=== PATIENT | male | born 1950 | race Caucasian/White ===

== ENCOUNTER 2019-06-13 16:46 | Inpatient (IN) | payer OTHER ==
--- NOTE | 2019-06-13 16:59 | PDOC ---
Rapid Medical Evaluation Time Seen by Provider: 06/13/19 16:54 Medical Evaluation: I have performed a brief in-person evaluation of this patient. The patient presents with a chief complaint of: hx of DM, ?cardiac problem, C/O lower abd pain and difficulty urinating x 6days; denies fever, vomiting, Pertinent physical exam findings: In NAD, abd nontender, ?distended (patient has large abdomen at baseline) I have ordered the following: Labs, urine The patient will proceed to the ED for further evaluation. 06/13/19 16:54
[2019-06-13 17:44] LABS: BASO % 0.7 % (0-2.0); EOS % 2.3 % (0-4.5); HEMATOCRIT 43.5 % (35.4-49); HEMOGLOBIN 14.5 GM/dL (11.7-16.9); LYMPH % 12.9 % (8-40); MCH 30.7 pg (25.7-33.7); MCHC 33.4 g/dl (32.0-35.9); MEAN PLT VOLUME 9.2 fl (7.5-11.1); MONO % 8.8 % (3.8-10.2); NEUT % 75.3 % (42.8-82.8); PLATELET COUNT 132 K/MM3 (134-434); RBC 4.73 M/mm3 (4.00-5.60); WHITE BLOOD COUNT 13.8 K/mm3 (4.0-10.0)
[2019-06-13 17:52] LABS: EPI CELLS 2.1 /HPF (0-5/HPF); HYALINE CASTS 3 /lpf (0-8); PH,URINE 5.5 (5.0-8.0); URINE APPEARANCE CLEAR; URINE BACTERIA 1.4 /hpf (NEGATIVE); URINE BILIRUBIN NEGATIVE (NEGATIVE); URINE COLOR YELLOW; URINE GLUCOSE (UA) NEGATIVE (NEGATIVE); URINE KETONE NEGATIVE (NEGATIVE); URINE LEUK ESTERASE 2+ (NEGATIVE); URINE NITRITE NEGATIVE (NEGATIVE); URINE PROTEIN NEGATIVE (NEGATIVE); URINE RBC 17 /hpf (0-4); URINE UROBILINOGEN 0.2 mg/dL (0.2-1.0); URINE WBC 18 /hpf (0-5)
[2019-06-13 18:19] LABS: BILIRUBIN,TOTAL 0.8 mg/dL (0.2-1); BLOOD UREA NITROGEN 30.7 mg/dL (7-18); CALCIUM 8.6 mg/dL (8.5-10.1); CREATININE 4.3 mg/dL (0.55-1.3); POTASSIUM 4.4 mmol/L (3.5-5.1); TOT PROT 7.2 g/dl (6.4-8.2)
[2019-06-13] MEDS ORDERED: SODIUM CHLORIDE 0.9% 500 ML INFUS.BAG IV ONE (18:49)
--- NOTE | 2019-06-13 19:04 | PDOC ---
History of Present Illness - General Chief Complaint: Urinary Problem Stated Complaint: LWR ABD PAIN Time Seen by Provider: 06/13/19 16:54 History Source: Patient, Family Exam Limitations: Language Barrier (Icelandic) - History of Present Illness Initial Comments: 06/13/19 18:59 Tj Todd is a 69M with PMH DM and CHF presenting with about one week of urinary retention. Patient reports having difficulty urinating for last 5 days, has had worsening abdominal pain and distension. Every time he tries to urinate very little is released, denies pain or blood with urine. Denies any prior episodes like this, prior renal disease, or prostate issues that he knows of. Denies fever/chills, N /V/C/D. Past History - Past Medical History Allergies/Adverse Reactions: Allergies Allergy/AdvReac Type Severity Reaction Status Date / Time No Known Allergies Allergy Verified 06/13/19 16:59 Cardiac Disorders: Yes COPD: No Diabetes: Yes Hypercholesterolemia: Yes - Surgical History Abdominal Surgery: Yes - Psycho Social/Smoking Cessation Hx Smoking History: Never smoked Review of Systems - Review of Systems Able to Perform ROS?: Yes Constitutional: No: Symptoms Reported HEENTM: No: Symptoms Reported Respiratory: No: Symptoms reported Cardiac (ROS): No: Symptoms Reported ABD/GI: Yes: Abdominal Distended. No: Symptoms Reported, Constipated, Diarrhea , Difficulty Swallowing, Nausea, Rectal Bleeding, Vomiting : Yes: Other (poor urinary output) Musculoskeletal: No: Back Pain Integumentary: No: Symptoms Reported Neurological: No: Symptoms reported Endocrine: No: Symptoms Reported Hematologic/Lymphatic: No: Symptoms Reported All Other Systems: Reviewed and Negative *Physical Exam - Vital Signs Last Vital Signs Temp Pulse Resp BP Pulse Ox 98.6 F 114 H 18 166/100 97 06/13/19 16:52 06/13/19 16:52 06/13/19 16:52 06/13/19 16:52 06/13/19 16:52 - Physical Exam General Appearance: Yes: Nourished, Appropriately Dressed, Other (Patient appears comfortable, in no acute distress, ambulating and speaking normally.). No: Apparent Distress HEENT: positive: EOMI, LEONA, Normal Voice, Symmetrical, Pharynx Normal, Hearing Grossly Normal. negative: Scleral Icterus (R), Scleral Icterus (L) Neck: positive: Supple. negative: Tender, Lymphadenopathy (R), Lymphadenopathy (L) Respiratory/Chest: positive: Lungs Clear, Normal Breath Sounds. negative: Chest Tender, Respiratory Distress, Accessory Muscle Use, Crackles, Rales, Rhonchi, Stridor, Wheezing Cardiovascular: positive: Regular Rhythm, Regular Rate, Murmur Gastrointestinal/Abdominal: positive: Normal Bowel Sounds, Tender (suprapubic), Protuberent, Distended Male Genitalia: positive: other (has Maya in place, >1500cc clear yellow urine with some pink flow) Musculoskeletal: positive: Normal Inspection. negative: CVA Tenderness Extremity: positive: Normal Capillary Refill, Normal Inspection, Normal Range of Motion Integumentary: positive: Normal Color, Dry, Warm Neurologic: positive: Fully Oriented, Alert, Normal Mood/Affect, Normal Response ED Treatment Course - LABORATORY CBC & Chemistry Diagram: 06/13/19 17:35 06/13/19 21:15 - ADDITIONAL ORDERS Additional order review: Laboratory Results 06/13/19 06/13/19 17:35 17:35 Sodium 142 Potassium 4.4 Chloride 108 H Carbon Dioxide 26 Anion Gap 8 BUN 30.7 H Creatinine 4.3 H Est GFR (CKD-EPI)AfAm 15.09 Est GFR (CKD-EPI)NonAf 13.02 Random Glucose 218 H Calcium 8.6 Total Bilirubin 0.8 AST 16 ALT 14 Alkaline Phosphatase 75 Total Protein 7.2 Albumin 4.0 Urine Color Yellow Urine Appearance Clear Urine pH 5.5 Ur Specific [place] 1.010 Urine Protein Negative Urine Glucose (UA) Negative Urine Ketones Negative Urine Blood 2+ H Urine Nitrite Negative Urine Bilirubin Negative Urine Urobilinogen 0.2 Ur Leukocyte Esterase 2+ H Urine WBC (Auto) 18 Urine RBC (Auto) 17 Urine Casts (Auto) 3 U Epithel Cells (Auto) 2.1 Urine Bacteria (Auto) 1.4 06/13/19 17:35 RBC 4.73 MCV 92.0 MCHC 33.4 RDW 14.0 MPV 9.2 Neutrophils % 75.3 Lymphocytes % 12.9 Monocytes % 8.8 Eosinophils % 2.3 Basophils % 0.7 Medical Decision Making - Medical Decision Making 06/13/19 18:59 Tj Todd is a 69M with PMH DM and CHF presenting with about one week of urinary retention. Patient presentation consistent with urinary retention of unspecified origin, most likely due to BPH or other obstructive etiology. Abdomen is distended and tender to palpation, likely making urine without issue, does not seem dehydrated. Triage labs notable for: Cr 4.3 WBC 13.8 UA 2+ blood, 2+ leuk esterase consistent with UTI Maya placed, >1100cc clear yellow urine release with decrease in abdominal swelling and pain from 8/10 to 5/10 Urine now pink-tinged Giving 1L NS for FINA Given Cr elevation and no priors, will re-evaluate in 2 hours with repeat BMP for evaluation of Cr and monitoring for improvement. 06/13/19 22:10 Repeat Cr 4.2, no meaningful improvement after 1L NS. Ca 7.9, will replete. Needs admission for FINA and further evaluation of renal status 2/2 obstructive disease, still outputting pink urine concerning for post-obstructive diuresis and needs electrolyte monitoring, high concern for worsening renal failure if discharged home without close follow-up. 06/13/19 23:[address] Neumann with the hospitalist team, good for tele admission under Dr. Nagel Discharge - Discharge Information Problems reviewed: Yes Clinical Impression/Diagnosis: FINA (acute kidney injury), Urinary obstruction Condition: Stable - Admission Yes - Follow up/Referral Referrals: Karthik Arteaga MD [Primary Care Provider] - - Patient Discharge Instructions - Post Discharge Activity
[2019-06-13 22:01] LABS: BLOOD UREA NITROGEN 33.1 mg/dL (7-18); CALCIUM 7.9 mg/dL (8.5-10.1); CREATININE 4.2 mg/dL (0.55-1.3); POTASSIUM 4.4 mmol/L (3.5-5.1)
[2019-06-13] MEDS ORDERED: CALCIUM GLUCONATE 10% - 1,000 MG/10 ML VIAL IVPB ONE (22:13)
[2019-06-13] MEDS ORDERED: CALCIUM CHLORIDE 1 GM/10 ML *DISP.SYRIN ONE (22:26)
[2019-06-13] MEDS ORDERED: CALCIUM GLUCONATE 10% - 1,000 MG/10 ML VIAL ONE (22:28)
--- NOTE | 2019-06-13 22:42 | PDOC ---
Documentation entered by Juan C Delong SCRIBE, acting as scribe for Cathryn Smith MD. Cathryn Smith MD: This documentation has been prepared by the Baljeet smith Daniel, SCRIBE, under my direction and personally reviewed by me in its entirety. I confirm that the documentation accurately reflects all work, treatment, procedures, and medical decision making performed by me. Attending Attestation - Resident Resident Name: Kunal Oneal - ED Attending Attestation I have performed the following: I have examined & evaluated the patient, The case was reviewed & discussed with the resident, I agree w/resident's findings & plan, Exceptions are as noted - HPI HPI: 06/13/19 19:28 69yoM micronesian speaking only, family translatng, present w/ u retention, no urination x 5 days, + b/l back pain x 4 days. never had this before. PMhx HTN/DM , no known kid dz. - Physicial Exam PE: 06/13/19 19:29 Vital Signs - 24 hr 06/13/19 16:52 Temperature 98.6 F Pulse Rate 114 H Respiratory 18 Rate Blood Pressure 166/100 O2 Sat by Pulse 97 Oximetry (%) NAD, well appearing no cvat soft ntnd, villagomez in place draining pinkish fluid, > 1500mL initial output. no edema A&O x 3 - Medical Decision Making 06/13/19 19:30 69yoM w/ urinary retention x 5d, high volume and flank pain in ED, concern for FINA and potential to develop post-obst diuresis. - labs - ivf - monitor I&O - rend BMP - dispo per results.
--- NOTE | 2019-06-13 23:46 | PN ---
Teaching Attending Note Name of Resident: Nancy Neumann ATTENDING PHYSICIAN STATEMENT I saw and evaluated the patient. I reviewed the resident's note and discussed the case with the resident. I agree with the resident's findings and plan as documented. SUBJECTIVE: 69-year-old man with diabetes, Atrial fibrillation, hypertension, first time in this hospital, complained of urinary retention for the last 5 days. He has back pain present for the last 4 days. Never had this occur before. Denied any fevers or chills. Maya Was placed In the ER and was draining pinkish fluid, > 1500mL initial output. Patient reported that he felt much relief after Maya was placed. Denied any history of issues. OBJECTIVE: Last Vital Signs Temp Pulse Resp BP Pulse Ox 98.6 F 114 H 18 166/100 97 06/13/19 16:52 06/13/19 16:52 06/13/19 16:52 06/13/19 16:52 06/13/19 16:52 GENERAL: Well developed, well nourished. Awake and alert. No acute distress. HEENT: Normocephalic, atraumatic. PERRLA, EOMI. No conjunctival pallor. Sclera are non- icteric. Moist mucous membranes. Oropharynx is clear. NECK: Supple. Full ROM. No JVD. Carotid pulses 2+ and symmetric, without bruits. No thyromegaly. No lymphadenopathy. CARDIOVASCULAR: Regular rate and rhythm. No murmurs, rubs, or gallops. Distal pulses are 2+ and symmetric. PULMONARY: No evidence of respiratory distress. Lungs clear to auscultation bilaterally. No wheezing, rales or rhonchi. ABDOMINAL: Soft. Obese, Non-tender. Non-distended. No rebound or guarding. No organomegaly. Normoactive bowel sounds. MUSCULOSKELETAL Normal range of motion at all joints. No bony deformities or tenderness. No CVA tenderness. EXTREMITIES: No cyanosis. No clubbing. No edema. No calf tenderness. SKIN: Warm and dry. Normal capillary refill. No rashes. No jaundice. PSYCHIATRIC: Cooperative. Good eye contact. Appropriate mood and affect. Maya catheter in place Abnormal Lab Results 06/13/19 06/13/19 06/13/19 17:35 17:35 17:35 WBC 13.8 H Plt Count 132 L Absolute Neuts (auto) 10.4 H Chloride 108 H BUN 30.7 H Creatinine 4.3 H Random Glucose 218 H Calcium Urine Blood 2+ H Ur Leukocyte Esterase 2+ H 06/13/19 21:15 WBC Plt Count Absolute Neuts (auto) Chloride 111 H BUN 33.1 H Creatinine 4.2 H Random Glucose 124 H Calcium 7.9 L Urine Blood Ur Leukocyte Esterase Imaging studies reviewed ASSESSMENT AND PLAN: #AKIlikely Postobstructive secondary from urinary tract outflow obstruction. No baseline renal function to compare to an unknown if patient had baseline CKD. Suspect possible underlying CKD as hyperglycemia is noted to be uncontrolled.Suspect possible BPH however should rule out other causes of obstruction such as masses strictures of urinary tract. Leukocytosis may be reactive however cannot rule out acute pyelonephritis in this case as there is bilateral back pain. Abdominal and prostate ultrasounds were ordered. UA was noted to have 2+ blood and 2+ leukocyte esterase. Obtain CT of abdomen and pelvis without contrast to evaluate for areas of obstruction Send urine lites calculate Fena Strict I's and O's IV fluid hydration Should repeat UA in light of 2+ blood found Trend renal markers Urine culture Ceftriaxone 1 g IV every 24 hours Avoid renal toxins Maintain Maya catheter for now evaluation Urine dynamic study #History of atrial fibrillation on Eliquis-Rate controlled Continue Eliquis echocardiogram #Diabetes mellitusUncontrolled hyperglycemia Send A1c NovoLog sliding scale Diabetic diet VIKTORIYA inhibitor #Hypertension Salt restriction DVT prophylaxisheparin subcu
--- NOTE | 2019-06-14 00:38 | HP ---
CHIEF COMPLAINT: Difficultly urinating PCP: Dr. Karthik Arteaga HISTORY OF PRESENT ILLNESS: 69 M with PMH of HTN, DM, and CHF who presents with 5 days of urinary retention. Patient last urinated as per normal on Sunday evening. Since then patient endorses having dysruia and decreased stream. Patient endorses flank pain that radiates down the abdomen to the groin bilaterally. Endorses distension of his belly and points to suprapubic pein but denies any pain in the other quadrants of the abdomen. Denies hematuria, denies any stones in the urine. Patient has not experienced any of these symptoms prior to this. No fever or chills, no nausea, vomiting, diarrhea. ER course was notable for: (1) Villagomez was placed, 1500 mL urine drained, then another 500 mL of urine drained but it was pink in color. (2) CBC showed WBC of 13.8, and CMP showed BUN/Cr of 30.7/4.3 (3) Received 1 L of NS Recent Travel: Traveled to the [place] for 3 weeks and returned last week PAST MEDICAL HISTORY: HTN, DM, CHF, Afib Family Medical History: Significant for diabetes and hypertension in family PAST SURGICAL HISTORY: Denies Social History: Smoking: Quit 35 years ago. Former 5 pack year smoker. Alcohol: Does not drink anymore. 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 Lives with daughter and family at her home. Allergies No Known Allergies Allergy (Verified 06/13/19 16:59) HOME MEDICATIONS: REVIEW OF SYSTEMS In Addition to above. CONSTITUTIONAL: Absent: fever, chills, diaphoresis, generalized weakness, malaise, loss of appetite, weight change CARDIOVASCULAR: Absent: chest pain, syncope, palpitations, irregular heart rate, lightheadedness , peripheral edema RESPIRATORY: Absent: cough, shortness of breath, dyspnea with exertion, orthopnea, wheezing, stridor, hemoptysis GASTROINTESTINAL:abdominal pain, abdominal distension, Absent: vomiting, diarrhea, constipation, melena, hematochezia GENITOURINARY: dysuria, Absent: frequency, urgency, hesitancy, hematuria, flank pain, genital pain MUSCULOSKELETAL: Absent: myalgia, arthralgia, joint swelling, back pain, neck pain ENDOCRINE: Absent: unexplained weight gain, unexplained weight loss, heat intolerance, cold intolerance NEUROLOGIC: Absent: headache, focal weakness or paresthesias, dizziness, unsteady gait, seizure, mental status changes, bladder or bowel incontinence PSYCHIATRIC: Absent: anxiety, depression, suicidal or homicidal ideation, hallucinations. PHYSICAL EXAMINATION Vital Signs - 24 hr 06/13/19 16:52 Temperature 98.6 F Pulse Rate 114 H Respiratory 18 Rate Blood Pressure 166/100 O2 Sat by Pulse 97 Oximetry (%) GENERAL: Awake, alert, and fully oriented, in no acute distress. Villagomez in place , 700 mL of pink urine in the bag. HEAD: Normal with no signs of trauma. EYES: Extraocular movements intact, sclera anicteric, conjunctiva clear. EARS, NOSE, THROAT: Ears normal, nares patent, oropharynx clear without exudates. Moist mucous membranes. LUNGS: Breath sounds equal, clear to auscultation bilaterally. No wheezes, and no crackles. HEART: Irregularly irregular. ABDOMEN: Distended abdomen. Suprapubic tenderness, no tenderness in other quadrants upon palpation. No hepatomegaly. MUSCULOSKELETAL: Normal range of motion at all joints. No bony deformities or tenderness. No CVA tenderness. UPPER EXTREMITIES: 2+ pulses, warm, well-perfused. No cyanosis. No clubbing. No peripheral edema. LOWER EXTREMITIES: 2+ pulses, warm, well-perfused. No calf tenderness. No peripheral edema. Laboratory Results - last 24 hr 06/13/19 06/13/19 06/13/19 17:35 17:35 17:35 WBC 13.8 H RBC 4.73 Hgb 14.5 Hct 43.5 MCV 92.0 MCH 30.7 MCHC 33.4 RDW 14.0 Plt Count 132 L MPV 9.2 Absolute Neuts (auto) 10.4 H Neutrophils % 75.3 Lymphocytes % 12.9 Monocytes % 8.8 Eosinophils % 2.3 Basophils % 0.7 Nucleated RBC % 0 Sodium 142 Potassium 4.4 Chloride 108 H Carbon Dioxide 26 Anion Gap 8 BUN 30.7 H Creatinine 4.3 H Est GFR (CKD-EPI)AfAm 15.09 Est GFR (CKD-EPI)NonAf 13.02 Random Glucose 218 H Calcium 8.6 Total Bilirubin 0.8 AST 16 ALT 14 Alkaline Phosphatase 75 Total Protein 7.2 Albumin 4.0 Urine Color Yellow Urine Appearance Clear Urine pH 5.5 Ur Specific [place] 1.010 Urine Protein Negative Urine Glucose (UA) Negative Urine Ketones Negative Urine Blood 2+ H Urine Nitrite Negative Urine Bilirubin Negative Urine Urobilinogen 0.2 Ur Leukocyte Esterase 2+ H Urine WBC (Auto) 18 Urine RBC (Auto) 17 Urine Casts (Auto) 3 U Epithel Cells (Auto) 2.1 Urine Bacteria (Auto) 1.4 06/13/19 21:15 WBC RBC Hgb Hct MCV MCH MCHC RDW Plt Count MPV Absolute Neuts (auto) Neutrophils % Lymphocytes % Monocytes % Eosinophils % Basophils % Nucleated RBC % Sodium 145 Potassium 4.4 Chloride 111 H Carbon Dioxide 26 Anion Gap 8 BUN 33.1 H Creatinine 4.2 H Est GFR (CKD-EPI)AfAm 15.52 Est GFR (CKD-EPI)NonAf 13.39 Random Glucose 124 H Calcium 7.9 L Total Bilirubin AST ALT Alkaline Phosphatase Total Protein Albumin Urine Color Urine Appearance Urine pH Ur Specific [place] Urine Protein Urine Glucose (UA) Urine Ketones Urine Blood Urine Nitrite Urine Bilirubin Urine Urobilinogen Ur Leukocyte Esterase Urine WBC (Auto) Urine RBC (Auto) Urine Casts (Auto) U Epithel Cells (Auto) Urine Bacteria (Auto) ASSESSMENT/PLAN: 69 M with PMH of HTN, DM, and CHF who presents with 5 days of urinary retention due to bladder obstruction. 1) Bladder Obstruction -2L of urine output after villagomez inserted. -Monitor I&O -Urology consulted, appreciate recs -F/u urine creatinine and urine sodium -F/U Renal U/S, Abd U/S, Bladder U/S, and Abd/Pelvis CT. -Monitor BMP regularly 2) Possible UTI -Ceftriaxone 1 gram daily IV 3) CHF -Echo -EKG -Continue Metoprolol 100 ml QDaily -Continue Entresto 24-26 BID -Continue Spironolactone 25 mg Qdaily 4)Afib -Continue Eliquis 2.5 mg PO BID 5)History of Diabetes -Sliding Scale Insulin -diabetic diet F: Gentle hydration as needed E: Monitor CMP N: Diabetic diet with sodium restriction DVT: Patient is already anticoagulated with Eliquis. Dispo: Admitted to telemetry. Visit type - Emergency Visit Emergency Visit: Yes ED Registration Date: 06/13/19 Care time: The patient presented to the Emergency Department on the above date and was hospitalized for further evaluation of their emergent condition. - New Patient This patient is new to me today: Yes Date on this admission: 06/13/19 - Critical Care Critical Care patient: No ATTENDING PHYSICIAN STATEMENT I saw and evaluated the patient. I reviewed the resident's note and discussed the case with the resident. I agree with the resident's findings and plan as documented. SUBJECTIVE: OBJECTIVE: ASSESSMENT AND PLAN:
[2019-06-14 02:08] VITALS: BMI 30.7
[2019-06-14 07:48] LABS: HEMATOCRIT 38.2 % (35.4-49); MCH 31.2 pg (25.7-33.7); MEAN CELL VOLUME 91.8 fl (80-96); MEAN PLT VOLUME 9.5 fl (7.5-11.1); PLATELET COUNT 118 K/MM3 (134-434); RBC 4.16 M/mm3 (4.00-5.60); RDW 14.4 % (11.9-15.9); WHITE BLOOD COUNT 9.5 K/mm3 (4.0-10.0)
[2019-06-14 07:53] LABS: ALBUMIN 3.2 g/dl (3.4-5.0); BILIRUBIN,TOTAL 0.7 mg/dL (0.2-1); BLOOD UREA NITROGEN 35.4 mg/dL (7-18); CALCIUM 8.2 mg/dL (8.5-10.1); CREATININE 4.2 mg/dL (0.55-1.3); POTASSIUM 4.4 mmol/L (3.5-5.1)
[2019-06-14] MEDS ORDERED: cefTRIAXone SODIUM 1 GM VIAL ONE (10:22)
[2019-06-14] MEDS ORDERED: DEXTROSE 5%-WATER - 50 ML IVPB ONE (10:22)
[2019-06-14] MEDS: SPIRONOLACTONE 25 MG TABLET (FP) PO SCH (10:44)
[2019-06-14] MEDS: APIXABAN 2.5 MG TABLET PO SCH ×2 (10:44→21:33)
[2019-06-14] MEDS: CEFTRIAXONE 1 GM in DEXTROSE 5%-WATER - 50 ML IVPB SCH (10:44)
[2019-06-14] MEDS ORDERED: PT OWN MED DRAWER 7, Y5N ONE ×2 (10:47→21:24)
[2019-06-14] MEDS: SACUBITRIL/VALSARTAN 24 MG-26 MG TABLET PO SCH ×2 (10:48→21:33)
--- NOTE | 2019-06-14 11:28 | EKG ---
Test Reason : Blood Pressure : / mmHG Vent. Rate : 096 BPM Atrial Rate : 141 BPM P-R Int : 000 ms QRS Dur : 092 ms QT Int : 356 ms P-R-T Axes : 000 -27 -03 degrees QTc Int : 449 ms ATRIAL FIBRILLATION ABNORMAL ECG NO PREVIOUS ECGS AVAILABLE Confirmed by ROSE VIERA MD ([id number]) on 06/14/2019 11:28:27 AM Referred By: Confirmed By:ROSE VIERA MD
--- NOTE | 2019-06-14 13:19 | PN ---
Physical Exam: SUBJECTIVE: Patient seen and examined. He feels much better since Maya was inserted. OBJECTIVE: Vital Signs Period Temp Pulse Resp BP Sys/Castro Pulse Ox Last 24 Hr 97.7 F-98.6 F 89-114 17-18 132-166/92-100 97-98 GENERAL: The patient is awake, alert, and fully oriented, in no acute distress. LUNGS: Breath sounds equal, clear to auscultation bilaterally, no wheezes, no crackles, no accessory muscle use. HEART: Irregularly irregular. ABDOMEN: Soft, nontender, nondistended, normoactive bowel sounds, no guarding, no rebound, no hepatosplenomegaly, no masses. EXTREMITIES: 2+ pulses, warm, well-perfused, no edema. Laboratory Results - last 24 hr 06/13/19 06/13/19 06/13/19 17:35 17:35 17:35 WBC 13.8 H RBC 4.73 Hgb 14.5 Hct 43.5 MCV 92.0 MCH 30.7 MCHC 33.4 RDW 14.0 Plt Count 132 L MPV 9.2 Absolute Neuts (auto) 10.4 H Neutrophils % 75.3 Lymphocytes % 12.9 Monocytes % 8.8 Eosinophils % 2.3 Basophils % 0.7 Nucleated RBC % 0 Sodium 142 Potassium 4.4 Chloride 108 H Carbon Dioxide 26 Anion Gap 8 BUN 30.7 H Creatinine 4.3 H Est GFR (CKD-EPI)AfAm 15.09 Est GFR (CKD-EPI)NonAf 13.02 POC Glucometer Random Glucose 218 H Calcium 8.6 Total Bilirubin 0.8 AST 16 ALT 14 Alkaline Phosphatase 75 Total Protein 7.2 Albumin 4.0 Urine Color Yellow Urine Appearance Clear Urine pH 5.5 Ur Specific [place] 1.010 Urine Protein Negative Urine Glucose (UA) Negative Urine Ketones Negative Urine Blood 2+ H Urine Nitrite Negative Urine Bilirubin Negative Urine Urobilinogen 0.2 Ur Leukocyte Esterase 2+ H Urine WBC (Auto) 18 Urine RBC (Auto) 17 Urine Casts (Auto) 3 U Epithel Cells (Auto) 2.1 Urine Bacteria (Auto) 1.4 06/13/19 06/14/19 06/14/19 21:15 05:52 06:00 WBC 9.5 RBC 4.16 Hgb 13.0 Hct 38.2 MCV 91.8 MCH 31.2 MCHC 34.0 RDW 14.4 Plt Count 118 L MPV 9.5 Absolute Neuts (auto) Neutrophils % Lymphocytes % Monocytes % Eosinophils % Basophils % Nucleated RBC % Sodium 145 Potassium 4.4 Chloride 111 H Carbon Dioxide 26 Anion Gap 8 BUN 33.1 H Creatinine 4.2 H Est GFR (CKD-EPI)AfAm 15.52 Est GFR (CKD-EPI)NonAf 13.39 POC Glucometer 125 Random Glucose 124 H Calcium 7.9 L Total Bilirubin AST ALT Alkaline Phosphatase Total Protein Albumin Urine Color Urine Appearance Urine pH Ur Specific [place] Urine Protein Urine Glucose (UA) Urine Ketones Urine Blood Urine Nitrite Urine Bilirubin Urine Urobilinogen Ur Leukocyte Esterase Urine WBC (Auto) Urine RBC (Auto) Urine Casts (Auto) U Epithel Cells (Auto) Urine Bacteria (Auto) 06/14/19 06:00 WBC RBC Hgb Hct MCV MCH MCHC RDW Plt Count MPV Absolute Neuts (auto) Neutrophils % Lymphocytes % Monocytes % Eosinophils % Basophils % Nucleated RBC % Sodium 143 Potassium 4.4 Chloride 111 H Carbon Dioxide 27 Anion Gap 5 L BUN 35.4 H Creatinine 4.2 H Est GFR (CKD-EPI)AfAm 15.52 Est GFR (CKD-EPI)NonAf 13.39 POC Glucometer Random Glucose 120 H Calcium 8.2 L Total Bilirubin 0.7 AST 13 L ALT 11 L Alkaline Phosphatase 60 Total Protein 6.0 L Albumin 3.2 L Urine Color Urine Appearance Urine pH Ur Specific [place] Urine Protein Urine Glucose (UA) Urine Ketones Urine Blood Urine Nitrite Urine Bilirubin Urine Urobilinogen Ur Leukocyte Esterase Urine WBC (Auto) Urine RBC (Auto) Urine Casts (Auto) U Epithel Cells (Auto) Urine Bacteria (Auto) Active Medications Generic Name Dose Route Start Last Admin Trade Name Freq PRN Reason Stop Dose Admin Apixaban 2.5 mg 06/14/19 10:00 06/14/19 10:44 Eliquis - PO 2.5 mg BID HAMZAH Administration Atorvastatin Calcium 20 mg 06/14/19 22:00 Lipitor - PO HS HAMZAH Ceftriaxone Sodium 1 gm/ 50 mls @ 100 mls/hr 06/14/19 10:00 06/14/19 10:44 Dextrose IVPB 100 mls/hr DAILY HAMZAH Administration Protocol Metoprolol Succinate 100 mg 06/14/19 10:00 06/14/19 10:44 Toprol Xl - PO 100 mg DAILY HAMZAH Administration Sacubitril/Valsartan 1 tab 06/14/19 10:00 06/14/19 10:48 Entresto 24 Mg-26 Mg Tablet PO 1 tab BID HAMZAH Administration Spironolactone 25 mg 06/14/19 10:00 06/14/19 10:44 Aldactone - PO 25 mg DAILY HAMZAH Administration ASSESSMENT/PLAN: This is a 69 year old man with a history of HTN, hyperlipidemia, atrial fib, CHF , type 2 DM who presents with 5 days of urinary retention due to bladder obstruction. 1. Acute kidney injury secondary to obstructive uropathy from bladder outlet obstruction - Maya inserted and 2L urine drained - Maintain Maya catheter - Continue IV fluid - Continue ceftriaxone for possible UTI - urine culture not sent - US shows mild fatty infiltration of liver, right renal cyst, Maya in empty urinary bladder 2. Probable CKD - Baseline creatinine unknown - Patient at home was taking Entresto dosed for his current renal function - Continue with cautious hydration and monitor BUN, creatinine 3. Probable chronic systolic heart failure - Stable - Continue Entresto, Aldactone, Toprol XL - Echocardiogram 4. Atrial fibrillation, permanent - Rate controlled - Continue Toprol XL, Eliquis 5. HTN - Continue Toprol XL, valsartan, Aldactone 6. Hyperlipidemia - Continue Lipitor 7. Type 2 diabetes mellitus - Metformin held secondary to FINA - Continue Novolog sliding scale 8. Thrombocytopenia - Monitor platelets Visit type - Emergency Visit Emergency Visit: Yes ED Registration Date: 06/13/19 Care time: The patient presented to the Emergency Department on the above date and was hospitalized for further evaluation of their emergent condition. - New Patient This patient is new to me today: Yes Date on this admission: 06/14/19 - Critical Care Critical Care patient: No - Discharge Referral Referred to [facility] No
[2019-06-14] MEDS ORDERED: SODIUM CHLORIDE 0.45% 1,000 ML IV SCH (14:15)
[2019-06-14] MEDS: INSULIN SLIDING SCALE (NOVOLOG) 1 VIAL SQ SCH ×2 (16:26→21:33)
[2019-06-14] MEDS: ATORVASTATIN CA 20 MG TABLET (FP) PO SCH (21:33)
[2019-06-15 06:55] LABS: HEMATOCRIT 39.4 % (35.4-49); HEMOGLOBIN 13.3 GM/dL (11.7-16.9); MCH 30.9 pg (25.7-33.7); MCHC 33.8 g/dl (32.0-35.9); MEAN CELL VOLUME 91.3 fl (80-96); MEAN PLT VOLUME 9.4 fl (7.5-11.1); PLATELET COUNT 124 K/MM3 (134-434); RBC 4.32 M/mm3 (4.00-5.60); RDW 14.1 % (11.9-15.9); WHITE BLOOD COUNT 9.6 K/mm3 (4.0-10.0)
[2019-06-15] MEDS: INSULIN SLIDING SCALE (NOVOLOG) 1 VIAL SQ SCH ×4 (07:03→21:33)
[2019-06-15 07:28] LABS: CALCIUM 8.5 mg/dL (8.5-10.1); CREATININE 4.9 mg/dL (0.55-1.3); POTASSIUM 4.8 mmol/L (3.5-5.1)
[2019-06-15] MEDS ORDERED: cefTRIAXone SODIUM 1 GM VIAL ONE (09:58)
[2019-06-15] MEDS ORDERED: DEXTROSE 5%-WATER - 50 ML IVPB ONE (09:59)
[2019-06-15] MEDS: APIXABAN 2.5 MG TABLET PO SCH ×2 (10:10→21:32)
[2019-06-15] MEDS: SPIRONOLACTONE 25 MG TABLET (FP) PO SCH (10:11)
[2019-06-15] MEDS: CEFTRIAXONE 1 GM in DEXTROSE 5%-WATER - 50 ML IVPB SCH (10:11)
[2019-06-15] MEDS ORDERED: PT OWN MED DRAWER 7, Y5N ONE (10:17)
[2019-06-15] MEDS: SACUBITRIL/VALSARTAN 24 MG-26 MG TABLET PO SCH (10:20)
--- NOTE | 2019-06-15 10:52 | EKG ---
Test Reason : Blood Pressure : / mmHG Vent. Rate : 088 BPM Atrial Rate : 100 BPM P-R Int : 000 ms QRS Dur : 090 ms QT Int : 374 ms P-R-T Axes : 000 000 006 degrees QTc Int : 452 ms POOR DATA QUALITY, INTERPRETATION MAY BE ADVERSELY AFFECTED ATRIAL FIBRILLATION POSSIBLE INFERIOR INFARCT , AGE UNDETERMINED ABNORMAL ECG WHEN COMPARED WITH ECG OF 14-JUN-2019 00:28, NO SIGNIFICANT CHANGE WAS FOUND Confirmed by MAXIMILIANO LICEA, ROSE ([id number]) on 06/15/2019 10:51:51 AM Referred By: Confirmed By:ROSE VIERA MD
--- NOTE | 2019-06-15 11:17 | PN ---
Teaching Attending Note Name of Resident: Jonnathan Morales ATTENDING PHYSICIAN STATEMENT I saw and evaluated the patient. I reviewed the resident's note and discussed the case with the resident. I agree with the resident's findings and plan as documented. SUBJECTIVE: Patient has no complaints. OBJECTIVE: Vital Signs Period Temp Pulse Resp BP Sys/Castro Pulse Ox Last 24 Hr 97.5 F-98.6 F 82-94 18-18 120-148/87-99 96-96 HEART: Irregular LUNGS: Clear ABDOMEN: Soft, non-tender, non-distended, normal BS EXTREMITIES: No edema Laboratory Results - last 24 hr 06/14/19 06/14/19 06/15/19 16:19 21:31 05:45 WBC 9.6 RBC 4.32 Hgb 13.3 Hct 39.4 MCV 91.3 MCH 30.9 MCHC 33.8 RDW 14.1 Plt Count 124 L MPV 9.4 Sodium Potassium Chloride Carbon Dioxide Anion Gap BUN Creatinine Est GFR (CKD-EPI)AfAm Est GFR (CKD-EPI)NonAf POC Glucometer 173 190 Random Glucose Calcium 06/15/19 06/15/19 05:53 06:00 WBC RBC Hgb Hct MCV MCH MCHC RDW Plt Count MPV Sodium 143 Potassium 4.8 Chloride 109 H Carbon Dioxide 27 Anion Gap 8 BUN 47.0 H Creatinine 4.9 H Est GFR (CKD-EPI)AfAm 12.88 Est GFR (CKD-EPI)NonAf 11.11 POC Glucometer 173 Random Glucose 155 H Calcium 8.5 Current Medications Generic Name Dose Route Start Last Admin Trade Name Freq PRN Reason Stop Dose Admin Apixaban 2.5 mg 06/14/19 10:00 06/15/19 10:10 Eliquis - PO 2.5 mg BID HAMZAH Administration Atorvastatin Calcium 20 mg 06/14/19 22:00 06/14/19 21:33 Lipitor - PO 20 mg HS HAMZAH Administration Ceftriaxone Sodium 1 gm/ 50 mls @ 100 mls/hr 06/14/19 10:00 06/15/19 10:11 Dextrose IVPB 100 mls/hr DAILY HAMZAH Administration Protocol Sodium Chloride 1,000 mls @ 42 mls/hr 06/14/19 14:15 06/14/19 15:45 1/2 Normal Saline IV 42 mls/hr ASDIR HAMZAH Administration Insulin Aspart 1 vial 06/14/19 16:30 06/15/19 07:03 Novolog Vial Sliding Scale - SQ Not Given ACHS [facility] Protocol Metoprolol Succinate 100 mg 06/14/19 10:00 06/15/19 10:08 Toprol Xl - PO 100 mg DAILY [facility] Administration ASSESSMENT AND PLAN: This is a 69 year old man with a history of HTN, hyperlipidemia, atrial fib, CHF , type 2 DM who presents with 5 days of urinary retention due to bladder obstruction. 1. Possible acute kidney injury secondary to obstructive uropathy from bladder outlet obstruction - Maya inserted and 2L urine drained - Urine is pink - No improvement in renal function - Nephrology input appreciated - Maintain Maya catheter - Continue IV fluid - Hold Entresto, Aldactone - Continue ceftriaxone for possible UTI - urine culture not sent - US shows mild fatty infiltration of liver, right renal cyst, Maya in empty urinary bladder 2. Probable CKD - Baseline creatinine unknown - Patient at home was taking Entresto dosed for his current renal function 3. Probable chronic systolic heart failure - Stable - Entresto, Aldactone held secondary to possible FINA - Echocardiogram ordered 4. Atrial fibrillation, permanent - Rate controlled - Continue Toprol XL, Eliquis 5. HTN - Continue Toprol XL - Entresto, Aldactone held secondary to possible FINA 6. Hyperlipidemia - Continue Lipitor 7. Type 2 diabetes mellitus - Metformin held secondary to FINA - Continue Novolog sliding scale 8. Thrombocytopenia - Improving - Continue to monitor platelets
--- NOTE | 2019-06-15 11:23 | CONSULT ---
Consult - text type - Consultation Consultation Note: Renal consult for FINA This is a 69 year old gentleman with history of CHF/cardiomyopathy, DM type 2 who presented from home with urinary retention and FINA with Cr of 4.9. Pt reports he was having a hard time voiding for 5 days. In ED villagomez inserted and 1.5L of urine produced. Pt denies any NSAID use and no recent contrast exposure. Denies any flank pain, chills, fever. Was on ARB and aldactone at home. He has a villagomez in place and is making urine. Denies any history of CKD or kidney stones. PMhx: as above Allergies: NKDA Family hx: NC Social Hx: no T/A/D ROS: as per HPI, all other pertinent ros negative Home Medications Medication Instructions Recorded Apixaban [Eliquis] 5 mg PO BID 06/14/19 Atorvastatin Ca [Lipitor] 20 mg PO HS 06/14/19 Metformin HCl [Glucophage] 1,000 mg PO BID 06/14/19 Metoprolol Succinate [Toprol Xl] 100 mg PO DAILY 06/14/19 Sacubitril/Valsartan [Entresto 24 1 tab PO BID 06/14/19 mg-26 mg Tablet] Spironolactone 25 mg PO DAILY 06/14/19 Vital Signs Temperature 97.5 F L 06/15/19 10:00 Pulse Rate 91 H 06/15/19 10:00 Respiratory Rate 18 06/15/19 10:00 Blood Pressure 141/97 06/15/19 10:00 O2 Sat by Pulse Oximetry (%) 96 06/15/19 08:47 Intake & Output 06/12/19 06/13/19 06/14/19 06/15/19 23:59 23:59 23:59 23:59 Intake Total 568 372 Output Total 1500 2900 1700 Balance -1500 -6782 -1328 Weight 95.254 kg 99.79 kg NAD awake and alert neck supple RRR CTA soft NT/ND no bladder distension villagomez in place no focal neurologic deficits CBC, BMP 06/15/19 05:45 06/15/19 06:00 Current Medications Apixaban (Eliquis -) 2.5 mg PO BID [facility] Last Admin: 06/15/19 10:10 Dose: 2.5 mg Atorvastatin Calcium (Lipitor -) 20 mg PO HS [facility] Last Admin: 06/14/19 21:33 Dose: 20 mg Ceftriaxone Sodium 1 gm/ (Dextrose) 50 mls @ 100 mls/hr IVPB DAILY [facility]; Protocol Last Admin: 06/15/19 10:11 Dose: 100 mls/hr Sodium Chloride (1/2 Normal Saline) 1,000 mls @ 42 mls/hr IV ASDIR [facility] Last Admin: 06/14/19 15:45 Dose: 42 mls/hr Insulin Aspart (Novolog Vial Sliding Scale -) 1 vial SQ ACHS [facility]; Protocol Last Admin: 06/15/19 07:03 Dose: Not Given Metoprolol Succinate (Toprol Xl -) 100 mg PO DAILY [facility] Last Admin: 06/15/19 10:08 Dose: 100 mg 69 year old gentleman with history of CHF/cardiomyopathy, DM type 2 who presented from home with urinary retention and FINA with Cr of 4.9. 1. Acute kidney injury secondary to urinary retention vs ATN vs. AIN 2. Urinary retention/BPH 3. Pylonephritis 4. Hx of CHF/Cardiomyopathy 5. 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 Thank you Haider Rose DO
[2019-06-15] MEDS ORDERED: SODIUM CHLORIDE 1,000 ML IV SCH (11:30)
--- NOTE | 2019-06-15 11:58 | PN ---
Physical Exam: SUBJECTIVE: Patient seen and examined 69 y/o M, pmh of HTN, T2DM, hyperlipidemia, atrial fib and CHF, presented with urinary retention of 5 day duration associated with flank and groin pain is admitted for urinary retention 2/2 to obstruction. OBJECTIVE: Last Vital Signs Temp Pulse Resp BP Pulse Ox 97.5 F L 91 H 18 141/97 96 06/15/19 10:00 06/15/19 10:00 06/15/19 10:00 06/15/19 10:00 06/15/19 08:47 GENERAL: The patient is awake, alert, and fully oriented, in no acute distress. EYES: PERRL, extraocular movements intact, ENT: oropharynx clear without exudates, moist mucous membranes. NECK: full range of motion, supple. LUNGS: clear to auscultation bilaterally, no wheezes, no crackles HEART: Regular rate and rhythm, S1, S2 without murmur, rub or gallop. ABDOMEN: Soft, nontender, nondistended, normoactive bowel sounds, no guarding EXTREMITIES: 2+ pulses, warm, SKIN: Warm, dry Laboratory Results - last 24 hr CBC,CMP WBC 9.6 K/mm3 (4.0-10.0) 06/15/19 05:45 RBC 4.32 M/mm3 (4.00-5.60) 06/15/19 05:45 Hgb 13.3 GM/dL (11.7-16.9) 06/15/19 05:45 Hct 39.4 % (35.4-49) 06/15/19 05:45 MCV 91.3 fl (80-96) 06/15/19 05:45 MCH 30.9 pg (25.7-33.7) 06/15/19 05:45 MCHC 33.8 g/dl (32.0-35.9) 06/15/19 05:45 RDW 14.1 % (11.9-15.9) 06/15/19 05:45 Plt Count 124 K/MM3 (134-434) L 06/15/19 05:45 MPV 9.4 fl (7.5-11.1) 06/15/19 05:45 Absolute Neuts (auto) 10.4 K/mm3 (1.5-8.0) H 06/13/19 17:35 Neutrophils % 75.3 % (42.8-82.8) 06/13/19 17:35 Lymphocytes % 12.9 % (8-40) 06/13/19 17:35 Monocytes % 8.8 % (3.8-10.2) 06/13/19 17:35 Eosinophils % 2.3 % (0-4.5) 06/13/19 17:35 Basophils % 0.7 % (0-2.0) 06/13/19 17:35 Nucleated RBC % 0 % (0-0) 06/13/19 17:35 Sodium 143 mmol/L (136-145) 06/15/19 06:00 Potassium 4.8 mmol/L (3.5-5.1) 06/15/19 06:00 Chloride 109 mmol/L (98-107) H 06/15/19 06:00 Carbon Dioxide 27 mmol/L (21-32) 06/15/19 06:00 Anion Gap 8 MMOL/L (8-16) 06/15/19 06:00 BUN 47.0 mg/dL (7-18) H 06/15/19 06:00 Creatinine 4.9 mg/dL (0.55-1.3) H 06/15/19 06:00 Est GFR (CKD-EPI)AfAm 12.88 06/15/19 06:00 Est GFR (CKD-EPI)NonAf 11.11 06/15/19 06:00 POC Glucometer 173 UNITS (80-120) 06/15/19 05:53 Random Glucose 155 mg/dL (74-106) H 06/15/19 06:00 Calcium 8.5 mg/dL (8.5-10.1) 06/15/19 06:00 Total Bilirubin 0.7 mg/dL (0.2-1) 06/14/19 06:00 AST 13 U/L (15-37) L 06/14/19 06:00 ALT 11 U/L (13-61) L 06/14/19 06:00 Alkaline Phosphatase 60 U/L (45-117) 06/14/19 06:00 Total Protein 6.0 g/dl (6.4-8.2) L 06/14/19 06:00 Albumin 3.2 g/dl (3.4-5.0) L 06/14/19 06:00 Active Medications Current Medications Apixaban (Eliquis -) 2.5 mg PO BID [facility] Last Admin: 06/15/19 10:10 Dose: 2.5 mg Atorvastatin Calcium (Lipitor -) 20 mg PO HS [facility] Last Admin: 06/14/19 21:33 Dose: 20 mg Ceftriaxone Sodium 1 gm/ (Dextrose) 50 mls @ 100 mls/hr IVPB DAILY [facility]; Protocol Last Admin: 06/15/19 10:11 Dose: 100 mls/hr Sodium Chloride (Normal Saline -) 1,000 mls @ 83 mls/hr IV ASDIR [facility] Stop: 06/15/19 23:29 Last Admin: 06/15/19 11:29 Dose: 83 mls/hr Insulin Aspart (Novolog Vial Sliding Scale -) 1 vial SQ ACHS [facility]; Protocol Last Admin: 06/15/19 07:03 Dose: Not Given Metoprolol Succinate (Toprol Xl -) 100 mg PO DAILY [facility] Last Admin: 06/15/19 10:08 Dose: 100 mg Home Medications Medication Instructions Recorded Apixaban [Eliquis] 5 mg PO BID 06/14/19 Atorvastatin Ca [Lipitor] 20 mg PO HS 06/14/19 Metformin HCl [Glucophage] 1,000 mg PO BID 06/14/19 Metoprolol Succinate [Toprol Xl] 100 mg PO DAILY 06/14/19 Sacubitril/Valsartan [Entresto 24 1 tab PO BID 06/14/19 mg-26 mg Tablet] Spironolactone 25 mg PO DAILY 06/14/19 ASSESSMENT/PLAN: 69 y/o M, pmh of HTN, T2DM, hyperlipidemia, atrial fib and CHF, presented with urinary retention of 5 day duration associated with flank and groin pain is admitted for urinary retention 2/2 to obstruction. #FINA 2/2 to obstructive uropathy Maya placed- small amounts of blood tinged urine output cont IVF con ceftriaxone- empiric abx US shows mild fatty infiltration of liver, right renal cyst, Maya in empty urinary bladder Urology consulted #CKD Cre today 4.9- increased from yesterday cont cautious hydration monitor Renal fxn Urine studies ordered- FeNa, FeUrea- f/u As per Nephro- Hold Entresto and Aldactone for give renal impairment -IVF to NS at 84cc per hour x 12 hours and then hold fluids given hx of cardiomyopathy -dose all meds for CrCl < 10 -no emergent indication for FISH TRAPPER at this time. #Chronic systolic heart failure: Pt stable hold entresto and aldactone Echo- f/u #Afib: con eliquis, toprol #HTN: Continue Toprol XL, valsartan, Aldactone #T2DM Metformin held secondary to FINA Cont Novolog sliding scale Dispo: f/u on Urology, monitor urine output and Renal fxn Visit type - Emergency Visit Emergency Visit: Yes ED Registration Date: 06/13/19 Care time: The patient presented to the Emergency Department on the above date and was hospitalized for further evaluation of their emergent condition. - New Patient This patient is new to me today: Yes Date on this admission: 06/15/19 - Critical Care Critical Care patient: No - Discharge Referral Referred to [facility] Med P.C.: No ATTENDING PHYSICIAN STATEMENT I saw and evaluated the patient. I reviewed the resident's note and discussed the case with the resident. I agree with the resident's findings and plan as documented. SUBJECTIVE: OBJECTIVE: ASSESSMENT AND PLAN:
[2019-06-15 13:02] LABS: EPI CELLS 2.2 /HPF (0-5/HPF); HYALINE CASTS 6 /lpf (0-8); URINE APPEARANCE CLEAR; URINE BACTERIA 3.4 /hpf (NEGATIVE); URINE BILIRUBIN NEGATIVE (NEGATIVE); URINE COLOR YELLOW; URINE GLUCOSE (UA) NEGATIVE (NEGATIVE); URINE KETONE NEGATIVE (NEGATIVE); URINE LEUK ESTERASE 2+ (NEGATIVE); URINE NITRITE NEGATIVE (NEGATIVE); URINE PROTEIN 1+ (NEGATIVE); URINE RBC 434 /hpf (0-4); URINE UROBILINOGEN 0.2 mg/dL (0.2-1.0); URINE WBC 10 /hpf (0-5)
--- NOTE | 2019-06-15 15:50 | CONS ---
DATE OF CONSULTATION: 06/15/2019 REASON FOR CONSULTATION: Acute urinary retention. The patient is a 69-year-old diabetic with CHF, who presented to the emergency room noting that he had abdominal pain and had not voided for approximately 5 days. Catheter was inserted in the ER and 1500 mL was immediately drained, and 500 mL was drained over the ensuing half hour. Patient states that he did not have voiding difficulty in the past and had never seen a urologist. Generally, he would awaken once or twice a night to void. CAT scan and ultrasound have been performed, did not reveal any evidence of hydronephrosis, some atrophy was noted consistent with chronic renal disease, likely related to the patient's having multiple medical problems. Prostate is approximately 45 to 50 g on x-ray. 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 This latter diagnosis based on the fact that the patient had about 2 L of urine in his bladder, an amount he would not have been able to hold if he had a normal-functioning bladder. At the present time, I think the best we could hope for is to make sure we get him out of bed, started on tamsulosin, and I would wait 72 hours, following which the catheter can be removed and he can be given a trial of voiding. I am not confident that he will void, and certainly do not expect him to void normally, but hopefully he will empty his bladder sufficiently as to not require a catheter. He then could be monitored for an increase in postvoid residual, if necessary. At the present time, with the patient on Eliquis, and this being only the first episode of retention, and he is denying prior difficulty, I have not scheduled him for any intervention. In the event that he does have a problem when we remove the Maya and it needs to be reinserted, we can discuss and should discuss at that time how to proceed, including cystoscopy and possible TUR. MD MIKAELA BERRY/[id number]
[2019-06-15] MEDS: ATORVASTATIN CA 20 MG TABLET (FP) PO SCH (21:32)
[2019-06-16] MEDS: INSULIN SLIDING SCALE (NOVOLOG) 1 VIAL SQ SCH ×4 (06:13→21:46)
[2019-06-16 06:43] LABS: BASO % 0.5 % (0-2.0); HEMATOCRIT 38.9 % (35.4-49); HEMOGLOBIN 13.1 GM/dL (11.7-16.9); LYMPH % 23.2 % (8-40); MCH 30.8 pg (25.7-33.7); MCHC 33.8 g/dl (32.0-35.9); MEAN CELL VOLUME 91.3 fl (80-96); MEAN PLT VOLUME 9.3 fl (7.5-11.1); MONO % 10.5 % (3.8-10.2); NEUT % 57.8 % (42.8-82.8); PLATELET COUNT 131 K/MM3 (134-434); RBC 4.26 M/mm3 (4.00-5.60); RDW 14.1 % (11.9-15.9); WHITE BLOOD COUNT 7.7 K/mm3 (4.0-10.0)
[2019-06-16 07:22] LABS: ALBUMIN 3.2 g/dl (3.4-5.0); BILIRUBIN,TOTAL 0.6 mg/dL (0.2-1); BLOOD UREA NITROGEN 53.9 mg/dL (7-18); CALCIUM 8.6 mg/dL (8.5-10.1); CREATININE 4.5 mg/dL (0.55-1.3); POTASSIUM 4.5 mmol/L (3.5-5.1); TOT PROT 6.2 g/dl (6.4-8.2)
[2019-06-16] MEDS ORDERED: PT OWN MED DRAWER 7, Y5N ONE (09:11)
[2019-06-16] MEDS ORDERED: cefTRIAXone SODIUM 1 GM VIAL ONE (09:12)
[2019-06-16] MEDS ORDERED: DEXTROSE 5%-WATER - 50 ML IVPB ONE (09:12)
[2019-06-16] MEDS: APIXABAN 2.5 MG TABLET PO SCH ×2 (09:20→21:45)
[2019-06-16] MEDS: CEFTRIAXONE 1 GM in DEXTROSE 5%-WATER - 50 ML IVPB SCH (09:20)
[2019-06-16] MEDS: TAMSULOSIN HCL 0.4 MG CAP PO SCH (09:20)
--- NOTE | 2019-06-16 09:27 | PN ---
Teaching Attending Note Name of Resident: Jonnathan Morales ATTENDING PHYSICIAN STATEMENT I saw and evaluated the patient. I reviewed the resident's note and discussed the case with the resident. I agree with the resident's findings and plan as documented. SUBJECTIVE: Patient has no new complains. OBJECTIVE: Vital Signs Temperature 97.5 F L 06/16/19 05:46 Pulse Rate 88 06/16/19 05:46 Respiratory Rate 20 06/16/19 05:46 Blood Pressure 142/100 06/16/19 05:46 O2 Sat by Pulse Oximetry (%) 94 L 06/15/19 20:38 GENERAL: The patient is awake, alert, and fully oriented, in no acute distress. HEAD: Normal with no signs of trauma. EYES: PERRL, extraocular movements intact, sclera anicteric, conjunctiva clear. ENT: Ears normal, oropharynx clear without exudates, moist mucous membranes. NECK: Trachea midline, full range of motion, supple. LUNGS: Breath sounds equal, clear to auscultation bilaterally, no wheezes, no crackles, no accessory muscle use. HEART: irregularly-irregular rate controlled, S1, S2 positive, no rub or gallop. ABDOMEN: Soft, Nt,ND, normoactive bowel sounds, no guarding, no rebound, no hepatosplenomegaly, no masses. EXTREMITIES: 2+ pulses, warm, well-perfused, no edema. NEUROLOGICAL: Cranial nerves II through XII grossly intact. Normal speech, gait not observed. PSYCH: Normal mood, normal affect. SKIN: Warm, dry, normal turgor, no rashes or lesions noted CBCD WBC 7.7 K/mm3 (4.0-10.0) 06/16/19 06:00 RBC 4.26 M/mm3 (4.00-5.60) 06/16/19 06:00 Hgb 13.1 GM/dL (11.7-16.9) 06/16/19 06:00 Hct 38.9 % (35.4-49) 06/16/19 06:00 MCV 91.3 fl (80-96) 06/16/19 06:00 MCHC 33.8 g/dl (32.0-35.9) 06/16/19 06:00 RDW 14.1 % (11.9-15.9) 06/16/19 06:00 Plt Count 131 K/MM3 (134-434) L 06/16/19 06:00 MPV 9.3 fl (7.5-11.1) 06/16/19 06:00 CMP Sodium 141 mmol/L (136-145) 06/16/19 06:00 Potassium 4.5 mmol/L (3.5-5.1) 06/16/19 06:00 Chloride 108 mmol/L (98-107) H 06/16/19 06:00 Carbon Dioxide 25 mmol/L (21-32) 06/16/19 06:00 Anion Gap 8 MMOL/L (8-16) 06/16/19 06:00 BUN 53.9 mg/dL (7-18) H 06/16/19 06:00 Creatinine 4.5 mg/dL (0.55-1.3) H 06/16/19 06:00 Random Glucose 148 mg/dL (74-106) H 06/16/19 06:00 Calcium 8.6 mg/dL (8.5-10.1) 06/16/19 06:00 Total Bilirubin 0.6 mg/dL (0.2-1) 06/16/19 06:00 AST 11 U/L (15-37) L 06/16/19 06:00 ALT 10 U/L (13-61) L 06/16/19 06:00 Alkaline Phosphatase 57 U/L (45-117) 06/16/19 06:00 Total Protein 6.2 g/dl (6.4-8.2) L 06/16/19 06:00 Albumin 3.2 g/dl (3.4-5.0) L 06/16/19 06:00 Current Medications Generic Name Dose Route Start Last Admin Trade Name Freq PRN Reason Stop Dose Admin Apixaban 2.5 mg 06/14/19 10:00 06/15/19 21:32 Eliquis - PO 2.5 mg BID HAMZAH Administration Atorvastatin Calcium 20 mg 06/14/19 22:00 06/15/19 21:32 Lipitor - PO 20 mg HS HAMZAH Administration Ceftriaxone Sodium 1 gm/ 50 mls @ 100 mls/hr 06/14/19 10:00 06/15/19 10:11 Dextrose IVPB 100 mls/hr DAILY HAMZAH Administration Protocol Insulin Aspart 1 vial 06/14/19 16:30 06/16/19 06:13 Novolog Vial Sliding Scale - SQ Not Given ACHS [facility] Protocol Metoprolol Succinate 100 mg 06/14/19 10:00 06/15/19 10:08 Toprol Xl - PO 100 mg DAILY [facility] Administration Tamsulosin HCl 0.4 mg 06/16/19 08:30 Flomax - PO DAILY@0830 [facility] Home Medications Medication Instructions Recorded Apixaban [Eliquis] 5 mg PO BID 06/14/19 Atorvastatin Ca [Lipitor] 20 mg PO HS 06/14/19 Metformin HCl [Glucophage] 1,000 mg PO BID 06/14/19 Metoprolol Succinate [Toprol Xl] 100 mg PO DAILY 06/14/19 Sacubitril/Valsartan [Entresto 24 1 tab PO BID 06/14/19 mg-26 mg Tablet] Spironolactone 25 mg PO DAILY 06/14/19 Microbiology 06/15/19 12:30 Urine - Urine Villagomez Urine Culture - Final NO GROWTH OBTAINED US shows mild fatty infiltration of liver, right renal cyst, Villagomez in empty urinary bladder ASSESSMENT AND PLAN: This is a 69 year old man with a Pmhx of HTN, hyperlipidemia, atrial fib, CHF, T2DM who presents with 5 days of urinary retention due to bladder obstruction. # acute kidney injury due to to urinary retention vs ATN vs. AIN (baseline Cr 1.4 as of February 2019), s/p villagomez 2L urine drained , will remove villagomez in am and will reassess if continues to have retention or not, started flomax as per urology, Hold Entresto, Aldactone and metformin. # UTI Continue ceftriaxone for - urine culture not sent - # chronic systolic heart failure: Stable, hold meds now for ARF # Atrial fibrillation, permanent rate controlled: continue Toprol XL, Eliquis # HTN continue Toprol XL , hold Entresto, Aldactone held secondary to possible FINA # Hyperlipidemia continue Lipitor #T2DM hold metformin held secondary to FINA, with SS # Mild thrombocytopenia: continue to monitor platelets DVT px: Eliquis
--- NOTE | 2019-06-16 11:33 | ECHO ---
Name: ROGER NINO Exam:Adult Echocardiogram Study Date: 06/16/2019 10:15 AM Age: 69 yrs Reason For Study: CHF Height: 71 in Weight: 220 lb BSA: 2.2 m2 MMode/2D Measurements & Calculations IVSd: 1.1 cm Ao root diam: 2.9 cm LVIDd: 5.0 cm LA dimension: 4.7 cm LVIDs: 3.4 cm LVPWd: 1.3 cm EDV(Teich): 118.9 ml LVOT diam: 2.0 cm ESV(Teich): 48.5 ml LAV (MOD-bp): 177.0 ml Doppler Measurements & Calculations MV E max timmy: 65.0 cm/sec Ao V2 max: 127.6 cm/sec MV A max timmy: 45.6 cm/sec Ao max P.5 mmHg MV E/A: 1.4 AI P1/2t: 1003 msec MV dec time: 0.08 sec BRANDY(V,D): 2.3 cm2 AI max timmy: 285.7 cm/sec LV V1 max P.6 mmHg AI max P.2 mmHg LV V1 max: 94.6 cm/sec AI dec slope: 83.4 cm/sec2 MR max timmy: 368.7 cm/sec TR max timmy: 232.9 cm/sec MR max P.2 mmHg TR max P.0 mmHg PA V2 max: 101.8 cm/sec Med Peak E' Timmy: 7.6 cm/sec PA max P.1 mmHg Med E/e': 8.5 Lat Peak E' Timmy: 13.6 cm/sec Lat E/e': 4.8 PI Vmax: 109.9 cm/sec Procedure A complete two-dimensional transthoracic echocardiogram was performed (2D, M-mode, Doppler and color flow Doppler). Left Ventricle The left ventricle is normal in size. Left ventricular systolic function is normal. Ejection Fraction = 55- 60%. No regional wall motion abnormalities noted. Right Ventricle The right ventricle is normal size. The right ventricular systolic function is normal. Atria The left atrium is moderately dilated. The right atrium is moderately dilated. Mitral Valve The mitral valve is normal in structure and function. There is mild mitral regurgitation. Tricuspid Valve The tricuspid valve is normal in structure and function. There is moderate tricuspid regurgitation. T he tricuspid regurgitant jet is eccentrically directed. Pulmonary artery systolic pressure is at least 2 4 mmHg if RA pressure is assumed 3 mmHg. Aortic Valve There is mild aortic sclerosis.;. Mild aortic regurgitation. Pulmonic Valve The pulmonic valve is not well visualized. Trace pulmonic valvular regurgitation. Great Vessels The aortic root is normal size. Pericardium/Pleura There is no pericardial effusion. Interpretation Summary The left ventricle is normal in size. Left ventricular systolic function is normal. No regional wall motion abnormalities noted. Ejection Fraction = 55-60%. The right ventricular systolic function is normal. The left atrium is moderately dilated. The right atrium is moderately dilated. There is mild mitral regurgitation. There is moderate tricuspid regurgitation. The tricuspid regurgitant jet is eccentrically directed. Pulmonary artery systolic pressure is at least 24 mmHg if RA pressure is assumed 3 mmHg There is mild aortic sclerosis. Mild aortic regurgitation. Trace pulmonic valvular regurgitation. There is no pericardial effusion. Previous study is not available for comparison Andi Beaver MD 06/16/2019 11:33 AM
--- NOTE | 2019-06-16 12:23 | PN ---
Progress Note (short form) - Note Progress Note: Renal follow up for FINA Seen and examined at the bedside awake and alert offers no acute complaints making urine no cp, abd pain, sob, fever or chills has villagomez in place Vital Signs Temperature 97.6 F 06/16/19 09:36 Pulse Rate 81 06/16/19 09:36 Respiratory Rate 19 06/16/19 09:36 Blood Pressure 127/86 06/16/19 09:36 O2 Sat by Pulse Oximetry (%) 94 L 06/15/19 20:38 Intake & Output 06/13/19 06/14/19 06/15/19 06/16/19 23:59 23:59 23:59 23:59 Intake Total 568 944 Output Total 1500 2900 2950 900 Balance -1500 -2332 -2005 -900 Weight 95.254 kg 99.79 kg NAD awake and alert neck supple RRR CTA soft NT/ND no bladder distension villagomez in place no focal neurologic deficits CBC, BMP 06/15/19 05:45 06/15/19 06:00 Current Medications Apixaban (Eliquis -) 2.5 mg PO BID [facility] Last Admin: 06/15/19 10:10 Dose: 2.5 mg Atorvastatin Calcium (Lipitor -) 20 mg PO HS [facility] Last Admin: 06/14/19 21:33 Dose: 20 mg Ceftriaxone Sodium 1 gm/ (Dextrose) 50 mls @ 100 mls/hr IVPB DAILY [facility]; Protocol Last Admin: 06/15/19 10:11 Dose: 100 mls/hr Sodium Chloride (1/2 Normal Saline) 1,000 mls @ 42 mls/hr IV ASDIR [facility] Last Admin: 06/14/19 15:45 Dose: 42 mls/hr Insulin Aspart (Novolog Vial Sliding Scale -) 1 vial SQ ACHS [facility]; Protocol Last Admin: 06/15/19 07:03 Dose: Not Given Metoprolol Succinate (Toprol Xl -) 100 mg PO DAILY [facility] Last Admin: 06/15/19 10:08 Dose: 100 mg 69 year old gentleman with history of CHF/cardiomyopathy, DM type 2 who presented from home with urinary retention and FINA with Cr of 4.9. 1. Acute kidney injury secondary to urinary retention vs ATN vs. AIN (baseline Cr 1.4 as of February 2019) 2. Urinary retention/BPH 3. Pylonephritis 4. Hx of CHF/Cardiomyopathy 5. 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 Thank you Haider Rose DO
[2019-06-16] MEDS ORDERED: SODIUM CHLORIDE 1,000 ML IV SCH (12:30)
--- NOTE | 2019-06-16 13:36 | PN ---
Physical Exam: SUBJECTIVE: Patient seen and examined in the morning. No acute events overnight. No complaints of chest pain, abdominal pain, nausea, vomiting, diarrhea, fever, chills, cough. OBJECTIVE: Vital Signs Period Temp Pulse Resp BP Sys/Castro Pulse Ox Last 24 Hr 97.3 F-98.6 F 75-94 17-20 127-146/81-100 94 GENERAL: The patient is awake, alert, and fully oriented, in no acute distress. HEAD: Normal with no signs of trauma. EYES: PERRL, extraocular movements intact, sclera anicteric, conjunctiva clear. No ptosis. NECK: Trachea midline, full range of motion, supple. LUNGS: Breath sounds equal, clear to auscultation bilaterally, no wheezes, no crackles. HEART: Regular rate and rhythm, S1, S2 without murmur, rub or gallop. ABDOMEN: Distended, normoactive bowel sounds, nontender to palpation. EXTREMITIES: 2+ pulses, warm, well-perfused, no edema. NEUROLOGICAL: Cranial nerves II through XII grossly intact. Normal speech, gait not observed. G/U: Villagomez in place, drained 700 mL of yellow non cloudy urine in 1.5 hours. Laboratory Results - last 24 hr 06/15/19 06/15/19 06/15/19 12:33 16:33 21:31 WBC RBC Hgb Hct MCV MCH MCHC RDW Plt Count MPV Absolute Neuts (auto) Neutrophils % Lymphocytes % Monocytes % Eosinophils % Basophils % Nucleated RBC % Sodium Potassium Chloride Carbon Dioxide Anion Gap BUN Creatinine Est GFR (CKD-EPI)AfAm Est GFR (CKD-EPI)NonAf POC Glucometer 129 150 Random Glucose Calcium Total Bilirubin AST ALT Alkaline Phosphatase Total Protein Albumin U Random Total Protein 49.4 H Ur Random Sodium 97 Ur Random Potassium 35.0 Ur Random Chloride 102 L Ur Random Urea Nitrogn 442 Urine Creatinine 82.0 Protein/Creatinin Ratio 0.6 06/16/19 06/16/19 06/16/19 06:00 06:00 06:08 WBC 7.7 RBC 4.26 Hgb 13.1 Hct 38.9 MCV 91.3 MCH 30.8 MCHC 33.8 RDW 14.1 Plt Count 131 L MPV 9.3 Absolute Neuts (auto) 4.5 Neutrophils % 57.8 D Lymphocytes % 23.2 D Monocytes % 10.5 H Eosinophils % 8.0 H D Basophils % 0.5 Nucleated RBC % 0 Sodium 141 Potassium 4.5 Chloride 108 H Carbon Dioxide 25 Anion Gap 8 BUN 53.9 H Creatinine 4.5 H Est GFR (CKD-EPI)AfAm 14.28 Est GFR (CKD-EPI)NonAf 12.32 POC Glucometer 161 Random Glucose 148 H Calcium 8.6 Total Bilirubin 0.6 AST 11 L ALT 10 L Alkaline Phosphatase 57 Total Protein 6.2 L Albumin 3.2 L U Random Total Protein Ur Random Sodium Ur Random Potassium Ur Random Chloride Ur Random Urea Nitrogn Urine Creatinine Protein/Creatinin Ratio 06/16/19 11:55 WBC RBC Hgb Hct MCV MCH MCHC RDW Plt Count MPV Absolute Neuts (auto) Neutrophils % Lymphocytes % Monocytes % Eosinophils % Basophils % Nucleated RBC % Sodium Potassium Chloride Carbon Dioxide Anion Gap BUN Creatinine Est GFR (CKD-EPI)AfAm Est GFR (CKD-EPI)NonAf POC Glucometer 135 Random Glucose Calcium Total Bilirubin AST ALT Alkaline Phosphatase Total Protein Albumin U Random Total Protein Ur Random Sodium Ur Random Potassium Ur Random Chloride Ur Random Urea Nitrogn Urine Creatinine Protein/Creatinin Ratio Active Medications Generic Name Dose Route Start Last Admin Trade Name Freq PRN Reason Stop Dose Admin Apixaban 2.5 mg 06/14/19 10:00 06/16/19 09:20 Eliquis - PO 2.5 mg BID [facility] Administration Atorvastatin Calcium 20 mg 06/14/19 22:00 06/15/19 21:32 Lipitor - PO 20 mg HS [facility] Administration Ceftriaxone Sodium 1 gm/ 50 mls @ 100 mls/hr 06/14/19 10:00 06/16/19 09:20 Dextrose IVPB 100 mls/hr DAILY [facility] Administration Protocol Sodium Chloride 1,000 mls @ 75 mls/hr 06/16/19 12:30 Normal Saline - IV 06/17/19 12:29 ASDIR [facility] Insulin Aspart 1 vial 06/14/19 16:30 06/16/19 06:13 Novolog Vial Sliding Scale - SQ Not Given ACHS [facility] Protocol Metoprolol Succinate 100 mg 06/14/19 10:00 06/16/19 09:20 Toprol Xl - PO 100 mg DAILY [facility] Administration Tamsulosin HCl 0.4 mg 06/16/19 08:30 06/16/19 09:20 Flomax - PO 0.4 mg DAILY@0830 [facility] Administration ASSESSMENT/PLAN: 69 M with PMH of HTN, DM, and CHF who presents with 5 days of urinary retention due to bladder obstruction. 1) Bladder Obstruction -2L of urine output after villagomez inserted. -Monitor I&O: Balance -2005. -Will remove villagomez and have void trial in the AM. -Tamsulosin 0.4 mg PO Qdaily -Abd/Pelvis CT showed no hydronephrosis, renal masses, or renal stones -Renal U/S shows right renal cyst. -FeUrea 56% indicative of tubular damage -Urology consulted, appreciate recs -Nephrology consulted, appreciate recs 2) Possible UTI -Ceftriaxone 1 gram daily IV 3) CHF -Echo 55-60%. -Continue Metoprolol 100 ml QDaily -Holding entresto and spironolactone 4)Afib -Continue Eliquis 2.5 mg PO BID 5)History of Diabetes -Sliding Scale Insulin -diabetic diet F: Gentle hydration as needed E: Monitor CMP N: Diabetic diet with sodium restriction DVT: Patient is already anticoagulated with Eliquis. Dispo: Admitted to telemetry. Visit type - Emergency Visit Emergency Visit: Yes ED Registration Date: 06/13/19 Care time: The patient presented to the Emergency Department on the above date and was hospitalized for further evaluation of their emergent condition. - New Patient This patient is new to me today: No - Critical Care Critical Care patient: No ATTENDING PHYSICIAN STATEMENT I saw and evaluated the patient. I reviewed the resident's note and discussed the case with the resident. I agree with the resident's findings and plan as documented. SUBJECTIVE: OBJECTIVE: ASSESSMENT AND PLAN:
[2019-06-16] MEDS: ATORVASTATIN CA 20 MG TABLET (FP) PO SCH (21:45)
[2019-06-17] MEDS: INSULIN SLIDING SCALE (NOVOLOG) 1 VIAL SQ SCH ×4 (06:07→21:40)
[2019-06-17] MEDS: TAMSULOSIN HCL 0.4 MG CAP PO SCH (08:15)
[2019-06-17 08:17] LABS: ALBUMIN 3.3 g/dl (3.4-5.0); BILIRUBIN,TOTAL 0.5 mg/dL (0.2-1); BLOOD UREA NITROGEN 56.5 mg/dL (7-18); CALCIUM 8.7 mg/dL (8.5-10.1); CREATININE 4.5 mg/dL (0.55-1.3); MAGNESIUM 1.7 mg/dL (1.8-2.4); PHOSPHOROUS 4.9 mg/dL (2.5-4.9); POTASSIUM 4.4 mmol/L (3.5-5.1); TOT PROT 6.6 g/dl (6.4-8.2)
[2019-06-17 09:15] LABS: BASO % 0.3 % (0-2.0); EOS % 7.8 % (0-4.5); HEMOGLOBIN 13.6 GM/dL (11.7-16.9); LYMPH % 26.8 % (8-40); MCH 30.9 pg (25.7-33.7); MCHC 33.9 g/dl (32.0-35.9); MEAN CELL VOLUME 91.1 fl (80-96); MONO % 9.7 % (3.8-10.2); NEUT % 55.4 % (42.8-82.8); PLATELET COUNT 142 K/MM3 (134-434); RBC 4.39 M/mm3 (4.00-5.60)
[2019-06-17] MEDS ORDERED: DEXTROSE 5%-WATER - 50 ML IVPB ONE (09:21)
[2019-06-17] MEDS ORDERED: cefTRIAXone SODIUM 1 GM VIAL ONE (09:21)
[2019-06-17] MEDS: APIXABAN 2.5 MG TABLET PO SCH ×2 (09:31→21:37)
[2019-06-17] MEDS: CEFTRIAXONE 1 GM in DEXTROSE 5%-WATER - 50 ML IVPB SCH (09:32)
[2019-06-17] MEDS: amLODIPine BESYLATE 5 MG TABLET (FP) PO SCH (09:32)
--- NOTE | 2019-06-17 12:11 | PN ---
Teaching Attending Note Name of Resident: Nancy Neumann ATTENDING PHYSICIAN STATEMENT I saw and evaluated the patient. I reviewed the resident's note and discussed the case with the resident. I agree with the resident's findings and plan as documented. SUBJECTIVE: patient has not urinated yet s/p villagomez removal x 2 hrs. has no new complains at this time. Vital Signs Temperature 97.6 F 06/17/19 09:25 Pulse Rate 90 06/17/19 09:25 Respiratory Rate 18 06/17/19 09:25 Blood Pressure 147/104 H 06/17/19 09:25 O2 Sat by Pulse Oximetry (%) 94 L 06/17/19 09:00 GENERAL: The patient is awake, alert, and fully oriented, in no acute distress. HEAD: Normal with no signs of trauma. EYES: PERRL, extraocular movements intact, sclera anicteric, conjunctiva clear. ENT: Ears normal, oropharynx clear without exudates, moist mucous membranes. NECK: Trachea midline, full range of motion, supple. LUNGS: Breath sounds equal, clear to auscultation bilaterally, no wheezes, no crackles, no accessory muscle use. HEART: irregularly-irregular rate controlled, S1, S2 positive, no rub or gallop. ABDOMEN: Soft, Nt,ND, normoactive bowel sounds, no guarding, no rebound, no hepatosplenomegaly, no masses. EXTREMITIES: 2+ pulses, warm, well-perfused, no edema. NEUROLOGICAL: Cranial nerves II through XII grossly intact. Normal speech, gait not observed. PSYCH: Normal mood, normal affect. SKIN: Warm, dry, normal turgor, no rashes or lesions noted CBCD WBC 8.0 K/mm3 (4.0-10.0) 06/17/19 06:00 RBC 4.39 M/mm3 (4.00-5.60) 06/17/19 06:00 Hgb 13.6 GM/dL (11.7-16.9) 06/17/19 06:00 Hct 40.0 % (35.4-49) 06/17/19 06:00 MCV 91.1 fl (80-96) 06/17/19 06:00 MCHC 33.9 g/dl (32.0-35.9) 06/17/19 06:00 RDW 14.0 % (11.9-15.9) 06/17/19 06:00 Plt Count 142 K/MM3 (134-434) 06/17/19 06:00 MPV 10.0 fl (7.5-11.1) 06/17/19 06:00 CMP Sodium 139 mmol/L (136-145) 06/17/19 06:00 Potassium 4.4 mmol/L (3.5-5.1) 06/17/19 06:00 Chloride 107 mmol/L (98-107) 06/17/19 06:00 Carbon Dioxide 24 mmol/L (21-32) 06/17/19 06:00 Anion Gap 8 MMOL/L (8-16) 06/17/19 06:00 BUN 56.5 mg/dL (7-18) H 06/17/19 06:00 Creatinine 4.5 mg/dL (0.55-1.3) H 06/17/19 06:00 Random Glucose 157 mg/dL (74-106) H 06/17/19 06:00 Calcium 8.7 mg/dL (8.5-10.1) 06/17/19 06:00 Total Bilirubin 0.5 mg/dL (0.2-1) 06/17/19 06:00 AST 13 U/L (15-37) L 06/17/19 06:00 ALT 13 U/L (13-61) 06/17/19 06:00 Alkaline Phosphatase 61 U/L (45-117) 06/17/19 06:00 Total Protein 6.6 g/dl (6.4-8.2) 06/17/19 06:00 Albumin 3.3 g/dl (3.4-5.0) L 06/17/19 06:00 Current Medications Generic Name Dose Route Start Last Admin Trade Name Freq PRN Reason Stop Dose Admin Amlodipine Besylate 5 mg 06/17/19 10:00 06/17/19 09:32 Norvasc - PO 5 mg DAILY [facility] Administration Apixaban 2.5 mg 06/14/19 10:00 06/17/19 09:31 Eliquis - PO 2.5 mg BID [facility] Administration Atorvastatin Calcium 20 mg 06/14/19 22:00 06/16/19 21:45 Lipitor - PO 20 mg HS [facility] Administration Ceftriaxone Sodium 1 gm/ 50 mls @ 100 mls/hr 06/14/19 10:00 06/17/19 09:32 Dextrose IVPB 100 mls/hr DAILY [facility] Administration Protocol Sodium Chloride 1,000 mls @ 75 mls/hr 06/16/19 12:30 06/16/19 13:12 Normal Saline - IV 06/17/19 12:29 75 mls/hr ASDIR [facility] Administration Insulin Aspart 1 vial 06/14/19 16:30 06/17/19 12:03 Novolog Vial Sliding Scale - SQ Not Given ACHS [facility] Protocol Metoprolol Succinate 100 mg 06/14/19 10:00 06/17/19 09:32 Toprol Xl - PO 100 mg DAILY [facility] Administration Tamsulosin HCl 0.4 mg 06/16/19 08:30 06/17/19 08:15 Flomax - PO 0.4 mg DAILY@0830 [facility] Administration Home Medications Medication Instructions Recorded Apixaban [Eliquis] 5 mg PO BID 06/14/19 Atorvastatin Ca [Lipitor] 20 mg PO HS 06/14/19 Metformin HCl [Glucophage] 1,000 mg PO BID 06/14/19 Metoprolol Succinate [Toprol Xl] 100 mg PO DAILY 06/14/19 Sacubitril/Valsartan [Entresto 24 1 tab PO BID 06/14/19 mg-26 mg Tablet] Spironolactone 25 mg PO DAILY 06/14/19 Microbiology 06/15/19 12:30 Urine - Urine Villagomez Urine Culture - Final NO GROWTH OBTAINED US shows mild fatty infiltration of liver, right renal cyst. ASSESSMENT AND PLAN: This is a 69 year old man with a Pmhx of HTN, hyperlipidemia, atrial fib, CHF, T2DM who presents with 5 days of urinary retention due to bladder obstruction. # acute kidney injury due to to urinary retention vs ATN vs. AIN (baseline Cr 1.4 as of February 2019), s/p villagomez 2L urine drained , s/p villagomez removal as per urologist to remove for 72 hrs, and revaluate, will monitor if patient does not void , will reassess by bladder US , if patient does not void will place villagomez back. continue flomax as per urology, Hold Entresto, Aldactone and metformin. FeUrea was 56% indicative of tubular damage # UTI Continue ceftriaxone for - urine culture not sent, continue empeirc tx - # chronic systolic heart failure: Stable, hold meds now for ARF # Atrial fibrillation, permanent rate controlled: continue Toprol XL, Eliquis # HTN continue Toprol XL , hold Entresto, Aldactone held secondary to possible FINA # Hyperlipidemia continue Lipitor #T2DM hold metformin held secondary to FINA, with SS # Mild thrombocytopenia: continue to monitor platelets DVT px: Eliquis
--- NOTE | 2019-06-17 14:24 | PN ---
Physical Exam: SUBJECTIVE: Patient seen and examined in the morning. No acute events on telemetry monitoring overnight. No complaints of chest pain, shortness of breath , abdominal pain, nausea, vomiting, diarrhea, fever or chills. OBJECTIVE: Vital Signs Period Temp Pulse Resp BP Sys/Castro Pulse Ox Last 24 Hr 97 F-97.9 F 83-91 18-19 127-161/86-104 94-95 GENERAL: The patient is awake, alert, and fully oriented, in no acute distress. HEAD: Normal with no signs of trauma. EYES: PERRL, extraocular movements intact, sclera anicteric, conjunctiva clear. No ptosis. NECK: Trachea midline, full range of motion, supple. LUNGS: Breath sounds equal, clear to auscultation bilaterally, no wheezes, no crackles. HEART: Regular rate and rhythm, S1, S2 without murmur, rub or gallop. ABDOMEN: Distended, normoactive bowel sounds, nontender to palpation. EXTREMITIES: 2+ pulses, warm, well-perfused, no edema. NEUROLOGICAL: Cranial nerves II through XII grossly intact. Normal speech, gait not observed. G/U: Villagomez in place, drained 900 ml of urine. Laboratory Results - last 24 hr 06/16/19 06/16/19 06/17/19 16:59 21:02 05:48 WBC RBC Hgb Hct MCV MCH MCHC RDW Plt Count MPV Absolute Neuts (auto) Neutrophils % Lymphocytes % Monocytes % Eosinophils % Basophils % Nucleated RBC % Sodium Potassium Chloride Carbon Dioxide Anion Gap BUN Creatinine Est GFR (CKD-EPI)AfAm Est GFR (CKD-EPI)NonAf POC Glucometer 144 171 151 Random Glucose Calcium Phosphorus Magnesium Total Bilirubin AST ALT Alkaline Phosphatase Total Protein Albumin 06/17/19 06/17/19 06/17/19 06:00 06:00 11:46 WBC 8.0 RBC 4.39 Hgb 13.6 Hct 40.0 MCV 91.1 MCH 30.9 MCHC 33.9 RDW 14.0 Plt Count 142 MPV 10.0 Absolute Neuts (auto) 4.4 Neutrophils % 55.4 Lymphocytes % 26.8 Monocytes % 9.7 Eosinophils % 7.8 H Basophils % 0.3 Nucleated RBC % 0 Sodium 139 Potassium 4.4 Chloride 107 Carbon Dioxide 24 Anion Gap 8 BUN 56.5 H Creatinine 4.5 H Est GFR (CKD-EPI)AfAm 14.28 Est GFR (CKD-EPI)NonAf 12.32 POC Glucometer 119 Random Glucose 157 H Calcium 8.7 Phosphorus 4.9 Magnesium 1.7 L Total Bilirubin 0.5 AST 13 L ALT 13 Alkaline Phosphatase 61 Total Protein 6.6 Albumin 3.3 L Active Medications Generic Name Dose Route Start Last Admin Trade Name Freq PRN Reason Stop Dose Admin Amlodipine Besylate 5 mg 06/17/19 10:00 06/17/19 09:32 Norvasc - PO 5 mg DAILY [facility] Administration Apixaban 2.5 mg 06/14/19 10:00 06/17/19 09:31 Eliquis - PO 2.5 mg BID [facility] Administration Atorvastatin Calcium 20 mg 06/14/19 22:00 06/16/19 21:45 Lipitor - PO 20 mg HS [facility] Administration Ceftriaxone Sodium 1 gm/ 50 mls @ 100 mls/hr 06/14/19 10:00 06/17/19 09:32 Dextrose IVPB 100 mls/hr DAILY [facility] Administration Protocol Insulin Aspart 1 vial 06/14/19 16:30 06/17/19 12:03 Novolog Vial Sliding Scale - SQ Not Given ACHS [facility] Protocol Metoprolol Succinate 100 mg 06/14/19 10:00 06/17/19 09:32 Toprol Xl - PO 100 mg DAILY [facility] Administration Tamsulosin HCl 0.4 mg 06/16/19 08:30 06/17/19 08:15 Flomax - PO 0.4 mg DAILY@0830 [facility] Administration ASSESSMENT/PLAN: 69 M with PMH of HTN, DM, and CHF who presents with 5 days of urinary retention due to bladder obstruction. 1) Bladder Obstruction -2L of urine output after villagomez inserted. -Monitor I&O: Balance -2300 yesterday. -Tamsulosin 0.4 mg PO Qdaily -Abd/Pelvis CT showed no hydronephrosis, renal masses, or renal stones -Renal U/S shows right renal cyst. -FeUrea 56% indicative of tubular damage -Urology consulted, appreciate recs -Continuing Ceftriaxone 1 gram daily IV -Patient unable to void without Villagomez- Bladder scan showed 745 ml, nurse reported about 5 ml urine on patient's own attempt to urinate. 2) FINA (Creatinine of 4.3 on admission) -Creatinine is 4.5 today -Continue NS -Nephrology following, appreciate recs 3) CHF -Echo 55-60%. -Continue Metoprolol 100 ml QDaily -Holding entresto and spironolactone 4)Afib -Continue Eliquis 2.5 mg PO BID 5)History of Diabetes -Sliding Scale Insulin -diabetic diet F: Gentle hydration as needed E: Monitor CMP N: Diabetic diet with sodium restriction DVT: Patient is already anticoagulated with Eliquis. Dispo: Admitted to telemetry. Visit type - Emergency Visit Emergency Visit: Yes ED Registration Date: 06/13/19 Care time: The patient presented to the Emergency Department on the above date and was hospitalized for further evaluation of their emergent condition. - New Patient This patient is new to me today: No - Critical Care Critical Care patient: No ATTENDING PHYSICIAN STATEMENT I saw and evaluated the patient. I reviewed the resident's note and discussed the case with the resident. I agree with the resident's findings and plan as documented. SUBJECTIVE: OBJECTIVE: ASSESSMENT AND PLAN:
--- NOTE | 2019-06-17 15:49 | PN ---
Progress Note (short form) - Note Progress Note: Renal follow up for FINA Seen and examined at the bedside awake and alert offers no acute complaints villagomez removed early this afternoon, has yet to void no sob, cp, abd pain on IVF Vital Signs Temperature 97 F L 06/17/19 14:06 Pulse Rate 83 06/17/19 14:06 Respiratory Rate 18 06/17/19 14:06 Blood Pressure 153/101 H 06/17/19 14:06 O2 Sat by Pulse Oximetry (%) 94 L 06/17/19 09:00 Intake & Output 06/14/19 06/15/19 06/16/19 06/17/19 23:59 23:59 23:59 23:59 Intake Total 568 376 960 4154 Output Total 2900 2950 2600 900 Balance -2331 350 Weight 99.79 kg NAD RRR CTA soft NT/ND no bladder distension villagomez in place no focal neurologic deficits CBC, BMP 06/17/19 06:00 06/17/19 06:00 Current Medications Amlodipine Besylate (Norvasc -) 5 mg PO DAILY [facility] 234 BEDS AT [facility] Last Admin: 06/17/19 09:32 Dose: 5 mg Apixaban (Eliquis -) 2.5 mg PO BID [facility]S [facility]CLUDE 234 BEDS AT [facility] Last Admin: 06/17/19 09:31 Dose: 2.5 mg Atorvastatin Calcium (Lipitor -) 20 mg PO HS [facility]S [facility]CLUDE 234 BEDS AT THE [facility] Last Admin: 06/16/19 21:45 Dose: 20 mg Ceftriaxone Sodium 1 gm/ (Dextrose) 50 mls @ 100 mls/hr IVPB DAILY [facility]CLUDE 234 BEDS AT [facility]; Protocol Last Admin: 06/17/19 09:32 Dose: 100 mls/hr Insulin Aspart (Novolog Vial Sliding Scale -) 1 vial SQ ACHS [facility]; Protocol Last Admin: 06/17/19 12:03 Dose: Not Given Metoprolol Succinate (Toprol Xl -) 100 mg PO DAILY [facility] 234 BEDS AT [facility] Last Admin: 06/17/19 09:32 Dose: 100 mg Tamsulosin HCl (Flomax -) 0.4 mg PO DAILY@0830 [facility]S [facility] 234 BEDS AT [facility] Last Admin: 06/17/19 08:15 Dose: 0.4 mg 69 year old gentleman with history of CHF/cardiomyopathy, DM type 2 who presented from home with urinary retention and FINA with Cr of 4.9. 1. Acute kidney injury secondary to urinary retention vs ATN vs. AIN (baseline Cr 1.4 as of February 2019) 2. Urinary retention/BPH 3. Pylonephritis 4. Hx of CHF/Cardiomyopathy 5. DM type 2 Baseline Cr 1.4 as of February 2019 Renal function stable, given likely tubular damage it may take some time of BUN/ Cr to return to baseline. There is no significant electrolyte or acid base disturbance at this time FeUrea was 56% indicative of tubular damage Continue to hold Entresto and Aldactone for give renal impairment ECHO shows normal LV function, Continue IV hydration for additional 24 hours continue empiric antibiotics check urine culture Urology follow up for villagomez management dose all meds for CrCl < 10 no emergent indication for SOFTWARE RECRUITER at this time. Thank you Haider Rose DO
[2019-06-17] MEDS: ATORVASTATIN CA 20 MG TABLET (FP) PO SCH (21:38)
[2019-06-18] MEDS ORDERED: SODIUM CHLORIDE 1,000 ML IV SCH (06:15)
[2019-06-18] MEDS: INSULIN SLIDING SCALE (NOVOLOG) 1 VIAL SQ SCH ×2 (06:26→12:07)
[2019-06-18 07:04] LABS: BASO % 0.6 % (0-2.0); EOS % 7.7 % (0-4.5); HEMATOCRIT 36.4 % (35.4-49); HEMOGLOBIN 12.8 GM/dL (11.7-16.9); LYMPH % 22.5 % (8-40); MCH 31.4 pg (25.7-33.7); MCHC 35.3 g/dl (32.0-35.9); MEAN CELL VOLUME 89.1 fl (80-96); MEAN PLT VOLUME 9.3 fl (7.5-11.1); MONO % 11.1 % (3.8-10.2); NEUT % 58.1 % (42.8-82.8); PLATELET COUNT 133 K/MM3 (134-434); RBC 4.09 M/mm3 (4.00-5.60); RDW 13.9 % (11.9-15.9); WHITE BLOOD COUNT 6.9 K/mm3 (4.0-10.0)
[2019-06-18 07:35] LABS: BLOOD UREA NITROGEN 56.1 mg/dL (7-18); CALCIUM 8.7 mg/dL (8.5-10.1); CREATININE 4.3 mg/dL (0.55-1.3); POTASSIUM 4.5 mmol/L (3.5-5.1)
[2019-06-18] MEDS: TAMSULOSIN HCL 0.4 MG CAP PO SCH (08:25)
[2019-06-18] MEDS ORDERED: cefTRIAXone SODIUM 1 GM VIAL ONE (09:14)
[2019-06-18] MEDS ORDERED: DEXTROSE 5%-WATER - 50 ML IVPB ONE (09:14)
[2019-06-18] MEDS: CEFTRIAXONE 1 GM in DEXTROSE 5%-WATER - 50 ML IVPB SCH (09:35)
[2019-06-18] MEDS: APIXABAN 2.5 MG TABLET PO SCH (09:35)
[2019-06-18] MEDS: amLODIPine BESYLATE 5 MG TABLET (FP) PO SCH (09:35)
--- NOTE | 2019-06-18 12:56 | PN ---
Progress Note (short form) - Note Progress Note: Renal follow up for FINA Seen and examined at the bedside awake and alert failed trial of void yesterday and villagomez reinserted has gross hematuria in villagomez bag no sob, cp, abd pain, fever or chills Vital Signs Temperature 97.8 F 06/18/19 09:33 Pulse Rate 82 06/18/19 09:33 Respiratory Rate 18 06/18/19 09:33 Blood Pressure 134/98 06/18/19 09:33 O2 Sat by Pulse Oximetry (%) 96 06/18/19 09:00 Intake & Output 06/15/19 06/16/19 06/17/19 06/18/19 23:59 23:59 23:59 23:59 Intake Total 395 078 9038 150 Output Total 2950 2600 3400 1000 Balance -2006 -2300 -950 -850 NAD RRR CTA soft NT/ND no bladder distension villagomez in place no focal neurologic deficits CBC, BMP 06/18/19 06:10 06/18/19 06:10 Current Medications Amlodipine Besylate (Norvasc -) 5 mg PO DAILY [facility] Last Admin: 06/18/19 09:35 Dose: 5 mg Apixaban (Eliquis -) 2.5 mg PO BID [facility] Last Admin: 06/18/19 09:35 Dose: 2.5 mg Atorvastatin Calcium (Lipitor -) 20 mg PO HS [facility] Last Admin: 06/17/19 21:38 Dose: 20 mg Ceftriaxone Sodium 1 gm/ (Dextrose) 50 mls @ 100 mls/hr IVPB DAILY [facility]; Protocol Last Admin: 06/18/19 09:35 Dose: 100 mls/hr Sodium Chloride (Normal Saline -) 1,000 mls @ 75 mls/hr IV ASDIR [facility] Last Admin: 06/18/19 06:29 Dose: 75 mls/hr Insulin Aspart (Novolog Vial Sliding Scale -) 1 vial SQ ACHS [facility]; Protocol Last Admin: 06/18/19 12:07 Dose: Not Given Metoprolol Succinate (Toprol Xl -) 100 mg PO DAILY [facility] Last Admin: 06/18/19 09:35 Dose: 100 mg Tamsulosin HCl (Flomax -) 0.4 mg PO DAILY@0830 [facility] Last Admin: 06/18/19 08:25 Dose: 0.4 mg 69 year old gentleman with history of CHF/cardiomyopathy, DM type 2 who presented from home with urinary retention and FINA with Cr of 4.9. 1. Acute kidney injury secondary to urinary retention vs ATN vs. AIN (baseline Cr 1.4 as of February 2019) 2. Urinary retention/BPH 3. Pylonephritis 4. Hx of CHF/Cardiomyopathy 5. DM type 2 Baseline Cr 1.4 as of February 2019 Renal function stable, given likely tubular damage it may take some time of BUN/ Cr to return to baseline. There is no significant electrolyte or acid base disturbance at this time FeUrea was 56% indicative of tubular damage d/c IVF at this time as pt is not polyuric and does not appear volume deplete Continue to hold Entresto and Aldactone for give renal impairment ECHO shows normal LV function, continue empiric antibiotics Urology follow up for villagomez management add proscar in addition to flomax dose all meds for CrCl < 10 no emergent indication for GEOMORPHOLOGIST at this time. Thank you Haider Rose DO
[2019-06-18] MEDS ORDERED: FINASTERIDE 5 MG TABLET (FP) PO SCH (13:00)
[2019-06-18 13:30] VITALS: BP 129/89; PULSE 86; TEMP 98.3
--- NOTE | 2019-06-18 14:24 | PN ---
Progress Note (short form) - Note Progress Note: Patient again with villagomez Urine somewhat bloody, likely related to the ELIQUIS Discussed with son who I informed that next step is cystoscopy, possible TURP However, can discharge patient and I will book him to come back in. Assuming he is discharged please have him see me next Sunday 06/24 at about [id number]
--- NOTE | 2019-06-18 16:04 | PN ---
Teaching Attending Note Name of Resident: Shena Sutherland ATTENDING PHYSICIAN STATEMENT I saw and evaluated the patient. I reviewed the resident's note and discussed the case with the resident. I agree with the resident's findings and plan as documented. SUBJECTIVE: No fever or chills , No MARTÍNEZ . no abd pain . " I feel fine " OBJECTIVE: NAD Cv: RRR Lungs: CTAB Ext : No edema or erythema Villagomez bag with bloody urine ( light red ) ASSESSMENT AND PLAN: 69 y/o man with h/o HTN, CHF, DM, HLP, and A fib who presented for urinary retention and was diagnosed with FINA 1- FINA , not clear if he has CKD. ? ATN Vs AIN, vs due to obstruction - renal function is stable. - dc IVF - f/u with renal in 1 week - stay off diuretics and ARB 2- UTI with pyelonephritis . US reviewed. urine cx neg but it was taken after Abx were given - cont with keflex x 4 more days to complete 10 days of treatment 4- DM : at dc will start Januvia dosed fro his CrCl. will not resume metformin 5- HTN : Dc on norvasc 10 and metroprolol. No ARB after dc 6- Urinary retention : s/p villagomez. failed voiding trial yesterday. will dc with villagomez bleeding is likely due to trauma. Hb stable. d/w Dr. Nichole, who will see him in office in a week, and will schedule him for Cysto. CBC in 1 week dispo : DC home
--- NOTE | 2019-06-18 18:47 | DS ---
Physical Exam: SUBJECTIVE: Patient seen and examined OBJECTIVE: Vital Signs Period Temp Pulse Resp BP Sys/Castro Pulse Ox Last 24 Hr 97.6 F-98.3 F 82-86 18-20 129-150/89-105 95-96 PHYSICAL EXAM GENERAL: The patient is awake, alert, and fully oriented, in no acute distress. HEAD: Normal with no signs of trauma. EYES: PERRL, extraocular movements intact, sclera anicteric, conjunctiva clear. ENT: Ears normal, nares patent, oropharynx clear without exudates, moist mucous membranes. NECK: Trachea midline, full range of motion, supple. LUNGS: Breath sounds equal, clear to auscultation bilaterally, no wheezes, no crackles, no accessory muscle use. HEART: Regular rate and rhythm, S1, S2 without murmur, rub or gallop. ABDOMEN: Soft, nontender, nondistended, normoactive bowel sounds, no guarding, no rebound, no hepatosplenomegaly, no masses. EXTREMITIES: 2+ pulses, warm, well-perfused, no edema. NEUROLOGICAL: Cranial nerves II through XII grossly intact. Normal speech, gait not observed. PSYCH: Normal mood, normal affect. SKIN: Warm, dry, normal turgor, no rashes or lesions noted. LABS Laboratory Results - last 24 hr CBC, BMP 06/18/19 06:10 06/18/19 06:10 Microbiology 06/15/19 12:30 Urine - Urine Villagomez Urine Culture - Final NO GROWTH OBTAINED HOSPITAL COURSE: Date of Admission:06/13/19 Date of Discharge: 06/18/19 69 M with PMH of HTN, DM, and CHF who presents with 5 days of urinary retention due to bladder obstruction. Patient had villagomez inserted on admission and put out approximately 1500 mL of urine. Patient continued to urinate approximately 2500- 3000 mL of urine daily on villagomez. Urology was consulted and patient was given 0.4 mg of Tamsulosin and was given a trial of voiding. Patient was unable to void more than 5 mL of urine. Patient was treated with empiric ceftriaxone. Nephrology was also consulted for patients chronic kidney disease. Patient's entresto, metformin and spironolactone was held due to kidney function. Patient was started on 10 mg amlodipine. Patient was started on Flomax 5mg PO Daily. Patient will complete 4 days of Keflex 250. Patient was started on Januvia. Patient was discharged with Villagomez in place with follow up with urology next week. Relevant Imaging Done this stay: Abdomen Pelvis CT: Possible inflammatory vs chronic changes surrounding kidneys and ureters. No stones visualized Renal & Bladder U/S: Right renal cyst Minutes to complete discharge: 35 Discharge Summary Problems reviewed: Yes Reason For Visit: ACUTE KIDNEY INJURY/OBSTRUCTION OF URINARY TRACT Condition: Improved - Instructions Diet, Activity, Other Instructions: You were admitted to the hospital because you had difficulty urinating. When you were here we inserted a villagomez catheter to help you urinate. We attempted to take out the villagomez and see if you can urinate without difficulty. However you were not able to, so we have reinserted the catheter. You will go home with this catheter and follow up with Dr. Nichole to see when you can remove it and to continue treatment. While you were here we noticed your kidney function has decreased. You will follow up with Dr. Rose to continue treatment. We saw that you had an urinary tract infection and we have been treating it with antibiotics. You will complete treatment at home with the following medication: Keflex 250 mg, by mouth, twice a day for the next 4 days. You will take the following medication to help with your urination: Finasteride 5 mg, by mouth, daily. Tamsulosin 0.4 mg, by mouth, daily. Please take the following medication for your atrial fibrillation: Eliquis 2.5 mg by mouth, twice a day metoprolol daily Please take the following medication for your hypertension: Amlodipine 10 mg by mouth, once a day Please take the following medication for your diabetes: Januvia 25 mg by mouth daily To help your kidney's we are stopping the following medications: Metformin 1000 mg. Stop taking this medication at home. Entresto 24-26mg. Stop taking this medication at home. Spironolactone 25. Stop taking this medication at home. Please have repeat blood work (CBC) in one week. Please follow up with Dr. Nichole on Sunday 06/24 at 12:30PM at [address] [place] [address]. Please follow up with your primary care physician within 1 week. Please follow up with the bankruptcy attorney, Dr. Rose, within one week. Return to the emergency department if you have chest pain, shortness of breath, abdominal pain, fevers, or worsening of your symptoms. En Espanol Fue ingresado en el hospital porque tuvo dificultades para orinar. Cuando estuvo aqu, insertamos un catter de Villagomez para ayudarlo a orinar. Intentamos sacar el villagomez y kayode si puedes orinar sin dificultad. Sin embargo, no pudo hacerlo, por lo que hemos reinsertado el catter. Ir a messina casa con tutu catter y wesly un seguimiento con el Dr. Nichole para kayode cundo puede retirarlo y continuar el tratamiento. Mientras estuvo aqu notamos que messina funcin renal meza disminuido. Wes[place] un seguimiento con el Dr. Rose para continuar el tratamiento. Vimos que geurline kary infeccin del tracto urinario y la hemos estado tratando con antibiticos. Completar el tratamiento en casa con el siguiente medicamento : Keflex 250 mg, por va oral, dos veces al da juan los prximos 4 lopez. [place] los siguientes medicamentos para ayudarlo a orinar: Finasterida 5 mg, por va oral, diariamente. Tamsulosina 0.4 mg, por va oral, diariamente. [place] el siguiente medicamento para messina fibrilacin auricular: Eliquis 2.5 mg por va oral, dos veces al da. [place] el siguiente medicamento para messina hipertensin: Amlodipino 10 mg por va oral, kary vez al da. [place] los siguientes medicamentos para messina diabetes: Januvia 25 mg por va oral al da Para ayudar a los riones, detenemos los siguientes medicamentos: Metformina 1000 mg. Deje de vernon tutu medicamento en casa. Entresto 24-26mg. Deje de vernon tutu medicamento en casa. Espironolactona 25. Deje de vernon tutu medicamento en casa. Elmer un seguimiento con el Dr. Nichole el leonardo 06/24 a las 12:30 PM en [address] [place] [address], [place] [address]. Elmer un seguimiento con messina mdico de atencin primaria dentro de 1 semana. [place]mer un seguimiento con el nefrlogo, Dr. Rose, dentro de kary semana. Regrese al departamento de emergencias si tiene dolor en el pecho, dificultad para respirar, dolor abdominal, fiebre o empeoramiento de aurelia sntomas. Referrals: Javy Nichole MD [Staff Physician] - 06/24/19 (at noon ) Karthik Arteaga MD [Primary Care Provider] - 1 Week Haider Rose MD [Staff Physician] - 1 Week Disposition: HOME - Home Medications Comprehensive Discharge Medication List: Ambulatory Orders Atorvastatin Ca [Lipitor] 20 mg PO HS 06/14/19 Metoprolol Succinate [Toprol Xl] 100 mg PO DAILY 06/14/19 Amlodipine Besylate 10 mg PO DAILY 30 Days #30 tablet 06/18/19 Apixaban [Eliquis -] 2.5 mg PO BID #60 tablet 06/18/19 Cephalexin [Keflex] 250 mg PO BID 4 Days #8 capsule 06/18/19 Finasteride [Proscar -] 5 mg PO DAILY 30 Days #30 tablet 06/18/19 Sitagliptin Phosphate [Januvia] 25 mg PO DAILY #30 tablet 06/18/19 Tamsulosin HCl [Flomax -] 0.4 mg PO DAILY@0830 30 Days #30 cap.er.24h 06/18/19 This patient is new to me today: No Emergency Visit: Yes ED Registration Date: 06/13/19 Care time: The patient presented to the Emergency Department on the above date and was hospitalized for further evaluation of their emergent condition. Critical Care patient: No - Discharge Referral Referred to [facility] Med P.C.: No ATTENDING PHYSICIAN STATEMENT I saw and evaluated the patient. I reviewed the resident's note and discussed the case with the resident. I agree with the resident's findings and plan as documented. SUBJECTIVE: OBJECTIVE: ASSESSMENT AND PLAN:
== END 2019-06-18 17:41 | disposition home or self-care (01) | DRG 698 ==
LOC: JER 16:46 → JERBED 22:13 → J4S 06-14 02:00
PROVIDERS: ADMIT Internal Medicine; ATTEND Internal Medicine
DX: N32.0 Bladder-neck obstruction (principal); N17.0 Acute kidney failure with tubular necrosis; I50.22 Chronic systolic (congestive) heart failure; I48.21 Permanent atrial fibrillation; I42.9 Cardiomyopathy, unspecified; I13.0 Hypertensive heart and chronic kidney disease with heart failure and stage 1 through stage 4 chronic kidney disease, or unspecified chronic kidney disease; N39.0 Urinary tract infection, site not specified; N40.0 Benign prostatic hyperplasia without lower urinary tract symptoms; E11.65 Type 2 diabetes mellitus with hyperglycemia; Z87.891 Personal history of nicotine dependence; D69.6 Thrombocytopenia, unspecified; N40.1 Benign prostatic hyperplasia with lower urinary tract symptoms; R33.8 Other retention of urine; E11.22 Type 2 diabetes mellitus with diabetic chronic kidney disease; N18.9 Chronic kidney disease, unspecified; E78.5 Hyperlipidemia, unspecified; Z79.84 Long term (current) use of oral hypoglycemic drugs
CPT/HCPCS: 36415; 74176-TC; 76700-TC; 76856-TC; 80048; 80053; 81003; 82340; 82436; 82570; 82962; 83735; 84100; 84133; 84156; 84300; 84540; 85025; 85027; 87086; 87205; 93005; 93010; 93306-TC; 97116-GP; 97161-GP; 99284-25; J7030

== ENCOUNTER 2020-03-15 19:43 | Inpatient (IN) | payer OTHER ==
--- NOTE | 2020-03-15 20:01 | PDOC ---
History of Present Illness - General Stated Complaint: SOB/WEAKNESS Time Seen by Provider: 03/15/20 20:00 Past History - Medical History Allergies/Adverse Reactions: Allergies Allergy/AdvReac Type Severity Reaction Status Date / Time No Known Allergies Allergy Verified 06/13/19 16:59 Home Medications: Ambulatory Orders Atorvastatin Ca [Lipitor] 20 mg PO HS 06/14/19 Metoprolol Succinate [Toprol Xl] 100 mg PO DAILY 06/14/19 Apixaban [Eliquis -] 2.5 mg PO BID #60 tablet 06/18/19 Meloxicam 15 mg PO DAILY 03/16/20 Metformin HCl [Glucophage] 1,000 mg PO DAILY 03/16/20 Sacubitril/Valsartan [Entresto 49 mg-51 mg Tablet] 1 each PO BID 03/16/20 Sitagliptin Phosphate [Januvia] 1 tab PO DAILY 03/16/20 Spironolactone 25 mg PO DAILY 03/16/20 Cardiac Disorders: Yes COPD: No Diabetes: Yes HTN: Yes Hypercholesterolemia: Yes - Surgical History Abdominal Surgery: Yes - Psycho-Social/Smoking History Smoking History: Never smoked Have you smoked in the past 12 months: No ED Treatment Course - LABORATORY CBC & Chemistry Diagram: 03/18/20 05:18 03/18/20 05:18 Medical Decision Making - Medical Decision Making 03/15/20 21:53 HPI: 69yo brit[place] virgin islander-speaking M hx HTN, DM, CHF (EF 55-60% 06/2019), COVID+ 2 weeks ago, CKD (unknown pathology), and Afib on eliquis 5 presents from home with son c/o 2 weeks gradually worsening fatigue, SOB worse with exertion, decreased PO intake, dry cough, and intermittent fevers. No meds tried. Compliant with all home meds, last took this AM. Pt was tested for covid in [place] 1mo ago, asymptomatic, negative COVID. Pt came here 3 weeks ago asymptomatic, 2 weeks ago developed fever and tested + covid and other sx began completed 5 day course azithromycin, 3 days ago tested negative covid (family member in household tested positive at 3 days ago). Denies N/V, abdominal pain, D/C, leg swelling, calf tenderness, hx DVT/PE, sudden change in SOB/condition. Daughter - Kathleen [phone] PCP - Karthik Arteaga ROS: Constitutional: Positive for fatigue, fever. Negative for chills, diaphoresis. HENT: Negative for sore throat, rhinorrhea, congestion. Eyes: Negative for visual disturbance. Respiratory: Positive for shortness of breath, cough. Negative for wheezing. Cardiovascular: Negative for chest pain, palpitations, and leg swelling. Gastrointestinal: Positive for decreased PO intake. Negative for abdominal pain, blood in stool, constipation, diarrhea, nausea, and vomiting. Genitourinary: Negative for dysuria, flank pain, and hematuria. Musculoskeletal: Negative for myalgias, back pain, and neck pain. Skin: Negative for rash. Neurological: Negative for light-headedness, dizziness, vertigo, syncope, weakness, numbness and headaches. Psychiatric/Behavioral: Negative for behavioral problems and confusion. PE: Gen: Alert, NAD, comfortable-appearing. HEENT: PERRL, EOMI, MMM, NCAT. No conjunctival pallor. Sclera are non-icteric. CV: Tachycardic irregularly irregular rate and rhythm. No murmurs, rubs, or gallops. PULM: No resp distress. Diffuse crackles b/l. Hypoxic 85% at rest on RA. No wheezes or rhonchi. ABD: soft, protuberant, +RLQ TTP, +reducible midline hernia, ND, no rebound tenderness or guarding, no CVA tenderness. BACK: No TTP of c/t/l-spine. No step-offs or deformities. MSK: No bony deformities. 2+ pulses in all extremities. NEURO: AAOx3. PERRL. No gross CN deficits. Strength and sensation grossly intact throughout. EXTREMITIES: No cyanosis. No clubbing. No edema. No calf tenderness. PSYCH: Normal mood and thought pattern. SKIN: Warm and dry. Normal capillary refill. No rashes. No jaundice. MDM: 69yo [place] islander-speaking M hx HTN, DM, CHF (EF 55-60% 06/2019), COVID+ 2 weeks ago, CKD (unknown pathology), and Afib on eliquis 5 presents from home with son c/o 2 weeks gradually worsening fatigue, SOB worse with exertion, decreased PO intake, dry cough, and intermittent fevers, in setting of +COVID 2 weeks ago. Afib w/RVR 130s, hypoxic 85% at rest on RA (95% on 6L NC but drops to 80s with movement), tachypneic, normotensive, afebrile, diffuse crackles throughout b/l lungs. Ddx: COVID, PNA, CHF, ACS/PA, arrhythmia, Afib w/RVR, metabolic derangement, anemia, UTI -CBC,CMP,Coags,Inflammatory markers,Mg,Phos,COVID/COVID Ab,UA/UC -CXR: diffuse bilateral infiltrates -EKG: Afib w/RVR, 130bpm, QTc 476, no e/o acute ischemia -Ofirmev -1L NS -Admit 03/16/20 01:50 No improvement in Afib with RVR despite IVF and Ofirmev. -[address]: 1. Bilateral infiltrates/consolidations consistent with COVID-19 pneumonia, with associated mediastinal and hilar lymphadenopathy. 2. Increasing cardiomegaly. 3. ASVD with ectasia of the mid to distal abdominal aorta again seen. 4. Prominent visceral, mediastinal, pleural, and epipericardial fat. Other findings as above CXR and labs c/w COVID PNA -10 Decadron -Defer further tx to admitting team -Admit tele Discharge - Discharge Information Problems reviewed: Yes Clinical Impression/Diagnosis: Suspected COVID-19 virus infection, Hypoxia Condition: Fair - Admission Yes - Follow up/Referral - Patient Discharge Instructions - Post Discharge Activity
[2020-03-15] MEDS ORDERED: ACETAMINOPHEN 1000 MG/100 ML VIAL (NON FORMULARY) IVPB ONE (20:52)
[2020-03-15] MEDS ORDERED: SODIUM CHLORIDE 0.9% 500 ML INFUS.BAG IV ONE ×2 (21:03→22:43)
--- NOTE | 2020-03-15 21:08 | PDOC ---
Documentation entered by Jumana Naranjo SCRIBE, acting as scribe for Gifty Morales MD. Gifty Morales MD: This documentation has been prepared by the Joy smith Sydney, SCRIBE, under my direction and personally reviewed by me in its entirety. I confirm that the documentation accurately reflects all work, treatment, procedures, and medical decision making performed by me. Attending Attestation - Resident Resident Name: Rain Burks - ED Attending Attestation I have performed the following: I have examined & evaluated the patient, The case was reviewed & discussed with the resident, I agree w/resident's findings & plan, Exceptions are as noted - HPI HPI: 03/15/20 20:54 Patient is a 69 year old male with a significant past medical history of CHF, DM, HTN, Afib who presents to the ED with three weeks of weakness and shortness of breath. As per patient, he traveled from the [place] three weeks ago when he first noticed a low-grade fever. Patient endorses he tested positive for covid-19 two weeks ago here at [place], but then tested negative this past Sunday. Patient also reports generalized weakness, worsened by exertion. Denies fever, chills, abdominal pain, nausea, vomiting, diarrhea, constipation, or urinary changes. Allergies: NKDA PCP: Dr. Elizabeth - Physicial Exam PE: 03/15/20 20:37 wnwd 69 yo male p/w shortness of breath head ncat neck supple lungs + crackles cvs tachycardia abdomen no rebound skin warm and dry extremities no deformities neuro alert,moving all extremities 03/15/20 20:50 - Medical Decision Making 03/15/20 21:03 69 yo male who came from and had positive COVID test 2 weeks ago now p/w increasing sob cxr ++infiltrates pt febrile, rapid afib receiving IVF,tylenol supplemental oxygen, requires admission imp: COVID 03/15/20 23:44 Discharge - Discharge Information Problems reviewed: Yes Clinical Impression/Diagnosis: Suspected COVID-19 virus infection, Hypoxia Condition: Fair - Follow up/Referral Referrals: Aron Elizabeth MD [Primary Care Provider] - - Patient Discharge Instructions - Post Discharge Activity
[2020-03-15] MEDS ORDERED: ACETAMINOPHEN INJECTION 100 ML IVPB ONE (21:44)
[2020-03-15 21:59] LABS: EOS % 2.3 % (0-4.5); HEMATOCRIT 40.3 % (35.4-49); HEMOGLOBIN 13.5 GM/dL (11.7-16.9); LYMPH % 10.3 % (8-40); MCH 30.7 pg (25.7-33.7); MCHC 33.4 g/dl (32.0-35.9); MEAN CELL VOLUME 91.7 fl (80-96); MONO % 7.9 % (3.8-10.2); NEUT % 78.5 % (42.8-82.8); PLATELET COUNT 252 K/MM3 (134-434); RBC 4.39 M/mm3 (4.00-5.60); RDW 14.4 % (11.9-15.9); WHITE BLOOD COUNT 10.1 K/mm3 (4.0-10.0)
[2020-03-15] MEDS ORDERED: dilTIAZem HCL 50 MG/10 ML - 10 ML VIAL IVPUSH ONE (22:23)
[2020-03-15 22:31] LABS: ALBUMIN 2.5 g/dl (3.4-5.0); ALK PHOS 107 U/L (45-117); ANION GAP 5 MMOL/L (8-16); BLOOD UREA NITROGEN 28.2 mg/dL (7-18); CHLORIDE 101 mmol/L (98-107); CO2 31 mmol/L (21-32); CREATININE 1.4 mg/dL (0.55-1.3); GLUCOSE,RANDOM 320 mg/dL (74-106); N-TERMINAL BNP 616.8 pg/ml (5-125); POTASSIUM 4.3 mmol/L (3.5-5.1); SGOT/AST 85 U/L (15-37); SGPT/ALT 71 U/L (13-61); SODIUM 137 mmol/L (136-145); TOT PROT 7.6 g/dl (6.4-8.2)
[2020-03-15] MEDS ORDERED: dilTIAZem HCL 125 MG/25 ML - 25 ML VIAL ONE (22:31)
[2020-03-15 22:32] LABS: MAGNESIUM 1.9 mg/dL (1.8-2.4); PHOSPHOROUS 2.8 mg/dL (2.5-4.9)
[2020-03-15] MEDS ORDERED: DEXAMETHASONE SOD PHOSPHATE 10 MG/1 ML VIAL IVPUSH ONE (22:33)
[2020-03-15 22:34] LABS: BILIRUBIN,TOTAL 0.6 mg/dL (0.2-1)
[2020-03-15] MEDS ORDERED: DEXAMETHASONE SOD PHOSPHATE 10 MG/1 ML VIAL ONE (22:40)
[2020-03-16] MEDS ORDERED: ONDANSETRON 4 MG/2 ML VIAL IVPUSH ONE (02:40)
--- NOTE | 2020-03-16 02:47 | PN ---
Teaching Attending Note Name of Resident: Cathy Jaime ATTENDING PHYSICIAN STATEMENT I saw and evaluated the patient. I reviewed the resident's note and discussed the case with the resident. I agree with the resident's findings and plan as documented. SUBJECTIVE: 69 year old male with of CHF, DM, HTN, Afib who presents to the ED with shor tness of breath and fatigue which is getting worse for last 3-4 days. he has been having fatigue, dry cough, SOB with exertion for last 3 weeks. He came from on 02/21 and was tested positive on 02/26. He was found to have A fib with RVR 130s and hypoxia 85% on room air after coming to ED OBJECTIVE: Last Vital Signs Temp Pulse Resp BP Pulse Ox 98.0 F 90 17 128/85 99 03/16/20 01:19 03/16/20 01:12 03/16/20 01:12 03/16/20 01:12 03/16/20 01:12 GENERAL: Awake, alert, and fully oriented, in no acute distress HEAD: No signs of trauma, normocephalic, atraumatic EYES: EOMI, sclera anicteric, conjunctiva clear ENT: Auricles normal inspection, hearing grossly normal, nares patent, oropharynx clear without exudates. Moist mucosa NECK: Normal ROM, supple, no lymphadenopathy, JVD, or masses LUNGS: b/l air entry +, b/l crackles HEART:tachycardia, no murmurs, rubs or gallops, peripheral pulses normal and equal bilaterally. ABDOMEN: Soft, nontender, normoactive bowel sounds. midline hernua EXTREMITIES : Normal inspection, Normal range of motion, no edema. No clubbing or cyanosis. NEUROLOGICAL: Cranial nerves II through XII intact. Normal speech, no focal sensorimotor deficits. SKIN: Warm, Dry, normal turgor, no rashes or lesions noted ASSESSMENT AND PLAN: Acute hypoxic respiratory failure due to COVID 19 infection B/L pneumonia likely due to COVID 19 Hx of CHF, DM, HTN, Afib BPH, CKD Admit to telemetry CPK, D dimer, LDH,ferritin,, PT,PTT, fibrinogen troponin ,CPK, procal, urine antigens, ESR, mg,phos daily labs CBC, CMP CPK, ferritin, CRP get abg get baseline EKG Zinc and vit C tablets IV decadron 6 mg daily / s/p IV 10 mg in ED UA, spot urine protein/creatinine IV Ceftriaxone and doxycycline for now ID evaluation Resume Eliquis 5 mg BID resume rest of the home medications continue oxygen via nasal cannula POCt with BURT
--- NOTE | 2020-03-16 04:27 | HP ---
CHIEF COMPLAINT: worsening SOB PCP: Dr. Arteaga HISTORY OF PRESENT ILLNESS: Pt is 69 yo Lebanese Speaking M with PMH of HTN, DM, CHF (EF 55-60% 06/2019), CKD (unknown pathology), and Afib on eliquis 5 bid presenting with worsening SOB with exertion at home. Pt was originally tested for COVID in [facility] 1mo ago, asymptomatic, negative COVID. Pt was tested again and resulted as COVID+ 2 weeks ago on 02/27 after [place] While in the he was around his brother who was COVID +. Pt with worsening SOB with exertion since 02/26 with associated gradually worsening fatigue, decreased PO intake, dry cough, intermittent fevers/chills, intermittent diarrhea, recent generalized chest pain with deep breaths, weakness. Denies hemoptysis, nausea, vomiting, abdominal pain, leg swelling, and leg pain. Pt reports testing negative for COVID-19 outside of the hospital 3 days ago. Pt has completed a 5 day course of azithromycin within the last 2 weeks. No other medications or treatments tried at home. ER course was notable for: (1) IVF (2) EKG: Afib w/RVR 130s. Dilt 10 given. Afib resolved. (3) Hypoxic 85% at rest on RA (95% on 6L NC but drops to 80s with movement) (4) IV decadron 10 given Recent Travel: as per HPI Sick contacts: as per HPI PAST MEDICAL HISTORY: as per HPI PAST SURGICAL HISTORY: as per HPI Social History: Lives at home with daughter and . Smoking: quit 20 years ago; 1/2 ppd x 30 y before that Alcohol: denies Drugs: denies Allergies No Known Allergies Allergy (Verified 06/13/19 16:59) HOME MEDICATIONS: Home Medications Medication Instructions Recorded Atorvastatin Ca [Lipitor] 20 mg PO HS 06/14/19 Metoprolol Succinate [Toprol Xl] 100 mg PO DAILY 06/14/19 Amlodipine Besylate 10 mg PO DAILY 30 Days #30 tablet 06/18/19 Apixaban [Eliquis -] 2.5 mg PO BID #60 tablet 06/18/19 Cephalexin [Keflex] 250 mg PO BID 4 Days #8 capsule 06/18/19 Finasteride [Proscar -] 5 mg PO DAILY 30 Days #30 tablet 06/18/19 Sitagliptin Phosphate [Januvia] 25 mg PO DAILY #30 tablet 06/18/19 Tamsulosin HCl [Flomax -] 0.4 mg PO DAILY@0830 30 Days #30 06/18/19 cap.er.24h REVIEW OF SYSTEMS as per HPI PHYSICAL EXAMINATION Vital Signs - 24 hr 03/15/20 03/15/20 03/15/20 19:43 22:03 22:37 Temperature 99.5 F Pulse Rate 134 H Pulse Rate [ 119 H 108 H Apical] Respiratory 24 H 22 H 19 Rate Blood Pressure 133/87 Blood Pressure 142/92 131/97 [Right Arm] O2 Sat by Pulse 86 L 99 95 Oximetry (%) 03/16/20 03/16/20 01:12 01:19 Temperature 98.0 F Pulse Rate Pulse Rate [ 90 Apical] Respiratory 17 Rate Blood Pressure Blood Pressure 128/85 [Right Arm] O2 Sat by Pulse 99 Oximetry (%) GENERAL: Awake, alert, and fully oriented, in no acute distress. Pt appears to be in mild discomfort. HEAD: Normal with no signs of trauma. EYES: Pupils equal, round and reactive to light, extraocular movements intact, sclera white, conjunctiva clear. EARS, NOSE, THROAT: oropharynx clear without exudates. Moist mucous membranes. NECK: supple without lymphadenopathy. trachea midline LUNGS: Diffuse crackles on auscultations bilaterally. Accessory muscle use when pt moves around. HEART: Regular rate and rhythm, normal S1 and S2 without murmur, rub or gallop. (pt not in AFib with RVR when examined) ABDOMEN: Soft, RLQ tenderness with no rebound and guarding, protuberant abdomen but not distended over baseline. MUSCULOSKELETAL: Normal range of motion at all joints. No bony deformities or tenderness. No CVA tenderness. UPPER EXTREMITIES: 2+ pulses, warm, well-perfused. No peripheral edema. LOWER EXTREMITIES: 2+ pulses, warm, well-perfused. No peripheral edema. NEUROLOGICAL: AOx3; sensation to light touch intact PSYCHIATRIC: Cooperative. Good eye contact. Appropriate mood and affect. SKIN: Warm, dry, normal turgor, no rashes or lesions noted. Laboratory Results - last 24 hr 03/15/20 03/15/20 03/15/20 21:40 21:40 21:40 WBC 10.1 H RBC 4.39 Hgb 13.5 Hct 40.3 MCV 91.7 MCH 30.7 MCHC 33.4 RDW 14.4 Plt Count 252 D MPV 9.0 Absolute Neuts (auto) 7.9 Neutrophils % 78.5 D Lymphocytes % 10.3 D Monocytes % 7.9 Eosinophils % 2.3 Basophils % 1.0 Nucleated RBC % 0 PTT (Actin FS) 28.0 Sodium 137 Potassium 4.3 Chloride 101 Carbon Dioxide 31 Anion Gap 5 L BUN 28.2 H Creatinine 1.4 H Est GFR (CKD-EPI)AfAm 58.58 Est GFR (CKD-EPI)NonAf 50.54 Random Glucose 320 H Calcium 9.0 Phosphorus Magnesium Ferritin Total Bilirubin 0.6 AST 85 H ALT 71 H Alkaline Phosphatase 107 LD Total Creatine Kinase 136 Troponin I < 0.02 C-Reactive Protein B-Natriuretic Peptide 616.8 H Total Protein 7.6 Albumin 2.5 L SARS-CoV-2 Ab Interp 03/15/20 03/15/20 21:40 21:40 WBC RBC Hgb Hct MCV MCH MCHC RDW Plt Count MPV Absolute Neuts (auto) Neutrophils % Lymphocytes % Monocytes % Eosinophils % Basophils % Nucleated RBC % PTT (Actin FS) Sodium Potassium Chloride Carbon Dioxide Anion Gap BUN Creatinine Est GFR (CKD-EPI)AfAm Est GFR (CKD-EPI)NonAf Random Glucose Calcium Phosphorus 2.8 Magnesium 1.9 Ferritin 905.0 H Total Bilirubin AST ALT Alkaline Phosphatase LD Total 576 H Creatine Kinase Troponin I C-Reactive Protein 17.0 H B-Natriuretic Peptide Total Protein Albumin SARS-CoV-2 Ab Interp Reactive ASSESSMENT/PLAN: Pt is a 69 yo M with PMH of HTN, DM, CHF (EF 55-60% on 06/2019), CKD (unknown pathology), Afib, and BPH being admitted for Acute Hypoxic RF likely 2/2 COVID- 19 Pneumonia. #Acute Hypoxic RF likely 2/2 COVID-19 Pneumonia Leukocytosis (10.1); CXR and CT with diffuse b/l infiltrates and consolidation consistent with COVID-19 [id number]; previously positive outpatient but reports negative in the last week on another outpatient test O2 sat 95% on 6 L NC - ABG ordered; D-dimer 20,861 - stat CTA ordered - Monitor inflammatory markers (D-dimer, LDH, ferritin, ESR, CRP) - Check CPK, coags, fibrinogen, procal, urine antigens - Monitor CBC, CMP, Mg, Phos - IV decadron 6 mg daily x 10 days - rocephin 1 g daily and doxycycline 100 mg bid for now; as per day team discretion - zinc 220 po bid + vitamin c 500 po bid #Hx of CHF (EF 55-60% on 06/2019) BNP 616.8 - continue home entresto 24-26 po bid - continue home aldactone 25 po daily #Hx of HTN - continue home entresto (as above) - continue home aldactone (as above) - continue home lipitor 20 po hs #Hx of DM - hold home meds - ISS+BGM #Hx of CKD (unknown pathology) Cr 1.4; improved from previous visits where Cr was baseline 4.2-4.3 - follow UA, urine spot protein/Cr #Hx of AFib Pt was in Afib with RVR in ED; stopped with dilt -f/u repeat EKG -continue home eliquis 5 bid -continue home metoprolol 100 mg po daily -QTc prolonged on original EKG so avoid all QT prolonging agents #Hx of BPH - continue home flomax 0.4 mg po daily - continue home proscar 5 mg po daily #DVT PPx -AC with home #FEN -F - PO for now -E - monitor; replete prn -N - low sodium, diabetic diet #Dispo -Admit to telemetry Visit type - Medication Review Med list reviewed for High Risk Meds patients 65 and older: Yes - Emergency Visit Emergency Visit: Yes ED Registration Date: 03/15/20 Care time: The patient presented to the Emergency Department on the above date and was hospitalized for further evaluation of their emergent condition. - New Patient This patient is new to me today: Yes Date on this admission: 03/16/20 - Critical Care Critical Care patient: No ATTENDING PHYSICIAN STATEMENT I saw and evaluated the patient. I reviewed the resident's note and discussed the case with the resident. I agree with the resident's findings and plan as documented. SUBJECTIVE: OBJECTIVE: ASSESSMENT AND PLAN:
[2020-03-16 05:50] LABS: URINE APPEARANCE CLEAR; URINE COLOR YELLOW; URINE GLUCOSE (UA) 250 (NEGATIVE)
[2020-03-16 05:51] LABS: URINE BILIRUBIN NEGATIVE (NEGATIVE); URINE KETONE NEGATIVE (NEGATIVE); URINE LEUK ESTERASE N (NEGATIVE); URINE NITRITE NEGATIVE (NEGATIVE); URINE PROTEIN 30 (NEGATIVE)
[2020-03-16 06:21] LABS: ARTERIAL BLD GAS O2 SATURATION 96.3 mmHg (95-98); ARTERIAL BLOOD GAS BASE EXCESS 0.1 mmol/L (-2-2); ARTERIAL BLOOD GAS PO2 83.8 mmHg (80-100); ARTERIAL BLOOD GAS pH 7.399 (7.350-7.450)
[2020-03-16 06:22] LABS: ALLENS TEST POSITIVE
[2020-03-16 07:27] LABS: BASO % 0.1 % (0-2.0); EOS % 0.1 % (0-4.5); HEMATOCRIT 37.4 % (35.4-49); HEMOGLOBIN 12.3 GM/dL (11.7-16.9); INR 1.35 (0.83-1.09); LYMPH % 10.3 % (8-40); MCH 30.1 pg (25.7-33.7); MCHC 32.9 g/dl (32.0-35.9); MEAN CELL VOLUME 91.3 fl (80-96); MEAN PLT VOLUME 8.8 fl (7.5-11.1); MONO % 2.5 % (3.8-10.2); PLATELET COUNT 223 K/MM3 (134-434); RBC 4.09 M/mm3 (4.00-5.60); RDW 14.9 % (11.9-15.9); WHITE BLOOD COUNT 6.9 K/mm3 (4.0-10.0)
[2020-03-16 07:29] LABS: ACTIVATED PTT 25.3 SECONDS (25.2-36.5)
[2020-03-16 07:37] LABS: ALBUMIN 2.2 g/dl (3.4-5.0); BILIRUBIN,TOTAL 0.4 mg/dL (0.2-1); BLOOD UREA NITROGEN 27.8 mg/dL (7-18); CALCIUM 8.8 mg/dL (8.5-10.1); CREATININE 1.2 mg/dL (0.55-1.3); POTASSIUM 5.2 mmol/L (3.5-5.1); TOT PROT 6.9 g/dl (6.4-8.2)
[2020-03-16] MEDS: INSULIN SLIDING SCALE (NOVOLOG) 1 VIAL SQ SCH ×4 (08:23→22:00)
[2020-03-16] MEDS ORDERED: TAMSULOSIN HCL 0.4 MG CAP PO SCH (08:30)
[2020-03-16] MEDS ORDERED: ASCORBIC ACID 500 MG TABLET (FP) ONE (08:40)
[2020-03-16] MEDS ORDERED: DEXAMETHASONE SOD PHOSPHATE 10 MG/1 ML VIAL ONE (08:41)
[2020-03-16] MEDS ORDERED: PANTOPRAZOLE 40 MG TABLET ONE (08:41)
[2020-03-16] MEDS ORDERED: ZINC SULFATE 220 MG CAPSULE (FP) ONE (08:41)
[2020-03-16] MEDS ORDERED: APIXABAN 5 MG TABLET ONE (08:41)
[2020-03-16] MEDS ORDERED: TAMSULOSIN HCL 0.4 MG CAP ONE (08:41)
[2020-03-16] MEDS ORDERED: DOXYCYCLINE HYCLATE 100 MG VIAL ONE (08:42)
[2020-03-16] MEDS ORDERED: CEFTRIAXONE 1 GM/50 ML BAG ONE (08:42)
[2020-03-16] MEDS ORDERED: SPIRONOLACTONE 25 MG TABLET ONE (08:42)
[2020-03-16] MEDS ORDERED: METOPROLOL TARTRATE 50 MG TABLET (FP) ONE (08:47)
[2020-03-16] MEDS: ASCORBIC ACID 500 MG TABLET (FP) PO SCH ×2 (09:04→21:53)
[2020-03-16] MEDS: ZINC SULFATE 220 MG CAPSULE (FP) PO SCH ×2 (09:04→21:53)
[2020-03-16] MEDS: PANTOPRAZOLE 40 MG TABLET PO SCH (09:04)
[2020-03-16] MEDS: DEXAMETHASONE SOD PHOSPHATE 4 MG/1 ML VIAL IVPUSH SCH (09:04)
[2020-03-16] MEDS: APIXABAN 5 MG TABLET PO SCH ×2 (09:04→21:53)
[2020-03-16] MEDS ORDERED: DEXTROSE 5%-WATER - 50 ML IVPB ONE (09:53)
[2020-03-16] MEDS ORDERED: cefTRIAXone SODIUM 1 GM VIAL ONE (09:53)
[2020-03-16] MEDS ORDERED: DOXYCYCLINE INJECTION 100 MG in DEXTROSE 5%-WATER 100 ML IVPB SCH (10:00)
[2020-03-16] MEDS ORDERED: FINASTERIDE 5 MG TABLET (FP) PO SCH (10:00)
[2020-03-16] MEDS ORDERED: SACUBITRIL/VALSARTAN 24 MG-26 MG TABLET PO SCH (10:00)
[2020-03-16] MEDS ORDERED: CEFTRIAXONE 1 GM in DEXTROSE 5%-WATER - 50 ML IVPB SCH (10:00)
[2020-03-16] MEDS ORDERED: SPIRONOLACTONE 25 MG TABLET PO SCH (10:00)
--- NOTE | 2020-03-16 10:11 | PN ---
Progress Note (short form) - Note Progress Note: PULMONARY CONSULTATION DICTATED 03/16/20 IMP ACUTE HYPOXEMIC RESPIRATORY FAILURE COVID-19 PNEUMONITIS CHF DM AFIB PLAN SUPPLEMENTAL O2 STEROIDS CONVALESCENT PLASMA INHALED STEROIDS/BRONCHODILATORS FULL AC REMDESIVIR MONITOR INFLAMMATORY MARKERS DR CALLAWAY Problem List - Problems (1) Acute hypoxemic respiratory failure due to COVID-19 Code(s): U07.1 - COVID POSITIVE; J96.01 - ACUTE RESPIRATORY FAILURE WITH HYPOXIA (2) Hypoxia Code(s): R09.02 - HYPOXEMIA (3) FINA (acute kidney injury) Code(s): N17.9 - ACUTE KIDNEY FAILURE, UNSPECIFIED (4) CHF (congestive heart failure) Code(s): I50.9 - HEART FAILURE, UNSPECIFIED (5) Diabetes Code(s): E11.9 - TYPE 2 DIABETES MELLITUS WITHOUT COMPLICATIONS (6) HTN (hypertension) Code(s): I10 - ESSENTIAL (PRIMARY) HYPERTENSION
[2020-03-16 10:18] VITALS: BMI 29.4
--- NOTE | 2020-03-16 10:32 | EKG ---
Test Reason : Blood Pressure : / mmHG Vent. Rate : 130 BPM Atrial Rate : 133 BPM P-R Int : 000 ms QRS Dur : 092 ms QT Int : 324 ms P-R-T Axes : 000 -12 014 degrees QTc Int : 476 ms ATRIAL FIBRILLATION WITH RAPID VENTRICULAR RESPONSE ABNORMAL ECG WHEN COMPARED WITH ECG OF 14-JUN-2019 07:18, NO SIGNIFICANT CHANGE WAS FOUND Confirmed by MD Winkler Edward ([id number]) on 03/16/2020 10:32:05 AM Referred By: Confirmed By:Davis Winkler MD
--- NOTE | 2020-03-16 10:33 | EKG ---
Test Reason : Blood Pressure : / mmHG Vent. Rate : 088 BPM Atrial Rate : 091 BPM P-R Int : 000 ms QRS Dur : 098 ms QT Int : 388 ms P-R-T Axes : 000 -05 010 degrees QTc Int : 469 ms ATRIAL FIBRILLATION ABNORMAL ECG WHEN COMPARED WITH ECG OF 15-MAR-2020 20:28, NO SIGNIFICANT CHANGE WAS FOUND Confirmed by MD Winkler Edward ([id number]) on 03/16/2020 10:32:54 AM Referred By: Confirmed By:Davis Winkler MD
[2020-03-16] MEDS ORDERED: INSULIN (NOVOLOG) ASPART 100 UNITS/ML 10ML VIAL ONE (10:45)
--- NOTE | 2020-03-16 11:54 | CON.ID ---
Consult Consult Specialty:: infectious diseases Referred by:: hospitalist Reason for Consultation:: pneumonia,covid positive - History of Present Illness Chief Complaint: sob History of Present Illness: 69 yo Sinhala Speaking M with PMH of HTN, DM, CHF , CKD , and Afib on eliquis with worsening SOB with exertion at home. Pt was originally tested for COVID in [facility] 1mo ago, asymptomatic, negative COVID. Pt was tested again and resulted as COVID+ 2 weeks ago on 02/27 [place] While in the he was around his brother who was COVID +. Pt with worsening SOB with exertion since 02/26 with associated gradually worsening fatigue, decreased PO intake, dry cough, intermittent fevers/chills, intermittent diarrhea, recent generalized chest pain with deep breaths, weakness. Denies hemoptysis, nausea, vomiting, abdominal pain, leg swelling, and leg pain. Pt reports testing negative for COVID-19 outside of the hospital 3 days ago. Pt has completed a 5 day course of azithromycin within the last 2 weeks. currently patient is on 5l nasal canula - History Source History Provided By: Patient, Medical Record Limitations to Obtaining History: Language Barrier - Alcohol/Substance Use Hx Alcohol Use: No - Smoking History Smoking history: Never smoked Have you smoked in the past 12 months: No Home Medications - Allergies Allergies/Adverse Reactions: Allergies Allergy/AdvReac Type Severity Reaction Status Date / Time No Known Allergies Allergy Verified 06/13/19 16:59 - Home Medications Home Medications: Ambulatory Orders Atorvastatin Ca [Lipitor] 20 mg PO HS 06/14/19 Metoprolol Succinate [Toprol Xl] 100 mg PO DAILY 06/14/19 Apixaban [Eliquis -] 2.5 mg PO BID #60 tablet 06/18/19 Meloxicam 15 mg PO DAILY 03/16/20 Metformin HCl [Glucophage] 1,000 mg PO DAILY 03/16/20 Sacubitril/Valsartan [Entresto 49 mg-51 mg Tablet] 1 each PO BID 03/16/20 Sitagliptin Phosphate [Januvia] 1 tab PO DAILY 03/16/20 Spironolactone 25 mg PO DAILY 03/16/20 Review of Systems - Review of Systems Constitutional: reports: Weakness, Other Eyes: reports: No Symptoms HENT: reports: No Symptoms Neck: reports: No Symptoms Cardiovascular: reports: No Symptoms Respiratory: reports: SOB, SOB on Exertion, Other Gastrointestinal: reports: No Symptoms Genitourinary: reports: No Symptoms Musculoskeletal: reports: No Symptoms Integumentary: reports: No Symptoms Neurological: reports: No Symptoms Endocrine: reports: No Symptoms Hematology/Lymphatic: reports: No Symptoms Psychiatric: reports: No Symptoms Physical Exam Vital Signs: Vital Signs Temperature 98 F 03/16/20 09:48 Pulse Rate 118 H 03/16/20 09:48 Respiratory Rate 22 H 03/16/20 09:48 Blood Pressure 158/98 03/16/20 09:48 O2 Sat by Pulse Oximetry (%) 95 03/16/20 10:03 Constitutional: Yes: Calm, Mild Distress Eyes: Yes: Conjunctiva Clear HENT: Yes: Atraumatic, Normocephalic Neck: Yes: Supple, Trachea Midline Cardiovascular: Yes: Pulse Irregular Respiratory: Yes: Regular, On Nasal O2 Gastrointestinal: Yes: Normal Bowel Sounds, Soft Musculoskeletal: Yes: WNL Extremities: Yes: WNL Neurological: Yes: Alert, Oriented Psychiatric: Yes: Alert, Oriented Labs: CBC, BMP 03/16/20 06:00 Imaging - Results Chest X-ray: Report Reviewed, Image Reviewed Cat Scan: Report Reviewed, Image Reviewed Assessment/Plan 69 yo M with PMH of HTN, DM, CHF (EF 55-60% on 06/2019), CKD (unknown pathology), Afib, and BPH being admitted for Acute Hypoxic RF likely 2/2 COVID- 19 Pneumonia. covid leukocytosis chf htn dm afib bph plan plasma will continue doxy await for finalization of reports monitor markers resp support if patient worsens consider tociluzimab
[2020-03-16] MEDS ORDERED: INSULIN (LEVEMIR) 100 UNITS/ML UNITS SQ ONE (12:24)
[2020-03-16] MEDS ORDERED: Insulin (LOG) Aspart 100 UNITS/ML VIAL SQ ONE (12:25)
[2020-03-16] MEDS ORDERED: METOPROLOL TARTRATE 5 MG/5 ML VIAL IVPUSH ONE ×2 (13:25→17:59)
--- NOTE | 2020-03-16 14:06 | PN ---
Physical Exam: SUBJECTIVE: sign language interpreter: [id number] Patient seen and examined bedside, on NC 5L, sitting up eating breakfast. In no acute distress. Reports feeling better than when he came to hospital. Spoke to patients daughter and verified medications and story. Patient tested positive for coronavirus on 02/27 after returning from [facility]. He started to feel fatigued, had a cough, and a fever of 103 according to daughter. He went his doctor and was given 5 days of azithromycin. He completed antibiotics and felt a little better but then started to have diarrhea. 1 week ago he got retested for Covid and tested negative. However, his SOB got worse, he still had cough and fatigue so he came to hospital. OBJECTIVE: Vital Signs Vital Signs - 8 hr 03/16/20 03/16/20 08:45 09:48 Temperature 98 F Pulse Rate 118 H Pulse Rate [ 117 H Apical] Respiratory 21 H 22 H Rate Blood Pressure 158/98 Blood Pressure 122/97 [Right Arm] O2 Sat by Pulse 97 95 Oximetry (%) 03/16/20 13:43 Temperature Pulse Rate 138 H Pulse Rate [ Apical] Respiratory Rate Blood Pressure 154/90 Blood Pressure [Right Arm] O2 Sat by Pulse Oximetry (%) GENERAL: The patient is awake, alert, and fully oriented, in no acute distress. Limited exam due to Covid -19 Laboratory Results - last 24 hr 03/15/20 03/15/20 03/15/20 21:40 21:40 21:40 WBC 10.1 H RBC 4.39 Hgb 13.5 Hct 40.3 MCV 91.7 MCH 30.7 MCHC 33.4 RDW 14.4 Plt Count 252 D MPV 9.0 Absolute Neuts (auto) 7.9 Neutrophils % 78.5 D Lymphocytes % 10.3 D Monocytes % 7.9 Eosinophils % 2.3 Basophils % 1.0 Nucleated RBC % 0 ESR PT with INR INR PTT (Actin FS) 28.0 Fibrinogen D-Dimer Anticoagulation Therapy Puncture Site Patient Temperature ABG pH ABG pCO2 ABG pO2 ABG HCO3 ABG O2 Sat (Measured) ABG O2 Content ABG Base Excess [place] Test Patient On Oxygen O2 Delivery Device Oxygen Flow Rate Vent Mode Vent Rate Mechanical Rate PEEP Pressure Support Vent Sodium 137 Potassium 4.3 Chloride 101 Carbon Dioxide 31 Anion Gap 5 L BUN 28.2 H Creatinine 1.4 H Est GFR (CKD-EPI)AfAm 58.58 Est GFR (CKD-EPI)NonAf 50.54 POC Glucometer Random Glucose 320 H Hemoglobin A1c % Calcium 9.0 Phosphorus Magnesium Ferritin Total Bilirubin 0.6 AST 85 H ALT 71 H Alkaline Phosphatase 107 LD Total Creatine Kinase 136 Troponin I < 0.02 C-Reactive Protein B-Natriuretic Peptide 616.8 H Total Protein 7.6 Albumin 2.5 L Urine Color Urine Appearance Urine pH Ur Specific [place] Urine Protein Urine Glucose (UA) Urine Ketones Urine Blood Urine Nitrite Urine Bilirubin Urine Urobilinogen Ur Leukocyte Esterase SARS-CoV-2 Ab Interp 03/15/20 03/15/20 03/16/20 21:40 21:40 03:55 WBC RBC Hgb Hct MCV MCH MCHC RDW Plt Count MPV Absolute Neuts (auto) Neutrophils % Lymphocytes % Monocytes % Eosinophils % Basophils % Nucleated RBC % ESR PT with INR INR PTT (Actin FS) Fibrinogen D-Dimer 28299 H Anticoagulation Therapy Puncture Site Patient Temperature ABG pH ABG pCO2 ABG pO2 ABG HCO3 ABG O2 Sat (Measured) ABG O2 Content ABG Base Excess [place] Test Patient On Oxygen O2 Delivery Device Oxygen Flow Rate Vent Mode Vent Rate Mechanical Rate PEEP Pressure Support Vent Sodium Potassium Chloride Carbon Dioxide Anion Gap BUN Creatinine Est GFR (CKD-EPI)AfAm Est GFR (CKD-EPI)NonAf POC Glucometer Random Glucose Hemoglobin A1c % Calcium Phosphorus 2.8 Magnesium 1.9 Ferritin 905.0 H Total Bilirubin AST ALT Alkaline Phosphatase LD Total 576 H Creatine Kinase Troponin I C-Reactive Protein 17.0 H B-Natriuretic Peptide Total Protein Albumin Urine Color Urine Appearance Urine pH Ur Specific [place] Urine Protein Urine Glucose (UA) Urine Ketones Urine Blood Urine Nitrite Urine Bilirubin Urine Urobilinogen Ur Leukocyte Esterase SARS-CoV-2 Ab Interp Reactive 03/16/20 03/16/20 03/16/20 03:55 03:55 04:20 WBC RBC Hgb Hct MCV MCH MCHC RDW Plt Count MPV Absolute Neuts (auto) Neutrophils % Lymphocytes % Monocytes % Eosinophils % Basophils % Nucleated RBC % ESR PT with INR INR PTT (Actin FS) Fibrinogen D-Dimer Anticoagulation Therapy Puncture Site Patient Temperature ABG pH ABG pCO2 ABG pO2 ABG HCO3 ABG O2 Sat (Measured) ABG O2 Content ABG Base Excess [place] Test Patient On Oxygen O2 Delivery Device Oxygen Flow Rate Vent Mode Vent Rate Mechanical Rate PEEP Pressure Support Vent Sodium Potassium Chloride Carbon Dioxide Anion Gap BUN Creatinine Est GFR (CKD-EPI)AfAm Est GFR (CKD-EPI)NonAf POC Glucometer Random Glucose Hemoglobin A1c % Calcium Phosphorus 3.1 Magnesium 1.9 Ferritin Total Bilirubin AST ALT Alkaline Phosphatase LD Total Creatine Kinase Troponin I C-Reactive Protein B-Natriuretic Peptide Total Protein Albumin Urine Color Yellow Urine Appearance Clear Urine pH 5.0 Ur Specific [place] 1.054 H Urine Protein 30 Urine Glucose (UA) 250 Urine Ketones Negative Urine Blood N Urine Nitrite Negative Urine Bilirubin Negative Urine Urobilinogen 1.0 Ur Leukocyte Esterase N SARS-CoV-2 Ab Inter 03/16/20 03/16/20 03/16/20 06:00 06:00 06:00 WBC 6.9 RBC 4.09 Hgb 12.3 Hct 37.4 MCV 91.3 MCH 30.1 MCHC 32.9 RDW 14.9 Plt Count 223 MPV 8.8 Absolute Neuts (auto) 6.0 Neutrophils % 87.0 H Lymphocytes % 10.3 Monocytes % 2.5 L Eosinophils % 0.1 D Basophils % 0.1 Nucleated RBC % 0 ESR PT with INR INR PTT (Actin FS) Fibrinogen D-Dimer Anticoagulation Therapy Puncture Site Patient Temperature ABG pH ABG pCO2 ABG pO2 ABG HCO3 ABG O2 Sat (Measured) ABG O2 Content ABG Base Excess [place] Test Patient On Oxygen O2 Delivery Device Oxygen Flow Rate Vent Mode Vent Rate Mechanical Rate PEEP Pressure Support Vent Sodium 137 Potassium 5.2 H Chloride 104 Carbon Dioxide 28 Anion Gap 6 L BUN 27.8 H Creatinine 1.2 Est GFR (CKD-EPI)AfAm 70.58 Est GFR (CKD-EPI)NonAf 60.90 POC Glucometer Random Glucose 406 H* Hemoglobin A1c % Calcium 8.8 Phosphorus Magnesium Ferritin 778.4 H Total Bilirubin 0.4 AST 57 H ALT 61 Alkaline Phosphatase 96 LD Total 311 H Creatine Kinase 75 Troponin I < 0.02 C-Reactive Protein 13.4 H B-Natriuretic Peptide Total Protein 6.9 Albumin 2.2 L Urine Color Urine Appearance Urine pH Ur Specific [place] Urine Protein Urine Glucose (UA) Urine Ketones Urine Blood Urine Nitrite Urine Bilirubin Urine Urobilinogen Ur Leukocyte Esterase SARS-CoV-2 Ab Interp 03/16/20 03/16/20 03/16/20 06:00 06:00 06:00 WBC RBC Hgb Hct MCV MCH MCHC RDW Plt Count MPV Absolute Neuts (auto) Neutrophils % Lymphocytes % Monocytes % Eosinophils % Basophils % Nucleated RBC % ESR 82 H PT with INR 16.00 H INR 1.35 H PTT (Actin FS) 25.3 Fibrinogen 479.0 D-Dimer 95610 H Anticoagulation Therapy Puncture Site Patient Temperature ABG pH ABG pCO2 ABG pO2 ABG HCO3 ABG O2 Sat (Measured) ABG O2 Content ABG Base Excess [place] Test Patient On Oxygen O2 Delivery Device Oxygen Flow Rate Vent Mode Vent Rate Mechanical Rate PEEP Pressure Support Vent Sodium Potassium Chloride Carbon Dioxide Anion Gap BUN Creatinine Est GFR (CKD-EPI)AfAm Est GFR (CKD-EPI)NonAf POC Glucometer Random Glucose Hemoglobin A1c % Calcium Phosphorus Magnesium Ferritin Total Bilirubin AST ALT Alkaline Phosphatase LD Total Creatine Kinase Troponin I C-Reactive Protein B-Natriuretic Peptide Total Protein Albumin Urine Color Urine Appearance Urine pH Ur Specific [place] Urine Protein Urine Glucose (UA) Urine Ketones Urine Blood Urine Nitrite Urine Bilirubin Urine Urobilinogen Ur Leukocyte Esterase SARS-CoV-2 Ab Interp 03/16/20 03/16/20 03/16/20 06:00 06:10 08:09 WBC RBC Hgb Hct MCV MCH MCHC RDW Plt Count MPV Absolute Neuts (auto) Neutrophils % Lymphocytes % Monocytes % Eosinophils % Basophils % Nucleated RBC % ESR PT with INR INR PTT (Actin FS) Fibrinogen D-Dimer Anticoagulation Therapy No Result Required. Puncture Site Right radial Patient Temperature No Result Required. ABG pH 7.399 ABG pCO2 41.30 ABG pO2 83.8 ABG HCO3 25.0 ABG O2 Sat (Measured) 96.3 ABG O2 Content No Result Required. ABG Base Excess 0.1 [place] Test Positive Patient On Oxygen Yes O2 Delivery Device Nasal Oxygen Flow Rate 5l Vent Mode No Result Required. Vent Rate No Result Required. Mechanical Rate No Result Required. PEEP No Result Required. Pressure Support Vent No Result Required. Sodium Potassium Chloride Carbon Dioxide Anion Gap BUN Creatinine Est GFR (CKD-EPI)AfAm Est GFR (CKD-EPI)NonAf POC Glucometer 322 Random Glucose Hemoglobin A1c % 9.5 H Calcium Phosphorus Magnesium Ferritin Total Bilirubin AST ALT Alkaline Phosphatase LD Total Creatine Kinase Troponin I C-Reactive Protein B-Natriuretic Peptide Total Protein Albumin Urine Color Urine Appearance Urine pH Ur Specific [place] Urine Protein Urine Glucose (UA) Urine Ketones Urine Blood Urine Nitrite Urine Bilirubin Urine Urobilinogen Ur Leukocyte Esterase SARS-CoV-2 Ab Interp 03/16/20 03/16/20 10:27 11:25 WBC RBC Hgb Hct MCV MCH MCHC RDW Plt Count MPV Absolute Neuts (auto) Neutrophils % Lymphocytes % Monocytes % Eosinophils % Basophils % Nucleated RBC % ESR PT with INR INR PTT (Actin FS) Fibrinogen D-Dimer Anticoagulation Therapy Puncture Site Patient Temperature ABG pH ABG pCO2 ABG pO2 ABG HCO3 ABG O2 Sat (Measured) ABG O2 Content ABG Base Excess [place] Test Patient On Oxygen O2 Delivery Device Oxygen Flow Rate Vent Mode Vent Rate Mechanical Rate PEEP Pressure Support Vent Sodium Potassium Chloride Carbon Dioxide Anion Gap BUN Creatinine Est GFR (CKD-EPI)AfAm Est GFR (CKD-EPI)NonAf POC Glucometer 432 Random Glucose 420 H* Hemoglobin A1c % Calcium Phosphorus Magnesium Ferritin Total Bilirubin AST ALT Alkaline Phosphatase LD Total Creatine Kinase Troponin I C-Reactive Protein B-Natriuretic Peptide Total Protein Albumin Urine Color Urine Appearance Urine pH Ur Specific [place] Urine Protein Urine Glucose (UA) Urine Ketones Urine Blood Urine Nitrite Urine Bilirubin Urine Urobilinogen Ur Leukocyte Esterase SARS-CoV-2 Ab Interp Active Medications Generic Name Dose Route Start Last Admin Trade Name Freq PRN Reason Stop Dose Admin Apixaban 5 mg 03/16/20 10:00 03/16/20 09:04 Eliquis - PO 5 mg BID HAMZAH Administration Ascorbic Acid 500 mg 03/16/20 10:00 03/16/20 09:04 Vitamin C - PO 500 mg BID HAMZAH Administration Atorvastatin Calcium 20 mg 03/16/20 22:00 Lipitor - PO [facility] Budesonide/Formoterol Fumarate 2 puff 03/16/20 12:30 Symbicort 160/4.5mcg - IH BID COUNT INCLUDES THE [facility] Dexamethasone Sodium Phosphate 6 mg 03/16/20 10:00 03/16/20 09:04 Decadron Injection - IVPUSH 6 mg DAILY HAMZAH Administration Doxycycline Hyclate 100 mg 03/16/20 18:00 Vibramycin - PO BID@1000,1800 HAMZAH Insulin Aspart 1 vial 03/16/20 07:00 03/16/20 10:47 Novolog Vial Sliding Scale - SQ 12 units ACHS HAMZAH Administration Protocol Metoprolol Succinate 100 mg 03/16/20 10:00 03/16/20 09:04 Toprol Xl - PO 100 mg DAILY HAMZAH Administration Pantoprazole Sodium 40 mg 03/16/20 10:00 03/16/20 09:04 Protonix - PO 40 mg DAILY HAMZAH Administration Sacubitril/Valsartan 1 tab 03/16/20 10:00 03/16/20 09:04 Entresto 24 Mg-26 Mg Tablet PO 1 tab BID HAMZAH Administration Spironolactone 25 mg 03/16/20 10:00 03/16/20 09:04 Aldactone - PO 25 mg DAILY HAMZAH Administration Zinc Sulfate 220 mg 03/16/20 10:00 03/16/20 09:04 Orazinc - PO 220 mg BID HAMZAH Administration Imaging: CT Chest/Ab/Pelvis Examination of the mediastinum demonstrates prominent lymph nodes within the mediastinal chains. The largest node measures 2.3 cm within the pretracheal space. The etiology of this adenopathy is uncertain. There is no evidence of mediastinal masses or fluid collections. The heart is enlarged. Evaluation of the lung willis demonstrates extensive peripheral consolidation, most marked within the upper lobes, as well as the right middle lobe. This appearance is consistent with the clinical history of Covid-19 pneumonitis. No pulmonary masses or pleural effusions are present. The liver, spleen, pancreas, adrenal glands and kidneys demonstrate no significant abnormalities. There is a 1.4 cm accessory spleen within the left upper quadrant. There is also a 2.3 cm right renal cyst. The gallbladder is clear. There is no evidence of intra-abdominal or retroperitoneal lymphadenopathy or fluid collections. There is mild dilatation of the distal abdominal aorta with widest AP diameter measuring 3.0 cm. There is no evidence of pneumoperitoneum, bowel obstruction or intra-abdominal abscess. The appendix is normal in caliber and does contain air, indicative of patency. There is no CT evidence of acute or diverticulitis. Examination of the pelvis demonstrates no evidence of pelvic masses, fluid collections or lymphadenopathy. There is no evidence of acute bony pathology. IMPRESSION: 1. Mild mediastinal lymphadenopathy. 2. Cardiomegaly. 3. Extensive bilateral consolidation consistent with Covid-19 pneumonitis. 4. 3.0 cm distal AAA. 5. No evidence of appendicitis or acute pathology within the abdomen or pelvis. Please see above discussion. ASSESSMENT/PLAN: Pt is a 69 yo M with PMH of HTN, DM, CHF (EF 55-60% on 06/2019), Afib, and BPH. CKD II, (patient Cr 4.5 last admission, 1.2 on this admission, calculated CC 78). Tested positive for Covid 19 on 02/28/20. Clinical symptoms and imaging consistent with covid-19. Patient admitted to [facility] for acute respiratory failure due to covid 19. Acute hypoxic respiratory failure: 2/ covid-19 - tested positive upon returning from [place] - CT scan results consistent with Covid pneumonitis - dexamethasone 6 mg iv daily - Pulm consulted (Dr. Hutchinson) Symbicort 2 puffs IH BID start plasma and redesimir - went over consent for convalescent plasma with patient and daughter - discussed Remdesivir risk and possible side effects with patient his daughter - Infectious Disease consulted (Dr. Cha) - doxycycline 100 mg po BID DM2 - hba1c 9.5 - holding home januvia and metformin - sugars been consistently over 300 - start levemir tonight 5 units, and 10 units in AM - reassess - reassess insulin needed after calculating 24 hr need - BGM - SSI Afib w/RVR - hx afib on elqius 2.5 mg BID - increased eliquis 5 mg BID - no need to renal dose patient CC ~78 - continue to monitor rate - Consulted cardiology HTN - Toprol 100 mg daily - Spironolactone - hold Entresto HLD - Liptor 20 HS AAA - 3 cm dital AAA found on CT - control HTN - outpatient follow up BPH? - according to daughter who has all patient's medications, patient is no longer taking tamsulosin or finasteride, stopped medications for now FEN - Fluids PO intake - NA controlled diet - electrolytes monitored, replete as needed Prophylaxis DVT - eliquis 5mg BID GERD - protonix 40 po daily Visit type - Emergency Visit Emergency Visit: Yes ED Registration Date: 03/15/20 Care time: The patient presented to the Emergency Department on the above date and was hospitalized for further evaluation of their emergent condition. - New Patient This patient is new to me today: Yes Date on this admission: 03/15/20 - Critical Care Critical Care patient: No - Discharge Referral Referred to [facility] No - Medication Review Med list reviewed for High Risk Meds patients 65 and older: Yes ATTENDING PHYSICIAN STATEMENT I saw and evaluated the patient. I reviewed the resident's note and discussed the case with the resident. I agree with the resident's findings and plan as documented. SUBJECTIVE: OBJECTIVE: ASSESSMENT AND PLAN:
--- NOTE | 2020-03-16 14:22 | CONS ---
DATE OF CONSULTATION: 03/16/2020 REFERRING PHYSICIAN: Cassidy Root MD The patient is a 69-year-old male, past medical history of hypertension, diabetes, CHF, chronic kidney disease, atrial fibrillation, maintained on Eliquis 5 b.i.d., admitted to [facility] on March 15 with complaint of shortness of breath and dyspnea on exertion. Patient apparently was in the [place] approximately a month ago. Apparently he was tested in the [place] for COVID and was negative. Apparently he was tested again and it came back positive 2 weeks ago, on February 27, after arriving back to the [facility] from the [place]. Apparently in the [place], his brother was COVID positive. Since the , the patient has complained of increasing shortness of breath and dyspnea on exertion and decreased p.o. intake, dry cough, intermittent fevers, chills, and diarrhea. He also had complaints of generalized chest pains when taking deep breaths. He presented to the emergency room. Apparently he had recently completed a 5-day course of azithromycin with the past 2 weeks. Apparently he also states he was tested negative for COVID 3 days ago. On admission, he underwent a CT scan of the chest, which revealed evidence of extensive bilateral consolidations consistent with COVID-19 pneumonitis and mediastinal lymphadenopathy. His inflammatory markers were elevated, with a D-dimer of 20,861, a CRP of 17, and a ferritin of 905. On admission, he was started on dexamethasone and continued on supplemental O2 and continued on anticoagulation. Patient denies any history of tobacco use. Past medical history, again, includes hypertension, diabetes, CHF, chronic kidney disease, atrial fibrillation. REVIEW OF SYSTEMS: Positive shortness of breath, positive cough, intermittent fevers, positive chest pain with inspiration. Current medications include Symbicort 160/4.5, Decadron 6 daily, Flomax, Entresto, Vibramycin, Eliquis, Toprol, Lipitor, NovoLog, Aldactone, Protonix, Orazinc, Proscar, and vitamin C. PHYSICAL EXAMINATION: General: The patient is an elderly male, awake, alert, mildly dyspneic but in no acute distress. Vital Signs: He is afebrile. Blood pressure is 122/97. Respiratory rate 22. O2 saturation is 95% on 5 L nasal cannula. HEENT: Normocephalic, atraumatic. Neck: Supple. Heart: Irregular, S1, S2. Chest: Scattered bilateral crackles. Abdomen: Soft. Bowel sounds are positive. Extremities: No cyanosis, edema. LABORATORY DATA: WBC 6.9, hemoglobin 12.3, hematocrit 37.4, with a platelet count of 223,000. ESR is 82, D-dimer today is 19,219. Blood gas: pH 7.39, pCO2 of 41, pO2 of 83, bicarbonate 25, and saturation 96.3, that was on 5 L. Ferritin is 778. CRP is 13.4, LDH is 311. Chest CT as noted earlier. IMPRESSION: 1. Acute hypoxemic respiratory failure secondary to COVID-19 pneumonitis. 2. Congestive heart failure. 3. Diabetes. 4. Atrial fibrillation. PLAN: Supplemental O2, continue IV steroids, start inhaled steroids and inhaled bronchodilators. Continue full anticoagulation. Monitor inflammatory markers. Transfuse convalescent plasma as well as 5-day course of remdesivir. SRUTHI CALLAWAY M.D. [id number]
[2020-03-16] MEDS ORDERED: PT OWN MED DRAWER 7, Y5N ONE ×2 (14:39→14:51)
[2020-03-16] MEDS: BUDESONIDE/FORMETEROL FUMARATE 160/4.5 mcg INHALER IH SCH ×2 (14:53→21:59)
--- NOTE | 2020-03-16 16:29 | CON.CARD ---
Consult Consult Specialty:: cardiology Reason for Consultation:: SOB; hx CHF - History of Present Illness History of Present Illness: 69 year old male (b. [facility]), with a significant past medical history of CHF (?systolic), DM, HTN, Afib who presents to the ED with three weeks of weakness and shortness of breath. As per patient, he traveled from the [facility] three weeks ago when he first noticed a low-grade fever. Patient endorses he tested positive for covid-19 two weeks ago here at [place], but then tested negative this past Sunday. Patient also reports generalized weakness, worsened by exertion. Denies fever, chills, abdominal pain, nausea, vomiting, diarrhea, constipation, or urinary changes. Allergies: NKDA PCP: Dr. Elizabeth Epic Anesthesia Analyst: Dr. Madelin Pillai - History Source History Provided By: Patient, Medical Record Limitations to Obtaining History: No Limitations - Alcohol/Substance Use Hx Alcohol Use: No - Smoking History Smoking history: Never smoked Have you smoked in the past 12 months: No Home Medications - Allergies Allergies/Adverse Reactions: Allergies Allergy/AdvReac Type Severity Reaction Status Date / Time No Known Allergies Allergy Verified 06/13/19 16:59 - Home Medications Home Medications: Ambulatory Orders Atorvastatin Ca [Lipitor] 20 mg PO HS 06/14/19 Metoprolol Succinate [Toprol Xl] 100 mg PO DAILY 06/14/19 Apixaban [Eliquis -] 2.5 mg PO BID #60 tablet 06/18/19 Meloxicam 15 mg PO DAILY 03/16/20 Metformin HCl [Glucophage] 1,000 mg PO DAILY 03/16/20 Sacubitril/Valsartan [Entresto 49 mg-51 mg Tablet] 1 each PO BID 03/16/20 Sitagliptin Phosphate [Januvia] 1 tab PO DAILY 03/16/20 Spironolactone 25 mg PO DAILY 03/16/20 Vital Signs: Vital Signs Temperature 98.1 F 03/16/20 14:00 Pulse Rate 113 H 03/16/20 14:00 Respiratory Rate 22 H 03/16/20 09:48 Blood Pressure 116/86 03/16/20 14:00 O2 Sat by Pulse Oximetry (%) 95 03/16/20 10:03 - Other Data Labs, Other Data: CBC, BMP 03/16/20 06:00 03/16/20 11:25 INR, PTT INR 1.35 (0.83-1.09) H 03/16/20 06:00 Fibrinogen 479.0 mg/dL (238-498) 03/16/20 06:00 Troponin, BNP 03/15/20 03/16/20 21:40 06:00 Troponin I < 0.02 < 0.02 B-Natriuretic Peptide 616.8 H Troponin, BNP 03/15/20 03/16/20 21:40 06:00 Troponin I < 0.02 < 0.02 B-Natriuretic Peptide 616.8 H Assessment/Plan COVID + Acute/chronic CHF: (?sytolic): pt is on atenolol, Entresto (only once a day?), spironolactone, apixaban at home. LVEF now: normal . AF Rec: Covid Rx: on steroids; start remdesivir (discussed medication with pt and his daughter, Kathleen; both understand benefits and potential risks; both give consent to use it); for plasma; antibiotics per ID. On metoprolol ER now for HR control, CHF, HTN On apixaban. BUN/Cr, electrolytes, daily weight, Is and Os. TNI serially BNP CXR
[2020-03-16] MEDS ORDERED: REMDESIVIR 200 MG in SODIUM CHLORIDE 210 ML IVPB ONE (17:33)
--- NOTE | 2020-03-16 17:40 | PN ---
Teaching Attending Note Name of Resident: Bia Hoffman ATTENDING PHYSICIAN STATEMENT I saw and evaluated the patient. I reviewed the resident's note and discussed the case with the resident. I agree with the resident's findings and plan as documented. SUBJECTIVE: on 5liter NC , saturating 95% OBJECTIVE: Patient is feeling better today Vital Signs Temperature 98.1 F 03/16/20 14:00 Pulse Rate 113 H 03/16/20 14:00 Respiratory Rate 22 H 03/16/20 09:48 Blood Pressure 116/86 03/16/20 14:00 O2 Sat by Pulse Oximetry (%) 95 03/16/20 10:03 PE; per resident's note CBCD WBC 6.9 K/mm3 (4.0-10.0) 03/16/20 06:00 RBC 4.09 M/mm3 (4.00-5.60) 03/16/20 06:00 Hgb 12.3 GM/dL (11.7-16.9) 03/16/20 06:00 Hct 37.4 % (35.4-49) 03/16/20 06:00 MCV 91.3 fl (80-96) 03/16/20 06:00 MCHC 32.9 g/dl (32.0-35.9) 03/16/20 06:00 RDW 14.9 % (11.9-15.9) 03/16/20 06:00 Plt Count 223 K/MM3 (134-434) 03/16/20 06:00 MPV 8.8 fl (7.5-11.1) 03/16/20 06:00 CMP Sodium 137 mmol/L (136-145) 03/16/20 06:00 Potassium 5.2 mmol/L (3.5-5.1) H 03/16/20 06:00 Chloride 104 mmol/L (98-107) 03/16/20 06:00 Carbon Dioxide 28 mmol/L (21-32) 03/16/20 06:00 Anion Gap 6 MMOL/L (8-16) L 03/16/20 06:00 BUN 27.8 mg/dL (7-18) H 03/16/20 06:00 Creatinine 1.2 mg/dL (0.55-1.3) 03/16/20 06:00 Random Glucose 420 mg/dL (74-106) H* 03/16/20 11:25 Calcium 8.8 mg/dL (8.5-10.1) 03/16/20 06:00 Total Bilirubin 0.4 mg/dL (0.2-1) 03/16/20 06:00 AST 57 U/L (15-37) H 03/16/20 06:00 ALT 61 U/L (13-61) 03/16/20 06:00 Alkaline Phosphatase 96 U/L (45-117) 03/16/20 06:00 Total Protein 6.9 g/dl (6.4-8.2) 03/16/20 06:00 Albumin 2.2 g/dl (3.4-5.0) L 03/16/20 06:00 CARDIAC ENZYMES Creatine Kinase 75 U/L (26-308) 03/16/20 06:00 Troponin I < 0.02 ng/ml (0.00-0.05) 03/16/20 06:00 Current Medications Generic Name Dose Route Start Last Admin Trade Name Ivon PRN Reason Stop Dose Admin Apixaban 5 mg 03/16/20 10:00 03/16/20 09:04 Eliquis - PO 5 mg BID HAMZAH Administration Ascorbic Acid 500 mg 03/16/20 10:00 03/16/20 09:04 Vitamin C - PO 500 mg BID HAMZAH Administration Atorvastatin Calcium 20 mg 03/16/20 22:00 Lipitor - PO [facility] Budesonide/Formoterol Fumarate 2 puff 03/16/20 12:30 03/16/20 14:53 Symbicort 160/4.5mcg - IH 2 inh BID HAMZAH Administration Dexamethasone Sodium Phosphate 6 mg 03/16/20 10:00 03/16/20 09:04 Decadron Injection - IVPUSH 6 mg DAILY HAMZAH Administration Doxycycline Hyclate 100 mg 03/16/20 18:00 Vibramycin - PO BID@1000,1800 HAMZAH Non-Formulary Medication 100 250 mls @ 250 mls/hr 03/17/20 10:00 mg/ Sodium Chloride IVPB 03/21/20 09:59 DAILY HAMZAH Non-Formulary Medication 200 250 mls @ 250 mls/hr 03/16/20 17:33 mg/ Sodium Chloride IVPB 03/16/20 18:32 ONCE ONE Insulin Aspart 1 vial 03/16/20 07:00 03/16/20 10:47 Novolog Vial Sliding Scale - SQ 12 units ACHS HAMZAH Administration Protocol Insulin Detemir 10 units 03/17/20 08:00 Levemir Vial SQ DAILY@0800 HAMZAH Metoprolol Succinate 100 mg 03/16/20 10:00 03/16/20 09:04 Toprol Xl - PO 100 mg DAILY HAMZAH Administration Pantoprazole Sodium 40 mg 03/16/20 10:00 03/16/20 09:04 Protonix - PO 40 mg DAILY HAMZAH Administration Sacubitril/Valsartan 1 tab 03/16/20 10:00 03/16/20 09:04 Entresto 24 Mg-26 Mg Tablet PO 1 tab BID HAMZAH Administration Spironolactone 25 mg 03/16/20 10:00 03/16/20 09:04 Aldactone - PO 25 mg DAILY HAMZAH Administration Zinc Sulfate 220 mg 03/16/20 10:00 03/16/20 09:04 Orazinc - PO 220 mg BID HAMZAH Administration Home Medications Medication Instructions Recorded Atorvastatin Ca [Lipitor] 20 mg PO HS 06/14/19 Metoprolol Succinate [Toprol Xl] 100 mg PO DAILY 06/14/19 Apixaban [Eliquis -] 2.5 mg PO BID #60 tablet 06/18/19 Meloxicam 15 mg PO DAILY 03/16/20 Metformin HCl [Glucophage] 1,000 mg PO DAILY 03/16/20 Sacubitril/Valsartan [Entresto 49 1 each PO BID 03/16/20 mg-51 mg Tablet] Sitagliptin Phosphate [Januvia] 1 tab PO DAILY 03/16/20 Spironolactone 25 mg PO DAILY 03/16/20 ECHO: EJF 55-60% mild atrium is moderately dilated, right atrium dilated moderately , mild mitral regurg., moderate TR, PA systolic pressure is 24mmhg, trace AR,trace NM. Assessment an plan: This is a 69 year old man with a Pmhx of HTN, hyperlipidemia, atrial fib, CHF, T2DM who presents to ED for having shortness of breath and Ct consistent with Covid , tested positive for covid #Covid Pneumonitis on rocephin/doxy/follow daily markers, on eliquis increased the dose to 5mg from 2.5mg , steroid/zinc/vit c/vitd , On Nc now given Remdisir 200mg and continue with 100mg x 5 days # questionable chronic heart failure with EJF 55-60%: discussed with cardio , agrees to hold enteresto and aldactone , since elevated potassium will repeat potassium level in am # Atrial fibrillation, permanent rate controlled: continue Toprol XL, Eliquis # HTN continue Toprol XL , hold Entresto, Aldactone since elevated potassium # Hyperlipidemia continue Lipitor #T2DM on metformin , SS DVT px: Eliquis patient agreed to get remdisivir
[2020-03-16] MEDS: DOXYCYCLINE HYCLATE 100 MG CAPSULE PO SCH (18:14)
[2020-03-16] MEDS: ATORVASTATIN CA 20 MG TABLET (FP) PO SCH (21:53)
[2020-03-16 22:14] LABS: CHOLESTEROL 102 mg/dL (50-200); HDL CHOLESTEROL 13 mg/dL (40-60); LDL CHOLESTEROL (ONLY SJRH) 71 mg/dL (5-100); TRIGLYCERIDES 133 mg/dL (0-150)
[2020-03-17] MEDS: INSULIN SLIDING SCALE (NOVOLOG) 1 VIAL SQ SCH ×6 (06:46→22:08)
[2020-03-17] MEDS ORDERED: INSULIN (LEVEMIR) 100 UNITS/ML UNITS SQ SCH ×2 (08:00→22:00)
[2020-03-17] MEDS ORDERED: INSULIN (LEVEMIR) 100 UNITS/ML UNITS SQ ONE ×3 (08:05→12:08)
[2020-03-17] MEDS ORDERED: PT OWN MED DRAWER 7, Y5N ONE ×2 (08:13→08:33)
[2020-03-17 08:45] LABS: BASO % 0.1 % (0-2.0); EOS % 0.1 % (0-4.5); HEMATOCRIT 39.1 % (35.4-49); HEMOGLOBIN 12.9 GM/dL (11.7-16.9); LYMPH % 5.2 % (8-40); MCH 30.1 pg (25.7-33.7); MEAN CELL VOLUME 91.3 fl (80-96); MEAN PLT VOLUME 8.6 fl (7.5-11.1); MONO % 3.7 % (3.8-10.2); NEUT % 90.9 % (42.8-82.8); PLATELET COUNT 314 K/MM3 (134-434); RBC 4.28 M/mm3 (4.00-5.60); RDW 14.5 % (11.9-15.9); WHITE BLOOD COUNT 22.7 K/mm3 (4.0-10.0)
[2020-03-17 09:18] LABS: ALBUMIN 2.5 g/dl (3.4-5.0); BILIRUBIN,TOTAL 0.5 mg/dL (0.2-1); BLOOD UREA NITROGEN 31.4 mg/dL (7-18); CREATININE 1.3 mg/dL (0.55-1.3); MAGNESIUM 1.9 mg/dL (1.8-2.4); PHOSPHOROUS 3.6 mg/dL (2.5-4.9); POTASSIUM 4.4 mmol/L (3.5-5.1); TOT PROT 7.3 g/dl (6.4-8.2)
[2020-03-17] MEDS: DOXYCYCLINE HYCLATE 100 MG CAPSULE PO SCH ×2 (09:34→17:36)
[2020-03-17] MEDS: ZINC SULFATE 220 MG CAPSULE (FP) PO SCH ×2 (09:34→22:02)
[2020-03-17] MEDS: REMDESIVIR 100 MG in SODIUM CHLORIDE 230 ML IVPB SCH (09:34)
[2020-03-17] MEDS: PANTOPRAZOLE 40 MG TABLET PO SCH (09:34)
[2020-03-17] MEDS: DEXAMETHASONE SOD PHOSPHATE 4 MG/1 ML VIAL IVPUSH SCH (09:34)
[2020-03-17] MEDS: ASCORBIC ACID 500 MG TABLET (FP) PO SCH ×2 (09:34→22:02)
[2020-03-17] MEDS: APIXABAN 5 MG TABLET PO SCH ×2 (09:34→22:02)
[2020-03-17] MEDS: BUDESONIDE/FORMETEROL FUMARATE 160/4.5 mcg INHALER IH SCH ×2 (09:35→22:03)
--- NOTE | 2020-03-17 09:36 | PN ---
Progress Note, Physician History of Present Illness: PULMONARY ALERT,MORE DYSPNEIC TODAY ON NASL O2. COVID PCR +, PT STARTED ON REMDESIVIR AND AGREES TO CONVALESCENT PLASMA - Current Medication List Current Medications: Active Medications Apixaban (Eliquis -) 5 mg PO BID [facility] Last Admin: 03/17/20 09:34 Dose: 5 mg Documented by: Ascorbic Acid (Vitamin C -) 500 mg PO BID [facility] Last Admin: 03/17/20 09:34 Dose: 500 mg Documented by: Atorvastatin Calcium (Lipitor -) 20 mg PO HS [facility] Last Admin: 03/16/20 21:53 Dose: 20 mg Documented by: Budesonide/Formoterol Fumarate (Symbicort 160/4.5mcg -) 2 puff IH BID [facility] Last Admin: 03/17/20 09:35 Dose: 2 inh Documented by: Dexamethasone Sodium Phosphate (Decadron Injection -) 6 mg IVPUSH DAILY [facility] Last Admin: 03/17/20 09:34 Dose: 6 mg Documented by: Doxycycline Hyclate (Vibramycin -) 100 mg PO BID@1000,1800 [facility] Last Admin: 03/17/20 09:34 Dose: 100 mg Documented by: Non-Formulary Medication 100 (mg/ Sodium Chloride) 250 mls @ 250 mls/hr IVPB DAILY [facility] Stop: 03/21/20 09:59 Last Admin: 03/17/20 09:34 Dose: 250 mls/hr Documented by: Insulin Aspart (Novolog Vial Sliding Scale -) 1 vial SQ [facility]; Protocol Last Admin: 03/17/20 07:53 Dose: 6 units Documented by: Insulin Detemir (Levemir Vial) 10 units SQ DAILY@0800 [facility] Last Admin: 03/17/20 07:53 Dose: 10 units Documented by: Insulin Detemir (Levemir Vial) 5 units SQ [facility] Metoprolol Succinate (Toprol Xl -) 100 mg PO DAILY [facility] Last Admin: 03/17/20 09:34 Dose: 100 mg Documented by: Pantoprazole Sodium (Protonix -) 40 mg PO DAILY [facility] Last Admin: 03/17/20 09:34 Dose: 40 mg Documented by: Zinc Sulfate (Orazinc -) 220 mg PO BID [facility] Last Admin: 03/17/20 09:34 Dose: 220 mg Documented by: - Objective Vital Signs: Vital Signs Temperature 98 F 03/17/20 08:56 Pulse Rate 118 H 03/17/20 08:56 Respiratory Rate 20 03/17/20 08:56 Blood Pressure 144/88 03/17/20 08:56 O2 Sat by Pulse Oximetry (%) 95 03/17/20 08:56 Constitutional: Yes: Well Nourished, Calm Eyes: Yes: WNL HENT: Yes: WNL Neck: Yes: WNL Cardiovascular: Yes: Pulse Irregular, S1, S2 Respiratory: Yes: Rales (SCATTERED NEO CRACKLES) Gastrointestinal: Yes: Normal Bowel Sounds, Soft Extremities: Yes: WNL Edema: No Labs: CBC, BMP 03/17/20 08:20 03/17/20 08:20 INR, PTT INR 1.35 (0.83-1.09) H 03/16/20 06:00 Fibrinogen 479.0 mg/dL (238-498) 03/16/20 06:00 Laboratory Tests 03/16/20 03/16/20 03/16/20 06:00 06:00 06:00 D-Dimer 07156 H Ferritin 778.4 H LD Total 311 H C-Reactive Protein 13.4 H 03/17/20 03/17/20 08:20 08:20 D-Dimer 88494 H Ferritin LD Total 343 H C-Reactive Protein 8.9 H Problem List - Problems (1) Acute hypoxemic respiratory failure due to COVID-19 Code(s): U07.1 - COVID POSITIVE; J96.01 - ACUTE RESPIRATORY FAILURE WITH HYPOXIA (2) Hypoxia Code(s): R09.02 - HYPOXEMIA (3) FINA (acute kidney injury) Code(s): N17.9 - ACUTE KIDNEY FAILURE, UNSPECIFIED (4) CHF (congestive heart failure) Code(s): I50.9 - HEART FAILURE, UNSPECIFIED (5) Diabetes Code(s): E11.9 - TYPE 2 DIABETES MELLITUS WITHOUT COMPLICATIONS (6) HTN (hypertension) Code(s): I10 - ESSENTIAL (PRIMARY) HYPERTENSION Assessment/Plan IMP ACUTE HYPOXEMIC RESPIRATORY FAILURE COVID-19 PNEUMONITIS CHF DM AFIB PLAN SUPPLEMENTAL O2 STEROIDS CONVALESCENT PLASMA INHALED STEROIDS/BRONCHODILATORS FULL AC REMDESIVIR MON[employer]OR INFLAM[employer]ORY [employer]ERS DR [place] Problem List - Problems (1) Acute hypoxemic respiratory failure due to COVID-19 Code(s): U07.1 - COVID POSITIVE; J96.01 - ACUTE RESPIRATORY FAILURE WITH HYPOXIA (2) Hypoxia Code(s): R09.02 - HYPOXEMIA (3) FINA (acute kidney injury) Code(s): N17.9 - ACUTE KIDNEY FAILURE, UNSPECIFIED (4) CHF (congestive heart failure) Code(s): I50.9 - HEART FAILURE, UNSPECIFIED (5) Diabetes Code(s): E11.9 - TYPE 2 DIABETES MELLITUS WITHOUT COMPLICATIONS (6) HTN (hypertension) Code(s): I10 - ESSENTIAL (PRIMARY) HYPERTENSION
--- NOTE | 2020-03-17 09:43 | PN ---
Teaching Attending Note Name of Resident: Bia Hoffman ATTENDING PHYSICIAN STATEMENT I saw and evaluated the patient. I reviewed the resident's note and discussed the case with the resident. I agree with the resident's findings and plan as documented. SUBJECTIVE: Patient is better , eating comfortably with no acute distress. OBJECTIVE: Vital Signs Temperature 98 F 03/17/20 08:56 Pulse Rate 118 H 03/17/20 08:56 Respiratory Rate 20 03/17/20 08:56 Blood Pressure 144/88 03/17/20 08:56 O2 Sat by Pulse Oximetry (%) 95 03/17/20 08:56 PE;per resident's note CBCD WBC 22.7 K/mm3 (4.0-10.0) H 03/17/20 08:20 RBC 4.28 M/mm3 (4.00-5.60) 03/17/20 08:20 Hgb 12.9 GM/dL (11.7-16.9) 03/17/20 08:20 Hct 39.1 % (35.4-49) 03/17/20 08:20 MCV 91.3 fl (80-96) 03/17/20 08:20 MCHC 33.0 g/dl (32.0-35.9) 03/17/20 08:20 RDW 14.5 % (11.9-15.9) 03/17/20 08:20 Plt Count 314 K/MM3 (134-434) D 03/17/20 08:20 MPV 8.6 fl (7.5-11.1) 03/17/20 08:20 CMP Sodium 137 mmol/L (136-145) 03/17/20 08:20 Potassium 4.4 mmol/L (3.5-5.1) 03/17/20 08:20 Chloride 104 mmol/L (98-107) 03/17/20 08:20 Carbon Dioxide 24 mmol/L (21-32) 03/17/20 08:20 Anion Gap 10 MMOL/L (8-16) 03/17/20 08:20 BUN 31.4 mg/dL (7-18) H 03/17/20 08:20 Creatinine 1.3 mg/dL (0.55-1.3) 03/17/20 08:20 Random Glucose 303 mg/dL (74-106) H 03/17/20 08:20 Calcium 9.0 mg/dL (8.5-10.1) 03/17/20 08:20 Total Bilirubin 0.5 mg/dL (0.2-1) 03/17/20 08:20 AST 47 U/L (15-37) H 03/17/20 08:20 ALT 64 U/L (13-61) H 03/17/20 08:20 Alkaline Phosphatase 92 U/L (45-117) 03/17/20 08:20 Total Protein 7.3 g/dl (6.4-8.2) 03/17/20 08:20 Albumin 2.5 g/dl (3.4-5.0) L 03/17/20 08:20 CARDIAC ENZYMES Creatine Kinase 75 U/L (26-308) 03/16/20 06:00 Troponin I < 0.02 ng/ml (0.00-0.05) 03/16/20 06:00 Home Medications Medication Instructions Recorded Atorvastatin Ca [Lipitor] 20 mg PO HS 06/14/19 Metoprolol Succinate [Toprol Xl] 100 mg PO DAILY 06/14/19 Apixaban [Eliquis -] 2.5 mg PO BID #60 tablet 06/18/19 Meloxicam 15 mg PO DAILY 03/16/20 Metformin HCl [Glucophage] 1,000 mg PO DAILY 03/16/20 Sacubitril/Valsartan [Entresto 49 1 each PO BID 03/16/20 mg-51 mg Tablet] Sitagliptin Phosphate [Januvia] 1 tab PO DAILY 03/16/20 Spironolactone 25 mg PO DAILY 03/16/20 Current Medications Generic Name Dose Route Start Last Admin Trade Name Freq PRN Reason Stop Dose Admin Apixaban 5 mg 03/16/20 10:00 03/17/20 09:34 Eliquis - PO 5 mg BID HAMZAH Administration Ascorbic Acid 500 mg 03/16/20 10:00 03/17/20 09:34 Vitamin C - PO 500 mg BID HAMZAH Administration Atorvastatin Calcium 20 mg 03/16/20 22:00 03/16/20 21:53 Lipitor - PO 20 mg HS HAMZAH Administration Budesonide/Formoterol Fumarate 2 puff 03/16/20 12:30 03/17/20 09:35 Symbicort 160/4.5mcg - IH 2 inh BID HAMZAH Administration Dexamethasone Sodium Phosphate 6 mg 03/16/20 10:00 03/17/20 09:34 Decadron Injection - IVPUSH 6 mg DAILY HAMZAH Administration Doxycycline Hyclate 100 mg 03/16/20 18:00 03/17/20 09:34 Vibramycin - PO 100 mg BID@1000,1800 HAMZAH Administration Non-Formulary Medication 100 250 mls @ 250 mls/hr 03/17/20 10:00 03/17/20 09:34 mg/ Sodium Chloride IVPB 03/21/20 09:59 250 mls/hr DAILY HAMZAH Administration Insulin Aspart 1 vial 03/16/20 07:00 03/17/20 07:53 Novolog Vial Sliding Scale - SQ 6 units ACHS HAMZAH Administration Protocol Insulin Detemir 10 units 03/17/20 08:00 03/17/20 07:53 Levemir Vial SQ 10 units DAILY@0800 HAMZAH Administration Insulin Detemir 5 units 03/17/20 22:00 Levemir Vial SQ HS [facility] Metoprolol Succinate 100 mg 03/16/20 10:00 03/17/20 09:34 Toprol Xl - PO 100 mg DAILY HAMZAH Administration Pantoprazole Sodium 40 mg 03/16/20 10:00 03/17/20 09:34 Protonix - PO 40 mg DAILY HAMZAH Administration Zinc Sulfate 220 mg 03/16/20 10:00 03/17/20 09:34 Orazinc - PO 220 mg BID HAMZAH Administration ECHO: EJF 55-60% mild atrium is moderately dilated, right atrium dilated moderately , mild mitral regurg., moderate TR, PA systolic pressure is 24mmhg, trace AR,trace MN. Assessment an plan: This is a 69 year old man with a Pmhx of HTN, hyperlipidemia, atrial fib, CHF, T2DM who presents to ED for having shortness of breath and Ct consistent with Covid , tested positive for covid #Covid Pneumonitis on rocephin/doxy/follow daily markers, on eliquis increased the dose to 5mg from 2.5mg , steroid/zinc/vit c/vitd , On Nc now On remdisiver 100mg 2nd dose today x 5 days. # Possible chronic heart failure with EJF 55-60%: discussed with cardio , will dc enteresto and aldactone, K is Nl now. # Atrial fibrillation, permanent rate controlled: continue Toprol XL, Eliquis # HTN continue Toprol XL , hold Entresto, Aldactone since elevated potassium # Hyperlipidemia continue Lipitor #T2DM on metformin , SS DVT px: Eliquis
--- NOTE | 2020-03-17 10:26 | PN ---
Progress Note, Physician History of Present Illness: patient more dyspnoeic planning to start on remdesevir - Current Medication List Current Medications: Active Medications Apixaban (Eliquis -) 5 mg PO BID [facility] Last Admin: 03/17/20 09:34 Dose: 5 mg Documented by: Ascorbic Acid (Vitamin C -) 500 mg PO BID [facility] Last Admin: 03/17/20 09:34 Dose: 500 mg Documented by: Atorvastatin Calcium (Lipitor -) [address] [facility] Last Admin: 03/16/20 21:53 Dose: 20 mg Documented by: Budesonide/Formoterol Fumarate (Symbicort 160/4.5mcg -) 2 puff IH BID [facility] Last Admin: 03/17/20 09:35 Dose: 2 inh Documented by: Dexamethasone Sodium Phosphate (Decadron Injection -) 6 mg IVPUSH DAILY [facility] Last Admin: 03/17/20 09:34 Dose: 6 mg Documented by: Doxycycline Hyclate (Vibramycin -) 100 mg PO BID@1000,1800 [facility] Last Admin: 03/17/20 09:34 Dose: 100 mg Documented by: Non-Formulary Medication 100 (mg/ Sodium Chloride) 250 mls @ 250 mls/hr IVPB DAILY [facility] Stop: 03/21/20 09:59 Last Admin: 03/17/20 09:34 Dose: 250 mls/hr Documented by: Insulin Aspart (Novolog Vial Sliding Scale -) 1 vial SQ [facility]; Protocol Last Admin: 03/17/20 07:53 Dose: 6 units Documented by: Insulin Detemir (Levemir Vial) 10 units SQ DAILY@0800 [facility] Last Admin: 03/17/20 07:53 Dose: 10 units Documented by: Insulin Detemir (Levemir Vial) [address] [facility] Metoprolol Succinate (Toprol Xl -) 100 mg PO DAILY [facility] Last Admin: 03/17/20 09:34 Dose: 100 mg Documented by: Pantoprazole Sodium (Protonix -) 40 mg PO DAILY [facility] Last Admin: 03/17/20 09:34 Dose: 40 mg Documented by: Zinc Sulfate (Orazinc -) 220 mg PO BID [facility] Last Admin: 03/17/20 09:34 Dose: 220 mg Documented by: - Objective Vital Signs: Vital Signs Temperature 98 F 03/17/20 08:56 Pulse Rate 118 H 03/17/20 08:56 Respiratory Rate 03/17/20 08:56 Blood Pressure 144/88 03/17/20 08:56 O2 Sat by Pulse Oximetry (%) 95 03/17/20 08:56 Constitutional: Yes: Other Eyes: Yes: Conjunctiva Clear Cardiovascular: Yes: S1, S2 Respiratory: Yes: Regular, CTA Bilaterally Gastrointestinal: Yes: Normal Bowel Sounds, Soft Extremities: Yes: WNL Neurological: Yes: Alert, Oriented Labs: CBC, BMP 03/17/20 08:20 03/17/20 08:20 INR, PTT INR 1.35 (0.83-1.09) H 03/16/20 06:00 Fibrinogen 479.0 mg/dL (238-498) 03/16/20 06:00 Assessment/Plan 69 yo M with PMH of HTN, DM, CHF (EF 55-60% on 06/2019), CKD (unknown pathology), Afib, and BPH being admitted for Acute Hypoxic RF likely 2/2 COVID- 19 Pneumonia. covid leukocytosis chf htn dm afib bph plan plasma will continue doxy await for finalization of reports monitor markers resp support
[2020-03-17] MEDS ORDERED: METOPROLOL TARTRATE 5 MG/5 ML VIAL IVPUSH PRN (10:52)
--- NOTE | 2020-03-17 11:06 | PN ---
Progress Note, Physician History of Present Illness: 69 year old male (. [facility]), with a significant past medical history of CHF (?systolic), DM, HTN, Afib who presents to the ED with three weeks of weakness and shortness of breath. As per patient, he traveled from the [facility] three weeks ago when he first noticed a low-grade fever. Patient endorses he tested positive for covid-19 two weeks ago here at [place], but then tested negative this past Sunday. Patient also reports generalized weakness, worsened by exertion. Denies fever, chills, abdominal pain, nausea, vomiting, diarrhea, constipation, or urinary changes. Allergies: NKDA PCP: Dr. Elizabeth Managed Care Director: Dr. Madelin Pillai - Current Medication List Current Medications: Active Medications Apixaban (Eliquis -) 5 mg PO BID [facility] Last Admin: 03/17/20 09:34 Dose: 5 mg Documented by: Ascorbic Acid (Vitamin C -) 500 mg PO BID [facility] Last Admin: 03/17/20 09:34 Dose: 500 mg Documented by: Atorvastatin Calcium (Lipitor -) 20 mg PO [facility] Last Admin: 03/16/20 21:53 Dose: 20 mg Documented by: Budesonide/Formoterol Fumarate (Symbicort 160/4.5mcg -) 2 puff IH BID [facility] Last Admin: 03/17/20 09:35 Dose: 2 inh Documented by: Dexamethasone Sodium Phosphate (Decadron Injection -) 6 mg IVPUSH DAILY [facility] Last Admin: 03/17/20 09:34 Dose: 6 mg Documented by: Doxycycline Hyclate (Vibramycin -) 100 mg PO BID@1000,1800 [facility] Last Admin: 03/17/20 09:34 Dose: 100 mg Documented by: Non-Formulary Medication 100 (mg/ Sodium Chloride) 250 mls @ 250 mls/hr IVPB DAILY [facility] Stop: 03/21/20 09:59 Last Admin: 03/17/20 09:34 Dose: 250 mls/hr Documented by: Insulin Aspart (Novolog Vial Sliding Scale -) [address] [facility]; Protocol Last Admin: 03/17/20 07:53 Dose: 6 units Documented by: Insulin Detemir (Levemir Vial) 20 units SQ DAILY@0800 [facility] Insulin Detemir (Levemir Vial) 10 units SQ [facility] Metoprolol Succinate (Toprol Xl -) 100 mg PO DAILY [facility] Last Admin: 03/17/20 09:34 Dose: 100 mg Documented by: Metoprolol Tartrate (Lopressor Injection -) 5 mg IVPUSH Q4H PRN PRN Reason: TACHYCARDIA Pantoprazole Sodium (Protonix -) 40 mg PO DAILY [facility] Last Admin: 03/17/20 09:34 Dose: 40 mg Documented by: Zinc Sulfate (Orazinc -) 220 mg PO BID [facility] Last Admin: 03/17/20 09:34 Dose: 220 mg Documented by: - Objective Vital Signs: Vital Signs Temperature 98 F 03/17/20 08:56 Pulse Rate 118 H 03/17/20 08:56 Respiratory Rate 20 03/17/20 08:56 Blood Pressure 144/88 03/17/20 08:56 O2 Sat by Pulse Oximetry (%) 95 03/17/20 08:56 Eyes: Yes: WNL, Conjunctiva Clear, EOM Intact HENT: Yes: WNL, Atraumatic, Normocephalic Neck: Yes: WNL, Supple, Trachea Midline Cardiovascular: Yes: Pulse Irregular, S1, S2 Respiratory: Yes: Diminished Gastrointestinal: Yes: WNL, Normal Bowel Sounds Genitourinary: Yes: WNL Musculoskeletal: Yes: WNL Extremities: Yes: WNL Edema: No Integumentary: Yes: WNL Neurological: Yes: WNL, Alert, Oriented ...Motor Strength: WNL Psychiatric: Yes: WNL Labs: CBC, BMP 03/17/20 08:20 03/17/20 08:20 INR, PTT INR 1.35 (0.83-1.09) H 03/16/20 06:00 Fibrinogen 479.0 mg/dL (238-498) 03/16/20 06:00 Problem List - Problems (1) Acute hypoxemic respiratory failure due to COVID-19 Code(s): U07.1 - COVID POSITIVE; J96.01 - ACUTE RESPIRATORY FAILURE WITH HYPOXIA (2) CHF (congestive heart failure) Code(s): I50.9 - HEART FAILURE, UNSPECIFIED (3) Diabetes Code(s): E11.9 - TYPE 2 DIABETES MELLITUS WITHOUT COMPLICATIONS (4) HTN (hypertension) Code(s): I10 - ESSENTIAL (PRIMARY) HYPERTENSION (5) Hypoxia Code(s): R09.02 - HYPOXEMIA (6) Suspected COVID-19 virus infection Code(s): Z20.828 - CONTACT W AND EXPOSURE TO OTH VIRAL COMMUNICABLE DISEASES (7) FINA (acute kidney injury) Code(s): N17.9 - ACUTE KIDNEY FAILURE, UNSPECIFIED (8) Urinary obstruction Code(s): N13.9 - OBSTRUCTIVE AND REFLUX UROPATHY, UNSPECIFIED Assessment/Plan COVID + Acute/chronic CHF systolic /diastolic: ECHO reviewed EF moderately reduced 40 % pt is on Metoprolol ER, Entresto (only once a day?), spironolactone, apixaban at home. LVEF now: normal . AF Rec: Covid Rx: on steroids; and remdesivir for plasma; antibiotics per ID. On metoprolol ER now for HR control, CHF, HTN On apixaban. BUN/Cr, electrolytes, daily weight, Is and Os. TNI serially BNPelevated f/u CXR Aldacton held due to hyperkalemia - resolved since Will restart Entresto
[2020-03-17] MEDS ORDERED: INSULIN (NOVOLOG) ASPART 100 UNITS/ML 10ML VIAL ONE (11:29)
[2020-03-17 12:34] LABS: ANISOCYTOSIS 1+; MACROCYTOSIS 0; PLATELET ESTIMATE NORMAL
--- NOTE | 2020-03-17 12:58 | PN ---
Physical Exam: SUBJECTIVE: Patient seen and examined bedside. In no distress, denies chest pain, SOB, N/V/D. Patient refuses medication and labs this morning because he he doesn't think he has coronavirus. Was able to speak with daughter on phone with patient and nurse. Again, explained to the patient that he in fact does have coronavirus and we are trying to treat. Explained that he needs the insulin because we can't have him on his oral medications here in the hospital and that the medication we are giving him here in the hospital are causing his sugars to be higher than normal. Patient agreed again to treatment. OBJECTIVE: Vital Signs 03/17/20 03/17/20 06:00 08:56 Temperature 97.8 F 98 F Pulse Rate 102 H 118 H Respiratory 20 20 Rate Blood Pressure 132/86 144/88 O2 Sat by Pulse 96 95 Oximetry (%) GENERAL: The patient is a&o x3, in no distress. Breathing comfortably on 6L NC. Limited exam due to covid-19 Laboratory Results - last 24 hr 03/15/20 03/16/20 03/16/20 21:40 04:20 06:00 WBC RBC Hgb Hct MCV MCH MCHC RDW Plt Count MPV Absolute Neuts (auto) Neutrophils % Neutrophils % (Manual) Band Neutrophils % Lymphocytes % Lymphocytes % (Manual) Monocytes % Monocytes % (Manual) Eosinophils % Eosinophils % (Manual) Basophils % Basophils % (Manual) Myelocytes % (Man) Promyelocytes % (Man) Blast Cells % (Manual) Nucleated RBC % Metamyelocytes Hypochromia Platelet Estimate Polychromasia Poikilocytosis Anisocytosis Microcytosis Macrocytosis D-Dimer Sodium Potassium Chloride Carbon Dioxide Anion Gap BUN Creatinine Est GFR (CKD-EPI)AfAm Est GFR (CKD-EPI)NonAf POC Glucometer Random Glucose Calcium Phosphorus Magnesium Ferritin 778.4 H Total Bilirubin AST ALT Alkaline Phosphatase LD Total Troponin I < 0.02 C-Reactive Protein 13.4 H Total Protein Albumin Triglycerides 133 Cholesterol 102 Total LDL Cholesterol 71 HDL Cholesterol 13 L TSH 0.45 Ur Random Creatinine 152.0 H U Random Total Protein 54.6 H Protein/Creatinin Ratio 0.4 COVID-19 ([facility]) Detected H Blood Type Antibody Screen 03/16/20 03/16/20 03/16/20 17:07 18:55 21:56 WBC RBC Hgb Hct MCV MCH MCHC RDW Plt Count MPV Absolute Neuts (auto) Neutrophils % Neutrophils % (Manual) Band Neutrophils % Lymphocytes % Lymphocytes % (Manual) Monocytes % Monocytes % (Manual) Eosinophils % Eosinophils % (Manual) Basophils % Basophils % (Manual) Myelocytes % (Man) Promyelocytes % (Man) Blast Cells % (Manual) Nucleated RBC % Metamyelocytes Hypochromia Platelet Estimate Polychromasia Poikilocytosis Anisocytosis Microcytosis Macrocytosis D-Dimer Sodium Potassium Chloride Carbon Dioxide Anion Gap BUN Creatinine Est GFR (CKD-EPI)AfAm Est GFR (CKD-EPI)NonAf POC Glucometer 281 313 Random Glucose Calcium Phosphorus Magnesium Ferritin Total Bilirubin AST ALT Alkaline Phosphatase LD Total Troponin I C-Reactive Protein Total Protein Albumin Triglycerides Cholesterol Total LDL Cholesterol HDL Cholesterol TSH Ur Random Creatinine U Random Total Protein Protein/Creatinin Ratio COVID-19 ([facility]) Blood Type A NEGATIVE Antibody Screen Negative 03/17/20 03/17/20 03/17/20 05:54 08:20 08:20 WBC 22.7 H RBC 4.28 Hgb 12.9 Hct 39.1 MCV 91.3 MCH 30.1 MCHC 33.0 RDW 14.5 Plt Count 314 D MPV 8.6 Absolute Neuts (auto) 20.7 H Neutrophils % 90.9 H Neutrophils % (Manual) 89.2 H Band Neutrophils % 0.0 Lymphocytes % 5.2 L D Lymphocytes % (Manual) 6.9 L Monocytes % 3.7 L Monocytes % (Manual) 3 L Eosinophils % 0.1 Eosinophils % (Manual) 0.0 Basophils % 0.1 Basophils % (Manual) 0.0 Myelocytes % (Man) 0 Promyelocytes % (Man) 0 Blast Cells % (Manual) 0 Nucleated RBC % 0 Metamyelocytes 0 Hypochromia 0 Platelet Estimate Normal Polychromasia 1+ Poikilocytosis 0 Anisocytosis 1+ Microcytosis 1+ Macrocytosis 0 D-Dimer Sodium 137 Potassium 4.4 Chloride 104 Carbon Dioxide 24 Anion Gap 10 BUN 31.4 H Creatinine 1.3 Est GFR (CKD-EPI)AfAm 64.07 Est GFR (CKD-EPI)NonAf 55.28 POC Glucometer 274 Random Glucose 303 H Calcium 9.0 Phosphorus 3.6 Magnesium 1.9 Ferritin Total Bilirubin 0.5 AST 47 H ALT 64 H Alkaline Phosphatase 92 LD Total 343 H Troponin I C-Reactive Protein 8.9 H Total Protein 7.3 Albumin 2.5 L Triglycerides Cholesterol Total LDL Cholesterol HDL Cholesterol TSH Ur Random Creatinine U Random Total Protein Protein/Creatinin Ratio COVID-19 ([facility]) Blood Type Antibody Screen 03/17/20 03/17/20 03/17/20 08:20 10:41 11:25 WBC RBC Hgb Hct MCV MCH MCHC RDW Plt Count MPV Absolute Neuts (auto) Neutrophils % Neutrophils % (Manual) Band Neutrophils % Lymphocytes % Lymphocytes % (Manual) Monocytes % Monocytes % (Manual) Eosinophils % Eosinophils % (Manual) Basophils % Basophils % (Manual) Myelocytes % (Man) Promyelocytes % (Man) Blast Cells % (Manual) Nucleated RBC % Metamyelocytes Hypochromia Platelet Estimate Polychromasia Poikilocytosis Anisocytosis Microcytosis Macrocytosis D-Dimer 03177 H Sodium Potassium Chloride Carbon Dioxide Anion Gap BUN Creatinine Est GFR (CKD-EPI)AfAm Est GFR (CKD-EPI)NonAf POC Glucometer 295 Random Glucose Calcium Phosphorus Magnesium Ferritin Total Bilirubin AST ALT Alkaline Phosphatase LD Total Troponin I C-Reactive Protein Total Protein Albumin Triglycerides Cholesterol Total LDL Cholesterol HDL Cholesterol TSH Ur Random Creatinine U Random Total Protein Protein/Creatinin Ratio COVID-19 ([facility]) Blood Type A NEGATIVE Antibody Screen Active Medications Generic Name Dose Route Start Last Admin Trade Name Freq PRN Reason Stop Dose Admin Apixaban 5 mg 03/16/20 10:00 03/17/20 09:34 Eliquis - PO 5 mg BID HAMZAH Administration Ascorbic Acid 500 mg 03/16/20 10:00 03/17/20 09:34 Vitamin C - PO 500 mg BID HAMZAH Administration Atorvastatin Calcium 20 mg 03/16/20 22:00 03/16/20 21:53 Lipitor - PO 20 mg HS HAMZAH Administration Budesonide/Formoterol Fumarate 2 puff 03/16/20 12:30 03/17/20 09:35 Symbicort 160/4.5mcg - IH 2 inh BID HAMZAH Administration Dexamethasone Sodium Phosphate 6 mg 03/16/20 10:00 03/17/20 09:34 Decadron Injection - IVPUSH 6 mg DAILY HAMZAH Administration Doxycycline Hyclate 100 mg 03/16/20 18:00 03/17/20 09:34 Vibramycin - PO 100 mg BID@1000,1800 HAMZAH Administration Non-Formulary Medication 100 250 mls @ 250 mls/hr 03/17/20 10:00 03/17/20 09:34 mg/ Sodium Chloride IVPB 03/21/20 09:59 250 mls/hr DAILY HAMZAH Administration Insulin Aspart 1 vial 03/16/20 07:00 03/17/20 11:48 Novolog Vial Sliding Scale - SQ 6 units ACHS HAMZAH Administration Protocol Insulin Detemir 20 units 03/18/20 08:00 Levemir Vial SQ DAILY@0800 HAMZAH Insulin Detemir 10 units 03/17/20 22:00 Levemir Vial SQ HS HAMZAH Metoprolol Succinate 100 mg 03/16/20 10:00 03/17/20 09:34 Toprol Xl - PO 100 mg DAILY HAMZAH Administration Metoprolol Tartrate 5 mg 03/17/20 10:52 Lopressor Injection - IVPUSH Q4H PRN TACHYCARDIA Pantoprazole Sodium 40 mg 03/16/20 10:00 03/17/20 09:34 Protonix - PO 40 mg DAILY HAMZAH Administration Zinc Sulfate 220 mg 03/16/20 10:00 03/17/20 09:34 Orazinc - PO 220 mg BID HAMZAH Administration ASSESSMENT/PLAN: Pt is a 69 yo M with PMH of HTN, DM, CHF (EF 55-60% on 06/2019), Afib, and BPH. CKD II, (patient Cr 4.5 last admission, 1.2 on this admission, calculated CC 78). Tested positive for Covid 19 on 02/28/20. Clinical symptoms and imaging consistent with covid-19. [facility] due to covid 19. Acute hypoxic respiratory failure: 2/ covid-19 - tested positive for covid-19 - CT scan results consistent with Covid pneumonitis - Pulm consulted (Dr. Hutchinson) Symbicort 2 puffs IH BID redesimir 200 mg started last night redesimir 100 mg today (4 days total) d/c dexamethasone, started IV solumedrol 45 mg BID - monitor LFTs daily because of redesimir - type and screen last night for plasma, plasma to be started today - Infectious Disease consulted (Dr. Cha) - doxycycline 100 mg po BID - daily labs for inflammatory markers DM2 - hba1c 9.5 - holding home januvia and metformin - needed 54 units insulin yesterday - 20 leveimir AM, 10 HS - continue SSI - BGM - reassess need after dexamethasone tx is complete Afib w/RVR - eliquis 5 mg BID - Consulted cardiology (Dr. Purvis) restarted entresto aldactone held due to hyperkalemia - 100 mg toprol daily - 5 mg IV Lopressor Q4H prn HR > 100 - continue to monitor on tele Leukocytosis w/increased neutrophils - most likely due to steroid use and/or redesimir - continue to monitor WBC HTN - Toprol HLD - Lipitor 20 HS AAA - 3 cm dital AAA found on CT - control HTN - outpatient follow up FEN - Fluids PO intake - DM & NA controlled diet - electrolytes monitored, replete as needed Prophylaxis DVT - eliquis 5mg BID GERD - protonix 40 po daily Visit type - Emergency Visit Emergency Visit: Yes ED Registration Date: 03/15/20 Care time: The patient presented to the Emergency Department on the above date and was hospitalized for further evaluation of their emergent condition. - New Patient This patient is new to me today: No - Critical Care Critical Care patient: No - Discharge Referral Referred to [facility] Med P.C[facility] No - Medication Review Med list reviewed for High Risk Meds patients 65 and older: Yes ATTENDING PHYSICIAN STATEMENT I saw and evaluated the patient. I reviewed the resident's note and discussed the case with the resident. I agree with the resident's findings and plan as documented. SUBJECTIVE: OBJECTIVE: ASSESSMENT AND PLAN:
[2020-03-17] MEDS: SACUBITRIL/VALSARTAN 24 MG-26 MG TABLET PO SCH (22:02)
[2020-03-17] MEDS: methylPREDNISolone NA SUCC 40 MG/1 ML VIAL IVPUSH SCH (22:02)
[2020-03-17] MEDS: ATORVASTATIN CA 20 MG TABLET (FP) PO SCH (22:02)
[2020-03-17] MEDS: INSULIN (LEVEMIR) 100 UNITS/ML UNITS SQ SCH (22:08)
[2020-03-18] MEDS: INSULIN SLIDING SCALE (NOVOLOG) 1 VIAL SQ SCH ×4 (06:00→21:57)
[2020-03-18 07:21] LABS: BASO % 0.1 % (0-2.0); HEMOGLOBIN 11.5 GM/dL (11.7-16.9); LYMPH % 5.1 % (8-40); MCH 29.9 pg (25.7-33.7); MEAN CELL VOLUME 90.7 fl (80-96); MEAN PLT VOLUME 8.7 fl (7.5-11.1); MONO % 2.4 % (3.8-10.2); NEUT % 92.4 % (42.8-82.8); PLATELET COUNT 287 K/MM3 (134-434); RBC 3.85 M/mm3 (4.00-5.60); RDW 14.5 % (11.9-15.9); WHITE BLOOD COUNT 18.8 K/mm3 (4.0-10.0)
[2020-03-18 07:43] LABS: ALBUMIN 2.3 g/dl (3.4-5.0); BILIRUBIN,TOTAL 0.4 mg/dL (0.2-1); BLOOD UREA NITROGEN 38.1 mg/dL (7-18); CALCIUM 8.7 mg/dL (8.5-10.1); CREATININE 1.2 mg/dL (0.55-1.3); MAGNESIUM 1.9 mg/dL (1.8-2.4); PHOSPHOROUS 3.8 mg/dL (2.5-4.9); TOT PROT 6.5 g/dl (6.4-8.2)
[2020-03-18] MEDS: INSULIN (LEVEMIR) 100 UNITS/ML UNITS SQ SCH ×2 (08:55→21:42)
[2020-03-18] MEDS: methylPREDNISolone NA SUCC 40 MG/1 ML VIAL IVPUSH SCH ×2 (09:43→21:37)
[2020-03-18] MEDS: BUDESONIDE/FORMETEROL FUMARATE 160/4.5 mcg INHALER IH SCH ×2 (09:43→21:38)
[2020-03-18] MEDS: ASCORBIC ACID 500 MG TABLET (FP) PO SCH ×2 (09:43→21:37)
[2020-03-18] MEDS: ZINC SULFATE 220 MG CAPSULE (FP) PO SCH ×2 (09:43→21:37)
[2020-03-18] MEDS: PANTOPRAZOLE 40 MG TABLET PO SCH (09:43)
[2020-03-18] MEDS: SACUBITRIL/VALSARTAN 24 MG-26 MG TABLET PO SCH ×2 (09:43→21:37)
[2020-03-18] MEDS: DOXYCYCLINE HYCLATE 100 MG CAPSULE PO SCH ×2 (09:43→17:33)
[2020-03-18] MEDS: REMDESIVIR 100 MG in SODIUM CHLORIDE 230 ML IVPB SCH (09:43)
[2020-03-18] MEDS: APIXABAN 5 MG TABLET PO SCH ×2 (09:43→21:37)
[2020-03-18 10:15] LABS: ERYTHROCYTE SEDIMENTATION RATE 54 mm/hr (0-20)
--- NOTE | 2020-03-18 10:47 | PN ---
Progress Note, Physician History of Present Illness: looks calmer today breathing better than yesterday - Current Medication List Current Medications: Active Medications Apixaban (Eliquis -) 5 mg PO BID ON LICENSE OF [facility] Last Admin: 03/18/20 09:43 Dose: 5 mg Documented by: Ascorbic Acid (Vitamin C -) 500 mg PO BID ON LICENSE OF [facility] Last Admin: 03/18/20 09:43 Dose: 500 mg Documented by: Atorvastatin Calcium (Lipitor -) 20 mg PO [facility] Last Admin: 03/17/20 22:02 Dose: 20 mg Documented by: Budesonide/Formoterol Fumarate (Symbicort 160/4.5mcg -) 2 puff IH BID ON LICENSE OF [facility] Last Admin: 03/18/20 09:43 Dose: 2 inh Documented by: Doxycycline Hyclate (Vibramycin -) 100 mg PO BID@1000,1800 ON LICENSE OF [facility] Last Admin: 03/18/20 09:43 Dose: 100 mg Documented by: Non-Formulary Medication 100 (mg/ Sodium Chloride) 250 mls @ 250 mls/hr IVPB DAILY ON LICENSE OF [facility] Stop: 03/21/20 09:59 Last Admin: 03/18/20 09:43 Dose: 250 mls/hr Documented by: Insulin Aspart (Novolog Vial Sliding Scale -) [address] [facility] ON LICENSE OF [facility]; Protocol Last Admin: 03/18/20 06:00 Dose: 6 units Documented by: Insulin Detemir (Levemir Vial) 20 units SQ DAILY@0800 ON LICENSE OF [facility] Last Admin: 03/18/20 08:55 Dose: 20 units Documented by: Insulin Detemir (Levemir Vial) 10 units SQ [facility] Last Admin: 03/17/20 22:08 Dose: 10 units Documented by: Methylprednisolone Sodium Succinate (Solu-Medrol -) 45 mg IVPUSH BID ON LICENSE OF [facility] Last Admin: 03/18/20 09:43 Dose: 45 mg Documented by: Metoprolol Succinate (Toprol Xl -) 100 mg PO DAILY ON LICENSE OF [facility] Last Admin: 03/18/20 09:43 Dose: 100 mg Documented by: Metoprolol Tartrate (Lopressor Injection -) 5 mg IVPUSH Q4H PRN PRN Reason: TACHYCARDIA Last Admin: 03/17/20 12:50 Dose: 5 mg Documented by: Pantoprazole Sodium (Protonix -) 40 mg PO DAILY ON LICENSE OF [facility] Last Admin: 03/18/20 09:43 Dose: 40 mg Documented by: Sacubitril/Valsartan (Entresto 24 Mg-26 Mg Tablet) 1 tab PO BID ON LICENSE OF [facility] Last Admin: 03/18/20 09:43 Dose: 1 tab Documented by: Zinc Sulfate (Orazinc -) 220 mg PO BID ON LICENSE OF [facility] Last Admin: 03/18/20 09:43 Dose: 220 mg Documented by: - Objective Vital Signs: Vital Signs Temperature 97.4 F L 03/18/20 10:00 Pulse Rate 81 03/18/20 10:00 Respiratory Rate 03/18/20 10:00 Blood Pressure 116/78 03/18/20 10:00 O2 Sat by Pulse Oximetry (%) 94 L 03/18/20 10:00 Constitutional: Yes: No Distress, Calm Cardiovascular: Yes: S1, S2 Respiratory: Yes: Regular, On Nasal O2, Other Gastrointestinal: Yes: Normal Bowel Sounds, Soft Musculoskeletal: Yes: WNL Extremities: Yes: WNL Neurological: Yes: Alert, Oriented Psychiatric: Yes: Alert, Oriented Labs: CBC, BMP 03/18/20 05:18 03/18/20 05:18 INR, PTT INR 1.35 (0.83-1.09) H 03/16/20 06:00 Fibrinogen 479.0 mg/dL (238-498) 03/16/20 06:00 Assessment/Plan 69 yo M with PMH of HTN, DM, CHF (EF 55-60% on 06/2019), CKD (unknown pathology), Afib, and BPH being admitted for Acute Hypoxic RF likely 2/2 COVID- 19 Pneumonia. covid leukocytosis chf htn dm afib bph plan plasma close monitoring monitor markers resp support
[2020-03-18 12:19] LABS: ANISOCYTOSIS 0; MACROCYTOSIS 0; PLATELET ESTIMATE NORMAL
--- NOTE | 2020-03-18 12:45 | PN ---
Progress Note (short form) - Note Progress Note: PULMONARY States breathing is improving. Received convalescent plasma yesterday. Vital Signs Period Temp Pulse Resp BP Sys/Castro Pulse Ox Last 24 Hr 97.4 F-98.2 F 80-118 20-20 116-156/71-94 94-99 Gen: NAD at rest Heart: RRR Lung: scattered rales Abd: soft, nontender Ext: no edema CBC, BMP 03/18/20 05:18 03/18/20 05:18 Active Medications Apixaban (Eliquis -) 5 mg PO BID [facility] Last Admin: 03/18/20 09:43 Dose: 5 mg Documented by: Ascorbic Acid (Vitamin C -) 500 mg PO BID [facility] Last Admin: 03/18/20 09:43 Dose: 500 mg Documented by: Atorvastatin Calcium (Lipitor -) 20 mg PO [facility] Last Admin: 03/17/20 22:02 Dose: 20 mg Documented by: Budesonide/Formoterol Fumarate (Symbicort 160/4.5mcg -) 2 puff IH BID [facility] Last Admin: 03/18/20 09:43 Dose: 2 inh Documented by: Doxycycline Hyclate (Vibramycin -) 100 mg PO BID@1000,1800 [facility] Last Admin: 03/18/20 09:43 Dose: 100 mg Documented by: Non-Formulary Medication 100 (mg/ Sodium Chloride) 250 mls @ 250 mls/hr IVPB DAILY [facility] Stop: 03/21/20 09:59 Last Admin: 03/18/20 09:43 Dose: 250 mls/hr Documented by: Insulin Aspart (Novolog Vial Sliding Scale -) 1 vial SQ [facility]; Protocol Last Admin: 03/18/20 12:04 Dose: 10 units Documented by: Insulin Detemir (Levemir Vial) 20 units SQ DAILY@0800 [facility] Last Admin: 03/18/20 08:55 Dose: 20 units Documented by: Insulin Detemir (Levemir Vial) 10 units SQ [facility] Last Admin: 03/17/20 22:08 Dose: 10 units Documented by: Methylprednisolone Sodium Succinate (Solu-Medrol -) 45 mg IVPUSH BID [facility] Last Admin: 03/18/20 09:43 Dose: 45 mg Documented by: Metoprolol Succinate (Toprol Xl -) 100 mg PO DAILY [facility] Last Admin: 03/18/20 09:43 Dose: 100 mg Documented by: Metoprolol Tartrate (Lopressor Injection -) 5 mg IVPUSH Q4H PRN PRN Reason: TACHYCARDIA Last Admin: 03/17/20 12:50 Dose: 5 mg Documented by: Pantoprazole Sodium (Protonix -) 40 mg PO DAILY [facility] Last Admin: 03/18/20 09:43 Dose: 40 mg Documented by: Sacubitril/Valsartan (Entresto 24 Mg-26 Mg Tablet) 1 tab PO BID [facility] Last Admin: 03/18/20 09:43 Dose: 1 tab Documented by: Zinc Sulfate (Orazinc -) 220 mg PO BID [facility] Last Admin: 03/18/20 09:43 Dose: 220 mg Documented by: A/P Acute Hypoxic Respiratory Failure COVID19 Pneumonia LV Diastolic/Systolic Dysfunction Atrial Fibrillation DM - received convalescent plasma - continue medrol - continue anticoagulation - O2 to keep Spo2 >90% - trend inflammatory markers
--- NOTE | 2020-03-18 13:55 | PN ---
Physical Exam: SUBJECTIVE: Patient seen and examined bedside. No events over night. Denies chest pain, n/v/d. Patient said breathing more easily. Reports feeling better. OBJECTIVE: Vital Signs 03/18/20 03/18/20 06:00 10:00 Temperature 97.4 F L 97.4 F L Pulse Rate 80 81 Respiratory 20 20 Rate Blood Pressure 131/71 116/78 O2 Sat by Pulse 96 94 L Oximetry (%) GENERAL: The patient is awake, alert, and fully oriented, in no acute distress. Breathing more comfortably LUNGS: Breath sounds CTA BL. Breathing comfortably on 6L NC HEART: irregularly irregular, no murmurs appreciated Limited Exam due to Covid - 19 Laboratory Results - last 24 hr 03/17/20 03/17/20 03/18/20 17:38 22:06 05:18 WBC RBC Hgb Hct MCV MCH MCHC RDW Plt Count MPV Absolute Neuts (auto) Neutrophils % Neutrophils % (Manual) Band Neutrophils % Lymphocytes % Lymphocytes % (Manual) Monocytes % Monocytes % (Manual) Eosinophils % Eosinophils % (Manual) Basophils % Basophils % (Manual) Myelocytes % (Man) Promyelocytes % (Man) Blast Cells % (Manual) Nucleated RBC % Metamyelocytes Hypochromia Platelet Estimate Polychromasia Poikilocytosis Anisocytosis Microcytosis Macrocytosis ESR D-Dimer Sodium 136 Potassium 5.0 Chloride 103 Carbon Dioxide 24 Anion Gap 9 BUN 38.1 H Creatinine 1.2 Est GFR (CKD-EPI)AfAm 70.58 Est GFR (CKD-EPI)NonAf 60.90 POC Glucometer 374 247 Random Glucose 250 H Calcium 8.7 Phosphorus 3.8 Magnesium 1.9 Total Bilirubin 0.4 AST 46 H ALT 59 Alkaline Phosphatase 79 LD Total 273 H C-Reactive Protein 4.9 H Total Protein 6.5 Albumin 2.3 L 03/18/20 03/18/20 03/18/20 05:18 05:18 05:41 WBC 18.8 H RBC 3.85 L Hgb 11.5 L Hct 35.0 L MCV 90.7 MCH 29.9 MCHC 33.0 RDW 14.5 Plt Count 287 MPV 8.7 Absolute Neuts (auto) 17.4 H Neutrophils % 92.4 H Neutrophils % (Manual) 92.6 H Band Neutrophils % 0.0 Lymphocytes % 5.1 L Lymphocytes % (Manual) 5.3 L D Monocytes % 2.4 L Monocytes % (Manual) 2 L Eosinophils % 0.0 D Eosinophils % (Manual) 0.0 Basophils % 0.1 Basophils % (Manual) 0.0 Myelocytes % (Man) 0 Promyelocytes % (Man) 0 Blast Cells % (Manual) 0 Nucleated RBC % 0 Metamyelocytes 0 Hypochromia 0 Platelet Estimate Normal Polychromasia 1+ Poikilocytosis 0 Anisocytosis 0 Microcytosis 0 Macrocytosis 0 ESR 54 H D-Dimer 8618 H Sodium Potassium Chloride Carbon Dioxide Anion Gap BUN Creatinine Est GFR (CKD-EPI)AfAm Est GFR (CKD-EPI)NonAf POC Glucometer 236 Random Glucose Calcium Phosphorus Magnesium Total Bilirubin AST ALT Alkaline Phosphatase LD Total C-Reactive Protein Total Protein Albumin 03/18/20 12:00 WBC RBC Hgb Hct MCV MCH MCHC RDW Plt Count MPV Absolute Neuts (auto) Neutrophils % Neutrophils % (Manual) Band Neutrophils % Lymphocytes % Lymphocytes % (Manual) Monocytes % Monocytes % (Manual) Eosinophils % Eosinophils % (Manual) Basophils % Basophils % (Manual) Myelocytes % (Man) Promyelocytes % (Man) Blast Cells % (Manual) Nucleated RBC % Metamyelocytes Hypochromia Platelet Estimate Polychromasia Poikilocytosis Anisocytosis Microcytosis Macrocytosis ESR D-Dimer Sodium Potassium Chloride Carbon Dioxide Anion Gap BUN Creatinine Est GFR (CKD-EPI)AfAm Est GFR (CKD-EPI)NonAf POC Glucometer 302 Random Glucose Calcium Phosphorus Magnesium Total Bilirubin AST ALT Alkaline Phosphatase LD Total C-Reactive Protein Total Protein Albumin Home Medications Medication Instructions Recorded Atorvastatin Ca [Lipitor] 20 mg PO HS 06/14/19 Metoprolol Succinate [Toprol Xl] 100 mg PO DAILY 06/14/19 Apixaban [Eliquis -] 2.5 mg PO BID #60 tablet 06/18/19 Meloxicam 15 mg PO DAILY 03/16/20 Metformin HCl [Glucophage] 1,000 mg PO DAILY 03/16/20 Sacubitril/Valsartan [Entresto 49 1 each PO BID 03/16/20 mg-51 mg Tablet] Sitagliptin Phosphate [Januvia] 1 tab PO DAILY 03/16/20 Spironolactone 25 mg PO DAILY 03/16/20 Active Medications Generic Name Dose Route Start Last Admin Trade Name Freq PRN Reason Stop Dose Admin Apixaban 5 mg 03/16/20 10:00 03/18/20 09:43 Eliquis - PO 5 mg BID HAMZAH Administration Ascorbic Acid 500 mg 03/16/20 10:00 03/18/20 09:43 Vitamin C - PO 500 mg BID HAMZAH Administration Atorvastatin Calcium 20 mg 03/16/20 22:00 03/17/20 22:02 Lipitor - PO 20 mg HS HAMZAH Administration Budesonide/Formoterol Fumarate 2 puff 03/16/20 12:30 03/18/20 09:43 Symbicort 160/4.5mcg - IH 2 inh BID HAMZAH Administration Doxycycline Hyclate 100 mg 03/16/20 18:00 03/18/20 09:43 Vibramycin - PO 100 mg BID@1000,1800 HAMZAH Administration Non-Formulary Medication 100 250 mls @ 250 mls/hr 03/17/20 10:00 03/18/20 09:43 mg/ Sodium Chloride IVPB 03/21/20 09:59 250 mls/hr DAILY HAMZAH Administration Insulin Aspart 1 vial 03/17/20 19:58 03/18/20 12:04 Novolog Vial Sliding Scale - SQ 10 units ACHS [facility] Administration Protocol Insulin Detemir 20 units 03/18/20 08:00 03/18/20 08:55 Levemir Vial SQ 20 units DAILY@0800 [facility] Administration Insulin Detemir 10 units 03/17/20 22:00 03/17/20 22:08 Levemir Vial SQ 10 units HS [facility] Administration Methylprednisolone Sodium Succinate 45 mg 03/17/20 22:00 03/18/20 09:43 Solu-Medrol - IVPUSH 45 mg BID HAMZAH Administration Metoprolol Succinate 100 mg 03/16/20 10:00 03/18/20 09:43 Toprol Xl - PO 100 mg DAILY HAMZAH Administration Metoprolol Tartrate 5 mg 03/17/20 10:52 03/17/20 12:50 Lopressor Injection - IVPUSH 5 mg Q4H PRN Administration TACHYCARDIA Pantoprazole Sodium 40 mg 03/16/20 10:00 03/18/20 09:43 Protonix - PO 40 mg DAILY HAMZAH Administration Sacubitril/Valsartan 1 tab 03/17/20 22:00 03/18/20 09:43 Entresto 24 Mg-26 Mg Tablet PO 1 tab BID HAMZAH Administration Zinc Sulfate 220 mg 03/16/20 10:00 03/18/20 09:43 Orazinc - PO 220 mg BID HAMZAH Administration ASSESSMENT/PLAN: Pt is a 69 yo M with PMH of HTN, DM, CHF (EF 55-60% on 06/2019), Afib, and BPH. CKD II, (patient Cr 4.5 last admission, 1.2 on this admission, calculated CC 78). Tested positive for Covid 19 on 02/28/20. Clinical symptoms and imaging consistent with covid-19. Patient admitted to tele for acute respiratory failure due to covid 19. Acute hypoxic respiratory failure: / covid-19 - tested positive for covid-19 - CT scan results consistent with Covid pneumonitis - Pulm consulted (Dr. Hutchinson) Symbicort 2 puffs IH BID redesimir 100 mg (day 3/) IV solumedrol 45 mg BID NC O2 to keep Spo2 > 90% - monitor LFTs daily because of redesimir - completed convalescent plasma yesterday - Infectious Disease consulted (Dr. Cha) - doxycycline 100 mg po BID - daily labs for inflammatory markers DM2 - hba1c 9.5 - 20 leveimir AM, 10 units HS - SSI, increased units today - BGM - Increased glucose levels most likely due to steroids - When steroids are complete, will decrease insulin use Afib w/RVR - eliquis 5 mg BID - Consulted cardiology (Dr. Purvis) restarted entresto BID aldactone held due to hyperkalemia - 100 mg toprol daily - 5 mg IV Lopressor Q4H prn HR > 100 - continue to monitor on tele - HR has been better controlled Leukocytosis w/increased neutrophils - most likely due to steroid use and/or redesimir - continue to monitor WBC HTN - Toprol 100 mg daily HLD - Lipitor 20 HS - 5 mg IV Lopressor Q4H prn HR > 100 AAA - 3 cm dital AAA found on CT - control HTN - outpatient follow up FEN - Fluids PO intake - DM & NA controlled diet - electrolytes monitored, replete as needed Prophylaxis DVT - eliquis 5mg BID GERD - protonix 40 po daily Visit type - Emergency Visit Emergency Visit: Yes ED Registration Date: 03/15/20 Care time: The patient presented to the Emergency Department on the above date and was hospitalized for further evaluation of their emergent condition. - New Patient This patient is new to me today: No - Critical Care Critical Care patient: No - Discharge Referral Referred to [facility] Med P.C.: No - Medication Review Med list reviewed for High Risk Meds patients 65 and older: Yes ATTENDING PHYSICIAN STATEMENT I saw and evaluated the patient. I reviewed the resident's note and discussed the case with the resident. I agree with the resident's findings and plan as documented. SUBJECTIVE: OBJECTIVE: ASSESSMENT AND PLAN:
--- NOTE | 2020-03-18 18:14 | PN ---
Teaching Attending Note Name of Resident: Bia Hoffman ATTENDING PHYSICIAN STATEMENT I saw and evaluated the patient. I reviewed the resident's note and discussed the case with the resident. I agree with the resident's findings and plan as documented. SUBJECTIVE: Patient is comfortable , improving OBJECTIVE: Vital Signs Temperature 97.5 F L 03/18/20 17:44 Pulse Rate 81 03/18/20 17:44 Respiratory Rate 19 03/18/20 17:44 Blood Pressure 131/88 03/18/20 17:44 O2 Sat by Pulse Oximetry (%) 96 03/18/20 17:44 PE: per resident's note CBCD WBC 18.8 K/mm3 (4.0-10.0) H 03/18/20 05:18 RBC 3.85 M/mm3 (4.00-5.60) L 03/18/20 05:18 Hgb 11.5 GM/dL (11.7-16.9) L 03/18/20 05:18 Hct 35.0 % (35.4-49) L 03/18/20 05:18 MCV 90.7 fl (80-96) 03/18/20 05:18 MCHC 33.0 g/dl (32.0-35.9) 03/18/20 05:18 RDW 14.5 % (11.9-15.9) 03/18/20 05:18 Plt Count 287 K/MM3 (134-434) 03/18/20 05:18 MPV 8.7 fl (7.5-11.1) 03/18/20 05:18 CMP Sodium 136 mmol/L (136-145) 03/18/20 05:18 Potassium 5.0 mmol/L (3.5-5.1) 03/18/20 05:18 Chloride 103 mmol/L (98-107) 03/18/20 05:18 Carbon Dioxide 24 mmol/L (21-32) 03/18/20 05:18 Anion Gap 9 MMOL/L (8-16) 03/18/20 05:18 BUN 38.1 mg/dL (7-18) H 03/18/20 05:18 Creatinine 1.2 mg/dL (0.55-1.3) 03/18/20 05:18 Random Glucose 250 mg/dL (74-106) H 03/18/20 05:18 Calcium 8.7 mg/dL (8.5-10.1) 03/18/20 05:18 Total Bilirubin 0.4 mg/dL (0.2-1) 03/18/20 05:18 AST 46 U/L (15-37) H 03/18/20 05:18 ALT 59 U/L (13-61) 03/18/20 05:18 Alkaline Phosphatase 79 U/L (45-117) 03/18/20 05:18 Total Protein 6.5 g/dl (6.4-8.2) 03/18/20 05:18 Albumin 2.3 g/dl (3.4-5.0) L 03/18/20 05:18 CARDIAC ENZYMES Creatine Kinase 75 U/L (26-308) 03/16/20 06:00 Troponin I < 0.02 ng/ml (0.00-0.05) 03/16/20 06:00 ECHO: EJF 55-60% mild atrium is moderately dilated, right atrium dilated moderately , mild mitral regurg., moderate TR, PA systolic pressure is 24mmhg, trace [place],trace [place]. Assessment an plan: This is a 69 year old man with a Pmhx of HTN, hyperlipidemia, atrial fib, CHF, T2DM who presents to ED for having shortness of breath and Ct consistent with Covid , tested positive for covid #Covid Pneumonitis on rocephin/doxy/follow daily markers, on eliquis increased the dose to 5mg from 2.5mg , steroid/zinc/vit c/vitd , On Nc now On remdisiver 100mg 2nd dose today x 5 total . # Possible chronic heart failure with EJF 55-60%: discussed with cardio , will dc enteresto and aldactone, K is Nl now. # Atrial fibrillation, permanent rate controlled: continue Toprol XL, Eliquis # HTN continue Toprol XL , hold Entresto, Aldactone since elevated potassium # Hyperlipidemia continue Lipitor #T2DM on metformin , SS DVT px: Eliquis follow daily markers
[2020-03-18] MEDS: ATORVASTATIN CA 20 MG TABLET (FP) PO SCH (21:37)
--- NOTE | 2020-03-18 21:52 | PN ---
Progress Note, Physician Chief Complaint: Pt A&OX3; feels better (stronger; less dynpneic; no chest pain) History of Present Illness: 69 year old male (b. [facility]), with a significant past medical history of CHF (?systolic), DM, HTN, Afib who presents to the ED with three weeks of weakness and shortness of breath. As per patient, he traveled from the [facility] three weeks ago when he first noticed a low-grade fever. Patient endorses he tested positive for covid-19 two weeks ago here at [facility], but then tested negative this past Sunday. Patient also reports generalized weakness, worsened by exertion. Denies fever, chills, abdominal pain, nausea, vomiting, diarrhea, constipation, or urinary changes. Allergies: NKDA PCP: Dr. Elizabeth Bale Breaker Operator: Dr. Madelin Pillai - Current Medication List Current Medications: Active Medications Apixaban (Eliquis -) 5 mg PO BID [facility] Last Admin: 03/18/20 09:43 Dose: 5 mg Documented by: Ascorbic Acid (Vitamin C -) 500 mg PO BID [facility] Last Admin: 03/18/20 09:43 Dose: 500 mg Documented by: Atorvastatin Calcium (Lipitor -) 20 mg PO HS [facility] Last Admin: 03/17/20 22:02 Dose: 20 mg Documented by: Budesonide/Formoterol Fumarate (Symbicort 160/4.5mcg -) 2 puff IH BID [facility] Last Admin: 03/18/20 09:43 Dose: 2 inh Documented by: Doxycycline Hyclate (Vibramycin -) 100 mg PO BID@1000,1800 [facility] Last Admin: 03/18/20 17:33 Dose: 100 mg Documented by: Non-Formulary Medication 100 (mg/ Sodium Chloride) 250 mls @ 250 mls/hr IVPB DAILY [facility] Stop: 03/21/20 09:59 Last Admin: 03/18/20 09:43 Dose: 250 mls/hr Documented by: Insulin Aspart (Novolog Vial Sliding Scale -) 1 vial SQ [facility]; Protocol Last Admin: 03/18/20 17:33 Dose: 8 units Documented by: Insulin Detemir (Levemir Vial) 20 units SQ DAILY@0800 [facility] Last Admin: 03/18/20 08:55 Dose: 20 units Documented by: Insulin Detemir (Levemir Vial) 10 units SQ HS [facility] Last Admin: 03/17/20 22:08 Dose: 10 units Documented by: Methylprednisolone Sodium Succinate (Solu-Medrol -) 45 mg IVPUSH BID [facility] Last Admin: 03/18/20 09:43 Dose: 45 mg Documented by: Metoprolol Succinate (Toprol Xl -) 100 mg PO DAILY [facility] Last Admin: 03/18/20 09:43 Dose: 100 mg Documented by: Metoprolol Tartrate (Lopressor Injection -) 5 mg IVPUSH Q4H PRN PRN Reason: TACHYCARDIA Last Admin: 03/17/20 12:50 Dose: 5 mg Documented by: Pantoprazole Sodium (Protonix -) 40 mg PO DAILY [facility] Last Admin: 03/18/20 09:43 Dose: 40 mg Documented by: Sacubitril/Valsartan (Entresto 24 Mg-26 Mg Tablet) 1 tab PO BID [facility] Last Admin: 03/18/20 09:43 Dose: 1 tab Documented by: Zinc Sulfate (Orazinc -) 220 mg PO BID [facility] Last Admin: 03/18/20 09:43 Dose: 220 mg Documented by: - Objective Vital Signs: Vital Signs Temperature 97.5 F L 03/18/20 17:44 Pulse Rate 81 03/18/20 17:44 Respiratory Rate 19 03/18/20 17:44 Blood Pressure 131/88 03/18/20 17:44 O2 Sat by Pulse Oximetry (%) 96 03/18/20 17:44 Constitutional: Yes: Calm Eyes: Yes: WNL HENT: Yes: WNL Neck: Yes: WNL Labs: CBC, BMP 03/18/20 05:18 03/18/20 05:18 INR, PTT INR 1.35 (0.83-1.09) H 03/16/20 06:00 Fibrinogen 479.0 mg/dL (238-498) 03/16/20 06:00 Assessment/Plan COVID + Acute/chronic CHF: (?sytolic): pt is on atenolol, Entresto (only once a day?), spironolactone, apixaban at home. LVEF now: normal . AF Rec: Covid Rx: on steroids; and remdesivir; for plasma; antibiotics per ID. On metoprolol ER now for HR control, CHF, HTN On apixaban. BUN/Cr, electrolytes, daily weight, Is and Os. TNI serially f/u CXR Aldactone held due to hyperkalemia - resolved since; restarted Entresto (K increasing again; f/u daily while medications are adjusted).
[2020-03-19] MEDS: INSULIN SLIDING SCALE (NOVOLOG) 1 VIAL SQ SCH ×4 (06:31→21:30)
[2020-03-19] MEDS ORDERED: INSULIN (NOVOLOG MIX 70/30) 100 UNITS/ML MDV SQ ONE (07:34)
[2020-03-19] MEDS ORDERED: INSULIN (NOVOLOG) ASPART 100 UNITS/ML 10ML VIAL ONE ×2 (07:34→11:14)
[2020-03-19] MEDS ORDERED: INSULIN (LEVEMIR) 100 UNITS/ML UNITS SQ ONE (07:34)
[2020-03-19 07:50] LABS: HEMATOCRIT 39.5 % (35.4-49); HEMOGLOBIN 13.2 GM/dL (11.7-16.9); MCH 30.7 pg (25.7-33.7); MCHC 33.6 g/dl (32.0-35.9); MEAN CELL VOLUME 91.6 fl (80-96); MEAN PLT VOLUME 8.7 fl (7.5-11.1); PLATELET COUNT 322 K/MM3 (134-434); RBC 4.31 M/mm3 (4.00-5.60); RDW 14.4 % (11.9-15.9); WHITE BLOOD COUNT 17.2 K/mm3 (4.0-10.0)
[2020-03-19 08:20] LABS: ALBUMIN 2.5 g/dl (3.4-5.0); BILIRUBIN,TOTAL 0.8 mg/dL (0.2-1); BLOOD UREA NITROGEN 40.8 mg/dL (7-18); CALCIUM 9.1 mg/dL (8.5-10.1); CREATININE 1.3 mg/dL (0.55-1.3); POTASSIUM 4.9 mmol/L (3.5-5.1); TOT PROT 6.9 g/dl (6.4-8.2)
--- NOTE | 2020-03-19 09:51 | PN ---
Progress Note, Physician History of Present Illness: 69 year old male (. [facility]), with a significant past medical history of CHF (?systolic), DM, HTN, Afib who presents to the ED with three weeks of weakness and shortness of breath. As per patient, he traveled from the [facility] three weeks ago when he first noticed a low-grade fever. Patient endorses he tested positive for covid-19 two weeks ago here at [place], but then tested negative this past Sunday. Patient also reports generalized weakness, worsened by exertion. Denies fever, chills, abdominal pain, nausea, vomiting, diarrhea, constipation, or urinary changes. Allergies: NKDA PCP: Dr. Elizabeth Inventory Auditor: Dr. Madelin Pillai - Current Medication List Current Medications: Active Medications Apixaban (Eliquis -) 5 mg PO BID [facility] Last Admin: 03/18/20 21:37 Dose: 5 mg Documented by: Ascorbic Acid (Vitamin C -) 500 mg PO BID [facility] Last Admin: 03/18/20 21:37 Dose: 500 mg Documented by: Atorvastatin Calcium (Lipitor -) 20 mg PO [facility] Last Admin: 03/18/20 21:37 Dose: 20 mg Documented by: Budesonide/Formoterol Fumarate (Symbicort 160/4.5mcg -) 2 puff IH BID [facility] Last Admin: 03/18/20 21:38 Dose: 2 inh Documented by: Doxycycline Hyclate (Vibramycin -) 100 mg PO BID@1000,1800 [facility] Last Admin: 03/18/20 17:33 Dose: 100 mg Documented by: Non-Formulary Medication 100 (mg/ Sodium Chloride) 250 mls @ 250 mls/hr IVPB DAILY [facility] Stop: 03/21/20 09:59 Last Admin: 03/18/20 09:43 Dose: 250 mls/hr Documented by: Insulin Aspart (Novolog Vial Sliding Scale -) 1 vial SQ [facility]; Protocol Last Admin: 03/19/20 06:31 Dose: 8 units Documented by: Insulin Detemir (Levemir Vial) 20 units SQ [facility] Insulin Detemir (Levemir Vial) 30 units SQ DAILY@0800 [facility] Methylprednisolone Sodium Succinate (Solu-Medrol -) 45 mg IVPUSH BID [facility] Last Admin: 03/18/20 21:37 Dose: 45 mg Documented by: Metoprolol Succinate (Toprol Xl -) 100 mg PO DAILY [facility] Last Admin: 03/18/20 09:43 Dose: 100 mg Documented by: Metoprolol Tartrate (Lopressor Injection -) 5 mg IVPUSH Q4H PRN PRN Reason: TACHYCARDIA Last Admin: 03/17/20 12:50 Dose: 5 mg Documented by: Pantoprazole Sodium (Protonix -) 40 mg PO DAILY [facility] Last Admin: 03/18/20 09:43 Dose: 40 mg Documented by: Sacubitril/Valsartan (Entresto 24 Mg-26 Mg Tablet) 1 tab PO BID [facility] Last Admin: 03/18/20 21:37 Dose: 1 tab Documented by: Zinc Sulfate (Orazinc -) 220 mg PO BID [facility] Last Admin: 03/18/20 21:37 Dose: 220 mg Documented by: - Objective Vital Signs: Vital Signs Temperature 97.4 F L 03/19/20 06:00 Pulse Rate 86 03/19/20 06:00 Respiratory Rate 20 03/19/20 06:00 Blood Pressure 132/85 03/19/20 06:00 O2 Sat by Pulse Oximetry (%) 100 03/19/20 06:00 Eyes: Yes: WNL, Conjunctiva Clear, EOM Intact HENT: Yes: WNL, Atraumatic, Normocephalic Neck: Yes: WNL, Supple, Trachea Midline Cardiovascular: Yes: Pulse Irregular Respiratory: Yes: Diminished Gastrointestinal: Yes: WNL, Normal Bowel Sounds Genitourinary: Yes: WNL Musculoskeletal: Yes: WNL Extremities: Yes: WNL Edema: No Integumentary: Yes: WNL Neurological: Yes: WNL, Alert, Oriented ...Motor Strength: WNL Psychiatric: Yes: WNL Labs: CBC, BMP 03/19/20 07:14 03/19/20 07:14 INR, PTT INR 1.35 (0.83-1.09) H 03/16/20 06:00 Fibrinogen 479.0 mg/dL (238-498) 03/16/20 06:00 Problem List - Problems (1) Acute hypoxemic respiratory failure due to COVID-19 Code(s): U07.1 - COVID POSITIVE; J96.01 - ACUTE RESPIRATORY FAILURE WITH HYPOXIA (2) CHF (congestive heart failure) Code(s): I50.9 - HEART FAILURE, UNSPECIFIED (3) Diabetes Code(s): E11.9 - TYPE 2 DIABETES MELLITUS WITHOUT COMPLICATIONS (4) HTN (hypertension) Code(s): I10 - ESSENTIAL (PRIMARY) HYPERTENSION (5) Hypoxia Code(s): R09.02 - HYPOXEMIA (6) Suspected COVID-19 virus infection Code(s): Z20.828 - CONTACT W AND EXPOSURE TO OTH VIRAL COMMUNICABLE DISEASES (7) FINA (acute kidney injury) Code(s): N17.9 - ACUTE KIDNEY FAILURE, UNSPECIFIED (8) Urinary obstruction Code(s): N13.9 - OBSTRUCTIVE AND REFLUX UROPATHY, UNSPECIFIED Assessment/Plan COVID Pnemonitis stable symptomatically improving. Acute/chronic CHF: (?sytolic): Entresto (only once a day?), spironolactone, a pixaban at home. LVEF now: normal . AF Rec: Covid Rx: on steroids; and remdesivir; s/p covalescent plasma; antibiotics per ID. On metoprolol ER now for HR control, CHF, HTN On apixaban. BUN/Cr, electrolytes, daily weight, Is and Os. TNI serially f/u CXR Aldactone held due to hyperkalemia - resolved since; restarted Entresto (K increasing again; f/u daily while medications are adjusted).
--- NOTE | 2020-03-19 10:31 | PN ---
Progress Note, Physician - Current Medication List Current Medications: Active Medications Apixaban (Eliquis -) 5 mg PO BID [facility] Last Admin: 03/18/20 21:37 Dose: 5 mg Documented by: Ascorbic Acid (Vitamin C -) 500 mg PO BID [facility] Last Admin: 03/18/20 21:37 Dose: 500 mg Documented by: Atorvastatin Calcium (Lipitor -) 20 mg PO [facility] Last Admin: 03/18/20 21:37 Dose: 20 mg Documented by: Budesonide/Formoterol Fumarate (Symbicort 160/4.5mcg -) 2 puff IH BID [facility] Last Admin: 03/18/20 21:38 Dose: 2 inh Documented by: Doxycycline Hyclate (Vibramycin -) 100 mg PO BID@1000,1800 [facility] Last Admin: 03/18/20 17:33 Dose: 100 mg Documented by: Non-Formulary Medication 100 (mg/ Sodium Chloride) 250 mls @ 250 mls/hr IVPB DAILY [facility] Stop: 03/21/20 09:59 Last Admin: 03/18/20 09:43 Dose: 250 mls/hr Documented by: Insulin Aspart (Novolog Vial Sliding Scale -) 1 vial SQ [facility]; Protocol Last Admin: 03/19/20 06:31 Dose: 8 units Documented by: Insulin Detemir (Levemir Vial) 20 units SQ [facility] Insulin Detemir (Levemir Vial) 30 units SQ DAILY@0800 [facility] Methylprednisolone Sodium Succinate (Solu-Medrol -) 45 mg IVPUSH BID [facility] Last Admin: 03/18/20 21:37 Dose: 45 mg Documented by: Metoprolol Succinate (Toprol Xl -) 100 mg PO DAILY [facility] Last Admin: 03/18/20 09:43 Dose: 100 mg Documented by: Metoprolol Tartrate (Lopressor Injection -) 5 mg IVPUSH Q4H PRN PRN Reason: TACHYCARDIA Last Admin: 03/17/20 12:50 Dose: 5 mg Documented by: Pantoprazole Sodium (Protonix -) 40 mg PO DAILY [facility] Last Admin: 03/18/20 09:43 Dose: 40 mg Documented by: Sacubitril/Valsartan (Entresto 24 Mg-26 Mg Tablet) 1 tab PO BID [facility] Last Admin: 03/18/20 21:37 Dose: 1 tab Documented by: Zinc Sulfate (Orazinc -) 220 mg PO BID [facility] Last Admin: 03/18/20 21:37 Dose: 220 mg Documented by: - Objective Vital Signs: Vital Signs Temperature 97.4 F L 03/19/20 06:00 Pulse Rate 86 03/19/20 06:00 Respiratory Rate 20 03/19/20 06:00 Blood Pressure 132/85 03/19/20 06:00 O2 Sat by Pulse Oximetry (%) 100 03/19/20 06:00 Labs: CBC, BMP 03/19/20 07:14 03/19/20 07:14 INR, PTT INR 1.35 (0.83-1.09) H 03/16/20 06:00 Fibrinogen 479.0 mg/dL (238-498) 03/16/20 06:00 Problem List - Problems (1) Acute hypoxemic respiratory failure due to COVID-19 Code(s): U07.1 - COVID POSITIVE; J96.01 - ACUTE RESPIRATORY FAILURE WITH HYPOXIA (2) Hypoxia Code(s): R09.02 - HYPOXEMIA (3) FINA (acute kidney injury) Code(s): N17.9 - ACUTE KIDNEY FAILURE, UNSPECIFIED (4) CHF (congestive heart failure) Code(s): I50.9 - HEART FAILURE, UNSPECIFIED (5) Diabetes Code(s): E11.9 - TYPE 2 DIABETES MELLITUS WITHOUT COMPLICATIONS (6) HTN (hypertension) Code(s): I10 - ESSENTIAL (PRIMARY) HYPERTENSION Assessment/Plan IMP ACUTE HYPOXEMIC RESPIRATORY FAILURE COVID-19 PNEUMONITIS CHF DM AFIB PLAN SUPPLEMENTAL O2 STEROIDS CONVALESCENT PLASMA INHALED STEROIDS/BRONCHODILATORS FULL AC REMDESIVIR MONITOR INFLAMMATORY MARKERS DR [place] Problem List - Problems (1) Acute hypoxemic respiratory failure due to COVID-19 Code(s): U07.1 - COVID POSITIVE; J96.01 - ACUTE RESPIRATORY FAILURE WITH HYPOXIA (2) Hypoxia Code(s): R09.02 - HYPOXEMIA (3) FINA (acute kidney injury) Code(s): N17.9 - ACUTE KIDNEY FAILURE, UNSPECIFIED (4) CHF (congestive heart failure) Code(s): I50.9 - HEART FAILURE, UNSPECIFIED (5) Diabetes Code(s): E11.9 - TYPE 2 DIABETES MELLITUS WITHOUT COMPLICATIONS (6) HTN (hypertension) Code(s): I10 - ESSENTIAL (PRIMARY) HYPERTENSION
[2020-03-19] MEDS: ASCORBIC ACID 500 MG TABLET (FP) PO SCH ×2 (10:40→21:31)
[2020-03-19] MEDS: APIXABAN 5 MG TABLET PO SCH ×2 (10:40→21:31)
[2020-03-19] MEDS: PANTOPRAZOLE 40 MG TABLET PO SCH (10:40)
[2020-03-19] MEDS: SACUBITRIL/VALSARTAN 24 MG-26 MG TABLET PO SCH ×2 (10:40→21:40)
[2020-03-19] MEDS: ZINC SULFATE 220 MG CAPSULE (FP) PO SCH ×2 (10:41→21:31)
[2020-03-19] MEDS: BUDESONIDE/FORMETEROL FUMARATE 160/4.5 mcg INHALER IH SCH ×2 (10:41→21:32)
[2020-03-19] MEDS: DOXYCYCLINE HYCLATE 100 MG CAPSULE PO SCH ×2 (10:41→17:30)
[2020-03-19] MEDS: methylPREDNISolone NA SUCC 40 MG/1 ML VIAL IVPUSH SCH ×2 (10:41→21:29)
[2020-03-19] MEDS: INSULIN (LEVEMIR) 100 UNITS/ML UNITS SQ SCH ×2 (11:51→21:30)
[2020-03-19] MEDS: REMDESIVIR 100 MG in SODIUM CHLORIDE 230 ML IVPB SCH (12:46)
--- NOTE | 2020-03-19 12:52 | PN ---
Progress Note, Physician - Current Medication List Current Medications: Active Medications Apixaban (Eliquis -) 5 mg PO BID [facility] Last Admin: 03/19/20 10:40 Dose: 5 mg Documented by: Ascorbic Acid (Vitamin C -) 500 mg PO BID [facility] Last Admin: 03/19/20 10:40 Dose: 500 mg Documented by: Atorvastatin Calcium (Lipitor -) 20 mg PO [facility] Last Admin: 03/18/20 21:37 Dose: 20 mg Documented by: Budesonide/Formoterol Fumarate (Symbicort 160/4.5mcg -) 2 puff IH BID [facility] Last Admin: 03/19/20 10:41 Dose: 2 inh Documented by: Doxycycline Hyclate (Vibramycin -) 100 mg PO BID@1000,1800 [facility] Last Admin: 03/19/20 10:41 Dose: 100 mg Documented by: Non-Formulary Medication 100 (mg/ Sodium Chloride) 250 mls @ 250 mls/hr IVPB DAILY [facility] Stop: 03/21/20 09:59 Last Admin: 03/18/20 09:43 Dose: 250 mls/hr Documented by: Insulin Aspart (Novolog Vial Sliding Scale -) 1 vial SQ [facility]; Protocol Last Admin: 03/19/20 11:20 Dose: 6 units Documented by: Insulin Detemir (Levemir Vial) 20 units SQ [facility] Insulin Detemir (Levemir Vial) 30 units SQ DAILY@0800 [facility] Methylprednisolone Sodium Succinate (Solu-Medrol -) 45 mg IVPUSH BID [facility] Last Admin: 03/19/20 10:41 Dose: 45 mg Documented by: Metoprolol Succinate (Toprol Xl -) 100 mg PO DAILY [facility] Last Admin: 03/19/20 10:41 Dose: 100 mg Documented by: Metoprolol Tartrate (Lopressor Injection -) 5 mg IVPUSH Q4H PRN PRN Reason: TACHYCARDIA Last Admin: 03/17/20 12:50 Dose: 5 mg Documented by: Pantoprazole Sodium (Protonix -) 40 mg PO DAILY [facility] Last Admin: 03/19/20 10:40 Dose: 40 mg Documented by: Sacubitril/Valsartan (Entresto 24 Mg-26 Mg Tablet) 1 tab PO BID [facility] Last Admin: 03/19/20 10:40 Dose: 1 tab Documented by: Zinc Sulfate (Orazinc -) 220 mg PO BID [facility] Last Admin: 03/19/20 10:41 Dose: 220 mg Documented by: - Objective Vital Signs: Vital Signs Temperature 97.6 F 03/19/20 10:00 Pulse Rate 98 H 03/19/20 10:00 Respiratory Rate 19 03/19/20 10:00 Blood Pressure 123/82 03/19/20 10:00 O2 Sat by Pulse Oximetry (%) 91 L 03/19/20 10:00 Labs: CBC, BMP 03/19/20 07:14 03/19/20 07:14 INR, PTT INR 1.35 (0.83-1.09) H 03/16/20 06:00 Fibrinogen 479.0 mg/dL (238-498) 03/16/20 06:00
--- NOTE | 2020-03-19 14:05 | PN ---
Physical Exam: SUBJECTIVE: Patient seen and examined resting comfortably on 6L NC. Tele overnight showed 2 episodes of brief O2 sat of 90% and 1 episode of brief HR > 130. Otherwise, no events overnight. Patient reports feeling better. OBJECTIVE: Vital Signs 03/19/20 03/19/20 03/19/20 06:00 09:00 10:00 Temperature 97.4 F L 97.6 F Pulse Rate 86 98 H Respiratory 20 19 19 Rate Blood Pressure 132/85 123/82 O2 Sat by Pulse 100 91 L 91 L Oximetry (%) GENERAL: The patient is awake, alert, and fully oriented, in no acute distress. Looks generally well. Limited Exam due to Covid - 19 Laboratory Results - last 24 hr 03/16/20 03/18/20 03/18/20 06:00 17:37 21:45 WBC RBC Hgb Hct MCV MCH MCHC RDW Plt Count MPV D-Dimer Sodium Potassium Chloride Carbon Dioxide Anion Gap BUN Creatinine Est GFR (CKD-EPI)AfAm Est GFR (CKD-EPI)NonAf POC Glucometer 278 299 Random Glucose Calcium Ferritin Total Bilirubin AST ALT Alkaline Phosphatase LD Total C-Reactive Protein Total Protein Albumin Procalcitonin 0.16 H 03/19/20 03/19/20 03/19/20 06:27 07:14 07:14 WBC 17.2 H RBC 4.31 Hgb 13.2 Hct 39.5 MCV 91.6 MCH 30.7 MCHC 33.6 RDW 14.4 Plt Count 322 MPV 8.7 D-Dimer Sodium 137 Potassium 4.9 Chloride 100 Carbon Dioxide 30 Anion Gap 7 L BUN 40.8 H Creatinine 1.3 Est GFR (CKD-EPI)AfAm 64.07 Est GFR (CKD-EPI)NonAf 55.28 POC Glucometer 268 Random Glucose 278 H Calcium 9.1 Ferritin Total Bilirubin 0.8 AST 47 H ALT 65 H Alkaline Phosphatase 85 LD Total 275 H C-Reactive Protein 3.1 H Total Protein 6.9 Albumin 2.5 L Procalcitonin 03/19/20 03/19/20 03/19/20 07:14 07:14 11:21 WBC RBC Hgb Hct MCV MCH MCHC RDW Plt Count MPV D-Dimer 7625 H Sodium Potassium Chloride Carbon Dioxide Anion Gap BUN Creatinine Est GFR (CKD-EPI)AfAm Est GFR (CKD-EPI)NonAf POC Glucometer 226 Random Glucose Calcium Ferritin 493.1 H Total Bilirubin AST ALT Alkaline Phosphatase LD Total C-Reactive Protein Total Protein Albumin Procalcitonin Active Medications Generic Name Dose Route Start Last Admin Trade Name Vietq PRN Reason Stop Dose Admin Apixaban 5 mg 03/16/20 10:00 03/19/20 10:40 Eliquis - PO 5 mg BID HAMZAH Administration Ascorbic Acid 500 mg 03/16/20 10:00 03/19/20 10:40 Vitamin C - PO 500 mg BID HAMZAH Administration Atorvastatin Calcium 20 mg 03/16/20 22:00 03/18/20 21:37 Lipitor - PO 20 mg HS [facility] Administration Budesonide/Formoterol Fumarate 2 puff 03/16/20 12:30 03/19/20 10:41 Symbicort 160/4.5mcg - IH 2 inh BID [facility] Administration Doxycycline Hyclate 100 mg 03/16/20 18:00 03/19/20 10:41 Vibramycin - PO 100 mg BID@1000,1800 HAMZAH Administration Non-Formulary Medication 100 250 mls @ 250 mls/hr 03/17/20 10:00 03/18/20 09:43 mg/ Sodium Chloride IVPB 03/21/20 09:59 250 mls/hr DAILY HAMZAH Administration Insulin Aspart 1 vial 03/17/20 19:58 03/19/20 11:20 Novolog Vial Sliding Scale - SQ 6 units ACHS [facility] Administration Protocol Insulin Detemir 20 units 03/19/20 22:00 Levemir Vial SQ HS [facility] Insulin Detemir 30 units 03/19/20 09:37 Levemir Vial SQ DAILY@0800 [facility] Methylprednisolone Sodium Succinate 45 mg 03/17/20 22:00 03/19/20 10:41 Solu-Medrol - IVPUSH 45 mg BID HAMZAH Administration Metoprolol Succinate 100 mg 03/16/20 10:00 03/19/20 10:41 Toprol Xl - PO 100 mg DAILY [facility] Administration Metoprolol Tartrate 5 mg 03/17/20 10:52 03/17/20 12:50 Lopressor Injection - IVPUSH 5 mg Q4H PRN Administration TACHYCARDIA Pantoprazole Sodium 40 mg 03/16/20 10:00 03/19/20 10:40 Protonix - PO 40 mg DAILY [facility] Administration Sacubitril/Valsartan 1 tab 03/17/20 22:00 03/19/20 10:40 Entresto 24 Mg-26 Mg Tablet PO 1 tab BID HAMZAH Administration Zinc Sulfate 220 mg 03/16/20 10:00 03/19/20 10:41 Orazinc - PO 220 mg BID HAMZAH Administration ASSESSMENT/PLAN: Pt is a 69 yo M with PMH of HTN, DM, CHF (EF 55-60% on 06/2019), Afib, and BPH. CKD II, (patient Cr 4.5 last admission, 1.2 on this admission, calculated CC 78). Tested positive for Covid 19 on 02/28/20. Clinical symptoms and imaging consistent with covid-19. Patient admitted to tele for acute respiratory failure due to covid 19. Acute hypoxic respiratory failure: 09/07 covid-19 - tested positive for covid-19 - CT scan results consistent with Covid pneumonitis - Pulm consulted (Dr. Hutchinson) Symbicort 2 puffs IH BID redesimir 100 mg (day 11/08) IV solumedrol 45 mg BID NC O2 to keep Spo2 > 90% - monitor LFTs daily because of redesimir - completed convalescent plasma 03/18 - Infectious Disease consulted (Dr. Cah) - doxycycline 100 mg po BID - daily labs for inflammatory markers >> continuing to trend down - RA O2 sat 88%. Case manger put in for home oxygen DM2 - hba1c 9.5 - increased leveimir: 30 units AM, 20 units HS - SSI, - BGM - Increased glucose levels most likely due to steroids - When steroids are complete, will decrease insulin use Afib w/RVR - eliquis 5 mg BID - Consulted cardiology (Dr. Purvis) entresto BID aldactone held due to hyperkalemia - 100 mg toprol daily - 5 mg IV Lopressor Q4H prn HR > 100 - continue to monitor on tele - HR has been better controlled Leukocytosis w/increased neutrophils - most likely due to steroid use and/or redesimir - continue to monitor WBC - continuing to decline HTN - Toprol 100 mg daily HLD - Lipitor 20 HS - 5 mg IV Lopressor Q4H prn HR > 100 AAA - 3 cm dital AAA found on CT - control HTN - outpatient follow up FEN - Fluids PO intake - DM & NA controlled diet - electrolytes monitored, replete as needed Prophylaxis DVT - eliquis 5mg BID GERD - protonix 40 po daily 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 possibly discharge home after finished with redesimir if patient continues to improve Visit type - Emergency Visit Emergency Visit: Yes ED Registration Date: 03/15/20 Care time: The patient presented to the Emergency Department on the above date and was hospitalized for further evaluation of their emergent condition. - New Patient This patient is new to me today: No - Critical Care Critical Care patient: No - Discharge Referral Referred to [facility] No - Medication Review Med list reviewed for High Risk Meds patients 65 and older: Yes ATTENDING PHYSICIAN STATEMENT I saw and evaluated the patient. I reviewed the resident's note and discussed the case with the resident. I agree with the resident's findings and plan as documented. SUBJECTIVE: OBJECTIVE: ASSESSMENT AND PLAN:
--- NOTE | 2020-03-19 18:09 | PN ---
Teaching Attending Note Name of Resident: Bia Hoffman ATTENDING PHYSICIAN STATEMENT I saw and evaluated the patient. I reviewed the resident's note and discussed the case with the resident. I agree with the resident's findings and plan as documented. SUBJECTIVE: Patient is feeling better on 2l iter NC OBJECTIVE: Vital Signs Temperature 97.6 F 03/19/20 17:35 Pulse Rate 90 03/19/20 17:35 Respiratory Rate 20 03/19/20 17:35 Blood Pressure 115/85 03/19/20 17:35 O2 Sat by Pulse Oximetry (%) 95 03/19/20 15:15 PE: per resident's note CBCD WBC 17.2 K/mm3 (4.0-10.0) H 03/19/20 07:14 RBC 4.31 M/mm3 (4.00-5.60) 03/19/20 07:14 Hgb 13.2 GM/dL (11.7-16.9) 03/19/20 07:14 Hct 39.5 % (35.4-49) 03/19/20 07:14 MCV 91.6 fl (80-96) 03/19/20 07:14 MCHC 33.6 g/dl (32.0-35.9) 03/19/20 07:14 RDW 14.4 % (11.9-15.9) 03/19/20 07:14 Plt Count 322 K/MM3 (134-434) 03/19/20 07:14 MPV 8.7 fl (7.5-11.1) 03/19/20 07:14 CMP Sodium 137 mmol/L (136-145) 03/19/20 07:14 Potassium 4.9 mmol/L (3.5-5.1) 03/19/20 07:14 Chloride 100 mmol/L (98-107) 03/19/20 07:14 Carbon Dioxide 30 mmol/L (21-32) 03/19/20 07:14 Anion Gap 7 MMOL/L (8-16) L 03/19/20 07:14 BUN 40.8 mg/dL (7-18) H 03/19/20 07:14 Creatinine 1.3 mg/dL (0.55-1.3) 03/19/20 07:14 Random Glucose 278 mg/dL (74-106) H 03/19/20 07:14 Calcium 9.1 mg/dL (8.5-10.1) 03/19/20 07:14 Total Bilirubin 0.8 mg/dL (0.2-1) 03/19/20 07:14 AST 47 U/L (15-37) H 03/19/20 07:14 ALT 65 U/L (13-61) H 03/19/20 07:14 Alkaline Phosphatase 85 U/L (45-117) 03/19/20 07:14 Total Protein 6.9 g/dl (6.4-8.2) 03/19/20 07:14 Albumin 2.5 g/dl (3.4-5.0) L 03/19/20 07:14 CARDIAC ENZYMES Creatine Kinase 75 U/L (26-308) 03/16/20 06:00 Troponin I < 0.02 ng/ml (0.00-0.05) 03/16/20 06:00 Current Medications Generic Name Dose Route Start Last Admin Trade Name Freq PRN Reason Stop Dose Admin Apixaban 5 mg 03/16/20 10:00 03/19/20 10:40 Eliquis - PO 5 mg BID HAMZAH Administration Ascorbic Acid 500 mg 03/16/20 10:00 03/19/20 10:40 Vitamin C - PO 500 mg BID HAMZAH Administration Atorvastatin Calcium 20 mg 03/16/20 22:00 03/18/20 21:37 Lipitor - PO 20 mg HS HAMZAH Administration Budesonide/Formoterol Fumarate 2 puff 03/16/20 12:30 03/19/20 10:41 Symbicort 160/4.5mcg - IH 2 inh BID HAMZAH Administration Doxycycline Hyclate 100 mg 03/16/20 18:00 03/19/20 17:30 Vibramycin - PO 100 mg BID@1000,1800 HAMZAH Administration Non-Formulary Medication 100 250 mls @ 250 mls/hr 03/17/20 10:00 03/19/20 12:46 mg/ Sodium Chloride IVPB 03/21/20 09:59 250 mls/hr DAILY HAMZAH Administration Insulin Aspart 1 vial 03/17/20 19:58 03/19/20 17:30 Novolog Vial Sliding Scale - SQ 8 units ACHS HAMZAH Administration Protocol Insulin Detemir 20 units 03/19/20 22:00 Levemir Vial SQ HS HAMZAH Insulin Detemir 30 units 03/19/20 09:37 Levemir Vial SQ DAILY@0800 [facility] Methylprednisolone Sodium Succinate 45 mg 03/17/20 22:00 03/19/20 10:41 Solu-Medrol - IVPUSH 45 mg BID HAMZAH Administration Metoprolol Succinate 100 mg 03/16/20 10:00 03/19/20 10:41 Toprol Xl - PO 100 mg DAILY HAMZAH Administration Metoprolol Tartrate 5 mg 03/17/20 10:52 03/17/20 12:50 Lopressor Injection - IVPUSH 5 mg Q4H PRN Administration TACHYCARDIA Pantoprazole Sodium 40 mg 03/16/20 10:00 03/19/20 10:40 Protonix - PO 40 mg DAILY HAMZAH Administration Sacubitril/Valsartan 1 tab 03/17/20 22:00 03/19/20 10:40 Entresto 24 Mg-26 Mg Tablet PO 1 tab BID HAMZAH Administration Zinc Sulfate 220 mg 03/16/20 10:00 03/19/20 10:41 Orazinc - PO 220 mg BID HAMZAH Administration Home Medications Medication Instructions Recorded Atorvastatin Ca [Lipitor] 20 mg PO HS 06/14/19 Metoprolol Succinate [Toprol Xl] 100 mg PO DAILY 06/14/19 Apixaban [Eliquis -] 2.5 mg PO BID #60 tablet 06/18/19 Meloxicam 15 mg PO DAILY 03/16/20 Metformin HCl [Glucophage] 1,000 mg PO DAILY 03/16/20 Sacubitril/Valsartan [Entresto 49 1 each PO BID 03/16/20 mg-51 mg Tablet] Sitagliptin Phosphate [Januvia] 1 tab PO DAILY 03/16/20 Spironolactone 25 mg PO DAILY 03/16/20 ECHO: EJF 55-60% mild atrium is moderately dilated, right atrium dilated moderately , mild mitral regurg., moderate TR, PA systolic pressure is 24mmhg, trace AR,trace HI. Assessment an plan: This is a 69 year old man with a Pmhx of HTN, hyperlipidemia, atrial fib, CHF, T2DM who presents to ED for having shortness of breath and Ct consistent with Covid , tested positive for covid #Covid Pneumonitis on rocephin/doxy/follow daily markers, on eliquis increased the dose to 5mg from 2.5mg , steroid/zinc/vit c/vitd , On Nc continue current care. On remdisiver 100mg 3nd dose today x 5 total . # Possible chronic heart failure with EJF 55-60%: discussed with cardio , will dc enteresto and aldactone, K is Nl now. # Atrial fibrillation, permanent rate controlled: continue Toprol XL, Eliquis # HTN continue Toprol XL , hold Entresto, Aldactone since elevated potassium # Hyperlipidemia continue Lipitor #T2DM on metformin , SS DVT px: Eliquis
[2020-03-19] MEDS: ATORVASTATIN CA 20 MG TABLET (FP) PO SCH (21:31)
[2020-03-19] MEDS ORDERED: INSULIN (LEVEMIR) 100 UNITS/ML UNITS SQ SCH (22:00)
[2020-03-20] MEDS: INSULIN SLIDING SCALE (NOVOLOG) 1 VIAL SQ SCH ×4 (06:19→21:45)
[2020-03-20 08:16] LABS: HEMATOCRIT 41.3 % (35.4-49); HEMOGLOBIN 13.9 GM/dL (11.7-16.9); MCH 30.9 pg (25.7-33.7); MCHC 33.8 g/dl (32.0-35.9); MEAN CELL VOLUME 91.4 fl (80-96); PLATELET COUNT 352 K/MM3 (134-434); RBC 4.52 M/mm3 (4.00-5.60); RDW 14.5 % (11.9-15.9); WHITE BLOOD COUNT 16.2 K/mm3 (4.0-10.0)
[2020-03-20 08:19] LABS: ALBUMIN 2.4 g/dl (3.4-5.0); BLOOD UREA NITROGEN 39.3 mg/dL (7-18); CALCIUM 8.3 mg/dL (8.5-10.1); CREATININE 1.3 mg/dL (0.55-1.3); PHOSPHOROUS 3.6 mg/dL (2.5-4.9); POTASSIUM 4.9 mmol/L (3.5-5.1)
[2020-03-20 08:23] LABS: BILIRUBIN,TOTAL 0.5 mg/dL (0.2-1); TOT PROT 6.6 g/dl (6.4-8.2)
[2020-03-20] MEDS ORDERED: PT OWN MED DRAWER 7, Y5N ONE ×2 (09:25→21:28)
[2020-03-20] MEDS: DOXYCYCLINE HYCLATE 100 MG CAPSULE PO SCH ×2 (09:58→17:43)
[2020-03-20] MEDS: ZINC SULFATE 220 MG CAPSULE (FP) PO SCH ×2 (09:59→21:43)
[2020-03-20] MEDS: APIXABAN 5 MG TABLET PO SCH ×2 (09:59→21:43)
[2020-03-20] MEDS: methylPREDNISolone NA SUCC 40 MG/1 ML VIAL IVPUSH SCH ×2 (09:59→21:44)
[2020-03-20] MEDS: ASCORBIC ACID 500 MG TABLET (FP) PO SCH ×2 (09:59→21:43)
[2020-03-20] MEDS: PANTOPRAZOLE 40 MG TABLET PO SCH (09:59)
[2020-03-20] MEDS: BUDESONIDE/FORMETEROL FUMARATE 160/4.5 mcg INHALER IH SCH ×2 (09:59→21:56)
[2020-03-20] MEDS: SACUBITRIL/VALSARTAN 24 MG-26 MG TABLET PO SCH ×2 (09:59→21:44)
[2020-03-20] MEDS: INSULIN (LEVEMIR) 100 UNITS/ML UNITS SQ SCH ×2 (10:00→21:44)
--- NOTE | 2020-03-20 11:27 | PN ---
Progress Note, Physician Chief Complaint: Events noted (coverage for Dr. Spencer and Hyun) Isolated due to COVID Not in distress History of Present Illness: Patient was seen and examined. Awake and alert. Chart was reviewed Denies chest pain, SOB or palpitations - Current Medication List Current Medications: Active Medications Apixaban (Eliquis -) 5 mg PO BID [facility] Last Admin: 03/20/20 09:59 Dose: 5 mg Documented by: Ascorbic Acid (Vitamin C -) 500 mg PO BID [facility] Last Admin: 03/20/20 09:59 Dose: 500 mg Documented by: Atorvastatin Calcium (Lipitor -) 20 mg PO [facility] Last Admin: 03/19/20 21:31 Dose: 20 mg Documented by: Budesonide/Formoterol Fumarate (Symbicort 160/4.5mcg -) 2 puff IH BID [facility] Last Admin: 03/20/20 09:59 Dose: 2 inh Documented by: Doxycycline Hyclate (Vibramycin -) 100 mg PO BID@1000,1800 [facility] Last Admin: 03/20/20 09:58 Dose: 100 mg Documented by: Non-Formulary Medication 100 (mg/ Sodium Chloride) 250 mls @ 250 mls/hr IVPB DAILY [facility] Stop: 03/21/20 09:59 Last Admin: 03/19/20 12:46 Dose: 250 mls/hr Documented by: Insulin Aspart (Novolog Vial Sliding Scale -) 1 vial SQ [facility]; Protocol Last Admin: 03/20/20 06:19 Dose: 8 units Documented by: Insulin Detemir (Levemir Vial) 20 units SQ [facility] Last Admin: 03/19/20 21:30 Dose: 20 units Documented by: Insulin Detemir (Levemir Vial) 30 units SQ DAILY@0800 [facility] Last Admin: 03/20/20 10:00 Dose: 30 units Documented by: Methylprednisolone Sodium Succinate (Solu-Medrol -) 45 mg IVPUSH BID [facility] Last Admin: 03/20/20 09:59 Dose: 45 mg Documented by: Metoprolol Succinate (Toprol Xl -) 100 mg PO DAILY [facility] Last Admin: 03/20/20 09:59 Dose: 100 mg Documented by: Metoprolol Tartrate (Lopressor Injection -) 5 mg IVPUSH Q4H PRN PRN Reason: TACHYCARDIA Last Admin: 03/17/20 12:50 Dose: 5 mg Documented by: Pantoprazole Sodium (Protonix -) 40 mg PO DAILY [facility] Last Admin: 03/20/20 09:59 Dose: 40 mg Documented by: Sacubitril/Valsartan (Entresto 24 Mg-26 Mg Tablet) 1 tab PO BID [facility] Last Admin: 03/20/20 09:59 Dose: 1 tab Documented by: Zinc Sulfate (Orazinc -) 220 mg PO BID [facility] Last Admin: 03/20/20 09:59 Dose: 220 mg Documented by: - Objective Vital Signs: Vital Signs Temperature 97.8 F 03/20/20 08:24 Pulse Rate 102 H 03/20/20 08:24 Respiratory Rate 20 03/20/20 08:26 Blood Pressure 124/76 03/20/20 08:24 O2 Sat by Pulse Oximetry (%) 95 03/20/20 08:26 Eyes: Yes: PERRL HENT: Yes: Atraumatic Neck: Yes: Supple Cardiovascular: Yes: Regular Rate and Rhythm, S1, S2 Respiratory: Yes: Diminished Gastrointestinal: Yes: Normal Bowel Sounds, Soft. No: Tenderness Edema: No Additional Findings/Remarks: - Review of Systems Constitutional: denies: Chills, Fever Cardiovascular: deneis Chest Pain, (+) Shortness of Breath. denies: Palpitations Respiratory: (+) SOB. denies: Cough, Hemoptysis, Orthopnea, PND Gastrointestinal: denies: Abdominal Pain, Constipation, Diarrhea, Melena, Nausea, Rectal Bleeding, Vomiting Neurological: denies: Dizziness, Headache, Seizure, Syncope Labs: CBC, BMP 03/20/20 05:36 03/20/20 05:36 Problem List - Problems (1) Hypercholesterolemia Code(s): E78.00 - PURE HYPERCHOLESTEROLEMIA, UNSPECIFIED (2) Acute hypoxemic respiratory failure due to COVID-19 Code(s): U07.1 - COVID POSITIVE; J96.01 - ACUTE RESPIRATORY FAILURE WITH HYPOXIA (3) CHF (congestive heart failure) Code(s): I50.9 - HEART FAILURE, UNSPECIFIED (4) Diabetes Code(s): E11.9 - TYPE 2 DIABETES MELLITUS WITHOUT COMPLICATIONS (5) HTN (hypertension) Code(s): I10 - ESSENTIAL (PRIMARY) HYPERTENSION Assessment/Plan 1. COVID pneumonitits 2. Acute on chronic ?systolic dysfunction previously class 2 NYHA classification heart failure 3. AF 4. Abnormal LFT 5. HTN PLAN: 1. Received COVID treatment including convalescent plasma, Remdesivir and antibiotics. Currently on steroids 2. Metoprolol ER 100 mg QD 3. Entresto 24/26 mg BID 4. Atorvastatin 20 mg QD 5. Continue Eliquis 5 mg BID Further plans are to follow Dr. Woods to resume care on Sunday Andi Beaver MD
[2020-03-20] MEDS: REMDESIVIR 100 MG in SODIUM CHLORIDE 230 ML IVPB SCH (11:39)
--- NOTE | 2020-03-20 14:01 | PN ---
Progress Note (short form) - Note Progress Note: Breathing continues to improve. No CP or SOB, Day #5 of Remdesevir. Intake & Output 03/17/20 03/18/20 03/19/20 03/20/20 23:59 23:59 23:59 23:59 Intake Total 1020 1120 790 320 Output Total 900 Balance 120 1120 790 320 Last Vital Signs Temp Pulse Resp BP Pulse Ox 97.8 F 102 H 20 124/76 95 03/20/20 08:24 03/20/20 08:24 03/20/20 08:26 03/20/20 08:24 03/20/20 08:26 Active Medications Apixaban (Eliquis -) 5 mg PO BID [facility] Last Admin: 03/20/20 09:59 Dose: 5 mg Documented by: Ascorbic Acid (Vitamin C -) 500 mg PO BID [facility] Last Admin: 03/20/20 09:59 Dose: 500 mg Documented by: Atorvastatin Calcium (Lipitor -) [address] [facility] Last Admin: 03/19/20 21:31 Dose: 20 mg Documented by: Budesonide/Formoterol Fumarate (Symbicort 160/4.5mcg -) 2 puff IH BID [facility] Last Admin: 03/20/20 09:59 Dose: 2 inh Documented by: Doxycycline Hyclate (Vibramycin -) 100 mg PO BID@1000,1800 [facility] Last Admin: 03/20/20 09:58 Dose: 100 mg Documented by: Non-Formulary Medication 100 (mg/ Sodium Chloride) 250 mls @ 250 mls/hr IVPB DAILY [facility] Stop: 03/21/20 09:59 Last Admin: 03/20/20 11:39 Dose: 250 mls/hr Documented by: Insulin Aspart (Novolog Vial Sliding Scale -) 1 vial SQ [facility]; Protocol Last Admin: 03/20/20 11:46 Dose: 6 units Documented by: Insulin Detemir (Levemir Vial) [address] [facility] Last Admin: 03/19/20 21:30 Dose: 20 units Documented by: Insulin Detemir (Levemir Vial) 30 units SQ DAILY@0800 [facility] Last Admin: 03/20/20 10:00 Dose: 30 units Documented by: Methylprednisolone Sodium Succinate (Solu-Medrol -) 45 mg IVPUSH BID [facility] Last Admin: 03/20/20 09:59 Dose: 45 mg Documented by: Metoprolol Succinate (Toprol Xl -) 100 mg PO DAILY [facility] Last Admin: 03/20/20 09:59 Dose: 100 mg Documented by: Metoprolol Tartrate (Lopressor Injection -) 5 mg IVPUSH Q4H PRN PRN Reason: TACHYCARDIA Last Admin: 03/17/20 12:50 Dose: 5 mg Documented by: Pantoprazole Sodium (Protonix -) 40 mg PO DAILY [facility] Last Admin: 03/20/20 09:59 Dose: 40 mg Documented by: Sacubitril/Valsartan (Entresto 24 Mg-26 Mg Tablet) 1 tab PO BID [facility] Last Admin: 03/20/20 09:59 Dose: 1 tab Documented by: Zinc Sulfate (Orazinc -) 220 mg PO BID [facility] Last Admin: 03/20/20 09:59 Dose: 220 mg Documented by: Gen: NAD at rest Heart: RRR Lung: scattered rhonchi Abd: soft, nontender Ext: no edema Laboratory Results - last 24 hr 03/19/20 03/19/20 03/20/20 17:31 21:27 05:36 WBC RBC Hgb Hct MCV MCH MCHC RDW Plt Count MPV D-Dimer Sodium 135 L Potassium 4.9 Chloride 100 Carbon Dioxide 25 Anion Gap 10 BUN 39.3 H Creatinine 1.3 Est GFR (CKD-EPI)AfAm 64.07 Est GFR (CKD-EPI)NonAf 55.28 POC Glucometer 295 355 Random Glucose 257 H Calcium 8.3 L Phosphorus 3.6 Magnesium 2.0 Ferritin 451.7 H Total Bilirubin 0.5 AST 45 H ALT 70 H Alkaline Phosphatase 83 LD Total 240 C-Reactive Protein 1.9 H Total Protein 6.6 Albumin 2.4 L 03/20/20 03/20/20 03/20/20 05:36 05:36 05:57 WBC 16.2 H RBC 4.52 Hgb 13.9 Hct 41.3 MCV 91.4 MCH 30.9 MCHC 33.8 RDW 14.5 Plt Count 352 MPV 9.0 D-Dimer 6701 H Sodium Potassium Chloride Carbon Dioxide Anion Gap BUN Creatinine Est GFR (CKD-EPI)AfAm Est GFR (CKD-EPI)NonAf POC Glucometer 280 Random Glucose Calcium Phosphorus Magnesium Ferritin Total Bilirubin AST ALT Alkaline Phosphatase LD Total C-Reactive Protein Total Protein Albumin 08/15/20 11:41 WBC RBC Hgb Hct MCV MCH MCHC RDW Plt Count MPV D-Dimer Sodium Potassium Chloride Carbon Dioxide Anion Gap BUN Creatinine Est GFR (CKD-EPI)AfAm Est GFR (CKD-EPI)NonAf POC Glucometer 272 Random Glucose Calcium Phosphorus Magnesium Ferritin Total Bilirubin AST ALT Alkaline Phosphatase LD Total C-Reactive Protein Total Protein Albumin A/P Acute Hypoxic Respiratory Failure COVID19 Pneumonia LV Diastolic/Systolic Dysfunction Atrial Fibrillation DM - Day #5 of Remdesevir - received convalescent plasma - Steroids - continue anticoagulation - O2 to keep Spo2 >90% Dr Menard
--- NOTE | 2020-03-20 16:49 | PN ---
Progress Note, Physician History of Present Illness: Pt states he is feeling much better. Denies SOB/cough/chest pain. Afebrile. 95% O2 sat on RA earlier. - Current Medication List Current Medications: Active Medications Apixaban (Eliquis -) 5 mg PO BID [facility] Last Admin: 03/20/20 09:59 Dose: 5 mg Documented by: Ascorbic Acid (Vitamin C -) 500 mg PO BID [facility] Last Admin: 03/20/20 09:59 Dose: 500 mg Documented by: Atorvastatin Calcium (Lipitor -) 20 mg PO [facility] Last Admin: 03/19/20 21:31 Dose: 20 mg Documented by: Budesonide/Formoterol Fumarate (Symbicort 160/4.5mcg -) 2 puff IH BID [facility] Last Admin: 03/20/20 09:59 Dose: 2 inh Documented by: Doxycycline Hyclate (Vibramycin -) 100 mg PO BID@1000,1800 [facility] Last Admin: 03/20/20 09:58 Dose: 100 mg Documented by: Non-Formulary Medication 100 (mg/ Sodium Chloride) 250 mls @ 250 mls/hr IVPB DAILY [facility] Stop: 03/21/20 09:59 Last Admin: 03/20/20 11:39 Dose: 250 mls/hr Documented by: Insulin Aspart (Novolog Vial Sliding Scale -) 1 vial SQ [facility]; Protocol Last Admin: 03/20/20 11:46 Dose: 6 units Documented by: Insulin Detemir (Levemir Vial) 20 units SQ [facility] Last Admin: 03/19/20 21:30 Dose: 20 units Documented by: Insulin Detemir (Levemir Vial) 30 units SQ DAILY@0800 [facility] Last Admin: 03/20/20 10:00 Dose: 30 units Documented by: Methylprednisolone Sodium Succinate (Solu-Medrol -) 45 mg IVPUSH BID [facility] Last Admin: 03/20/20 09:59 Dose: 45 mg Documented by: Metoprolol Succinate (Toprol Xl -) 100 mg PO DAILY [facility] Last Admin: 03/20/20 09:59 Dose: 100 mg Documented by: Metoprolol Tartrate (Lopressor Injection -) 5 mg IVPUSH Q4H PRN PRN Reason: TACHYCARDIA Last Admin: 03/17/20 12:50 Dose: 5 mg Documented by: Pantoprazole Sodium (Protonix -) 40 mg PO DAILY [facility] Last Admin: 03/20/20 09:59 Dose: 40 mg Documented by: Sacubitril/Valsartan (Entresto 24 Mg-26 Mg Tablet) 1 tab PO BID [facility] Last Admin: 03/20/20 09:59 Dose: 1 tab Documented by: Zinc Sulfate (Orazinc -) 220 mg PO BID [facility] Last Admin: 03/20/20 09:59 Dose: 220 mg Documented by: - Objective Vital Signs: Vital Signs Temperature 97.8 F 03/20/20 14:05 Pulse Rate 94 H 03/20/20 14:05 Respiratory Rate 20 03/20/20 14:05 Blood Pressure 137/82 03/20/20 14:05 O2 Sat by Pulse Oximetry (%) 95 03/20/20 08:26 Constitutional: Yes: No Distress, Calm Eyes: Yes: Conjunctiva Clear Neck: Yes: Supple Cardiovascular: Yes: Pulse Irregular Respiratory: Yes: CTA Bilaterally Gastrointestinal: Yes: Normal Bowel Sounds, Soft Genitourinary: Yes: WNL Integumentary: Yes: WNL Neurological: Yes: Alert, Oriented Labs: CBC, BMP 03/20/20 05:36 03/20/20 05:36 INR, PTT INR 1.35 (0.83-1.09) H 03/16/20 06:00 Fibrinogen 479.0 mg/dL (238-498) 03/16/20 06:00 Laboratory Last Values WBC 16.2 K/mm3 (4.0-10.0) H 03/20/20 05:36 RBC 4.52 M/mm3 (4.00-5.60) 03/20/20 05:36 Hgb 13.9 GM/dL (11.7-16.9) 03/20/20 05:36 Hct 41.3 % (35.4-49) 03/20/20 05:36 MCV 91.4 fl (80-96) 03/20/20 05:36 MCH 30.9 pg (25.7-33.7) 03/20/20 05:36 MCHC 33.8 g/dl (32.0-35.9) 03/20/20 05:36 RDW 14.5 % (11.9-15.9) 03/20/20 05:36 Plt Count 352 K/MM3 (134-434) 03/20/20 05:36 MPV 9.0 fl (7.5-11.1) 03/20/20 05:36 Absolute Neuts (auto) 17.4 K/mm3 (1.5-8.0) H 03/18/20 05:18 Neutrophils % 92.4 % (42.8-82.8) H 03/18/20 05:18 Neutrophils % (Manual) 92.6 % (42.8-82.8) H 03/18/20 05:18 Band Neutrophils % 0.0 % 03/18/20 05:18 Lymphocytes % 5.1 % (8-40) L 03/18/20 05:18 Lymphocytes % (Manual) 5.3 % (8-40) L D 03/18/20 05:18 Monocytes % 2.4 % (3.8-10.2) L 03/18/20 05:18 Monocytes % (Manual) 2 % (3.8-10.2) L 03/18/20 05:18 Eosinophils % 0.0 % (0-4.5) D 03/18/20 05:18 Eosinophils % (Manual) 0.0 % (0-4.5) 03/18/20 05:18 Basophils % 0.1 % (0-2.0) 03/18/20 05:18 Basophils % (Manual) 0.0 % (0-2.0) 03/18/20 05:18 Myelocytes % (Man) 0 % (0-2) 03/18/20 05:18 Promyelocytes % (Man) 0 % (0-2) 03/18/20 05:18 Blast Cells % (Manual) 0 % (0-0) 03/18/20 05:18 Nucleated RBC % 0 % (0-0) 03/18/20 05:18 Metamyelocytes 0 % (0-2) 03/18/20 05:18 Hypochromia 0 03/18/20 05:18 Platelet Estimate Normal 03/18/20 05:18 Polychromasia 1+ 03/18/20 05:18 Poikilocytosis 0 03/18/20 05:18 Anisocytosis 0 03/18/20 05:18 Microcytosis 0 03/18/20 05:18 Macrocytosis 0 03/18/20 05:18 ESR 54 mm/hr (0-20) H 03/18/20 05:18 PT with INR 16.00 SEC (9.7-13.0) H 03/16/20 06:00 INR 1.35 (0.83-1.09) H 03/16/20 06:00 PTT (Actin FS) 25.3 SECONDS (25.2-36.5) 03/16/20 06:00 Fibrinogen 479.0 mg/dL (238-498) 03/16/20 06:00 D-Dimer 6701 ng/ml (0-500) H 03/20/20 05:36 Anticoagulation Therapy No Result Required. 03/16/20 06:10 Puncture Site Right radial 03/16/20 06:10 Patient Temperature No Result Required. 03/16/20 06:10 ABG pH 7.399 (7.350-7.450) 03/16/20 06:10 ABG pCO2 41.30 mmHg (35-45) 03/16/20 06:10 ABG pO2 83.8 mmHg (80-100) 03/16/20 06:10 ABG HCO3 25.0 mmol/L (22-27) 03/16/20 06:10 ABG O2 Sat (Measured) 96.3 mmHg (95-98) 03/16/20 06:10 ABG O2 Content No Result Required. 03/16/20 06:10 ABG Base Excess 0.1 mmol/L (-2-2) 03/16/20 06:10 [place] Test Positive 03/16/20 06:10 Patient On Oxygen Yes 03/16/20 06:10 O2 Delivery Device Nasal 03/16/20 06:10 Oxygen Flow Rate 5l 03/16/20 06:10 Vent Mode No Result Required. 03/16/20 06:10 Vent Rate No Result Required. 03/16/20 06:10 Mechanical Rate No Result Required. 03/16/20 06:10 PEEP No Result Required. 03/16/20 06:10 Pressure Support Vent No Result Required. 03/16/20 06:10 Sodium 135 mmol/L (136-145) L 03/20/20 05:36 Potassium 4.9 mmol/L (3.5-5.1) 03/20/20 05:36 Chloride 100 mmol/L (98-107) 03/20/20 05:36 Carbon Dioxide 25 mmol/L (21-32) 03/20/20 05:36 Anion Gap 10 MMOL/L (8-16) 03/20/20 05:36 BUN 39.3 mg/dL (7-18) H 03/20/20 05:36 Creatinine 1.3 mg/dL (0.55-1.3) 03/20/20 05:36 Est GFR (CKD-EPI)AfAm 64.07 03/20/20 05:36 Est GFR (CKD-EPI)NonAf 55.28 03/20/20 05:36 POC Glucometer 272 UNITS (80-120) 03/20/20 11:41 Random Glucose 257 mg/dL (74-106) H 03/20/20 05:36 Hemoglobin A1c % 9.5 % (4.2-6.3) H 03/16/20 06:00 Calcium 8.3 mg/dL (8.5-10.1) L 03/20/20 05:36 Phosphorus 3.6 mg/dL (2.5-4.9) 03/20/20 05:36 Magnesium 2.0 mg/dL (1.8-2.4) 03/20/20 05:36 Ferritin 451.7 ng/ml (8-388) H 03/20/20 05:36 Total Bilirubin 0.5 mg/dL (0.2-1) 03/20/20 05:36 AST 45 U/L (15-37) H 03/20/20 05:36 ALT 70 U/L (13-61) H 03/20/20 05:36 Alkaline Phosphatase 83 U/L (45-117) 03/20/20 05:36 LD Total 240 U/L (87-246) 03/20/20 05:36 Creatine Kinase 75 U/L (26-308) 03/16/20 06:00 Troponin I < 0.02 ng/ml (0.00-0.05) 03/16/20 06:00 C-Reactive Protein 1.9 MG/DL (0.00-0.3) H 03/20/20 05:36 B-Natriuretic Peptide 616.8 pg/ml (5-125) H 03/15/20 21:40 Total Protein 6.6 g/dl (6.4-8.2) 03/20/20 05:36 Albumin 2.4 g/dl (3.4-5.0) L 03/20/20 05:36 Triglycerides 133 mg/dL (0-150) 03/16/20 06:00 Cholesterol 102 mg/dL (50-200) 03/16/20 06:00 Total LDL Cholesterol 71 mg/dL (5-100) 03/16/20 06:00 HDL Cholesterol 13 mg/dL (40-60) L 03/16/20 06:00 Procalcitonin 0.16 ng/mL (0.00-0.08) H 03/16/20 06:00 TSH 0.45 uIU/ml (0.358-3.74) 03/16/20 06:00 Urine Color Yellow 03/16/20 04:20 Urine Appearance Clear 03/16/20 04:20 Urine pH 5.0 (5.0-8.0) 03/16/20 04:20 Ur Specific Dawson 1.054 (1.010-1.035) H 03/16/20 04:20 Urine Protein 30 (NEGATIVE) 03/16/20 04:20 Urine Glucose (UA) 250 (NEGATIVE) 03/16/20 04:20 Urine Ketones Negative (NEGATIVE) 03/16/20 04:20 Urine Blood N (NEGATIVE) 03/16/20 04:20 Urine Nitrite Negative (NEGATIVE) 03/16/20 04:20 Urine Bilirubin Negative (NEGATIVE) 03/16/20 04:20 Urine Urobilinogen 1.0 mg/dL (0.2-1.0) 03/16/20 04:20 Ur Leukocyte Esterase N (NEGATIVE) 03/16/20 04:20 Ur Random Creatinine 152.0 mg/dL (30-150) H 03/16/20 04:20 U Random Total Protein 54.6 mg/dL (0-11.9) H 03/16/20 04:20 Protein/Creatinin Ratio 0.4 mg/dL 03/16/20 04:20 COVID-19 (PEDRO) Detected (Not Detected) H 03/15/20 21:40 SARS-CoV-2 Ab Interp Reactive (NONREACTIVE) 03/15/20 21:40 Blood Type A NEGATIVE 03/17/20 11:25 Antibody Screen Negative 03/16/20 18:55 Microbiology 03/16/20 04:20 Urine - Urine Clean Catch Urine Culture - Final NO GROWTH OBTAINED 03/16/20 04:20 Urine - Urine Clean Catch Legionella Antigen - Final 03/16/20 04:20 Urine - Urine Clean Catch Streptococcus pneumoniae Antigen (M - Final - ....Imaging Chest X-ray: Report Reviewed Cat Scan: Report Reviewed Problem List - Problems (1) Acute hypoxemic respiratory failure due to COVID-19 Code(s): U07.1 - COVID POSITIVE; J96.01 - ACUTE RESPIRATORY FAILURE WITH HYPOXIA (2) CHF (congestive heart failure) Code(s): I50.9 - HEART FAILURE, UNSPECIFIED (3) Diabetes Code(s): E11.9 - TYPE 2 DIABETES MELLITUS WITHOUT COMPLICATIONS (4) HTN (hypertension) Code(s): I10 - ESSENTIAL (PRIMARY) HYPERTENSION (5) Hypercholesterolemia Code(s): E78.00 - PURE HYPERCHOLESTEROLEMIA, UNSPECIFIED (6) FINA (acute kidney injury) Code(s): N17.9 - ACUTE KIDNEY FAILURE, UNSPECIFIED Assessment/Plan COVID-19 PNA Acute respiratory failure Leukocytosis DM CHF AFIB -- pt feeling better. O2 sat normal, afebrile -- s/p convalescent plasma, on Remdesevir -- Inflammatory markers trending down -- wbc trending down -- on steroids continue monitor
--- NOTE | 2020-03-20 18:03 | PN ---
Progress Note (short form) - Note Progress Note: Patient is better with no NAD , saturating 95% on 2 liter Vital Signs Temperature 97.8 F 03/20/20 14:05 Pulse Rate 94 H 03/20/20 14:05 Respiratory Rate 20 03/20/20 14:05 Blood Pressure 137/82 03/20/20 14:05 O2 Sat by Pulse Oximetry (%) 95 03/20/20 08:26 GENERAL: The patient is awake, alert, and fully oriented, in no acute distress. HEAD: Normal with no signs of trauma. EYES: PERRL, extraocular movements intact, sclera anicteric, conjunctiva clear. ENT: Ears normal, oropharynx clear without exudates, moist mucous membranes. NECK: Trachea midline, full range of motion, supple. LUNGS: decreased BS BL , clear to auscultation bilaterally, no wheezes, no crackles, no accessory muscle use. HEART: Regular rate and rhythm, S1, S2 +, JUANA 2/6 , no rub or gallop. ABDOMEN: Soft, nontender, nondistended, normoactive bowel sounds, no guarding, no rebound, no hepatosplenomegaly, no masses. EXTREMITIES: 2+ pulses, warm, well-perfused, no edema. NEUROLOGICAL: Cranial nerves II through XII grossly intact. Normal speech, gait not observed. PSYCH: Normal mood, normal affect. SKIN: Warm, dry, normal turgor, no rashes or lesions noted CBCD WBC 16.2 K/mm3 (4.0-10.0) H 03/20/20 05:36 RBC 4.52 M/mm3 (4.00-5.60) 03/20/20 05:36 Hgb 13.9 GM/dL (11.7-16.9) 03/20/20 05:36 Hct 41.3 % (35.4-49) 03/20/20 05:36 MCV 91.4 fl (80-96) 03/20/20 05:36 MCHC 33.8 g/dl (32.0-35.9) 03/20/20 05:36 RDW 14.5 % (11.9-15.9) 03/20/20 05:36 Plt Count 352 K/MM3 (134-434) 03/20/20 05:36 MPV 9.0 fl (7.5-11.1) 03/20/20 05:36 CMP Sodium 135 mmol/L (136-145) L 03/20/20 05:36 Potassium 4.9 mmol/L (3.5-5.1) 03/20/20 05:36 Chloride 100 mmol/L (98-107) 03/20/20 05:36 Carbon Dioxide 25 mmol/L (21-32) 03/20/20 05:36 Anion Gap 10 MMOL/L (8-16) 03/20/20 05:36 BUN 39.3 mg/dL (7-18) H 03/20/20 05:36 Creatinine 1.3 mg/dL (0.55-1.3) 03/20/20 05:36 Random Glucose 257 mg/dL (74-106) H 03/20/20 05:36 Calcium 8.3 mg/dL (8.5-10.1) L 03/20/20 05:36 Total Bilirubin 0.5 mg/dL (0.2-1) 03/20/20 05:36 AST 45 U/L (15-37) H 03/20/20 05:36 ALT 70 U/L (13-61) H 03/20/20 05:36 Alkaline Phosphatase 83 U/L (45-117) 03/20/20 05:36 Total Protein 6.6 g/dl (6.4-8.2) 03/20/20 05:36 Albumin 2.4 g/dl (3.4-5.0) L 03/20/20 05:36 CARDIAC ENZYMES Creatine Kinase 75 U/L (26-308) 03/16/20 06:00 Troponin I < 0.02 ng/ml (0.00-0.05) 03/16/20 06:00 Current Medications Generic Name Dose Route Start Last Admin Trade Name Freq PRN Reason Stop Dose Admin Apixaban 5 mg 03/16/20 10:00 03/20/20 09:59 Eliquis - PO 5 mg BID [facility] Administration Ascorbic Acid 500 mg 03/16/20 10:00 03/20/20 09:59 Vitamin C - PO 500 mg BID [facility] Administration Atorvastatin Calcium 20 mg 03/16/20 22:00 03/19/20 21:31 Lipitor - PO 20 mg HS [facility] Administration Budesonide/Formoterol Fumarate 2 puff 03/16/20 12:30 03/20/20 09:59 Symbicort 160/4.5mcg - IH 2 inh BID [facility] Administration Doxycycline Hyclate 100 mg 03/16/20 18:00 03/20/20 17:43 Vibramycin - PO 100 mg BID@1000,1800 [facility] Administration Non-Formulary Medication 100 250 mls @ 250 mls/hr 03/17/20 10:00 03/20/20 11:39 mg/ Sodium Chloride IVPB 03/21/20 09:59 250 mls/hr DAILY [facility] Administration Insulin Aspart 1 vial 03/17/20 19:58 03/20/20 17:47 Novolog Vial Sliding Scale - SQ 8 units ACHS [facility] Administration Protocol Insulin Detemir 20 units 03/19/20 22:00 03/19/20 21:30 Levemir Vial SQ 20 units HS [facility] Administration Insulin Detemir 30 units 03/19/20 09:37 03/20/20 10:00 Levemir Vial SQ 30 units DAILY@0800 [facility] Administration Methylprednisolone Sodium Succinate 45 mg 03/17/20 22:00 03/20/20 09:59 Solu-Medrol - IVPUSH 45 mg BID [facility] Administration Metoprolol Succinate 100 mg 03/16/20 10:00 03/20/20 09:59 Toprol Xl - PO 100 mg DAILY [facility] Administration Metoprolol Tartrate 5 mg 03/17/20 10:52 03/17/20 12:50 Lopressor Injection - IVPUSH 5 mg Q4H PRN Administration TACHYCARDIA Pantoprazole Sodium 40 mg 03/16/20 10:00 03/20/20 09:59 Protonix - PO 40 mg DAILY [facility] Administration Sacubitril/Valsartan 1 tab 03/17/20 22:00 03/20/20 09:59 Entresto 24 Mg-26 Mg Tablet PO 1 tab BID [facility] Administration Zinc Sulfate 220 mg 03/16/20 10:00 03/20/20 09:59 Orazinc - PO 220 mg BID [facility] Administration Home Medications Medication Instructions Recorded Atorvastatin Ca [Lipitor] 20 mg PO HS 06/14/19 Metoprolol Succinate [Toprol Xl] 100 mg PO DAILY 06/14/19 Apixaban [Eliquis -] 2.5 mg PO BID #60 tablet 06/18/19 Meloxicam 15 mg PO DAILY 03/16/20 Metformin HCl [Glucophage] 1,000 mg PO DAILY 03/16/20 Sacubitril/Valsartan [Entresto 49 1 each PO BID 03/16/20 mg-51 mg Tablet] Sitagliptin Phosphate [Januvia] 1 tab PO DAILY 03/16/20 Spironolactone 25 mg PO DAILY 03/16/20 ECHO: EJF 55-60% mild atrium is moderately dilated, right atrium dilated moderately , mild mitral regurg., moderate TR, PA systolic pressure is 24mmhg, trace AR,trace CA. Assessment an plan: This is a 69 year old man with a Pmhx of HTN, hyperlipidemia, atrial fib, CHF, T2DM who presents to ED for having shortness of breath and Ct consistent with Covid , tested positive for covid #Covid Pneumonitis on rocephin/doxy/follow daily markers, on eliquis increased the dose to 5mg from 2.5mg , steroid/zinc/vit c/vitd , On Nc continue current care. On remdisiver 100mg 4th dose today x 5 total . # Possible chronic heart failure with EJF 55-60%: discussed with cardio , will dc enteresto and aldactone, K is Nl now. # Atrial fibrillation, permanent rate controlled: continue Toprol XL, Eliquis # HTN continue Toprol XL , hold Entresto, Aldactone since elevated potassium # Hyperlipidemia continue Lipitor #T2DM on metformin , SS DVT px: Eliquis follow markers Visit type - Emergency Visit Emergency Visit: Yes ED Registration Date: 03/15/20 Care time: The patient presented to the Emergency Department on the above date and was hospitalized for further evaluation of their emergent condition. - New Patient This patient is new to me today: No - Critical Care Critical Care patient: No - Discharge Referral Referred to [facility] Med P.C.: No - Medication Review Med list reviewed for High Risk Meds patients 65 and older: Yes
[2020-03-20] MEDS: ATORVASTATIN CA 20 MG TABLET (FP) PO SCH (21:43)
[2020-03-21] MEDS: INSULIN SLIDING SCALE (NOVOLOG) 1 VIAL SQ SCH ×4 (06:37→22:01)
[2020-03-21] MEDS: INSULIN (LEVEMIR) 100 UNITS/ML UNITS SQ SCH (08:41)
[2020-03-21] MEDS: methylPREDNISolone NA SUCC 40 MG/1 ML VIAL IVPUSH SCH ×2 (08:59→22:04)
[2020-03-21] MEDS: DOXYCYCLINE HYCLATE 100 MG CAPSULE PO SCH ×2 (09:00→17:08)
[2020-03-21] MEDS: ZINC SULFATE 220 MG CAPSULE (FP) PO SCH ×2 (09:00→22:01)
[2020-03-21] MEDS: APIXABAN 5 MG TABLET PO SCH ×2 (09:01→21:59)
[2020-03-21] MEDS: ASCORBIC ACID 500 MG TABLET (FP) PO SCH ×2 (09:01→21:59)
[2020-03-21] MEDS: BUDESONIDE/FORMETEROL FUMARATE 160/4.5 mcg INHALER IH SCH ×2 (09:01→22:04)
[2020-03-21] MEDS: PANTOPRAZOLE 40 MG TABLET PO SCH (09:01)
[2020-03-21] MEDS: SACUBITRIL/VALSARTAN 24 MG-26 MG TABLET PO SCH ×2 (09:01→22:00)
[2020-03-21] MEDS ORDERED: INSULIN (LEVEMIR) 100 UNITS/ML UNITS SQ SCH ×3 (10:00→22:00)
--- NOTE | 2020-03-21 10:12 | PN ---
Progress Note, Physician Chief Complaint: Events noted (coverage for Dr. Spencer and Hyun) Isolated due to COVID Not in distress History of Present Illness: Patient was seen and examined. Awake and alert. Chart was reviewed Denies chest pain, SOB or palpitations - Current Medication List Current Medications: Active Medications Apixaban (Eliquis -) 5 mg PO BID [facility] Last Admin: 03/21/20 09:01 Dose: 5 mg Documented by: Ascorbic Acid (Vitamin C -) 500 mg PO BID [facility] Last Admin: 03/21/20 09:01 Dose: 500 mg Documented by: Atorvastatin Calcium (Lipitor -) 20 mg PO [facility] Last Admin: 03/20/20 21:43 Dose: 20 mg Documented by: Budesonide/Formoterol Fumarate (Symbicort 160/4.5mcg -) 2 puff IH BID [facility] Last Admin: 03/21/20 09:01 Dose: 2 inh Documented by: Doxycycline Hyclate (Vibramycin -) 100 mg PO BID@1000,1800 [facility] Last Admin: 03/21/20 09:00 Dose: 100 mg Documented by: Insulin Aspart (Novolog Vial Sliding Scale -) 1 vial SQ [facility]; Protocol Last Admin: 03/21/20 06:37 Dose: 4 units Documented by: Insulin Detemir (Levemir Vial) 35 units SQ DAILY@0800 [facility] Insulin Detemir (Levemir Vial) 25 units SQ [facility] Methylprednisolone Sodium Succinate (Solu-Medrol -) 45 mg IVPUSH BID [facility] Last Admin: 03/21/20 08:59 Dose: 45 mg Documented by: Metoprolol Succinate (Toprol Xl -) 100 mg PO DAILY [facility] Last Admin: 03/21/20 09:01 Dose: 100 mg Documented by: Metoprolol Tartrate (Lopressor Injection -) 5 mg IVPUSH Q4H PRN PRN Reason: TACHYCARDIA Last Admin: 03/17/20 12:50 Dose: 5 mg Documented by: Pantoprazole Sodium (Protonix -) 40 mg PO DAILY [facility] Last Admin: 03/21/20 09:01 Dose: 40 mg Documented by: Sacubitril/Valsartan (Entresto 24 Mg-26 Mg Tablet) 1 tab PO BID [facility] Last Admin: 03/21/20 09:01 Dose: 1 tab Documented by: Zinc Sulfate (Orazinc -) 220 mg PO BID [facility] Last Admin: 03/21/20 09:00 Dose: 220 mg Documented by: - Objective Vital Signs: Vital Signs Temperature 97.2 F L 03/21/20 08:20 Pulse Rate 84 03/21/20 08:20 Respiratory Rate 20 03/21/20 08:22 Blood Pressure 128/76 03/21/20 08:20 O2 Sat by Pulse Oximetry (%) 97 03/21/20 08:22 Eyes: Yes: PERRL HENT: Yes: Atraumatic Neck: Yes: Supple Cardiovascular: Yes: Regular Rate and Rhythm, S1, S2 Respiratory: Yes: Diminished Gastrointestinal: Yes: Normal Bowel Sounds, Soft. No: Tenderness Edema: No Additional Findings/Remarks: - Review of Systems Constitutional: denies: Chills, Fever Cardiovascular: deneis Chest Pain, (+) Shortness of Breath. denies: Palpitations Respiratory: (+) SOB. denies: Cough, Hemoptysis, Orthopnea, PND Gastrointestinal: denies: Abdominal Pain, Constipation, Diarrhea, Melena, Nausea, Rectal Bleeding, Vomiting Neurological: denies: Dizziness, Headache, Seizure, Syncope Labs: CBC, BMP 03/20/20 05:36 03/20/20 05:36 INR, PTT INR 1.35 (0.83-1.09) H 03/16/20 06:00 Fibrinogen 479.0 mg/dL (238-498) 03/16/20 06:00 Problem List - Problems (1) Hypercholesterolemia Code(s): E78.00 - PURE HYPERCHOLESTEROLEMIA, UNSPECIFIED (2) Acute hypoxemic respiratory failure due to COVID-19 Code(s): U07.1 - COVID POSITIVE; J96.01 - ACUTE RESPIRATORY FAILURE WITH HYPOXIA (3) CHF (congestive heart failure) Code(s): I50.9 - HEART FAILURE, UNSPECIFIED (4) Diabetes Code(s): E11.9 - TYPE 2 DIABETES MELLITUS WITHOUT COMPLICATIONS (5) HTN (hypertension) Code(s): I10 - ESSENTIAL (PRIMARY) HYPERTENSION Assessment/Plan 1. COVID pneumonitits 2. Acute on chronic ?systolic dysfunction previously class 2 NYHA classification heart failure 3. AF 4. Abnormal LFT 5. HTN PLAN: 1. Received COVID treatment including convalescent plasma, Remdesivir and antibiotics. Currently on Doxycycline. Currently on steroids, Vitamin C and Zinc 2. Metoprolol ER 100 mg QD 3. Entresto 24/26 mg BID 4. Atorvastatin 20 mg QD 5. Continue Eliquis 5 mg BID Further plans are to follow Dr. Spencer and Hyun to resume care on Sunday Andi Beaver MD
--- NOTE | 2020-03-21 13:20 | PN ---
Physical Exam: SUBJECTIVE: Patient seen and examined at bedside. Patient reports that his breathing feels better. He reports no other complaints. OBJECTIVE: Vital Signs Period Temp Pulse Resp BP Sys/Castro Pulse Ox Last 24 Hr 97.2 F-97.9 F 79-94 20-20 115-137/76-82 95-97 GENERAL: The patient is awake, alert, and fully oriented, in no acute distress. Limited exam due to COVID19 Laboratory Results - last 24 hr 03/20/20 03/21/20 03/21/20 21:42 05:33 05:33 D-Dimer 5907 H POC Glucometer 185 C-Reactive Protein 1.1 H 03/21/20 03/21/20 06:01 11:33 D-Dimer POC Glucometer 193 248 C-Reactive Protein Active Medications Generic Name Dose Route Start Last Admin Trade Name Freq PRN Reason Stop Dose Admin Apixaban 5 mg 03/16/20 10:00 03/21/20 09:01 Eliquis - PO 5 mg BID [facility] Administration Ascorbic Acid 500 mg 03/16/20 10:00 03/21/20 09:01 Vitamin C - PO 500 mg BID [facility] Administration Atorvastatin Calcium 20 mg 03/16/20 22:00 03/20/20 21:43 Lipitor - PO 20 mg HS [facility] Administration Budesonide/Formoterol Fumarate 2 puff 03/16/20 12:30 03/21/20 09:01 Symbicort 160/4.5mcg - IH 2 inh BID [facility] Administration Doxycycline Hyclate 100 mg 03/16/20 18:00 03/21/20 09:00 Vibramycin - PO 100 mg BID@1000,1800 [facility] Administration Insulin Aspart 1 vial 03/17/20 19:58 03/21/20 11:35 Novolog Vial Sliding Scale - SQ 6 units ACHS COUNT INCLUDES [facility] Administration Protocol Insulin Detemir 35 units 03/21/20 10:00 Levemir Vial SQ DAILY@0800 [facility] Insulin Detemir 25 units 03/21/20 22:00 Levemir Vial SQ HS COUNT INCLUDES [facility] Methylprednisolone Sodium Succinate 45 mg 03/17/20 22:00 03/21/20 08:59 Solu-Medrol - IVPUSH 45 mg BID [facility] Administration Metoprolol Succinate 100 mg 03/16/20 10:00 03/21/20 09:01 Toprol Xl - PO 100 mg DAILY [facility] Administration Metoprolol Tartrate 5 mg 03/17/20 10:52 03/17/20 12:50 Lopressor Injection - IVPUSH 5 mg Q4H PRN Administration TACHYCARDIA Pantoprazole Sodium 40 mg 03/16/20 10:00 03/21/20 09:01 Protonix - PO 40 mg DAILY HAMZAH Administration Sacubitril/Valsartan 1 tab 03/17/20 22:00 03/21/20 09:01 Entresto 24 Mg-26 Mg Tablet PO 1 tab BID HAMZAH Administration Zinc Sulfate 220 mg 03/16/20 10:00 03/21/20 09:00 Orazinc - PO 220 mg BID HAMZAH Administration ASSESSMENT/PLAN: 69 year old male patient with past medical history that includes HTN, HLD, AFib on Eliquis, CHF, DM, and COVID+ on 02/28/20, who presented to the ED with shortness of breath on exertion. 1. COVID pneumonitis - COVID+ on 03/15/20 - 97% on room air - Inflammatory markers are trending down - Received convalescent plasma, Remdesivir, antibiotics (on Doxycycline), steroids, Vitamin C and Zinc - Eliquis 5 mg BID 2. Acute on Chronic Heart failure - 97% on room air - Metoprolol, Entresto 3. AFib - Metoprolol - Eliquis 5 mg BID 4. HTN - Metoprolol, Entresto 5. HLD - Atorvastatin 6. DM - A1C 9.5% - SSI - Blood Glucose Monitoring # FEN - Monitoring Electrolytes, Diabetic/Sodium Diet DVT PPx - Eliquis 5 mg BID Visit type - Emergency Visit Emergency Visit: Yes ED Registration Date: 03/15/20 Care time: The patient presented to the Emergency Department on the above date and was hospitalized for further evaluation of their emergent condition. - New Patient This patient is new to me today: Yes Date on this admission: 03/21/20 - Critical Care Critical Care patient: No - Discharge Referral Referred to [facility] Med P.C.: No - Medication Review Med list reviewed for High Risk Meds patients 65 and older: Yes ATTENDING PHYSICIAN STATEMENT I saw and evaluated the patient. I reviewed the resident's note and discussed the case with the resident. I agree with the resident's findings and plan as documented. SUBJECTIVE: OBJECTIVE: ASSESSMENT AND PLAN:
--- NOTE | 2020-03-21 13:45 | PN ---
Progress Note (short form) - Note Progress Note: Breathing continues to improve. No CP or SOB, Completed Remdesevir course yesterday. Intake & Output 03/18/20 03/19/20 03/20/20 03/21/20 23:59 23:59 23:59 23:59 Intake Total 5119 489 7063 350 Balance 7096 709 4394 350 Last Vital Signs Temp Pulse Resp BP Pulse Ox 97.2 F L 84 20 128/76 97 03/21/20 08:20 03/21/20 08:20 03/21/20 08:22 03/21/20 08:20 03/21/20 08:22 Active Medications Apixaban (Eliquis -) 5 mg PO BID [facility] Last Admin: 03/21/20 09:01 Dose: 5 mg Documented by: Ascorbic Acid (Vitamin C -) 500 mg PO BID [facility] Last Admin: 03/21/20 09:01 Dose: 500 mg Documented by: Atorvastatin Calcium (Lipitor -) 20 mg PO [facility] Last Admin: 03/20/20 21:43 Dose: 20 mg Documented by: Budesonide/Formoterol Fumarate (Symbicort 160/4.5mcg -) 2 puff IH BID [facility] Last Admin: 03/21/20 09:01 Dose: 2 inh Documented by: Doxycycline Hyclate (Vibramycin -) 100 mg PO BID@1000,1800 [facility] Last Admin: 03/21/20 09:00 Dose: 100 mg Documented by: Insulin Aspart (Novolog Vial Sliding Scale -) 1 vial SQ [facility]; Protocol Last Admin: 03/21/20 11:35 Dose: 6 units Documented by: Insulin Detemir (Levemir Vial) 35 units SQ DAILY@0800 [facility] Insulin Detemir (Levemir Vial) 25 units SQ [facility] Methylprednisolone Sodium Succinate (Solu-Medrol -) 45 mg IVPUSH BID [facility] Last Admin: 03/21/20 08:59 Dose: 45 mg Documented by: Metoprolol Succinate (Toprol Xl -) 100 mg PO DAILY [facility] Last Admin: 03/21/20 09:01 Dose: 100 mg Documented by: Metoprolol Tartrate (Lopressor Injection -) 5 mg IVPUSH Q4H PRN PRN Reason: TACHYCARDIA Last Admin: 03/17/20 12:50 Dose: 5 mg Documented by: Pantoprazole Sodium (Protonix -) 40 mg PO DAILY [facility] Last Admin: 03/21/20 09:01 Dose: 40 mg Documented by: Sacubitril/Valsartan (Entresto 24 Mg-26 Mg Tablet) 1 tab PO BID [facility] Last Admin: 03/21/20 09:01 Dose: 1 tab Documented by: Zinc Sulfate (Orazinc -) 220 mg PO BID [facility] Last Admin: 03/21/20 09:00 Dose: 220 mg Documented by: Gen: NAD at rest Heart: RRR Lung: scattered rhonchi Abd: soft, nontender Ext: no edema Laboratory Results - last 24 hr 03/20/20 03/21/20 03/21/20 21:42 05:33 05:33 D-Dimer 5907 H POC Glucometer 185 C-Reactive Protein 1.1 H 03/21/20 03/21/20 06:01 11:33 D-Dimer POC Glucometer 193 248 C-Reactive Protein A/P Acute Hypoxic Respiratory Failure COVID19 Pneumonia LV Diastolic/Systolic Dysfunction Atrial Fibrillation DM - Completed Remdesevir course - received convalescent plasma - Steroids - continue anticoagulation - O2 to keep Spo2 >90% : will need Pre and Post ambulation saturation check - DC planning Dr Menard
--- NOTE | 2020-03-21 16:35 | PN ---
Teaching Attending Note Name of Resident: Omero Silvestre ATTENDING PHYSICIAN STATEMENT I saw and evaluated the patient. I reviewed the resident's note and discussed the case with the resident. I agree with the resident's findings and plan as documented. SUBJECTIVE: patient is saturating well. completed Remdisivir treatment. OBJECTIVE: Vital Signs Temperature 97.8 F 03/21/20 14:00 Pulse Rate 88 03/21/20 14:00 Respiratory Rate 20 03/21/20 08:22 Blood Pressure 130/75 03/21/20 14:00 O2 Sat by Pulse Oximetry (%) 97 03/21/20 08:22 PE: per resident's note CBCD WBC 16.2 K/mm3 (4.0-10.0) H 03/20/20 05:36 RBC 4.52 M/mm3 (4.00-5.60) 03/20/20 05:36 Hgb 13.9 GM/dL (11.7-16.9) 03/20/20 05:36 Hct 41.3 % (35.4-49) 03/20/20 05:36 MCV 91.4 fl (80-96) 03/20/20 05:36 MCHC 33.8 g/dl (32.0-35.9) 03/20/20 05:36 RDW 14.5 % (11.9-15.9) 03/20/20 05:36 Plt Count 352 K/MM3 (134-434) 03/20/20 05:36 MPV 9.0 fl (7.5-11.1) 03/20/20 05:36 CMP Sodium 135 mmol/L (136-145) L 03/20/20 05:36 Potassium 4.9 mmol/L (3.5-5.1) 03/20/20 05:36 Chloride 100 mmol/L (98-107) 03/20/20 05:36 Carbon Dioxide 25 mmol/L (21-32) 03/20/20 05:36 Anion Gap 10 MMOL/L (8-16) 03/20/20 05:36 BUN 39.3 mg/dL (7-18) H 03/20/20 05:36 Creatinine 1.3 mg/dL (0.55-1.3) 03/20/20 05:36 Random Glucose 257 mg/dL (74-106) H 03/20/20 05:36 Calcium 8.3 mg/dL (8.5-10.1) L 03/20/20 05:36 Total Bilirubin 0.5 mg/dL (0.2-1) 03/20/20 05:36 AST 45 U/L (15-37) H 03/20/20 05:36 ALT 70 U/L (13-61) H 03/20/20 05:36 Alkaline Phosphatase 83 U/L (45-117) 03/20/20 05:36 Total Protein 6.6 g/dl (6.4-8.2) 03/20/20 05:36 Albumin 2.4 g/dl (3.4-5.0) L 03/20/20 05:36 CARDIAC ENZYMES Creatine Kinase 75 U/L (26-308) 03/16/20 06:00 Troponin I < 0.02 ng/ml (0.00-0.05) 03/16/20 06:00 Current Medications Generic Name Dose Route Start Last Admin Trade Name Freq PRN Reason Stop Dose Admin Apixaban 5 mg 03/16/20 10:00 03/21/20 09:01 Eliquis - PO 5 mg BID [facility] Administration Ascorbic Acid 500 mg 03/16/20 10:00 03/21/20 09:01 Vitamin C - PO 500 mg BID [facility] Administration Atorvastatin Calcium 20 mg 03/16/20 22:00 03/20/20 21:43 Lipitor - PO 20 mg HS [facility] Administration Budesonide/Formoterol Fumarate 2 puff 03/16/20 12:30 03/21/20 09:01 Symbicort 160/4.5mcg - IH 2 inh BID [facility] Administration Doxycycline Hyclate 100 mg 03/16/20 18:00 03/21/20 09:00 Vibramycin - PO 100 mg BID@1000,1800 [facility] Administration Insulin Aspart 1 vial 03/17/20 19:58 03/21/20 11:35 Novolog Vial Sliding Scale - SQ 6 units ACHS [facility] Administration Protocol Insulin Detemir 35 units 03/21/20 10:00 Levemir Vial SQ DAILY@0800 [facility] Insulin Detemir 25 units 03/21/20 22:00 Levemir Vial SQ HS [facility] Methylprednisolone Sodium Succinate 45 mg 03/17/20 22:00 03/21/20 08:59 Solu-Medrol - IVPUSH 45 mg BID [facility] Administration Metoprolol Succinate 100 mg 03/16/20 10:00 03/21/20 09:01 Toprol Xl - PO 100 mg DAILY [facility] Administration Metoprolol Tartrate 5 mg 03/17/20 10:52 03/17/20 12:50 Lopressor Injection - IVPUSH 5 mg Q4H PRN Administration TACHYCARDIA Pantoprazole Sodium 40 mg 03/16/20 10:00 03/21/20 09:01 Protonix - PO 40 mg DAILY [facility] Administration Sacubitril/Valsartan 1 tab 03/17/20 22:00 03/21/20 09:01 Entresto 24 Mg-26 Mg Tablet PO 1 tab BID [facility] Administration Zinc Sulfate 220 mg 03/16/20 10:00 03/21/20 09:00 Orazinc - PO 220 mg BID [facility] Administration Home Medications Medication Instructions Recorded Atorvastatin Ca [Lipitor] 20 mg PO HS 06/14/19 Metoprolol Succinate [Toprol Xl] 100 mg PO DAILY 06/14/19 Apixaban [Eliquis -] 2.5 mg PO BID #60 tablet 06/18/19 Meloxicam 15 mg PO DAILY 03/16/20 Metformin HCl [Glucophage] 1,000 mg PO DAILY 03/16/20 Sacubitril/Valsartan [Entresto 49 1 each PO BID 03/16/20 mg-51 mg Tablet] Sitagliptin Phosphate [Januvia] 1 tab PO DAILY 03/16/20 Spironolactone 25 mg PO DAILY 03/16/20 ECHO: EJF 55-60% mild atrium is moderately dilated, right atrium dilated moderately , mild mitral regurg., moderate TR, PA systolic pressure is 24mmhg, trace AR,trace CT. Assessment an plan: This is a 69 year old man with a Pmhx of HTN, hyperlipidemia, atrial fib, CHF, T2DM who presents to ED for having shortness of breath and Ct consistent with Covid , tested positive for covid #Covid-19 Pneumonitis on rocephin/doxy/follow daily markers, on eliquis increased the dose to 5mg from 2.5mg , steroid/zinc/vit c/vitd , On Nc continue current care. completed remdisiver 5/5 , s/p convalescent plasma. continue Steroids , and anticoagulation, keep sao2 >90% , will need pre and post for dc planning # Chronic heart failure with EJF 55-60%: discussed with cardio , will dc enteresto and aldactone, K is Nl now. # Atrial fibrillation, permanent: rate controlled: continue Toprol XL, Eliquis # HTN continue Toprol XL , dc Entresto, Aldactone since elevated potassium # Hyperlipidemia continue Lipitor #T2DM on metformin , SS DVT px: Eliquis
--- NOTE | 2020-03-21 18:47 | PN ---
Progress Note, Physician History of Present Illness: Pt is doing well. Denies any SOB. 97% O2 sat currently. Afebrile. - Current Medication List Current Medications: Active Medications Apixaban (Eliquis -) 5 mg PO BID [facility] Last Admin: 03/21/20 09:01 Dose: 5 mg Documented by: Ascorbic Acid (Vitamin C -) 500 mg PO BID [facility] Last Admin: 03/21/20 09:01 Dose: 500 mg Documented by: Atorvastatin Calcium (Lipitor -) 20 mg PO [facility] Last Admin: 03/20/20 21:43 Dose: 20 mg Documented by: Budesonide/Formoterol Fumarate (Symbicort 160/4.5mcg -) 2 puff IH BID [facility] Last Admin: 03/21/20 09:01 Dose: 2 inh Documented by: Doxycycline Hyclate (Vibramycin -) 100 mg PO BID@1000,1800 [facility] Last Admin: 03/21/20 17:08 Dose: 100 mg Documented by: Insulin Aspart (Novolog Vial Sliding Scale -) 1 vial SQ [facility]; Protocol Last Admin: 03/21/20 17:07 Dose: 8 units Documented by: Insulin Detemir (Levemir Vial) 35 units SQ DAILY@0800 [facility] Insulin Detemir (Levemir Vial) 25 units SQ [facility] Methylprednisolone Sodium Succinate (Solu-Medrol -) 45 mg IVPUSH BID [facility] Last Admin: 03/21/20 08:59 Dose: 45 mg Documented by: Metoprolol Succinate (Toprol Xl -) 100 mg PO DAILY [facility] Last Admin: 03/21/20 09:01 Dose: 100 mg Documented by: Metoprolol Tartrate (Lopressor Injection -) 5 mg IVPUSH Q4H PRN PRN Reason: TACHYCARDIA Last Admin: 03/17/20 12:50 Dose: 5 mg Documented by: Pantoprazole Sodium (Protonix -) 40 mg PO DAILY [facility] Last Admin: 03/21/20 09:01 Dose: 40 mg Documented by: Sacubitril/Valsartan (Entresto 24 Mg-26 Mg Tablet) 1 tab PO BID [facility] Last Admin: 03/21/20 09:01 Dose: 1 tab Documented by: Zinc Sulfate (Orazinc -) 220 mg PO BID [facility] Last Admin: 03/21/20 09:00 Dose: 220 mg Documented by: - Objective Vital Signs: Vital Signs Temperature 97.6 F 03/21/20 17:00 Pulse Rate 88 03/21/20 17:00 Respiratory Rate 20 03/21/20 17:00 Blood Pressure 136/83 03/21/20 17:00 O2 Sat by Pulse Oximetry (%) 97 03/21/20 08:22 Constitutional: Yes: No Distress, Calm Eyes: Yes: Conjunctiva Clear Cardiovascular: Yes: Pulse Irregular Respiratory: Yes: CTA Bilaterally Gastrointestinal: Yes: Normal Bowel Sounds, Soft Genitourinary: Yes: WNL Integumentary: Yes: WNL Neurological: Yes: Alert, Oriented Labs: CBC, BMP 03/20/20 05:36 03/20/20 05:36 INR, PTT INR 1.35 (0.83-1.09) H 03/16/20 06:00 Fibrinogen 479.0 mg/dL (238-498) 03/16/20 06:00 Microbiology 03/16/20 04:20 Urine - Urine Clean Catch Urine Culture - Final NO GROWTH OBTAINED 03/16/20 04:20 Urine - Urine Clean Catch Legionella Antigen - Final 03/16/20 04:20 Urine - Urine Clean Catch Streptococcus pneumoniae Antigen (M - Final Problem List - Problems (1) Acute hypoxemic respiratory failure due to COVID-19 Code(s): U07.1 - COVID POSITIVE; J96.01 - ACUTE RESPIRATORY FAILURE WITH HYPOXIA (2) CHF (congestive heart failure) Code(s): I50.9 - HEART FAILURE, UNSPECIFIED (3) Diabetes Code(s): E11.9 - TYPE 2 DIABETES MELLITUS WITHOUT COMPLICATIONS (4) HTN (hypertension) Code(s): I10 - ESSENTIAL (PRIMARY) HYPERTENSION (5) Hypercholesterolemia Code(s): E78.00 - PURE HYPERCHOLESTEROLEMIA, UNSPECIFIED (6) FINA (acute kidney injury) Code(s): N17.9 - ACUTE KIDNEY FAILURE, UNSPECIFIED Assessment/Plan COVID-19 PNA Acute respiratory failure Leukocytosis DM CHF AFIB -- Improving -- s/p convalescent plasma, completed course of Remdesevir -- Inflammatory markers trending down -- wbc trending down -- on steroids
[2020-03-21] MEDS ORDERED: PT OWN MED DRAWER 7, Y5N ONE (21:51)
[2020-03-21] MEDS: ATORVASTATIN CA 20 MG TABLET (FP) PO SCH (22:00)
[2020-03-22] MEDS: INSULIN SLIDING SCALE (NOVOLOG) 1 VIAL SQ SCH ×3 (06:47→16:40)
[2020-03-22] MEDS ORDERED: INSULIN (NOVOLOG) ASPART 100 UNITS/ML 10ML VIAL ONE ×2 (06:56→09:52)
[2020-03-22 07:28] LABS: HEMATOCRIT 44.3 % (35.4-49); HEMOGLOBIN 14.8 GM/dL (11.7-16.9); MCH 30.5 pg (25.7-33.7); MCHC 33.4 g/dl (32.0-35.9); MEAN CELL VOLUME 91.3 fl (80-96); MEAN PLT VOLUME 8.8 fl (7.5-11.1); PLATELET COUNT 382 K/MM3 (134-434); RBC 4.85 M/mm3 (4.00-5.60); RDW 14.8 % (11.9-15.9); WHITE BLOOD COUNT 17.1 K/mm3 (4.0-10.0)
[2020-03-22 07:56] LABS: ALBUMIN 2.6 g/dl (3.4-5.0); BILIRUBIN,TOTAL 0.8 mg/dL (0.2-1); BLOOD UREA NITROGEN 48.9 mg/dL (7-18); CALCIUM 8.5 mg/dL (8.5-10.1); CREATININE 1.4 mg/dL (0.55-1.3); MAGNESIUM 2.1 mg/dL (1.8-2.4); PHOSPHOROUS 4.2 mg/dL (2.5-4.9); POTASSIUM 4.7 mmol/L (3.5-5.1); TOT PROT 6.6 g/dl (6.4-8.2)
[2020-03-22] MEDS: ASCORBIC ACID 500 MG TABLET (FP) PO SCH (10:12)
[2020-03-22] MEDS: DOXYCYCLINE HYCLATE 100 MG CAPSULE PO SCH ×2 (10:12→17:23)
[2020-03-22] MEDS: PANTOPRAZOLE 40 MG TABLET PO SCH (10:12)
[2020-03-22] MEDS: APIXABAN 5 MG TABLET PO SCH (10:13)
[2020-03-22] MEDS: SACUBITRIL/VALSARTAN 24 MG-26 MG TABLET PO SCH (10:13)
[2020-03-22] MEDS: ZINC SULFATE 220 MG CAPSULE (FP) PO SCH (10:13)
[2020-03-22] MEDS: methylPREDNISolone NA SUCC 40 MG/1 ML VIAL IVPUSH SCH (10:13)
[2020-03-22] MEDS: BUDESONIDE/FORMETEROL FUMARATE 160/4.5 mcg INHALER IH SCH (10:14)
[2020-03-22 10:36] VITALS: BP 119/89; TEMP 98
[2020-03-22 12:14] VITALS: PULSE 107
--- NOTE | 2020-03-22 14:09 | PN ---
Teaching Attending Note Name of Resident: Bia Hoffman ATTENDING PHYSICIAN STATEMENT I saw and evaluated the patient. I reviewed the resident's note and discussed the case with the resident. I agree with the resident's findings and plan as documented. SUBJECTIVE: Patient is better , saturating 95% without any oxygen OBJECTIVE: Vital Signs Temperature 98 F 03/22/20 10:00 Pulse Rate 107 H 03/22/20 12:13 Respiratory Rate 20 03/22/20 10:00 Blood Pressure 119/89 03/22/20 10:00 O2 Sat by Pulse Oximetry (%) 89 L 03/22/20 12:13 PE: per resident's note CBCD WBC 17.1 K/mm3 (4.0-10.0) H 03/22/20 05:40 RBC 4.85 M/mm3 (4.00-5.60) 03/22/20 05:40 Hgb 14.8 GM/dL (11.7-16.9) 03/22/20 05:40 Hct 44.3 % (35.4-49) 03/22/20 05:40 MCV 91.3 fl (80-96) 03/22/20 05:40 MCHC 33.4 g/dl (32.0-35.9) 03/22/20 05:40 RDW 14.8 % (11.9-15.9) 03/22/20 05:40 Plt Count 382 K/MM3 (134-434) 03/22/20 05:40 MPV 8.8 fl (7.5-11.1) 03/22/20 05:40 CMP Sodium 137 mmol/L (136-145) 03/22/20 05:40 Potassium 4.7 mmol/L (3.5-5.1) 03/22/20 05:40 Chloride 101 mmol/L (98-107) 03/22/20 05:40 Carbon Dioxide 24 mmol/L (21-32) 03/22/20 05:40 Anion Gap 11 MMOL/L (8-16) 03/22/20 05:40 BUN 48.9 mg/dL (7-18) H 03/22/20 05:40 Creatinine 1.4 mg/dL (0.55-1.3) H 03/22/20 05:40 Random Glucose 215 mg/dL (74-106) H 03/22/20 05:40 Calcium 8.5 mg/dL (8.5-10.1) 03/22/20 05:40 Total Bilirubin 0.8 mg/dL (0.2-1) 03/22/20 05:40 AST 29 U/L (15-37) 03/22/20 05:40 ALT 57 U/L (13-61) 03/22/20 05:40 Alkaline Phosphatase 80 U/L (45-117) 03/22/20 05:40 Total Protein 6.6 g/dl (6.4-8.2) 03/22/20 05:40 Albumin 2.6 g/dl (3.4-5.0) L 03/22/20 05:40 CARDIAC ENZYMES Creatine Kinase 75 U/L (26-308) 03/16/20 06:00 Troponin I < 0.02 ng/ml (0.00-0.05) 03/16/20 06:00 Current Medications Generic Name Dose Route Start Last Admin Trade Name Freq PRN Reason Stop Dose Admin Apixaban 5 mg 03/16/20 10:00 03/22/20 10:13 Eliquis - PO 5 mg BID [facility] Administration Ascorbic Acid 500 mg 03/16/20 10:00 03/22/20 10:12 Vitamin C - PO 500 mg BID [facility] Administration Atorvastatin Calcium 20 mg 03/16/20 22:00 03/21/20 22:00 Lipitor - PO 20 mg HS [facility] Administration Budesonide/Formoterol Fumarate 2 puff 03/16/20 12:30 03/22/20 10:14 Symbicort 160/4.5mcg - IH 2 inh BID [facility] Administration Doxycycline Hyclate 100 mg 03/16/20 18:00 03/22/20 10:12 Vibramycin - PO 100 mg BID@1000,1800 [facility] Administration Insulin Aspart 1 vial 03/22/20 09:11 03/22/20 11:24 Novolog Vial Sliding Scale - SQ [address] [facility] Administration Protocol Insulin Detemir 35 units 03/21/20 10:00 03/22/20 10:12 Levemir Vial SQ 35 units DAILY@0800 [facility] Administration Insulin Detemir 25 units 03/21/20 22:00 03/21/20 22:00 Levemir Vial SQ 25 units HS [facility] Administration Methylprednisolone Sodium Succinate 45 mg 03/17/20 22:00 03/22/20 10:13 Solu-Medrol - IVPUSH 45 mg BID [facility] Administration Metoprolol Succinate 100 mg 03/16/20 10:00 03/22/20 10:13 Toprol Xl - PO 100 mg DAILY [facility] Administration Metoprolol Tartrate 5 mg 03/17/20 10:52 03/17/20 12:50 Lopressor Injection - IVPUSH 5 mg Q4H PRN Administration TACHYCARDIA Pantoprazole Sodium 40 mg 03/16/20 10:00 03/22/20 10:12 Protonix - PO 40 mg DAILY [facility] Administration Sacubitril/Valsartan 1 tab 03/17/20 22:00 03/22/20 10:13 Entresto 24 Mg-26 Mg Tablet PO 1 tab BID [facility] Administration Zinc Sulfate 220 mg 03/16/20 10:00 03/22/20 10:13 Orazinc - PO 220 mg BID [facility] Administration Home Medications Medication Instructions Recorded Atorvastatin Ca [Lipitor] 20 mg PO HS 06/14/19 Metoprolol Succinate [Toprol Xl] 100 mg PO DAILY 06/14/19 Sitagliptin Phosphate [Januvia] 1 tab PO DAILY 03/16/20 Apixaban [Eliquis -] 5 mg PO BID #60 tablet 03/22/20 Ascorbic Acid [Vitamin C -] 500 mg PO BID tablet 03/22/20 Atorvastatin Ca [Lipitor] 20 mg PO HS tablet 03/22/20 Budesonide/Formeterol Fumarate 2 puff IH BID #1 inhaler 03/22/20 [SYMBICORT 160/4.5mcg -] Pantoprazole Sodium [Protonix -] 40 mg PO DAILY tablet.ec 03/22/20 Prednisone See Taper PO DAILY 3 Days tablet 03/22/20 Sacubitril/Valsartan [Entresto 24 1 tab PO BID 30 Days #60 tablet 03/22/20 mg-26 mg Tablet] Zinc Sulfate [Orazinc -] 220 mg PO BID capsule 03/22/20 metFORMIN XR [Glucophage Xr -] 500 mg PO DAILY@0700 #30 tab.sr.24h 03/22/20 Microbiology 03/16/20 04:20 Urine - Urine Clean Catch Urine Culture - Final NO GROWTH OBTAINED 03/16/20 04:20 Urine - Urine Clean Catch Legionella Antigen - Final 03/16/20 04:20 Urine - Urine Clean Catch Streptococcus pneumoniae Antigen (M - Final ECHO: EJF 55-60% mild atrium is moderately dilated, right atrium dilated moderately , mild mitral regurg., moderate TR, PA systolic pressure is 24mmhg, trace AR,trace IA. Assessment an plan: This is a 69 year old man with a Pmhx of HTN, hyperlipidemia, atrial fib, CHF, T2DM who presents to ED for having shortness of breath and Ct consistent with Covid , tested positive for covid #Covid-19 Pneumonitis on rocephin/doxy/follow daily markers, on eliquis increased the dose to 5mg from 2.5mg , steroid/zinc/vit c/vitd , On Nc continue current care. completed remdisiver 12/08 , s/p convalescent plasma. continue Steroids , and anticoagulation, keep sao2 >90% , 94% on room air # Chronic heart failure with EJF 55-60%: discussed with cardio , reduced the dose of enteresto and dc'd aldactone as per cardio , will follow up with Dr drake # Atrial fibrillation, permanent: rate controlled: continue Toprol XL, Eliquis # HTN continue Toprol XL , dc Entresto, Aldactone since elevated potassium # Hyperlipidemia continue Lipitor #T2DM on metformin , SS DVT px: Eliquis will dc the patient home on metformin, 3 more days of steroid and 30 days of eliquis. with the instruction to follow up with pulm/nephro/primary care and non acoustic operator.
--- NOTE | 2020-03-22 14:48 | PN ---
Progress Note, Physician - Current Medication List Current Medications: Active Medications Apixaban (Eliquis -) 5 mg PO BID [facility] Last Admin: 03/22/20 10:13 Dose: 5 mg Documented by: Ascorbic Acid (Vitamin C -) 500 mg PO BID [facility] Last Admin: 03/22/20 10:12 Dose: 500 mg Documented by: Atorvastatin Calcium (Lipitor -) 20 mg PO [facility] Last Admin: 03/21/20 22:00 Dose: 20 mg Documented by: Budesonide/Formoterol Fumarate (Symbicort 160/4.5mcg -) 2 puff IH BID [facility] Last Admin: 03/22/20 10:14 Dose: 2 inh Documented by: Doxycycline Hyclate (Vibramycin -) 100 mg PO BID@1000,1800 [facility] Last Admin: 03/22/20 10:12 Dose: 100 mg Documented by: Insulin Aspart (Novolog Vial Sliding Scale -) 1 vial SQ [facility]; Protocol Last Admin: 03/22/20 11:24 Dose: 10 units Documented by: Insulin Detemir (Levemir Vial) 35 units SQ DAILY@0800 [facility] Last Admin: 03/22/20 10:12 Dose: 35 units Documented by: Insulin Detemir (Levemir Vial) 25 units SQ [facility] Last Admin: 03/21/20 22:00 Dose: 25 units Documented by: Methylprednisolone Sodium Succinate (Solu-Medrol -) 45 mg IVPUSH BID [facility] Last Admin: 03/22/20 10:13 Dose: 45 mg Documented by: Metoprolol Succinate (Toprol Xl -) 100 mg PO DAILY [facility] Last Admin: 03/22/20 10:13 Dose: 100 mg Documented by: Metoprolol Tartrate (Lopressor Injection -) 5 mg IVPUSH Q4H PRN PRN Reason: TACHYCARDIA Last Admin: 03/17/20 12:50 Dose: 5 mg Documented by: Pantoprazole Sodium (Protonix -) 40 mg PO DAILY [facility] Last Admin: 03/22/20 10:12 Dose: 40 mg Documented by: Sacubitril/Valsartan (Entresto 24 Mg-26 Mg Tablet) 1 tab PO BID [facility] Last Admin: 03/22/20 10:13 Dose: 1 tab Documented by: Zinc Sulfate (Orazinc -) 220 mg PO BID [facility] Last Admin: 03/22/20 10:13 Dose: 220 mg Documented by: - Objective Vital Signs: Vital Signs Temperature 98 F 03/22/20 10:00 Pulse Rate 107 H 03/22/20 12:13 Respiratory Rate 20 03/22/20 10:00 Blood Pressure 119/89 03/22/20 10:00 O2 Sat by Pulse Oximetry (%) 89 L 03/22/20 12:13 Labs: CBC, BMP 03/22/20 05:40 03/22/20 05:40 INR, PTT INR 1.35 (0.83-1.09) H 03/16/20 06:00 Fibrinogen 479.0 mg/dL (238-498) 03/16/20 06:00
--- NOTE | 2020-03-22 15:50 | DS ---
Physical Exam: SUBJECTIVE: Patient seen and examined bedside. No events overnight. Reports feeling better and wanting to go home. Denies fever, chest pain, SOB, n/v/d. OBJECTIVE: Vital Signs 03/21/20 03/21/20 17:00 22:00 Temperature 97.6 F 97.7 F Pulse Rate 88 87 Respiratory 20 20 Rate Blood Pressure 136/83 135/78 O2 Sat by Pulse 97 Oximetry (%) 03/22/20 10:00 Temperature 98 F Pulse Rate 68 Respiratory 20 Rate Blood Pressure 119/89 O2 Sat by Pulse 99 Oximetry (%) PHYSICAL EXAM GENERAL: The patient is awake, alert, and fully oriented, in no acute distress. LUNGS: Breath sounds CTA BL. Breathing comfortably on room air HEART: irregularly irregular, no murmurs appreciated Limited Exam due to Covid - 19 Laboratory Tests 03/15/20 03/15/20 03/15/20 21:40 21:40 21:40 WBC 10.1 H RBC 4.39 Hgb 13.5 Hct 40.3 MCV 91.7 MCH 30.7 MCHC 33.4 RDW 14.4 Plt Count 252 D MPV 9.0 Absolute Neuts (auto) 7.9 Neutrophils % 78.5 D Neutrophils % (Manual) Band Neutrophils % Lymphocytes % 10.3 D Lymphocytes % (Manual) Monocytes % 7.9 Monocytes % (Manual) Eosinophils % 2.3 Eosinophils % (Manual) Basophils % 1.0 Basophils % (Manual) Myelocytes % (Man) Promyelocytes % (Man) Blast Cells % (Manual) Nucleated RBC % 0 Metamyelocytes Hypochromia Platelet Estimate Polychromasia Poikilocytosis Anisocytosis Microcytosis Macrocytosis ESR PT with INR INR PTT (Actin FS) 28.0 Fibrinogen D-Dimer Anticoagulation Therapy Puncture Site Patient Temperature ABG pH ABG pCO2 ABG pO2 ABG HCO3 ABG O2 Sat (Measured) ABG O2 Content ABG Base Excess [place] Test Patient On Oxygen O2 Delivery Device Oxygen Flow Rate Vent Mode Vent Rate Mechanical Rate PEEP Pressure Support Vent Sodium 137 Potassium 4.3 Chloride 101 Carbon Dioxide 31 Anion Gap 5 L BUN 28.2 H Creatinine 1.4 H Est GFR (CKD-EPI)AfAm 58.58 Est GFR (CKD-EPI)NonAf 50.54 POC Glucometer Random Glucose 320 H Hemoglobin A1c % Calcium 9.0 Phosphorus Magnesium Ferritin Total Bilirubin 0.6 AST 85 H ALT 71 H Alkaline Phosphatase 107 LD Total Creatine Kinase 136 Troponin I < 0.02 C-Reactive Protein B-Natriuretic Peptide 616.8 H Total Protein 7.6 Albumin 2.5 L Triglycerides Cholesterol Total LDL Cholesterol HDL Cholesterol Procalcitonin TSH Urine Color Urine Appearance Urine pH Ur Specific [place] Urine Protein Urine Glucose (UA) Urine Ketones Urine Blood Urine Nitrite Urine Bilirubin Urine Urobilinogen Ur Leukocyte Esterase Ur Random Creatinine U Random Total Protein Protein/Creatinin Ratio COVID-19 ([place]) SARS-CoV-2 Ab Interp Blood Type Antibody Screen 03/15/20 03/15/20 03/15/20 21:40 21:40 21:40 WBC RBC Hgb Hct MCV MCH MCHC RDW Plt Count MPV Absolute Neuts (auto) Neutrophils % Neutrophils % (Manual) Band Neutrophils % Lymphocytes % Lymphocytes % (Manual) Monocytes % Monocytes % (Manual) Eosinophils % Eosinophils % (Manual) Basophils % Basophils % (Manual) Myelocytes % (Man) Promyelocytes % (Man) Blast Cells % (Manual) Nucleated RBC % Metamyelocytes Hypochromia Platelet Estimate Polychromasia Poikilocytosis Anisocytosis Microcytosis Macrocytosis ESR PT with INR INR PTT (Actin FS) Fibrinogen D-Dimer Anticoagulation Therapy Puncture Site Patient Temperature ABG pH ABG pCO2 ABG pO2 ABG HCO3 ABG O2 Sat (Measured) ABG O2 Content ABG Base Excess [place] Test Patient On Oxygen O2 Delivery Device Oxygen Flow Rate Vent Mode Vent Rate Mechanical Rate PEEP Pressure Support Vent Sodium Potassium Chloride Carbon Dioxide Anion Gap BUN Creatinine Est GFR (CKD-EPI)AfAm Est GFR (CKD-EPI)NonAf POC Glucometer Random Glucose Hemoglobin A1c % Calcium Phosphorus 2.8 Magnesium 1.9 Ferritin 905.0 H Total Bilirubin AST ALT Alkaline Phosphatase LD Total 576 H Creatine Kinase Troponin I C-Reactive Protein 17.0 H B-Natriuretic Peptide Total Protein Albumin Triglycerides Cholesterol Total LDL Cholesterol HDL Cholesterol Procalcitonin TSH Urine Color Urine Appearance Urine pH Ur Specific [place] Urine Protein Urine Glucose (UA) Urine Ketones Urine Blood Urine Nitrite Urine Bilirubin Urine Urobilinogen Ur Leukocyte Esterase Ur Random Creatinine U Random Total Protein Protein/Creatinin Ratio COVID-19 ([place]) Detected H SARS-CoV-2 Ab Interp Reactive Blood Type Antibody Screen 03/16/20 03/16/20 03/16/20 03:55 03:55 03:55 WBC RBC Hgb Hct MCV MCH MCHC RDW Plt Count MPV Absolute Neuts (auto) Neutrophils % Neutrophils % (Manual) Band Neutrophils % Lymphocytes % Lymphocytes % (Manual) Monocytes % Monocytes % (Manual) Eosinophils % Eosinophils % (Manual) Basophils % Basophils % (Manual) Myelocytes % (Man) Promyelocytes % (Man) Blast Cells % (Manual) Nucleated RBC % Metamyelocytes Hypochromia Platelet Estimate Polychromasia Poikilocytosis Anisocytosis Microcytosis Macrocytosis ESR PT with INR INR PTT (Actin FS) Fibrinogen D-Dimer 09616 H Anticoagulation Therapy Puncture Site Patient Temperature ABG pH ABG pCO2 ABG pO2 ABG HCO3 ABG O2 Sat (Measured) ABG O2 Content ABG Base Excess [place] Test Patient On Oxygen O2 Delivery Device Oxygen Flow Rate Vent Mode Vent Rate Mechanical Rate PEEP Pressure Support Vent Sodium Potassium Chloride Carbon Dioxide Anion Gap BUN Creatinine Est GFR (CKD-EPI)AfAm Est GFR (CKD-EPI)NonAf POC Glucometer Random Glucose Hemoglobin A1c % Calcium Phosphorus 3.1 Magnesium 1.9 Ferritin Total Bilirubin AST ALT Alkaline Phosphatase LD Total Creatine Kinase Troponin I C-Reactive Protein B-Natriuretic Peptide Total Protein Albumin Triglycerides Cholesterol Total LDL Cholesterol HDL Cholesterol Procalcitonin TSH Urine Color Urine Appearance Urine pH Ur Specific [place] Urine Protein Urine Glucose (UA) Urine Ketones Urine Blood Urine Nitrite Urine Bilirubin Urine Urobilinogen Ur Leukocyte Esterase Ur Random Creatinine U Random Total Protein Protein/Creatinin Ratio COVID-19 ([place]) SARS-CoV-2 Ab Interp Blood Type Antibody Screen 03/16/20 03/16/20 03/16/20 04:20 04:20 06:00 WBC 6.9 RBC 4.09 Hgb 12.3 Hct 37.4 MCV 91.3 MCH 30.1 MCHC 32.9 RDW 14.9 Plt Count 223 MPV 8.8 Absolute Neuts (auto) 6.0 Neutrophils % 87.0 H Neutrophils % (Manual) Band Neutrophils % Lymphocytes % 10.3 Lymphocytes % (Manual) Monocytes % 2.5 L Monocytes % (Manual) Eosinophils % 0.1 D Eosinophils % (Manual) Basophils % 0.1 Basophils % (Manual) Myelocytes % (Man) Promyelocytes % (Man) Blast Cells % (Manual) Nucleated RBC % 0 Metamyelocytes Hypochromia Platelet Estimate Polychromasia Poikilocytosis Anisocytosis Microcytosis Macrocytosis ESR PT with INR INR PTT (Actin FS) Fibrinogen D-Dimer Anticoagulation Therapy Puncture Site Patient Temperature ABG pH ABG pCO2 ABG pO2 ABG HCO3 ABG O2 Sat (Measured) ABG O2 Content ABG Base Excess [place] Test Patient On Oxygen O2 Delivery Device Oxygen Flow Rate Vent Mode Vent Rate Mechanical Rate PEEP Pressure Support Vent Sodium Potassium Chloride Carbon Dioxide Anion Gap BUN Creatinine Est GFR (CKD-EPI)AfAm Est GFR (CKD-EPI)NonAf POC Glucometer Random Glucose Hemoglobin A1c % Calcium Phosphorus Magnesium Ferritin Total Bilirubin AST ALT Alkaline Phosphatase LD Total Creatine Kinase Troponin I C-Reactive Protein B-Natriuretic Peptide Total Protein Albumin Triglycerides Cholesterol Total LDL Cholesterol HDL Cholesterol Procalcitonin TSH Urine Color Yellow Urine Appearance Clear Urine pH 5.0 Ur Specific [place] 1.054 H Urine Protein 30 Urine Glucose (UA) 250 Urine Ketones Negative Urine Blood N Urine Nitrite Negative Urine Bilirubin Negative Urine Urobilinogen 1.0 Ur Leukocyte Esterase N Ur Random Creatinine 152.0 H U Random Total Protein 54.6 H Protein/Creatinin Ratio 0.4 COVID-19 ([place]) SARS-CoV-2 Ab Interp Blood Type Antibody Screen 03/16/20 03/16/20 03/16/20 06:00 06:00 06:00 WBC RBC Hgb Hct MCV MCH MCHC RDW Plt Count MPV Absolute Neuts (auto) Neutrophils % Neutrophils % (Manual) Band Neutrophils % Lymphocytes % Lymphocytes % (Manual) Monocytes % Monocytes % (Manual) Eosinophils % Eosinophils % (Manual) Basophils % Basophils % (Manual) Myelocytes % (Man) Promyelocytes % (Man) Blast Cells % (Manual) Nucleated RBC % Metamyelocytes Hypochromia Platelet Estimate Polychromasia Poikilocytosis Anisocytosis Microcytosis Macrocytosis ESR 82 H PT with INR INR PTT (Actin FS) Fibrinogen D-Dimer Anticoagulation Therapy Puncture Site Patient Temperature ABG pH ABG pCO2 ABG pO2 ABG HCO3 ABG O2 Sat (Measured) ABG O2 Content ABG Base Excess [place] Test Patient On Oxygen O2 Delivery Device Oxygen Flow Rate Vent Mode Vent Rate Mechanical Rate PEEP Pressure Support Vent Sodium 137 Potassium 5.2 H Chloride 104 Carbon Dioxide 28 Anion Gap 6 L BUN 27.8 H Creatinine 1.2 Est GFR (CKD-EPI)AfAm 70.58 Est GFR (CKD-EPI)NonAf 60.90 POC Glucometer Random Glucose 406 H* Hemoglobin A1c % Calcium 8.8 Phosphorus Magnesium Ferritin 778.4 H Total Bilirubin 0.4 AST 57 H ALT 61 Alkaline Phosphatase 96 LD Total 311 H Creatine Kinase 75 Troponin I < 0.02 C-Reactive Protein 13.4 H B-Natriuretic Peptide Total Protein 6.9 Albumin 2.2 L Triglycerides 133 Cholesterol 102 Total LDL Cholesterol 71 HDL Cholesterol 13 L Procalcitonin TSH 0.45 Urine Color Urine Appearance Urine pH Ur Specific [place] Urine Protein Urine Glucose (UA) Urine Ketones Urine Blood Urine Nitrite Urine Bilirubin Urine Urobilinogen Ur Leukocyte Esterase Ur Random Creatinine U Random Total Protein Protein/Creatinin Ratio COVID-19 ([place]) SARS-CoV-2 Ab Interp Blood Type Antibody Screen 03/16/20 03/16/20 03/16/20 06:00 06:00 06:00 WBC RBC Hgb Hct MCV MCH MCHC RDW Plt Count MPV Absolute Neuts (auto) Neutrophils % Neutrophils % (Manual) Band Neutrophils % Lymphocytes % Lymphocytes % (Manual) Monocytes % Monocytes % (Manual) Eosinophils % Eosinophils % (Manual) Basophils % Basophils % (Manual) Myelocytes % (Man) Promyelocytes % (Man) Blast Cells % (Manual) Nucleated RBC % Metamyelocytes Hypochromia Platelet Estimate Polychromasia Poikilocytosis Anisocytosis Microcytosis Macrocytosis ESR PT with INR 16.00 H INR 1.35 H PTT (Actin FS) 25.3 Fibrinogen 479.0 D-Dimer 52826 H Anticoagulation Therapy Puncture Site Patient Temperature ABG pH ABG pCO2 ABG pO2 ABG HCO3 ABG O2 Sat (Measured) ABG O2 Content ABG Base Excess [place] Test Patient On Oxygen O2 Delivery Device Oxygen Flow Rate Vent Mode Vent Rate Mechanical Rate PEEP Pressure Support Vent Sodium Potassium Chloride Carbon Dioxide Anion Gap BUN Creatinine Est GFR (CKD-EPI)AfAm Est GFR (CKD-EPI)NonAf POC Glucometer Random Glucose Hemoglobin A1c % Calcium Phosphorus Magnesium Ferritin Total Bilirubin AST ALT Alkaline Phosphatase LD Total Creatine Kinase Troponin I C-Reactive Protein B-Natriuretic Peptide Total Protein Albumin Triglycerides Cholesterol Total LDL Cholesterol HDL Cholesterol Procalcitonin 0.16 H TSH Urine Color Urine Appearance Urine pH Ur Specific [place] Urine Protein Urine Glucose (UA) Urine Ketones Urine Blood Urine Nitrite Urine Bilirubin Urine Urobilinogen Ur Leukocyte Esterase Ur Random Creatinine U Random Total Protein Protein/Creatinin Ratio COVID-19 ([place]) SARS-CoV-2 Ab Interp Blood Type Antibody Screen 03/16/20 03/16/20 03/16/20 06:00 06:10 08:09 WBC RBC Hgb Hct MCV MCH MCHC RDW Plt Count MPV Absolute Neuts (auto) Neutrophils % Neutrophils % (Manual) Band Neutrophils % Lymphocytes % Lymphocytes % (Manual) Monocytes % Monocytes % (Manual) Eosinophils % Eosinophils % (Manual) Basophils % Basophils % (Manual) Myelocytes % (Man) Promyelocytes % (Man) Blast Cells % (Manual) Nucleated RBC % Metamyelocytes Hypochromia Platelet Estimate Polychromasia Poikilocytosis Anisocytosis Microcytosis Macrocytosis ESR PT with INR INR PTT (Actin FS) Fibrinogen D-Dimer Anticoagulation Therapy No Result Required. Puncture Site Right radial Patient Temperature No Result Required. ABG pH 7.399 ABG pCO2 41.30 ABG pO2 83.8 ABG HCO3 25.0 ABG O2 Sat (Measured) 96.3 ABG O2 Content No Result Required. ABG Base Excess 0.1 [place] Test Positive Patient On Oxygen Yes O2 Delivery Device Nasal Oxygen Flow Rate 5l Vent Mode No Result Required. Vent Rate No Result Required. Mechanical Rate No Result Required. PEEP No Result Required. Pressure Support Vent No Result Required. Sodium Potassium Chloride Carbon Dioxide Anion Gap BUN Creatinine Est GFR (CKD-EPI)AfAm Est GFR (CKD-EPI)NonAf POC Glucometer 322 Random Glucose Hemoglobin A1c % 9.5 H Calcium Phosphorus Magnesium Ferritin Total Bilirubin AST ALT Alkaline Phosphatase LD Total Creatine Kinase Troponin I C-Reactive Protein B-Natriuretic Peptide Total Protein Albumin Triglycerides Cholesterol Total LDL Cholesterol HDL Cholesterol Procalcitonin TSH Urine Color Urine Appearance Urine pH Ur Specific [place] Urine Protein Urine Glucose (UA) Urine Ketones Urine Blood Urine Nitrite Urine Bilirubin Urine Urobilinogen Ur Leukocyte Esterase Ur Random Creatinine U Random Total Protein Protein/Creatinin Ratio COVID-19 ([place]) SARS-CoV-2 Ab Interp Blood Type Antibody Screen 03/16/20 03/16/20 03/16/20 10:27 11:25 17:07 WBC RBC Hgb Hct MCV MCH MCHC RDW Plt Count MPV Absolute Neuts (auto) Neutrophils % Neutrophils % (Manual) Band Neutrophils % Lymphocytes % Lymphocytes % (Manual) Monocytes % Monocytes % (Manual) Eosinophils % Eosinophils % (Manual) Basophils % Basophils % (Manual) Myelocytes % (Man) Promyelocytes % (Man) Blast Cells % (Manual) Nucleated RBC % Metamyelocytes Hypochromia Platelet Estimate Polychromasia Poikilocytosis Anisocytosis Microcytosis Macrocytosis ESR PT with INR INR PTT (Actin FS) Fibrinogen D-Dimer Anticoagulation Therapy Puncture Site Patient Temperature ABG pH ABG pCO2 ABG pO2 ABG HCO3 ABG O2 Sat (Measured) ABG O2 Content ABG Base Excess [place] Test Patient On Oxygen O2 Delivery Device Oxygen Flow Rate Vent Mode Vent Rate Mechanical Rate PEEP Pressure Support Vent Sodium Potassium Chloride Carbon Dioxide Anion Gap BUN Creatinine Est GFR (CKD-EPI)AfAm Est GFR (CKD-EPI)NonAf POC Glucometer [phone] Random Glucose 420 H* Hemoglobin A1c % Calcium Phosphorus Magnesium Ferritin Total Bilirubin AST ALT Alkaline Phosphatase LD Total Creatine Kinase Troponin I C-Reactive Protein B-Natriuretic Peptide Total Protein Albumin Triglycerides Cholesterol Total LDL Cholesterol HDL Cholesterol Procalcitonin TSH Urine Color Urine Appearance Urine pH Ur Specific [place] Urine Protein Urine Glucose (UA) Urine Ketones Urine Blood Urine Nitrite Urine Bilirubin Urine Urobilinogen Ur Leukocyte Esterase Ur Random Creatinine U Random Total Protein Protein/Creatinin Ratio COVID-19 ([place]) SARS-CoV-2 Ab Interp Blood Type Antibody Screen 03/16/20 03/16/20 03/17/20 18:55 21:56 05:54 WBC RBC Hgb Hct MCV MCH MCHC RDW Plt Count MPV Absolute Neuts (auto) Neutrophils % Neutrophils % (Manual) Band Neutrophils % Lymphocytes % Lymphocytes % (Manual) Monocytes % Monocytes % (Manual) Eosinophils % Eosinophils % (Manual) Basophils % Basophils % (Manual) Myelocytes % (Man) Promyelocytes % (Man) Blast Cells % (Manual) Nucleated RBC % Metamyelocytes Hypochromia Platelet Estimate Polychromasia Poikilocytosis Anisocytosis Microcytosis Macrocytosis ESR PT with INR INR PTT (Actin FS) Fibrinogen D-Dimer Anticoagulation Therapy Puncture Site Patient Temperature ABG pH ABG pCO2 ABG pO2 ABG HCO3 ABG O2 Sat (Measured) ABG O2 Content ABG Base Excess [place] Test Patient On Oxygen O2 Delivery Device Oxygen Flow Rate Vent Mode Vent Rate Mechanical Rate PEEP Pressure Support Vent Sodium Potassium Chloride Carbon Dioxide Anion Gap BUN Creatinine Est GFR (CKD-EPI)AfAm Est GFR (CKD-EPI)NonAf POC Glucometer [phone] Random Glucose Hemoglobin A1c % Calcium Phosphorus Magnesium Ferritin Total Bilirubin AST ALT Alkaline Phosphatase LD Total Creatine Kinase Troponin I C-Reactive Protein B-Natriuretic Peptide Total Protein Albumin Triglycerides Cholesterol Total LDL Cholesterol HDL Cholesterol Procalcitonin TSH Urine Color Urine Appearance Urine pH Ur Specific [place] Urine Protein Urine Glucose (UA) Urine Ketones Urine Blood Urine Nitrite Urine Bilirubin Urine Urobilinogen Ur Leukocyte Esterase Ur Random Creatinine U Random Total Protein Protein/Creatinin Ratio COVID-19 ([place]) SARS-CoV-2 Ab Interp Blood Type A NEGATIVE Antibody Screen Negative 03/17/20 03/17/20 03/17/20 08:20 08:20 08:20 WBC 22.7 H RBC 4.28 Hgb 12.9 Hct 39.1 MCV 91.3 MCH 30.1 MCHC 33.0 RDW 14.5 Plt Count 314 D MPV 8.6 Absolute Neuts (auto) 20.7 H Neutrophils % 90.9 H Neutrophils % (Manual) 89.2 H Band Neutrophils % 0.0 Lymphocytes % 5.2 L D Lymphocytes % (Manual) 6.9 L Monocytes % 3.7 L Monocytes % (Manual) 3 L Eosinophils % 0.1 Eosinophils % (Manual) 0.0 Basophils % 0.1 Basophils % (Manual) 0.0 Myelocytes % (Man) 0 Promyelocytes % (Man) 0 Blast Cells % (Manual) 0 Nucleated RBC % 0 Metamyelocytes 0 Hypochromia 0 Platelet Estimate Normal Polychromasia 1+ Poikilocytosis 0 Anisocytosis 1+ Microcytosis 1+ Macrocytosis 0 ESR PT with INR INR PTT (Actin FS) Fibrinogen D-Dimer 30849 H Anticoagulation Therapy Puncture Site Patient Temperature ABG pH ABG pCO2 ABG pO2 ABG HCO3 ABG O2 Sat (Measured) ABG O2 Content ABG Base Excess [place] Test Patient On Oxygen O2 Delivery Device Oxygen Flow Rate Vent Mode Vent Rate Mechanical Rate PEEP Pressure Support Vent Sodium 137 Potassium 4.4 Chloride 104 Carbon Dioxide 24 Anion Gap 10 BUN 31.4 H Creatinine 1.3 Est GFR (CKD-EPI)AfAm 64.07 Est GFR (CKD-EPI)NonAf 55.28 POC Glucometer Random Glucose 303 H Hemoglobin A1c % Calcium 9.0 Phosphorus 3.6 Magnesium 1.9 Ferritin Total Bilirubin 0.5 AST 47 H ALT 64 H Alkaline Phosphatase 92 LD Total 343 H Creatine Kinase Troponin I C-Reactive Protein 8.9 H B-Natriuretic Peptide Total Protein 7.3 Albumin 2.5 L Triglycerides Cholesterol Total LDL Cholesterol HDL Cholesterol Procalcitonin TSH Urine Color Urine Appearance Urine pH Ur Specific [place] Urine Protein Urine Glucose (UA) Urine Ketones Urine Blood Urine Nitrite Urine Bilirubin Urine Urobilinogen Ur Leukocyte Esterase Ur Random Creatinine U Random Total Protein Protein/Creatinin Ratio COVID-19 ([place]) SARS-CoV-2 Ab Interp Blood Type Antibody Screen 03/17/20 03/17/20 03/17/20 10:41 11:25 17:38 WBC RBC Hgb Hct MCV MCH MCHC RDW Plt Count MPV Absolute Neuts (auto) Neutrophils % Neutrophils % (Manual) Band Neutrophils % Lymphocytes % Lymphocytes % (Manual) Monocytes % Monocytes % (Manual) Eosinophils % Eosinophils % (Manual) Basophils % Basophils % (Manual) Myelocytes % (Man) Promyelocytes % (Man) Blast Cells % (Manual) Nucleated RBC % Metamyelocytes Hypochromia Platelet Estimate Polychromasia Poikilocytosis Anisocytosis Microcytosis Macrocytosis ESR PT with INR INR PTT (Actin FS) Fibrinogen D-Dimer Anticoagulation Therapy Puncture Site Patient Temperature ABG pH ABG pCO2 ABG pO2 ABG HCO3 ABG O2 Sat (Measured) ABG O2 Content ABG Base Excess [place] Test Patient On Oxygen O2 Delivery Device Oxygen Flow Rate Vent Mode Vent Rate Mechanical Rate PEEP Pressure Support Vent Sodium Potassium Chloride Carbon Dioxide Anion Gap BUN Creatinine Est GFR (CKD-EPI)AfAm Est GFR (CKD-EPI)NonAf POC Glucometer [phone] Random Glucose Hemoglobin A1c % Calcium Phosphorus Magnesium Ferritin Total Bilirubin AST ALT Alkaline Phosphatase LD Total Creatine Kinase Troponin I C-Reactive Protein B-Natriuretic Peptide Total Protein Albumin Triglycerides Cholesterol Total LDL Cholesterol HDL Cholesterol Procalcitonin TSH Urine Color Urine Appearance Urine pH Ur Specific [place] Urine Protein Urine Glucose (UA) Urine Ketones Urine Blood Urine Nitrite Urine Bilirubin Urine Urobilinogen Ur Leukocyte Esterase Ur Random Creatinine U Random Total Protein Protein/Creatinin Ratio COVID-19 ([place]) SARS-CoV-2 Ab Interp Blood Type A NEGATIVE Antibody Screen 03/17/20 03/18/20 03/18/20 22:06 05:18 05:18 WBC 18.8 H RBC 3.85 L Hgb 11.5 L Hct 35.0 L MCV 90.7 MCH 29.9 MCHC 33.0 RDW 14.5 Plt Count 287 MPV 8.7 Absolute Neuts (auto) 17.4 H Neutrophils % 92.4 H Neutrophils % (Manual) 92.6 H Band Neutrophils % 0.0 Lymphocytes % 5.1 L Lymphocytes % (Manual) 5.3 L D Monocytes % 2.4 L Monocytes % (Manual) 2 L Eosinophils % 0.0 D Eosinophils % (Manual) 0.0 Basophils % 0.1 Basophils % (Manual) 0.0 Myelocytes % (Man) 0 Promyelocytes % (Man) 0 Blast Cells % (Manual) 0 Nucleated RBC % 0 Metamyelocytes 0 Hypochromia 0 Platelet Estimate Normal Polychromasia 1+ Poikilocytosis 0 Anisocytosis 0 Microcytosis 0 Macrocytosis 0 ESR 54 H PT with INR INR PTT (Actin FS) Fibrinogen D-Dimer Anticoagulation Therapy Puncture Site Patient Temperature ABG pH ABG pCO2 ABG pO2 ABG HCO3 ABG O2 Sat (Measured) ABG O2 Content ABG Base Excess [place] Test Patient On Oxygen O2 Delivery Device Oxygen Flow Rate Vent Mode Vent Rate Mechanical Rate PEEP Pressure Support Vent Sodium 136 Potassium 5.0 Chloride 103 Carbon Dioxide 24 Anion Gap 9 BUN 38.1 H Creatinine 1.2 Est GFR (CKD-EPI)AfAm 70.58 Est GFR (CKD-EPI)NonAf 60.90 POC Glucometer 247 Random Glucose 250 H Hemoglobin A1c % Calcium 8.7 Phosphorus 3.8 Magnesium 1.9 Ferritin Total Bilirubin 0.4 AST 46 H ALT 59 Alkaline Phosphatase 79 LD Total 273 H Creatine Kinase Troponin I C-Reactive Protein 4.9 H B-Natriuretic Peptide Total Protein 6.5 Albumin 2.3 L Triglycerides Cholesterol Total LDL Cholesterol HDL Cholesterol Procalcitonin TSH Urine Color Urine Appearance Urine pH Ur Specific [place] Urine Protein Urine Glucose (UA) Urine Ketones Urine Blood Urine Nitrite Urine Bilirubin Urine Urobilinogen Ur Leukocyte Esterase Ur Random Creatinine U Random Total Protein Protein/Creatinin Ratio COVID-19 ([place]) SARS-CoV-2 Ab Interp Blood Type Antibody Screen 03/18/20 03/18/20 03/18/20 05:18 05:41 12:00 WBC RBC Hgb Hct MCV MCH MCHC RDW Plt Count MPV Absolute Neuts (auto) Neutrophils % Neutrophils % (Manual) Band Neutrophils % Lymphocytes % Lymphocytes % (Manual) Monocytes % Monocytes % (Manual) Eosinophils % Eosinophils % (Manual) Basophils % Basophils % (Manual) Myelocytes % (Man) Promyelocytes % (Man) Blast Cells % (Manual) Nucleated RBC % Metamyelocytes Hypochromia Platelet Estimate Polychromasia Poikilocytosis Anisocytosis Microcytosis Macrocytosis ESR PT with INR INR PTT (Actin FS) Fibrinogen D-Dimer 8618 H Anticoagulation Therapy Puncture Site Patient Temperature ABG pH ABG pCO2 ABG pO2 ABG HCO3 ABG O2 Sat (Measured) ABG O2 Content ABG Base Excess [place] Test Patient On Oxygen O2 Delivery Device Oxygen Flow Rate Vent Mode Vent Rate Mechanical Rate PEEP Pressure Support Vent Sodium Potassium Chloride Carbon Dioxide Anion Gap BUN Creatinine Est GFR (CKD-EPI)AfAm Est GFR (CKD-EPI)NonAf POC Glucometer [phone] Random Glucose Hemoglobin A1c % Calcium Phosphorus Magnesium Ferritin Total Bilirubin AST ALT Alkaline Phosphatase LD Total Creatine Kinase Troponin I C-Reactive Protein B-Natriuretic Peptide Total Protein Albumin Triglycerides Cholesterol Total LDL Cholesterol HDL Cholesterol Procalcitonin TSH Urine Color Urine Appearance Urine pH Ur Specific [place] Urine Protein Urine Glucose (UA) Urine Ketones Urine Blood Urine Nitrite Urine Bilirubin Urine Urobilinogen Ur Leukocyte Esterase Ur Random Creatinine U Random Total Protein Protein/Creatinin Ratio COVID-19 ([place]) SARS-CoV-2 Ab Interp Blood Type Antibody Screen 03/18/20 03/18/20 03/19/20 17:37 21:45 06:27 WBC RBC Hgb Hct MCV MCH MCHC RDW Plt Count MPV Absolute Neuts (auto) Neutrophils % Neutrophils % (Manual) Band Neutrophils % Lymphocytes % Lymphocytes % (Manual) Monocytes % Monocytes % (Manual) Eosinophils % Eosinophils % (Manual) Basophils % Basophils % (Manual) Myelocytes % (Man) Promyelocytes % (Man) Blast Cells % (Manual) Nucleated RBC % Metamyelocytes Hypochromia Platelet Estimate Polychromasia Poikilocytosis Anisocytosis Microcytosis Macrocytosis ESR PT with INR INR PTT (Actin FS) Fibrinogen D-Dimer Anticoagulation Therapy Puncture Site Patient Temperature ABG pH ABG pCO2 ABG pO2 ABG HCO3 ABG O2 Sat (Measured) ABG O2 Content ABG Base Excess [place] Test Patient On Oxygen O2 Delivery Device Oxygen Flow Rate Vent Mode Vent Rate Mechanical Rate PEEP Pressure Support Vent Sodium Potassium Chloride Carbon Dioxide Anion Gap BUN Creatinine Est GFR (CKD-EPI)AfAm Est GFR (CKD-EPI)NonAf POC Glucometer [phone] Random Glucose Hemoglobin A1c % Calcium Phosphorus Magnesium Ferritin Total Bilirubin AST ALT Alkaline Phosphatase LD Total Creatine Kinase Troponin I C-Reactive Protein B-Natriuretic Peptide Total Protein Albumin Triglycerides Cholesterol Total LDL Cholesterol HDL Cholesterol Procalcitonin TSH Urine Color Urine Appearance Urine pH Ur Specific [place] Urine Protein Urine Glucose (UA) Urine Ketones Urine Blood Urine Nitrite Urine Bilirubin Urine Urobilinogen Ur Leukocyte Esterase Ur Random Creatinine U Random Total Protein Protein/Creatinin Ratio COVID-19 (PEDRO) SARS-CoV-2 Ab Interp Blood Type Antibody Screen 03/19/20 03/19/20 03/19/20 07:14 07:14 07:14 WBC 17.2 H RBC 4.31 Hgb 13.2 Hct 39.5 MCV 91.6 MCH 30.7 MCHC 33.6 RDW 14.4 Plt Count 322 MPV 8.7 Absolute Neuts (auto) Neutrophils % Neutrophils % (Manual) Band Neutrophils % Lymphocytes % Lymphocytes % (Manual) Monocytes % Monocytes % (Manual) Eosinophils % Eosinophils % (Manual) Basophils % Basophils % (Manual) Myelocytes % (Man) Promyelocytes % (Man) Blast Cells % (Manual) Nucleated RBC % Metamyelocytes Hypochromia Platelet Estimate Polychromasia Poikilocytosis Anisocytosis Microcytosis Macrocytosis ESR PT with INR INR PTT (Actin FS) Fibrinogen D-Dimer 7625 H Anticoagulation Therapy Puncture Site Patient Temperature ABG pH ABG pCO2 ABG pO2 ABG HCO3 ABG O2 Sat (Measured) ABG O2 Content ABG Base Excess [place] Test Patient On Oxygen O2 Delivery Device Oxygen Flow Rate Vent Mode Vent Rate Mechanical Rate PEEP Pressure Support Vent Sodium 137 Potassium 4.9 Chloride 100 Carbon Dioxide 30 Anion Gap 7 L BUN 40.8 H Creatinine 1.3 Est GFR (CKD-EPI)AfAm 64.07 Est GFR (CKD-EPI)NonAf 55.28 POC Glucometer Random Glucose 278 H Hemoglobin A1c % Calcium 9.1 Phosphorus Magnesium Ferritin Total Bilirubin 0.8 AST 47 H ALT 65 H Alkaline Phosphatase 85 LD Total 275 H Creatine Kinase Troponin I C-Reactive Protein 3.1 H B-Natriuretic Peptide Total Protein 6.9 Albumin 2.5 L Triglycerides Cholesterol Total LDL Cholesterol HDL Cholesterol Procalcitonin TSH Urine Color Urine Appearance Urine pH Ur Specific [place] Urine Protein Urine Glucose (UA) Urine Ketones Urine Blood Urine Nitrite Urine Bilirubin Urine Urobilinogen Ur Leukocyte Esterase Ur Random Creatinine U Random Total Protein Protein/Creatinin Ratio COVID-19 (PEDRO) SARS-CoV-2 Ab Interp Blood Type Antibody Screen 03/19/20 03/19/20 03/19/20 07:14 11:21 17:31 WBC RBC Hgb Hct MCV MCH MCHC RDW Plt Count MPV Absolute Neuts (auto) Neutrophils % Neutrophils % (Manual) Band Neutrophils % Lymphocytes % Lymphocytes % (Manual) Monocytes % Monocytes % (Manual) Eosinophils % Eosinophils % (Manual) Basophils % Basophils % (Manual) Myelocytes % (Man) Promyelocytes % (Man) Blast Cells % (Manual) Nucleated RBC % Metamyelocytes Hypochromia Platelet Estimate Polychromasia Poikilocytosis Anisocytosis Microcytosis Macrocytosis ESR PT with INR INR PTT (Actin FS) Fibrinogen D-Dimer Anticoagulation Therapy Puncture Site Patient Temperature ABG pH ABG pCO2 ABG pO2 ABG HCO3 ABG O2 Sat (Measured) ABG O2 Content ABG Base Excess [place] Test Patient On Oxygen O2 Delivery Device Oxygen Flow Rate Vent Mode Vent Rate Mechanical Rate PEEP Pressure Support Vent Sodium Potassium Chloride Carbon Dioxide Anion Gap BUN Creatinine Est GFR (CKD-EPI)AfAm Est GFR (CKD-EPI)NonAf POC Glucometer 226 295 Random Glucose Hemoglobin A1c % Calcium Phosphorus Magnesium Ferritin 493.1 H Total Bilirubin AST ALT Alkaline Phosphatase LD Total Creatine Kinase Troponin I C-Reactive Protein B-Natriuretic Peptide Total Protein Albumin Triglycerides Cholesterol Total LDL Cholesterol HDL Cholesterol Procalcitonin TSH Urine Color Urine Appearance Urine pH Ur Specific [place] Urine Protein Urine Glucose (UA) Urine Ketones Urine Blood Urine Nitrite Urine Bilirubin Urine Urobilinogen Ur Leukocyte Esterase Ur Random Creatinine U Random Total Protein Protein/Creatinin Ratio COVID-19 (PEDRO) SARS-CoV-2 Ab Interp Blood Type Antibody Screen 03/19/20 03/20/20 03/20/20 21:27 05:36 05:36 WBC 16.2 H RBC 4.52 Hgb 13.9 Hct 41.3 MCV 91.4 MCH 30.9 MCHC 33.8 RDW 14.5 Plt Count 352 MPV 9.0 Absolute Neuts (auto) Neutrophils % Neutrophils % (Manual) Band Neutrophils % Lymphocytes % Lymphocytes % (Manual) Monocytes % Monocytes % (Manual) Eosinophils % Eosinophils % (Manual) Basophils % Basophils % (Manual) Myelocytes % (Man) Promyelocytes % (Man) Blast Cells % (Manual) Nucleated RBC % Metamyelocytes Hypochromia Platelet Estimate Polychromasia Poikilocytosis Anisocytosis Microcytosis Macrocytosis ESR PT with INR INR PTT (Actin FS) Fibrinogen D-Dimer Anticoagulation Therapy Puncture Site Patient Temperature ABG pH ABG pCO2 ABG pO2 ABG HCO3 ABG O2 Sat (Measured) ABG O2 Content ABG Base Excess [place] Test Patient On Oxygen O2 Delivery Device Oxygen Flow Rate Vent Mode Vent Rate Mechanical Rate PEEP Pressure Support Vent Sodium 135 L Potassium 4.9 Chloride 100 Carbon Dioxide 25 Anion Gap 10 BUN 39.3 H Creatinine 1.3 Est GFR (CKD-EPI)AfAm 64.07 Est GFR (CKD-EPI)NonAf 55.28 POC Glucometer 355 Random Glucose 257 H Hemoglobin A1c % Calcium 8.3 L Phosphorus 3.6 Magnesium 2.0 Ferritin 451.7 H Total Bilirubin 0.5 AST 45 H ALT 70 H Alkaline Phosphatase 83 LD Total 240 Creatine Kinase Troponin I C-Reactive Protein 1.9 H B-Natriuretic Peptide Total Protein 6.6 Albumin 2.4 L Triglycerides Cholesterol Total LDL Cholesterol HDL Cholesterol Procalcitonin TSH Urine Color Urine Appearance Urine pH Ur Specific [place] Urine Protein Urine Glucose (UA) Urine Ketones Urine Blood Urine Nitrite Urine Bilirubin Urine Urobilinogen Ur Leukocyte Esterase Ur Random Creatinine U Random Total Protein Protein/Creatinin Ratio COVID-19 (PEDRO) SARS-CoV-2 Ab Interp Blood Type Antibody Screen 03/20/20 03/20/20 03/20/20 05:36 05:57 11:41 WBC RBC Hgb Hct MCV MCH MCHC RDW Plt Count MPV Absolute Neuts (auto) Neutrophils % Neutrophils % (Manual) Band Neutrophils % Lymphocytes % Lymphocytes % (Manual) Monocytes % Monocytes % (Manual) Eosinophils % Eosinophils % (Manual) Basophils % Basophils % (Manual) Myelocytes % (Man) Promyelocytes % (Man) Blast Cells % (Manual) Nucleated RBC % Metamyelocytes Hypochromia Platelet Estimate Polychromasia Poikilocytosis Anisocytosis Microcytosis Macrocytosis ESR PT with INR INR PTT (Actin FS) Fibrinogen D-Dimer 6701 H Anticoagulation Therapy Puncture Site Patient Temperature ABG pH ABG pCO2 ABG pO2 ABG HCO3 ABG O2 Sat (Measured) ABG O2 Content ABG Base Excess [place] Test Patient On Oxygen O2 Delivery Device Oxygen Flow Rate Vent Mode Vent Rate Mechanical Rate PEEP Pressure Support Vent Sodium Potassium Chloride Carbon Dioxide Anion Gap BUN Creatinine Est GFR (CKD-EPI)AfAm Est GFR (CKD-EPI)NonAf POC Glucometer 280 272 Random Glucose Hemoglobin A1c % Calcium Phosphorus Magnesium Ferritin Total Bilirubin AST ALT Alkaline Phosphatase LD Total Creatine Kinase Troponin I C-Reactive Protein B-Natriuretic Peptide Total Protein Albumin Triglycerides Cholesterol Total LDL Cholesterol HDL Cholesterol Procalcitonin TSH Urine Color Urine Appearance Urine pH Ur Specific [place] Urine Protein Urine Glucose (UA) Urine Ketones Urine Blood Urine Nitrite Urine Bilirubin Urine Urobilinogen Ur Leukocyte Esterase Ur Random Creatinine U Random Total Protein Protein/Creatinin Ratio COVID-19 (PEDRO) SARS-CoV-2 Ab Interp Blood Type Antibody Screen 03/20/20 03/21/20 03/21/20 21:42 05:33 05:33 WBC RBC Hgb Hct MCV MCH MCHC RDW Plt Count MPV Absolute Neuts (auto) Neutrophils % Neutrophils % (Manual) Band Neutrophils % Lymphocytes % Lymphocytes % (Manual) Monocytes % Monocytes % (Manual) Eosinophils % Eosinophils % (Manual) Basophils % Basophils % (Manual) Myelocytes % (Man) Promyelocytes % (Man) Blast Cells % (Manual) Nucleated RBC % Metamyelocytes Hypochromia Platelet Estimate Polychromasia Poikilocytosis Anisocytosis Microcytosis Macrocytosis ESR PT with INR INR PTT (Actin FS) Fibrinogen D-Dimer 5907 H Anticoagulation Therapy Puncture Site Patient Temperature ABG pH ABG pCO2 ABG pO2 ABG HCO3 ABG O2 Sat (Measured) ABG O2 Content ABG Base Excess [place] Test Patient On Oxygen O2 Delivery Device Oxygen Flow Rate Vent Mode Vent Rate Mechanical Rate PEEP Pressure Support Vent Sodium Potassium Chloride Carbon Dioxide Anion Gap BUN Creatinine Est GFR (CKD-EPI)AfAm Est GFR (CKD-EPI)NonAf POC Glucometer 185 Random Glucose Hemoglobin A1c % Calcium Phosphorus Magnesium Ferritin Total Bilirubin AST ALT Alkaline Phosphatase LD Total Creatine Kinase Troponin I C-Reactive Protein 1.1 H B-Natriuretic Peptide Total Protein Albumin Triglycerides Cholesterol Total LDL Cholesterol HDL Cholesterol Procalcitonin TSH Urine Color Urine Appearance Urine pH Ur Specific [place] Urine Protein Urine Glucose (UA) Urine Ketones Urine Blood Urine Nitrite Urine Bilirubin Urine Urobilinogen Ur Leukocyte Esterase Ur Random Creatinine U Random Total Protein Protein/Creatinin Ratio COVID-19 (PEDRO) SARS-CoV-2 Ab Interp Blood Type Antibody Screen 03/21/20 03/21/20 03/21/20 06:01 11:33 16:57 WBC RBC Hgb Hct MCV MCH MCHC RDW Plt Count MPV Absolute Neuts (auto) Neutrophils % Neutrophils % (Manual) Band Neutrophils % Lymphocytes % Lymphocytes % (Manual) Monocytes % Monocytes % (Manual) Eosinophils % Eosinophils % (Manual) Basophils % Basophils % (Manual) Myelocytes % (Man) Promyelocytes % (Man) Blast Cells % (Manual) Nucleated RBC % Metamyelocytes Hypochromia Platelet Estimate Polychromasia Poikilocytosis Anisocytosis Microcytosis Macrocytosis ESR PT with INR INR PTT (Actin FS) Fibrinogen D-Dimer Anticoagulation Therapy Puncture Site Patient Temperature ABG pH ABG pCO2 ABG pO2 ABG HCO3 ABG O2 Sat (Measured) ABG O2 Content ABG Base Excess [place] Test Patient On Oxygen O2 Delivery Device Oxygen Flow Rate Vent Mode Vent Rate Mechanical Rate PEEP Pressure Support Vent Sodium Potassium Chloride Carbon Dioxide Anion Gap BUN Creatinine Est GFR (CKD-EPI)AfAm Est GFR (CKD-EPI)NonAf POC Glucometer 193 248 272 Random Glucose Hemoglobin A1c % Calcium Phosphorus Magnesium Ferritin Total Bilirubin AST ALT Alkaline Phosphatase LD Total Creatine Kinase Troponin I C-Reactive Protein B-Natriuretic Peptide Total Protein Albumin Triglycerides Cholesterol Total LDL Cholesterol HDL Cholesterol Procalcitonin TSH Urine Color Urine Appearance Urine pH Ur Specific [place] Urine Protein Urine Glucose (UA) Urine Ketones Urine Blood Urine Nitrite Urine Bilirubin Urine Urobilinogen Ur Leukocyte Esterase Ur Random Creatinine U Random Total Protein Protein/Creatinin Ratio COVID-19 (PEDRO) SARS-CoV-2 Ab Interp Blood Type Antibody Screen 03/21/20 03/22/20 03/22/20 21:58 05:40 05:40 WBC 17.1 H RBC 4.85 Hgb 14.8 Hct 44.3 MCV 91.3 MCH 30.5 MCHC 33.4 RDW 14.8 Plt Count 382 MPV 8.8 Absolute Neuts (auto) Neutrophils % Neutrophils % (Manual) Band Neutrophils % Lymphocytes % Lymphocytes % (Manual) Monocytes % Monocytes % (Manual) Eosinophils % Eosinophils % (Manual) Basophils % Basophils % (Manual) Myelocytes % (Man) Promyelocytes % (Man) Blast Cells % (Manual) Nucleated RBC % Metamyelocytes Hypochromia Platelet Estimate Polychromasia Poikilocytosis Anisocytosis Microcytosis Macrocytosis ESR PT with INR INR PTT (Actin FS) Fibrinogen D-Dimer Anticoagulation Therapy Puncture Site Patient Temperature ABG pH ABG pCO2 ABG pO2 ABG HCO3 ABG O2 Sat (Measured) ABG O2 Content ABG Base Excess [place] Test Patient On Oxygen O2 Delivery Device Oxygen Flow Rate Vent Mode Vent Rate Mechanical Rate PEEP Pressure Support Vent Sodium 137 Potassium 4.7 Chloride 101 Carbon Dioxide 24 Anion Gap 11 BUN 48.9 H Creatinine 1.4 H Est GFR (CKD-EPI)AfAm 58.58 Est GFR (CKD-EPI)NonAf 50.54 POC Glucometer 314 Random Glucose 215 H Hemoglobin A1c % Calcium 8.5 Phosphorus 4.2 Magnesium 2.1 Ferritin 386.5 Total Bilirubin 0.8 AST 29 ALT 57 Alkaline Phosphatase 80 LD Total 246 Creatine Kinase Troponin I C-Reactive Protein 0.8 H B-Natriuretic Peptide Total Protein 6.6 Albumin 2.6 L Triglycerides Cholesterol Total LDL Cholesterol HDL Cholesterol Procalcitonin TSH Urine Color Urine Appearance Urine pH Ur Specific [place] Urine Protein Urine Glucose (UA) Urine Ketones Urine Blood Urine Nitrite Urine Bilirubin Urine Urobilinogen Ur Leukocyte Esterase Ur Random Creatinine U Random Total Protein Protein/Creatinin Ratio COVID-19 (PEDRO) SARS-CoV-2 Ab Interp Blood Type Antibody Screen 03/22/20 03/22/20 03/22/20 05:40 05:47 11:22 WBC RBC Hgb Hct MCV MCH MCHC RDW Plt Count MPV Absolute Neuts (auto) Neutrophils % Neutrophils % (Manual) Band Neutrophils % Lymphocytes % Lymphocytes % (Manual) Monocytes % Monocytes % (Manual) Eosinophils % Eosinophils % (Manual) Basophils % Basophils % (Manual) Myelocytes % (Man) Promyelocytes % (Man) Blast Cells % (Manual) Nucleated RBC % Metamyelocytes Hypochromia Platelet Estimate Polychromasia Poikilocytosis Anisocytosis Microcytosis Macrocytosis ESR PT with INR INR PTT (Actin FS) Fibrinogen D-Dimer 4394 H Anticoagulation Therapy Puncture Site Patient Temperature ABG pH ABG pCO2 ABG pO2 ABG HCO3 ABG O2 Sat (Measured) ABG O2 Content ABG Base Excess [place] Test Patient On Oxygen O2 Delivery Device Oxygen Flow Rate Vent Mode Vent Rate Mechanical Rate PEEP Pressure Support Vent Sodium Potassium Chloride Carbon Dioxide Anion Gap BUN Creatinine Est GFR (CKD-EPI)AfAm Est GFR (CKD-EPI)NonAf POC Glucometer 235 279 Random Glucose Hemoglobin A1c % Calcium Phosphorus Magnesium Ferritin Total Bilirubin AST ALT Alkaline Phosphatase LD Total Creatine Kinase Troponin I C-Reactive Protein B-Natriuretic Peptide Total Protein Albumin Triglycerides Cholesterol Total LDL Cholesterol HDL Cholesterol Procalcitonin TSH Urine Color Urine Appearance Urine pH Ur Specific [place] Urine Protein Urine Glucose (UA) Urine Ketones Urine Blood Urine Nitrite Urine Bilirubin Urine Urobilinogen Ur Leukocyte Esterase Ur Random Creatinine U Random Total Protein Protein/Creatinin Ratio COVID-19 (PEDRO) SARS-CoV-2 Ab Interp Blood Type Antibody Screen Home Medications Medication Instructions Recorded Atorvastatin Ca [Lipitor] 20 mg PO HS 06/14/19 Metoprolol Succinate [Toprol Xl] 100 mg PO DAILY 06/14/19 Sitagliptin Phosphate [Januvia] 1 tab PO DAILY 03/16/20 Apixaban [Eliquis -] 5 mg PO BID #60 tablet 03/22/20 Ascorbic Acid [Vitamin C -] 500 mg PO BID tablet 03/22/20 Atorvastatin Ca [Lipitor] 20 mg PO HS tablet 03/22/20 Budesonide/Formeterol Fumarate 2 puff IH BID #1 inhaler 03/22/20 [SYMBICORT 160/4.5mcg -] Pantoprazole Sodium [Protonix -] 40 mg PO DAILY tablet.ec 03/22/20 Prednisone See Taper PO DAILY 3 Days tablet 03/22/20 Sacubitril/Valsartan [Entresto 24 1 tab PO BID 30 Days #60 tablet 03/22/20 mg-26 mg Tablet] Zinc Sulfate [Orazinc -] 220 mg PO BID capsule 03/22/20 metFORMIN XR [Glucophage Xr -] 500 mg PO DAILY@0700 #30 tab.sr.24h 03/22/20 Active Medications Generic Name Dose Route Start Last Admin Trade Name Ivon PRN Reason Stop Dose Admin Apixaban 5 mg 03/16/20 10:00 03/22/20 10:13 Eliquis - PO 5 mg BID HAMZAH Administration Ascorbic Acid 500 mg 03/16/20 10:00 03/22/20 10:12 Vitamin C - PO 500 mg BID HAMZAH Administration Atorvastatin Calcium 20 mg 03/16/20 22:00 03/21/20 22:00 Lipitor - PO 20 mg HS HAMZAH Administration Budesonide/Formoterol Fumarate 2 puff 03/16/20 12:30 03/22/20 10:14 Symbicort 160/4.5mcg - IH 2 inh BID HAMZAH Administration Doxycycline Hyclate 100 mg 03/16/20 18:00 03/22/20 10:12 Vibramycin - PO 100 mg BID@1000,1800 HAMZAH Administration Insulin Aspart 1 vial 03/22/20 09:11 03/22/20 11:24 Novolog Vial Sliding Scale - SQ 10 units ACHS HAMZAH Administration Protocol Insulin Detemir 35 units 03/21/20 10:00 03/22/20 10:12 Levemir Vial SQ 35 units DAILY@0800 HAMZAH Administration Insulin Detemir 25 units 03/21/20 22:00 03/21/20 22:00 Levemir Vial SQ 25 units HS HAMZAH Administration Methylprednisolone Sodium Succinate 45 mg 03/17/20 22:00 03/22/20 10:13 Solu-Medrol - IVPUSH 45 mg BID HAMZAH Administration Metoprolol Succinate 100 mg 03/16/20 10:00 03/22/20 10:13 Toprol Xl - PO 100 mg DAILY HAMZAH Administration Metoprolol Tartrate 5 mg 03/17/20 10:52 03/17/20 12:50 Lopressor Injection - IVPUSH 5 mg Q4H PRN Administration TACHYCARDIA Pantoprazole Sodium 40 mg 03/16/20 10:00 03/22/20 10:12 Protonix - PO 40 mg DAILY HAMZAH Administration Sacubitril/Valsartan 1 tab 03/17/20 22:00 03/22/20 10:13 Entresto 24 Mg-26 Mg Tablet PO 1 tab BID HAMZAH Administration Zinc Sulfate 220 mg 03/16/20 10:00 03/22/20 10:13 Orazinc - PO 220 mg BID HAMZAH Administration Imaging: CT Chest/Ab/Pelvis Examination of the mediastinum demonstrates prominent lymph nodes within the mediastinal chains. The largest node measures 2.3 cm within the pretracheal space. The etiology of this adenopathy is uncertain. There is no evidence of mediastinal masses or fluid collections. The heart is enlarged. Evaluation of the lung willis demonstrates extensive peripheral consolidation, most marked within the upper lobes, as well as the right middle lobe. This appearance is consistent with the clinical history of Covid-19 pneumonitis. No pulmonary masses or pleural effusions are present. The liver, spleen, pancreas, adrenal glands and kidneys demonstrate no significant abnormalities. There is a 1.4 cm accessory spleen within the left upper quadrant. There is also a 2.3 cm right renal cyst. The gallbladder is clear. There is no evidence of intra-abdominal or retroperitoneal lymphadenopathy or fluid collections. There is mild dilatation of the distal abdominal aorta with widest AP diameter measuring 3.0 cm. There is no evidence of pneumoperitoneum, bowel obstruction or intra-abdominal abscess. The appendix is normal in caliber and does contain air, indicative of patency. There is no CT evidence of acute or diverticulitis. Examination of the pelvis demonstrates no evidence of pelvic masses, fluid collections or lymphadenopathy. There is no evidence of acute bony pathology. IMPRESSION: 1. Mild mediastinal lymphadenopathy. 2. Cardiomegaly. 3. Extensive bilateral consolidation consistent with Covid-19 pneumonitis. 4. 3.0 cm distal AAA. 5. No evidence of appendicitis or acute pathology within the abdomen or pelvis. Please see above discussion. HOSPITAL COURSE: Pt is a 69 yo M with PMH of HTN, DM, CHF (EF 55-60% on 06/2019), Afib, and BPH. CKD II, (patient Cr 4.5 last admission, 1.2 on this admission, calculated CC 78). Tested positive for Covid 19 on 02/28/20. Clinical symptoms and imaging consistent with covid-19. Patient was admitted to [facility] for acute respiratory failure due to covid 19. Patient covid test in hospital also came back positive. He was treated with O2 NC, IV steroids, convalescent plasma, remdesivir, symbicort and eliquis. We trended his imflammatory makers daily and they have improved. Patient started to feel much better, and eventually, he was able to saturate well without using oxygen. He is now stable enough for discharge. He was given 3 days of prednisone taper, eliquis 5 mg BID for 1 month, symbicort to use daily and told to follow up with his regular doctor. While in the hospital, the patient's blood glucose levels were very high. The patient denied ever needing insulin before this admission. His HbA1c was 9.5. His increased sugars were likely due to steroid use, however, it was not clear how much was due to steroids and how much was prior to his hospitalization. We are not discharging him on insulin, and we strongly recommended he see his primary care provider and wool dyer within 1 week of of being discharge to discuss his diabetes treatment. I also explained to the daughter and patient that the patient should check his sugars at home 3 times a day and bring all those numbers with him to his appointments. We are discharging the patient no reduced metformin dose due to kidney function and januiva. On CT, patient was found to have 3.0 cm distal AAA. The patient should follow up with vascular surgeon, Dr. Brian Eric, within 3 weeks regarding the imaging findings. CT also showed a 2.3 cm right renal cyst. Patient was instructed to follow up with director professional services, Dr. Sewell regarding his kidney cyst. Date of Admission:03/15/20 Date of Discharge: 03/22/20 Minutes to complete discharge: 39 Discharge Summary Problems reviewed: Yes Reason For Visit: SUSPECTED COVID-19 VIRUS INFECTION, HYPOXIA Current Active Problems Acute hypoxemic respiratory failure due to COVID-19 (Acute) Afib (Acute) CHF (congestive heart failure) (Acute) COVID-19 (Acute) Diabetes (Acute) HTN (hypertension) (Acute) Hypercholesterolemia (Acute) Hypoxia (Acute) Suspected COVID-19 virus infection (Acute) Condition: Stable - Instructions Diet, Activity, Other Instructions: You were admitted to the hospital because of shortness of breath on exertion. We evaluated you with lab work, blood work, and imaging including a CAT scan. Based on our evaluation, you had COVID19. We treated you with medications including oxygen and convalescent plasma, and your symptoms improved. During your hospital stay, your liver enzymes were found to be elevated. Please follow up with your Primary Care physician about this finding. An A1C blood test was done during your hospital stay, which showed a value of 9.5%, meaning that your diabetes is not fully controlled. (An A1C value of 9.5% means that your average blood sugar over the past three months was calculated to be above 200 mg/dL, which is not controlled well enough.) Please follow up with your Primary Care Physician about this blood test result. Recommendation Please self-quarantine for 2 weeks to avoid spreading COVID19 to others. Imaging Findings The following imaging findings were found during your hospital stay: A CAT scan of your chest, abdomen, and pelvis found a 3.0 cm Abdominal Aortic Aneurysm. Please follow up with the Vascular Surgeon about this finding. The CAT scan also found a 2.3 cm cyst on your right kidney. Please follow up with the director professional services referral provided for further management. Medications - Please START taking the blood thinner Eliquis 5mg by mouth twice a day (once in the morning and once in the evening) for 30 more days Your last day of Eliquis will be April 21, one pill in the morning and one pill in the evening - Please START taking prednisone for 3 days as follows: Mar 23: take 3 pills (3 x 10mg = 30 mg total) Mar 24: take 2 pills (2 x 10mg = 20mg total) Mar 25: take 1 pill (1 x 10mg = 10 mg total). - Please continue taking Zinc and Vitamin C every day. - Please continue all of your medications as prescribed. -Please Follow up with PUlmonary Dr Lopez within 1-2 weeks Follow ups - Please follow up with your primary care provider regarding your blood sugar levels within 2 week of leaving the hospital regarding your diabetes and your elevated liver enzymes. - Please also follow up with Dr. Bennett within 1 week (wool dyer) regarding your diabetes, since your sugar levels were high during admission, and you may require insulin in the future. It is very important that you monitor your sugars daily and write them down before you go see the wool dyer. - Please follow up with the Vascular Surgeon Dr. Brian Reyes within 3 weeks regarding the imaging findings, such as the abdominal aortic aneurysm, found on your CAT scan. - Please follow up with Dr. Sewell for management of your kidney cyst. If you experience worsening symptoms, chest pain, shortness of breath, abdominal pain, or worsening of your condition, please come to the emergency room or call 911. Referrals: Aron Elizabeth MD [Primary Care Provider] - 1 Week (post-COVID hospital stay. A1C found to be 9.5%. Elevated liver enzymes found.) Richard Spencer MD [Staff Physician] - 1 Week Mickey Bennett MD [Staff Physician] - 1 Week Fredis Menard MD [Staff Physician] - 1 Week Brian Reyes MD [Staff Physician] - 3 Weeks (Abdominal Aortic Aneurysm 3.0 cm) Disposition: HOME - Home Medications Comprehensive Discharge Medication List: Ambulatory Orders Atorvastatin Ca [Lipitor] 20 mg PO HS 06/14/19 Metoprolol Succinate [Toprol Xl] 100 mg PO DAILY 06/14/19 Sitagliptin Phosphate [Januvia] 1 tab PO DAILY 03/16/20 Apixaban [Eliquis -] 5 mg PO BID #60 tablet 03/22/20 Ascorbic Acid [Vitamin C -] 500 mg PO BID tablet 03/22/20 Atorvastatin Ca [Lipitor] 20 mg PO HS tablet 03/22/20 Budesonide/Formeterol Fumarate [SYMBICORT 160/4.5mcg -] 2 puff IH BID #1 inhaler 03/22/20 Pantoprazole Sodium [Protonix -] 40 mg PO DAILY tablet.ec 03/22/20 Prednisone See Taper PO DAILY 3 Days tablet 03/22/20 Sacubitril/Valsartan [Entresto 24 mg-26 mg Tablet] 1 tab PO BID 30 Days #60 tablet 03/22/20 Zinc Sulfate [Orazinc -] 220 mg PO BID capsule 03/22/20 metFORMIN XR [Glucophage Xr -] 500 mg PO DAILY@0700 #30 tab.sr.24h 03/22/20 This patient is new to me today: No Emergency Visit: Yes ED Registration Date: 03/15/20 Care time: The patient presented to the Emergency Department on the above date and was hospitalized for further evaluation of their emergent condition. Critical Care patient: No - Discharge Referral Referred to [facility] Med P.C.: No ATTENDING PHYSICIAN STATEMENT I saw and evaluated the patient. I reviewed the resident's note and discussed the case with the resident. I agree with the resident's findings and plan as documented. SUBJECTIVE: OBJECTIVE: ASSESSMENT AND PLAN:
--- NOTE | 2020-03-22 16:44 | PN ---
Progress Note, Physician History of Present Illness: 69 year old male (. [facility]), with a significant past medical history of CHF (?systolic), DM, HTN, Afib who presents to the ED with three weeks of weakness and shortness of breath. As per patient, he traveled from the [facility] three weeks ago when he first noticed a low-grade fever. Patient endorses he tested positive for covid-19 two weeks ago here at [place], but then tested negative this past Sunday. Patient also reports generalized weakness, worsened by exertion. Denies fever, chills, abdominal pain, nausea, vomiting, diarrhea, constipation, or urinary changes. Allergies: NKDA PCP: Dr. Elizabeth Statistical Clerk: Dr. Madelin Pillai - Current Medication List Current Medications: Active Medications Apixaban (Eliquis -) 5 mg PO BID [facility] Last Admin: 03/22/20 10:13 Dose: 5 mg Documented by: Ascorbic Acid (Vitamin C -) 500 mg PO BID [facility] Last Admin: 03/22/20 10:12 Dose: 500 mg Documented by: Atorvastatin Calcium (Lipitor -) 20 mg PO [facility] Last Admin: 03/21/20 22:00 Dose: 20 mg Documented by: Budesonide/Formoterol Fumarate (Symbicort 160/4.5mcg -) 2 puff IH BID [facility] Last Admin: 03/22/20 10:14 Dose: 2 inh Documented by: Doxycycline Hyclate (Vibramycin -) 100 mg PO BID@1000,1800 [facility] Last Admin: 03/22/20 10:12 Dose: 100 mg Documented by: Insulin Aspart (Novolog Vial Sliding Scale -) 1 vial SQ [facility]; Protocol Last Admin: 03/22/20 16:40 Dose: 10 units Documented by: Insulin Detemir (Levemir Vial) 35 units SQ DAILY@0800 [facility] Last Admin: 03/22/20 10:12 Dose: 35 units Documented by: Insulin Detemir (Levemir Vial) 25 units SQ [facility] Last Admin: 03/21/20 22:00 Dose: 25 units Documented by: Methylprednisolone Sodium Succinate (Solu-Medrol -) 45 mg IVPUSH BID [facility] Last Admin: 03/22/20 10:13 Dose: 45 mg Documented by: Metoprolol Succinate (Toprol Xl -) 100 mg PO DAILY [facility] Last Admin: 03/22/20 10:13 Dose: 100 mg Documented by: Metoprolol Tartrate (Lopressor Injection -) 5 mg IVPUSH Q4H PRN PRN Reason: TACHYCARDIA Last Admin: 03/17/20 12:50 Dose: 5 mg Documented by: Pantoprazole Sodium (Protonix -) 40 mg PO DAILY [facility] Last Admin: 03/22/20 10:12 Dose: 40 mg Documented by: Sacubitril/Valsartan (Entresto 24 Mg-26 Mg Tablet) 1 tab PO BID [facility] Last Admin: 03/22/20 10:13 Dose: 1 tab Documented by: Zinc Sulfate (Orazinc -) 220 mg PO BID [facility] Last Admin: 03/22/20 10:13 Dose: 220 mg Documented by: - Objective Vital Signs: Vital Signs Temperature 98 F 03/22/20 10:00 Pulse Rate 107 H 03/22/20 12:13 Respiratory Rate 03/22/20 10:00 Blood Pressure 119/89 03/22/20 10:00 O2 Sat by Pulse Oximetry (%) 89 L 03/22/20 12:13 Eyes: Yes: WNL, Conjunctiva Clear, EOM Intact HENT: Yes: WNL, Atraumatic, Normocephalic Neck: Yes: WNL, Supple, Trachea Midline Cardiovascular: Yes: WNL, Regular Rate and Rhythm Respiratory: Yes: Diminished, Rhonchi Gastrointestinal: Yes: WNL, Normal Bowel Sounds Genitourinary: Yes: WNL Musculoskeletal: Yes: WNL Extremities: Yes: WNL Edema: No Integumentary: Yes: WNL Neurological: Yes: WNL, Alert, Oriented ...Motor Strength: WNL Psychiatric: Yes: WNL Labs: CBC, BMP 03/22/20 05:40 03/22/20 05:40 INR, PTT INR 1.35 (0.83-1.09) H 03/16/20 06:00 Fibrinogen 479.0 mg/dL (238-498) 03/16/20 06:00 Problem List - Problems (1) Acute hypoxemic respiratory failure due to COVID-19 Code(s): U07.1 - COVID POSITIVE; J96.01 - ACUTE RESPIRATORY FAILURE WITH HYPOXIA (2) CHF (congestive heart failure) Code(s): I50.9 - HEART FAILURE, UNSPECIFIED (3) Diabetes Code(s): E11.9 - TYPE 2 DIABETES MELLITUS WITHOUT COMPLICATIONS (4) HTN (hypertension) Code(s): I10 - ESSENTIAL (PRIMARY) HYPERTENSION (5) Hypoxia Code(s): R09.02 - HYPOXEMIA (6) Suspected COVID-19 virus infection Code(s): Z20.828 - CONTACT W AND EXPOSURE TO OTH VIRAL COMMUNICABLE DISEASES (7) FINA (acute kidney injury) Code(s): N17.9 - ACUTE KIDNEY FAILURE, UNSPECIFIED (8) Urinary obstruction Code(s): N13.9 - OBSTRUCTIVE AND REFLUX UROPATHY, UNSPECIFIED Assessment/Plan 1. COVID pneumonitits 2. Acute on chronic ?systolic dysfunction previously class 2 NYHA classification heart failure 3. AF 4. Abnormal LFT 5. HTN PLAN: 1. Received COVID treatment including convalescent plasma, Remdesivir and antib iotics. Currently on Doxycycline. Currently on steroids, Vitamin C and Zinc 2. Metoprolol ER 100 mg QD 3. Entresto 24/26 mg BID 4. Atorvastatin 20 mg QD 5. Continue Eliquis 5 mg BID
[2020-03-22] MEDS ORDERED: INSULIN (LEVEMIR) 100 UNITS/ML UNITS SQ ONE (17:01)
== END 2020-03-22 17:55 | disposition home or self-care (01) | DRG 177 ==
LOC: JER 19:43 → JERBED 21:54 → J4W 03-16 09:39
PROVIDERS: ADMIT Internal Medicine; ATTEND Internal Medicine
PROC: XW0 New Technology, Anatomical Regions, Introduction (ICD-10-PCS; principal; 2020-03-16)
PROC: 30233L1 Transfusion of Nonautologous Fresh Plasma into Peripheral Vein, Percutaneous Approach (ICD-10-PCS; 2020-03-17)
DX: U07.1 COVID-19 (principal); J96.01 Acute respiratory failure with hypoxia; J12.89 Other viral pneumonia; I50.43 Acute on chronic combined systolic (congestive) and diastolic (congestive) heart failure; I13.0 Hypertensive heart and chronic kidney disease with heart failure and stage 1 through stage 4 chronic kidney disease, or unspecified chronic kidney disease; N17.9 Acute kidney failure, unspecified; E11.22 Type 2 diabetes mellitus with diabetic chronic kidney disease; I48.91 Unspecified atrial fibrillation; Z79.01 Long term (current) use of anticoagulants; N40.0 Benign prostatic hyperplasia without lower urinary tract symptoms; Z79.84 Long term (current) use of oral hypoglycemic drugs; I71.4 Abdominal aortic aneurysm, without rupture; N13.9 Obstructive and reflux uropathy, unspecified; R59.0 Localized enlarged lymph nodes; N18.2 Chronic kidney disease, stage 2 (mild)
CPT/HCPCS: 36415; 36430; 36600; 71045-TC-FY; 71260-TC; 74177-TC; 80053; 80061; 81003; 82308; 82550; 82565; 82728; 82803; 82947; 82962; 83036; 83615; 83721; 83735; 83880; 84100; 84156; 84443; 84484; 85025; 85027; 85379; 85384; 85610; 85651; 85730; 86140; 86769; 86850; 86900; 86901; 87086; 87899; 93005; 93010; 94761; 99285-25; J0131; J1100; P9017; U0003

== ENCOUNTER 2020-07-05 09:28 | Emergency (ER) | payer OTHER ==
[2020-07-05 09:43] VITALS: BMI 29.9
[2020-07-05] MEDS ORDERED: ACETAMINOPHEN 1000 MG/100 ML VIAL (NON FORMULARY) IVPB ONE (10:23)
[2020-07-05] MEDS ORDERED: ACETAMINOPHEN INJECTION 100 ML IVPB ONE (10:34)
[2020-07-05 10:56] LABS: BASO % 0.8 % (0-2.0); EOS % 9.9 % (0-4.5); HEMATOCRIT 41.4 % (35.4-49); HEMOGLOBIN 13.7 GM/dL (11.7-16.9); LYMPH % 19.9 % (8-40); MCH 29.3 pg (25.7-33.7); MCHC 33.1 g/dl (32.0-35.9); MEAN CELL VOLUME 88.5 fl (80-96); NEUT % 60.4 % (42.8-82.8); PLATELET COUNT 144 K/MM3 (134-434); RBC 4.68 M/mm3 (4.00-5.60); RDW 13.8 % (11.9-15.9); WHITE BLOOD COUNT 10.1 K/mm3 (4.0-10.0)
[2020-07-05 11:03] LABS: INR 1.44 (0.83-1.09); PROTHROMBIN TIME (PATIENT) 17.2 SEC (9.7-13.0)
[2020-07-05 11:06] LABS: ACTIVATED PTT 31.5 SECONDS (25.2-36.5)
[2020-07-05 11:17] LABS: CHLORIDE 101 mmol/L (98-107); POTASSIUM 4.6 mmol/L (3.5-5.1); SODIUM 134 mmol/L (136-145)
[2020-07-05 11:19] LABS: CALCIUM 9.3 mg/dL (8.5-10.1)
[2020-07-05 11:20] LABS: ALBUMIN 3.7 g/dl (3.4-5.0); ANION GAP 7 MMOL/L (8-16); BLOOD UREA NITROGEN 28.3 mg/dL (7-18); CO2 26 mmol/L (21-32)
[2020-07-05 11:23] LABS: CREATININE 1.4 mg/dL (0.55-1.3); SGOT/AST 16 U/L (15-37)
[2020-07-05 11:25] LABS: BILIRUBIN,TOTAL 0.6 mg/dL (0.2-1); TOT PROT 7.4 g/dl (6.4-8.2)
[2020-07-05 11:26] LABS: ALK PHOS 92 U/L (45-117)
[2020-07-05 11:28] LABS: SGPT/ALT 16 U/L (13-61)
[2020-07-05 11:33] LABS: GLUCOSE,RANDOM 407 mg/dL (74-106)
[2020-07-05] MEDS ORDERED: INSULIN (NOVOLOG) ASPART 100 UNITS/ML 10ML VIAL SQ ONE (13:14)
[2020-07-05 16:49] VITALS: BP 150/103; PULSE 78; TEMP 96.5
[2020-07-05 16:59] LABS: CHLORIDE 102 mmol/L (98-107); POTASSIUM 4.5 mmol/L (3.5-5.1); SODIUM 138 mmol/L (136-145)
[2020-07-05 17:01] LABS: ANION GAP 7 MMOL/L (8-16); BLOOD UREA NITROGEN 28.7 mg/dL (7-18); CALCIUM 9.2 mg/dL (8.5-10.1); CO2 29 mmol/L (21-32); GLUCOSE,RANDOM 291 mg/dL (74-106)
[2020-07-05 17:05] LABS: CREATININE 1.3 mg/dL (0.55-1.3)
== END 2020-07-05 17:56 | disposition home or self-care (01) ==
LOC: JER 09:28
PROC: 3E0333Z Introduction of Anti-inflammatory into Peripheral Vein, Percutaneous Approach (ICD-10-PCS; principal; 2020-07-05)
DX: M25.512 Pain in left shoulder (principal); R07.9 Chest pain, unspecified; R73.9 Hyperglycemia, unspecified
CPT/HCPCS: 36415; 71045-TC-FY; 73030-TC-LT-FY; 73110-TC-RT-FY; 73130-TC-RT-FY; 80048; 80053; 82550; 84484; 85025; 85610; 85730; 93005; 93010; 93970-TC; 96374; 99285-25; J0131

== ENCOUNTER 2024-10-13 10:23 | Inpatient (IN) | payer OTHER ==
[2024-10-13] MEDS ORDERED: ACETAMINOPHEN INJECTION 100 ML ONE (11:20)
[2024-10-13] MEDS: SODIUM CHLORIDE 0.9% 500 ML INFUS.BAG IV ONE (11:24)
[2024-10-13] MEDS: ACETAMINOPHEN 1000 MG/100 ML BAG IVPB ONE (11:24)
[2024-10-13 11:39] LABS: BASO % 0.6 % (0-2.0); EOS % 3.3 % (0-4.5); HEMATOCRIT 46.4 % (35.4-49); HEMOGLOBIN 15.6 GM/dL (11.7-16.9); LYMPH % 12.3 % (8-40); MCHC 33.5 g/dl (32.0-35.9); MEAN CELL VOLUME 86.4 fl (80-96); MEAN PLT VOLUME 8.4 fl (7.5-11.1); MONO % 14.4 % (3.8-10.2); NEUT % 69.4 % (42.8-82.8); PLATELET COUNT 154 10^3/uL (134-434); RBC 5.37 M/mm3 (4.00-5.60); RDW 15.1 % (11.9-15.9); WHITE BLOOD COUNT 11.9 K/mm3 (4.0-10.0)
[2024-10-13 11:47] LABS: INR 1.44 (0.83-1.09); PROTHROMBIN TIME (PATIENT) 15.8 SEC (9.7-13.0)
[2024-10-13 11:50] LABS: ACTIVATED PTT 29.5 SECONDS (25.2-36.5)
[2024-10-13 12:26] LABS: ALBUMIN 3.4 g/dl (3.4-5.0); BLOOD UREA NITROGEN 24.5 mg/dL (7-18)
[2024-10-13 12:29] LABS: CREATININE 1.7 mg/dL (0.55-1.3)
[2024-10-13 12:31] LABS: BILIRUBIN,TOTAL 1.2 mg/dL (0.2-1); TOT PROT 7.8 g/dl (6.4-8.2)
[2024-10-13 12:34] LABS: CALCIUM 9.2 mg/dL (8.5-10.1); N-TERMINAL BNP 874.5 pg/ml (5-450)
[2024-10-13 14:12] LABS: HIV INTERPRETATION NEGATIVE (NEGATIVE)
[2024-10-13 15:00] LABS: POTASSIUM 5.3 mmol/L (3.5-5.1)
[2024-10-13 15:02] LABS: CALCIUM 8.5 mg/dL (8.5-10.1)
[2024-10-13] MEDS ORDERED: DOXYCYCLINE HYCLATE 100 MG VIAL ONE (15:02)
[2024-10-13] MEDS ORDERED: CEFTRIAXONE 1 G/50 ML PREMIX 50 ML IVPB ONE (15:02)
[2024-10-13 15:03] LABS: BLOOD UREA NITROGEN 24.6 mg/dL (7-18)
[2024-10-13 15:06] LABS: CREATININE 1.5 mg/dL (0.55-1.3)
[2024-10-13 15:07] LABS: BILIRUBIN,TOTAL 0.9 mg/dL (0.2-1); TOT PROT 6.7 g/dl (6.4-8.2)
[2024-10-13] MEDS: DOXYCYCLINE INJECTION 100 MG in DEXTROSE 5%-WATER 100 ML IVPB ONE (15:31)
[2024-10-14] MEDS ORDERED: ACETAMINOPHEN INJECTION 100 ML ONE (00:40)
[2024-10-14] MEDS: ACETAMINOPHEN 1000 MG/100 ML BAG IVPB ONE (00:43)
[2024-10-14] MEDS ORDERED: SODIUM ZIRCONIUM CYCLOSILICATE (LOKELMA) 10 GM PACKET ONE (03:05)
[2024-10-14] MEDS: SODIUM ZIRCONIUM CYCLOSILICATE (LOKELMA) 5 GM PACKET PO ONE (03:20)
[2024-10-14] MEDS: CALCIUM GLUCONATE 10% - 1,000 MG/10 ML VIAL IVPUSH ONE (03:20)
[2024-10-14] MEDS ORDERED: PIPERACILLIN/TAZOB 3.375 GM 3.375 GM/50 ML BAG IVPB ONE (03:23)
[2024-10-14] MEDS: PIPERACILLIN/TAZOB 3.375 GM 3.375 GM in DEXTROSE 5%-WATER - 50 ML IVPB SCH (03:29)
[2024-10-14 04:09] VITALS: BMI 27.4
[2024-10-14] MEDS: metFORMIN HCL 500 MG TABLET (FP) PO SCH (06:20)
[2024-10-14] MEDS: INSULIN ASPART SLIDING SCALE (NOVOLOG) 1 VIAL SQ SCH (06:20)
[2024-10-14] MEDS: levoFLOXacin 750 MG TABLET PO SCH (06:20)
[2024-10-14 07:34] LABS: HEMOGLOBIN 14.2 GM/dL (11.7-16.9); MCH 28.5 pg (25.7-33.7); MCHC 32.3 g/dl (32.0-35.9); MEAN CELL VOLUME 88.2 fl (80-96); MEAN PLT VOLUME 8.9 fl (7.5-11.1); PLATELET COUNT 147 10^3/uL (134-434); RBC 4.99 M/mm3 (4.00-5.60); WHITE BLOOD COUNT 15.9 K/mm3 (4.0-10.0)
[2024-10-14 07:50] LABS: POTASSIUM 4.5 mmol/L (3.5-5.1)
[2024-10-14 07:55] LABS: CALCIUM 8.9 mg/dL (8.5-10.1)
[2024-10-14 07:56] LABS: ALBUMIN 3.1 g/dl (3.4-5.0); BLOOD UREA NITROGEN 30.9 mg/dL (7-18)
[2024-10-14 07:59] LABS: CREATININE 1.9 mg/dL (0.55-1.3)
[2024-10-14 08:01] LABS: BILIRUBIN,TOTAL 0.8 mg/dL (0.2-1); TOT PROT 6.9 g/dl (6.4-8.2)
[2024-10-14] MEDS: APIXABAN 5 MG TABLET PO SCH (10:06)
[2024-10-14] MEDS: FUROSEMIDE 40 MG TABLET (FP) PO SCH (10:06)
[2024-10-14] MEDS: PIPERACILLIN/TAZOB 3.375 GM 50 ML IVPB SCH (10:06)
[2024-10-14] MEDS: PIPERACILLIN/TAZOB 2.25 GM 2.25 GM/50 ML BAG IVPB SCH (15:57)
[2024-10-14 23:18] LABS: EPI CELLS 11 /uL (0-25.1); HYALINE CASTS 1 /uL (0-3.1); URINE APPEARANCE CLEAR; URINE BACTERIA 9 /uL (0-1359); URINE BILIRUBIN NEGATIVE (NEGATIVE); URINE COLOR YELLOW; URINE GLUCOSE (UA) NEGATIVE (NEGATIVE); URINE KETONE TRACE (NEGATIVE); URINE LEUK ESTERASE NEGATIVE (NEGATIVE); URINE NITRITE NEGATIVE (NEGATIVE); URINE PROTEIN 1+ (NEGATIVE); URINE RBC 11 /uL (0-23.9); URINE UROBILINOGEN 0.2 mg/dL (0.2-1.0); URINE WBC 20 /uL (0-25.8)
[2024-10-15 06:19] VITALS: RESP 18
[2024-10-15 08:01] LABS: HEMATOCRIT 42.5 % (35.4-49); HEMOGLOBIN 13.8 GM/dL (11.7-16.9); MCH 28.5 pg (25.7-33.7); MCHC 32.5 g/dl (32.0-35.9); MEAN CELL VOLUME 87.7 fl (80-96); MEAN PLT VOLUME 8.9 fl (7.5-11.1); PLATELET COUNT 139 10^3/uL (134-434); RBC 4.85 M/mm3 (4.00-5.60); RDW 15.2 % (11.9-15.9); WHITE BLOOD COUNT 12.5 K/mm3 (4.0-10.0)
[2024-10-15 08:17] LABS: POTASSIUM 3.9 mmol/L (3.5-5.1)
[2024-10-15 08:19] LABS: CALCIUM 8.8 mg/dL (8.5-10.1)
[2024-10-15 08:21] LABS: ALBUMIN 2.9 g/dl (3.4-5.0); BLOOD UREA NITROGEN 39.5 mg/dL (7-18); MAGNESIUM 1.6 mg/dL (1.8-2.4)
[2024-10-15 08:24] LABS: CREATININE 2.4 mg/dL (0.55-1.3)
[2024-10-15 08:25] LABS: BILIRUBIN,TOTAL 0.9 mg/dL (0.2-1)
[2024-10-15 08:26] LABS: TOT PROT 6.8 g/dl (6.4-8.2)
[2024-10-15] MEDS: METOPROLOL TARTRATE 25 MG TABLET (FP) PO SCH (10:53)
[2024-10-15 15:57] VITALS: BP 101/70; PULSE 108; TEMP 98.2
== END 2024-10-15 19:21 | disposition left against medical advice (07) | DRG 194 ==
LOC: JER 10:23 → JERBED 10-14 01:58 → J7W 10-14 03:59
PROVIDERS: ADMIT Student in an Organized Health Care Education/Training Program; ATTEND Physician Assistant
DX: J18.9 Pneumonia, unspecified organism (principal); I13.0 Hypertensive heart and chronic kidney disease with heart failure and stage 1 through stage 4 chronic kidney disease, or unspecified chronic kidney disease; I50.32 Chronic diastolic (congestive) heart failure; N17.9 Acute kidney failure, unspecified; N18.9 Chronic kidney disease, unspecified; E11.9 Type 2 diabetes mellitus without complications; I48.91 Unspecified atrial fibrillation; E87.5 Hyperkalemia; D72.829 Elevated white blood cell count, unspecified
CPT/HCPCS: 0241U-QW; 36415; 71045-TC-FY; 71260-TC; 76775-TC; 80053; 81003; 82306; 82550; 82553; 82570; 82962; 83735; 83880; 84484; 85025; 85027; 85610; 85730; 86480; 86803; 87070; 87205; 87389; 87899; 93005; 93010; 99285-25; J0131